=== PATIENT | female | born 1945 | race Caucasian/White ===

== ENCOUNTER → 2018-08-17 | Outpatient (CLI) | payer MEDICARE ==
[2016-06-22 19:02] VITALS: BP 164/82
[~2018-08-17] MED LIST: ALBU2.5V8 INH; ATOR40TA PO; AZIT250T PO; CARV3.1210 PO; CLOP75TA PO; CYCL10TA2 PO; FURO20TA3 PO; IBUP-1060 PO; LISI10TA2 PO; POTA20TA4 PO
--- NOTE | 2018-08-17 15:09 | KCIC ---
Examination: 2 views of the chest HISTORY: History of shortness of breath COMPARISON: 06/22/2016. FINDINGS: Moderate cardiomegaly. Moderate prominent appearing bilateral interstitial lung markings likely moderate congestive changes. There is rounded density projecting in the right midlung zone measuring 5.3 x 3.0 cm along the fissure likely fluid within the fissure. Mild right lung base airspace opacities. Moderate degenerative changes thoracic spine. Calcified granuloma left lung base. IMPRESSION: 1. Moderate congestive changes. 2. Round density measuring 5.3 cm projecting in the right midlung zone along the fissure probably fluid in the fissure. Close interval follow-up examination is recommended. 2. Mild right lung with airspace opacities likely atelectasis or infiltrates. Electronically signed by: Osiel Ridley MD (08/17/2018 3:07 PM) [facility]
== END | disposition home or self-care (01) ==
LOC: KCIC 14:29
PROVIDERS: ATTEND Family Medicine
DX: J84.10 Pulmonary fibrosis, unspecified (principal); I51.7 Cardiomegaly
CPT/HCPCS: 71046

== ENCOUNTER 2019-03-31 16:20 | Inpatient (IN) | payer MEDICARE ==
[~2019-03-31] VITALS: Ht 167.6 cm; Wt 79.9 kg
[~2019-03-31 16:20] MED LIST changes: +ASPI-612 PO; +FURO40TA4 PO; +SACU1TAB PO
--- NOTE | 2019-03-31 17:04 | PHYS DOC ---
Past Medical History Past Medical History: CHF, COPD, High Cholesterol, Hypertension, Renal Failure, Other Additional Past Medical Histor: small aaa approx 2.8 cm, PE Past Surgical History: No Surgical History, Other Additional Past Surgical Histo: CARDIAC CATH with stent Additional Information: pt states "a pack lasts me a week" Alcohol Use: None Drug Use: None Adult General Chief Complaint Chief Complaint: SHORTNESS OF BREATH HPI HPI Patient is a 74 year old female who was brought here by her daughter for evaluation of worsening trouble breathing with exertion, worsening swelling in her lower extremity. Patient live alone BY HERSELF, Patient also appeared that she did not take her medication as directed. Patient also had productive cough, no fever, or chest pain. Patient was admitted here, discharged home about 2 months ago, her daughter stated that her condition never got better. All other ROS is negative unless otherwise noted in HPI Review of Systems Review of Systems See above Current Medications Current Medications Current Medications Medications (Trade) Dose Ordered Sig/[place] Start Time Stop Time Status Last Admin Dose Admin Aspirin (Children'S Aspirin) 324 mg 1X ONCE 03/31/19 18:00 03/31/19 18:01 UNV Furosemide (Lasix) 40 mg 1X ONCE 03/31/19 18:00 03/31/19 18:01 UNV Allergies Allergies Allergies Coded Allergies Type Severity Reaction Last Updated Verified No Known Drug Allergies 04/18/15 No Physical Exam Physical Exam See above Constitutional: Well developed, well nourished, no acute distress, non-toxic appearance. [] HENT: Normocephalic, atraumatic, bilateral external ears normal, oropharynx moist, no oral exudates, nose normal. [] Eyes: PERRLA, EOMI, conjunctiva normal, no discharge. [] Neck: Normal range of motion, no tenderness, supple, no stridor. [] Cardiovascular:Heart rate regular rhythm, no murmur [] Lungs & Thorax: Bilateral breath sound with rales at base. NO respiratory distress. Abdomen: Bowel sounds normal, soft, no tenderness, no masses, no pulsatile masses. ABDOMINAL WALL EDEMA Skin: Warm, dry, no erythema, no rash. [] Back: No tenderness, no CVA tenderness. [] Extremities: bilateral lower extremities edema, pitting 3 plus. Neurologic: Alert and oriented X 3, normal motor function, normal sensory function, no focal deficits noted. [] Psychologic: Affect normal, judgement normal, mood normal. [] Current Patient Data Vital Signs Vital Signs Date Time Temp Pulse Resp B/P (MAP) Pulse Ox O2 Delivery O2 Flow Rate FiO2 03/31/19 16:38 98.3 110 24 166/90 (115) 96 Room Air 98.3 Lab Values Laboratory Tests Test 03/31/19 16:50 White Blood Count 4.3 x10^3/uL (4.0-11.0) Red Blood Count 3.49 x10^6/uL (3.50-5.40) L Hemoglobin 11.4 g/dL (12.0-15.5) L Hematocrit 34.1 % (36.0-47.0) L Mean Corpuscular Volume 98 fL (79-100) Mean Corpuscular Hemoglobin 33 pg (25-35) Mean Corpuscular Hemoglobin Concent 33 g/dL (31-37) Red Cell Distribution Width 15.5 % (11.5-14.5) H Platelet Count 86 x10^3/uL (140-400) L Neutrophils (%) (Auto) 59 % (31-73) Lymphocytes (%) (Auto) 30 % (24-48) Monocytes (%) (Auto) 8 % (0-9) Eosinophils (%) (Auto) 2 % (0-3) Basophils (%) (Auto) 1 % (0-3) Neutrophils # (Auto) 2.6 x10^3/uL (1.8-7.7) Lymphocytes # (Auto) 1.3 x10^3/uL (1.0-4.8) Monocytes # (Auto) 0.3 x10^3/uL (0.0-1.1) Eosinophils # (Auto) 0.1 x10^3/uL (0.0-0.7) Basophils # (Auto) 0.0 x10^3/uL (0.0-0.2) Sodium Level 145 mmol/L (136-145) Potassium Level 3.8 mmol/L (3.5-5.1) Chloride Level 108 mmol/L (98-107) H Carbon Dioxide Level 26 mmol/L (21-32) Anion Gap 11 (6-14) Blood Urea Nitrogen 30 mg/dL (7-20) H Creatinine 1.8 mg/dL (0.6-1.0) H Estimated GFR (Cockcroft-Gault) 27.4 BUN/Creatinine Ratio 17 (6-20) Glucose Level 79 mg/dL (70-99) Calcium Level 8.4 mg/dL (8.5-10.1) L Magnesium Level 2.0 mg/dL (1.8-2.4) Total Bilirubin 2.3 mg/dL (0.2-1.0) H Aspartate Amino Transferase (AST) 32 U/L (15-37) Alanine Aminotransferase (ALT) 13 U/L (14-59) L Alkaline Phosphatase 73 U/L (46-116) Troponin I Quantitative 0.026 ng/mL (0.000-0.055) WR-Kry-R-Type Natriuretic Peptide 93813 pg/mL (0-449) H Total Protein 7.5 g/dL (6.4-8.2) Albumin 3.2 g/dL (3.4-5.0) L Albumin/Globulin Ratio 0.7 (1.0-1.7) L Laboratory Tests 03/31/19 16:50 Laboratory Tests 03/31/19 16:50 EKG EKG EKG done at 1657 show heart rate of 76 6 beats per minute, sinus rhythm , no ST elevation Radiology/Procedures Radiology/Procedures [][facility] [address] [place], [place] [id number] IMAGING REPORT Signed PATIENT: TATA NICOLAS ACCOUNT: [id number] : 1945 LOCATION: ER AGE: 74 SEX: F EXAM STATUS: PRE ER ORD. PHYSICIAN: FELIPE ZURITA DO REASON: Short of breath PROCEDURE: PORTABLE CHEST 1V Examination: PORTABLE CHEST 1V History: Shortness of breath Comparison/Correlation: 11/01/2018 portable chest x-ray exam Findings: Portable upright frontal view of the chest was obtained. Cardiomegaly noted. Right basilar retrocardiac linear atelectasis or scarring is present. Notable improvement in right basilar aeration compared to the prior exam is noted. Left lateral basilar calcified granulomatous present. No pneumothorax. No new infiltrate. Osteopenia noted. Minimal right costophrenic angle blunting is noted. Impression: Retrocardiac right basilar linear atelectasis or scarring. Notable improvement in right basilar pulmonary aeration in the interval. Minimal right pleural effusion or pleural thickening. Electronically signed by: Dalton Singh MD (03/31/2019 5:45 PM) [facility] DICTATED and SIGNED BY: DALTON SINGH MD DATE: 03/31/19 7983 Course & Med Decision Making Course & Med Decision Making Pertinent Labs and Imaging studies reviewed. (See chart for details) [] Dragon Disclaimer Dragon Disclaimer This electronic medical record was generated, in whole or in part, using a voice recognition dictation system. Departure Departure Impression: Primary Impression: CHF exacerbation Additional Impression: Anasarca Disposition: ADMITTED INPATIENT Admitting Physician: STONE () Referrals: KIM EVANS MD (PCP) Problem Qualifiers FELIPE ZURITA DO Mar 31, 2019 17:04
[2019-03-31 17:05] LABS: BASO % 1 % (0-3); EOS # 0.1 x10^3/uL (0.0-0.7); EOS % 2 % (0-3); HEMATOCRIT 34.1 % (36.0-47.0); HEMOGLOBIN 11.4 g/dL (12.0-15.5); LYMPH # 1.3 x10^3/uL (1.0-4.8); LYMPH % 30 % (24-48); MEAN CORPUSCULAR HEMOGLOBIN 33 pg (25-35); MEAN CORPUSCULAR HGB CONC 33 g/dL (31-37); MEAN CORPUSCULAR VOLUME 98 fL (79-100); MONO # 0.3 x10^3/uL (0.0-1.1); MONO % 8 % (0-9); NEUT # 2.6 x10^3/uL (1.8-7.7); NEUT % 59 % (31-73); PLATELET COUNT 86 x10^3/uL (140-400); RED BLOOD COUNT 3.49 x10^6/uL (3.50-5.40); RED CELL DISTRIBUTION WIDTH 15.5 % (11.5-14.5); WHITE BLOOD COUNT 4.3 x10^3/uL (4.0-11.0)
[2019-03-31 17:29] LABS: CALCIUM 8.4 mg/dL (8.5-10.1); CREATININE 1.8 mg/dL (0.6-1.0); GFR 27.4; POTASSIUM 3.8 mmol/L (3.5-5.1)
[2019-03-31 17:35] LABS: ALBUMIN 3.2 g/dL (3.4-5.0); ALBUMIN/GLOBULIN RATIO 0.7 (1.0-1.7); TOTAL BILIRUBIN 2.3 mg/dL (0.2-1.0); TOTAL PROTEIN 7.5 g/dL (6.4-8.2)
--- NOTE | 2019-03-31 17:48 | RAD ---
Examination: PORTABLE CHEST 1V History: Shortness of breath Comparison/Correlation: 11/01/2018 portable chest x-ray exam Findings: Portable upright frontal view of the chest was obtained. Cardiomegaly noted. Right basilar retrocardiac linear atelectasis or scarring is present. Notable improvement in right basilar aeration compared to the prior exam is noted. Left lateral basilar calcified granulomatous present. No pneumothorax. No new infiltrate. Osteopenia noted. Minimal right costophrenic angle blunting is noted. Impression: Retrocardiac right basilar linear atelectasis or scarring. Notable improvement in right basilar pulmonary aeration in the interval. Minimal right pleural effusion or pleural thickening. Electronically signed by: Dalton Ventura MD (03/31/2019 5:45 PM) [facility] [place]
[2019-03-31] MEDS ORDERED: ASPIRIN CHEWABLE 81 MG TABLET. PO ONE (18:00)
[2019-03-31] MEDS ORDERED: FUROSEMIDE 40 MG/4 ML VIAL. IVP ONE (18:00)
[2019-03-31 18:05] LABS: BILIRUBIN,URINE NEGATIVE (NEG); CLARITY,URINE CLEAR; COLOR,URINE YELLOW; NITRITE,URINE NEGATIVE (NEG); PROTEIN,URINE 30 mg/dL (NEG-TRACE)
[2019-03-31] MEDS ORDERED: ONDANSETRON PF 4 MG/2 ML VIAL. IV PRN (18:15)
[2019-03-31 18:18] LABS: HYALINE CASTS, URINE MODERATE /HPF; SQUAMOUS EPITHELIAL CELL,UR MOD /LPF
[2019-03-31 18:19] LABS: BACTERIA,URINE MANY /HPF (0-FEW)
[2019-03-31 19:30] VITALS: BP 159/87
[2019-03-31] MEDS ORDERED: LISI-334 PO (23:50)
[2019-03-31 23:54] VITALS: BP 137/64
[2019-04-01 03:30] VITALS: BP 141/59
[2019-04-01 04:22] LABS: PROTHROMBIN TIME PATIENT 16.1 SEC (11.7-14.0)
--- NOTE | 2019-04-01 04:37 | EKG ---
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
[2019-04-01 05:42] LABS: CREATININE 1.8 mg/dL (0.6-1.0); GFR 27.4; POTASSIUM 3.4 mmol/L (3.5-5.1)
[2019-04-01 07:00] VITALS: BP 179/63
[2019-04-01 11:00] VITALS: BP 140/71
[2019-04-01] MEDS: POTASSIUM CHLORIDE 20 MEQ TABLET.ER. PO SCH ×2 (11:48→17:54)
[2019-04-01] MEDS: FUROSEMIDE 40 MG TABLET. PO SCH (11:48)
[2019-04-01] MEDS: CLOPIDOGREL BISULFATE 75 MG TABLET PO SCH (11:48)
[2019-04-01] MEDS: ASPIRIN ENTERIC COATED 81 MG TABLET.DR. PO SCH (11:48)
[2019-04-01] MEDS: LISINOPRIL 20 MG TABLET PO SCH (11:49)
--- NOTE | 2019-04-01 12:29 | HP ---
ADMIT DATE: 03/31/2019 CHIEF COMPLAINT: Shortness of breath. HISTORY OF PRESENT ILLNESS: The patient is a pleasant 74-year-old female who presented to the ER with shortness of breath. She has been having some lower extremity swelling. She states she lives by herself. Rates her symptoms as a 7/10. She also had a productive cough. States she was discharged here about 2 months ago for similar issues where she was treated for heart failure. I discussed the case with ER physician. Patient appears to be in acute on chronic systolic and diastolic heart failure. We admitted the patient and consult Cardiology and give her IV Lasix. PAST MEDICAL HISTORY: Previous heart failure, COPD, hypertension, renal failure, AAA about 2.8 cm, PE, cardiac catheterization with stents. She smokes less than a pack per week. ALLERGIES: None. FAMILY HISTORY: Diabetes. SOCIAL HISTORY: She smokes less than a pack per week. MEDICATIONS: Reviewed, please refer to the MRAD. REVIEW OF SYSTEMS: REVIEW OF SYSTEMS: GENERAL: No history of weight change, weakness or fevers. SKIN: No bruising, hair changes or rashes. EYES: No blurred, double or loss of vision. NOSE AND THROAT: No history of nosebleeds, hoarseness or sore throat. HEART: No history of palpitations, chest pain or shortness of breath on exertion. LUNGS: She complains of shortness of breath. GASTROINTESTINAL: Denies changes in appetite, nausea, vomiting, diarrhea or constipation. GENITOURINARY: No history of frequency, urgency, hesitancy or nocturia. NEUROLOGIC: Denies history of numbness, tingling, tremor or weakness. PSYCHIATRIC: No history of panic, anxiety or depression. ENDOCRINE: No history of heat or cold intolerance, polyuria or polydipsia. EXTREMITIES: Denies muscle weakness, joint pain, pain on walking or stiffness. PHYSICAL EXAMINATION: VITALS: Within normal limits and are stable. GENERAL: No apparent distress. Alert and oriented. HEENT: Head is normocephalic, atraumatic, pupils were equally round and reactive to light and accommodation. NECK: Supple, no JVD, no thyromegaly was noted. LUNGS: She has some wheezing diffusely. HEART: RRR, S1, S2 present. Peripheral pulses intact, no obvious murmurs were noted. ABDOMEN: Soft, nontender. Positive bowel sounds no organomegaly, normal bowel sounds. EXTREMITIES: Without any cyanosis, clubbing, or edema. Pedal pulses intact, Homans sign is negative. NEUROLOGIC: Normal speech, normal tone. A & O x3, moves all extremities, no obvious focal deficits. PSYCHIATRIC: Normal affect, normal mood. Stable. SKIN: No ulcerations or rashes, good skin turgor, no jaundice. VASCULAR: Good capillary refill, neurovascular bundle appears to be intact. LABORATORY DATA: Hemoglobin is 11.4. Electrolytes: Sodium 146, potassium 3.4, chloride 108, bicarbonate 28, BUN 30, creatinine 1.8, glucose 80. BNP 15,774. Chest x-ray shows vascular congestion. ASSESSMENT: Acute on chronic systolic and diastolic heart. PLAN: The patient is being admitted. We will check serial enzymes, serial EKGs, echocardiogram, cardiac monitoring. Consult Cardiology. IV Lasix, home meds, DVT prophylaxis, full code. DANIEL ARCHIBALD DO DR: ABEL/kurtis JOB#: [id number] / [id number]
[2019-04-01] MEDS: CYCLOBENZAPRINE 10 MG TABLET. PO SCH ×2 (14:00→21:05)
--- NOTE | 2019-04-01 14:07 | PDOC2 ---
CONSULT Date of Consult Date of Consult DATE: 04/01/19 TIME: 14:02 Reason for Consult Reason for Consult: Heart failure Referring Physician Referring Physician: Dr. Romero Identification/Chief Complaint Chief Complaint Shortness of breath Source Source: Chart review, Patient History of Present Illness Reason for Visit: The patient is a 74-year-old female who reports several days of increasing shortness of breath. Patient has a history of mildly decreased ejection fraction at 40-45% with mild to moderate mitral regurgitation and an elevated pulmonary pressure at 49 mmHg. Additionally she has COPD and continues to smoke as well as hypertension and chronic kidney disease. Patient apparently missed some of her medications and initially he has been treated for heart failure. She is feeling better overnight after diuresis. Chest x-ray shows an improved film over the last several months with a minimal right pleural effusion. She denies chest pain. Past Medical History Cardiovascular: CAD, HTN, Hyperlipidemia, Other Pulmonary: COPD, Pneumonia CENTRAL NERVOUS SYSTEM: Other GI: No pertinent hx Heme/Onc: No pertinent hx Hepatobiliary: No pertinent hx Psych: No pertinent hx Musculoskeletal: low back pain, Osteoarthritis Infectious disease: No pertinent hx Renal/: No pertinent hx Endocrine: No pertinent hx Past Surgical History Past Surgical History: Cataract Removal Family History Family History: High Cholestrol, Hypertension Social History <1 pack per day ALCOHOL: none Drugs: None Lives: Alone Current Problem List Problem List Problems Medical Problems: (1) Anasarca Status: Acute (2) CHF exacerbation Status: Acute Current Medications Current Medications Current Medications Aspirin (Children'S Aspirin) 324 mg 1X ONCE PO Last administered on 03/31/19at 18:24; Start 03/31/19 at 18:00; Stop 03/31/19 at 18:01; Status DC Furosemide (Lasix) 40 mg 1X ONCE IVP Last administered on 03/31/19at 18:24; Start 03/31/19 at 18:00; Stop 03/31/19 at 18:01; Status DC Ondansetron HCl (Zofran) 4 mg PRN Q8HRS PRN IV NAUSEA/VOMITING; Start 03/31/19 at 18:15; Stop 04/01/19 at 18:14 Aspirin (Ecotrin) 81 mg DAILYWBKFT PO Last administered on 04/01/19at 11:48; Start 04/01/19 at 11:00 Atorvastatin Calcium (Lipitor) 40 mg QHS PO ; Start 04/01/19 at 21:00 Carvedilol (Coreg) 3.125 mg BIDWMEALS PO ; Start 04/01/19 at 17:00 Clopidogrel Bisulfate (Plavix) 75 mg DAILY PO Last administered on 04/01/19at 11:48; Start 04/01/19 at 11:00 Cyclobenzaprine HCl (Flexeril) 10 mg TID PO ; Start 04/01/19 at 14:00 Furosemide (Lasix) 40 mg DAILY PO Last administered on 04/01/19at 11:48; Start 04/01/19 at 11:00 Lisinopril (Prinivil) 20 mg DAILY PO Last administered on 04/01/19at 11:49; Start 04/01/19 at 11:00 Potassium Chloride (Klor-Con) 20 meq BIDWMEALS PO Last administered on 04/01/19at 11:48; Start 04/01/19 at 11:00 Sacubitril/ Valsartan (Entresto 24 Mg-26 Mg) 1 tab BID PO ; Start 04/01/19 at 21:00; Stop 04/01/19 at 10:51; Status DC Active Scripts Active Furosemide 40 Mg Tablet 40 Mg PO DAILY 30 Days Aspirin Ec (Aspirin) 81 Mg Tablet.dr 81 Mg PO DAILYWBKFT 30 Days Entresto 24 mg-26 mg Tablet (Sacubitril/Valsartan) 1 Each Tablet 1 Tab PO BID 30 Days Cyclobenzaprine Hcl 10 Mg Tablet 10 Mg PO TID Zithromax (Azithromycin) 250 Mg Tablet 1 Pkg PO UD Proair Hfa Inhaler (Albuterol Sulfate) 8.5 Gm Hfa.aer.ad 1 Puff INH PRN Q6HRS PRN Reported Lisinopril 20 Mg Tablet 1 Tab PO DAILY Lipitor (Atorvastatin Calcium) 40 Mg Tablet 1 Tab PO QHS Clopidogrel (Clopidogrel Bisulfate) 75 Mg Tablet 75 Mg PO DAILY Carvedilol (Carvedilol) 3.125 Mg Tablet 3.125 Mg PO BIDWMEALS Klor-Con M20 (Potassium Chloride) 20 Meq Tab.er.prt 20 Meq PO BID Allergies Allergies: Coded Allergies: No Known Drug Allergies (Unverified , 04/18/15) ROS General: YES: Fatigue Respiratory: YES: Shortness of breath, SOB with excertion Physical Exam General: mild distress HEENT: Atraumatic Lungs: Other (decreased breath sounds) Heart: Regular rate Abdomen: Normal bowel sounds Vitals VITALS Vital Signs Date Time Temp Pulse Resp B/P (MAP) Pulse Ox O2 Delivery O2 Flow Rate FiO2 04/01/19 11:49 86 140/71 04/01/19 11:00 98.1 21 97 Room Air 98.1 Labs Labs Laboratory Tests Test 03/31/19 16:50 03/31/19 17:55 04/01/19 04:00 04/01/19 04:30 White Blood Count 4.3 x10^3/uL (4.0-11.0) Red Blood Count 3.49 x10^6/uL (3.50-5.40) Hemoglobin 11.4 g/dL (12.0-15.5) Hematocrit 34.1 % (36.0-47.0) Mean Corpuscular Volume 98 fL (79-100) Mean Corpuscular Hemoglobin 33 pg (25-35) Mean Corpuscular Hemoglobin Concent 33 g/dL (31-37) Red Cell Distribution Width 15.5 % (11.5-14.5) Platelet Count 86 x10^3/uL (140-400) Neutrophils (%) (Auto) 59 % (31-73) Lymphocytes (%) (Auto) 30 % (24-48) Monocytes (%) (Auto) 8 % (0-9) Eosinophils (%) (Auto) 2 % (0-3) Basophils (%) (Auto) 1 % (0-3) Neutrophils # (Auto) 2.6 x10^3/uL (1.8-7.7) Lymphocytes # (Auto) 1.3 x10^3/uL (1.0-4.8) Monocytes # (Auto) 0.3 x10^3/uL (0.0-1.1) Eosinophils # (Auto) 0.1 x10^3/uL (0.0-0.7) Basophils # (Auto) 0.0 x10^3/uL (0.0-0.2) Sodium Level 145 mmol/L (136-145) 146 mmol/L (136-145) Potassium Level 3.8 mmol/L (3.5-5.1) 3.4 mmol/L (3.5-5.1) Chloride Level 108 mmol/L (98-107) 108 mmol/L (98-107) Carbon Dioxide Level 26 mmol/L (21-32) 28 mmol/L (21-32) Anion Gap 11 (6-14) 10 (6-14) Blood Urea Nitrogen 30 mg/dL (7-20) 30 mg/dL (7-20) Creatinine 1.8 mg/dL (0.6-1.0) 1.8 mg/dL (0.6-1.0) Estimated GFR (Cockcroft-Gault) 27.4 27.4 BUN/Creatinine Ratio 17 (6-20) Glucose Level 79 mg/dL (70-99) 80 mg/dL (70-99) Calcium Level 8.4 mg/dL (8.5-10.1) 8.0 mg/dL (8.5-10.1) Magnesium Level 2.0 mg/dL (1.8-2.4) Total Bilirubin 2.3 mg/dL (0.2-1.0) Aspartate Amino Transf (AST/SGOT) 32 U/L (15-37) Alanine Aminotransferase (ALT/SGPT) 13 U/L (14-59) Alkaline Phosphatase 73 U/L (46-116) Troponin I Quantitative 0.026 ng/mL (0.000-0.055) XY-Hzb-L-Type Natriuretic Peptide 51213 pg/mL (0-449) 28882 pg/mL (0-449) Total Protein 7.5 g/dL (6.4-8.2) Albumin 3.2 g/dL (3.4-5.0) Albumin/Globulin Ratio 0.7 (1.0-1.7) Urine Collection Type Unknown Urine Color Yellow Urine Clarity Clear Urine pH 6.0 Urine Specific [place] 1.020 Urine Protein 30 mg/dL (NEG-TRACE) Urine Glucose (UA) Negative mg/dL (NEG) Urine Ketones (Stick) Negative mg/dL (NEG) Urine Blood Negative (NEG) Urine Nitrite Negative (NEG) Urine Bilirubin Negative (NEG) Urine Urobilinogen Dipstick 2.0 mg/dL (0.2 mg/dL) Urine Leukocyte Esterase Negative (NEG) Urine RBC 3-5 /HPF (0-2) Urine WBC 5-10 /HPF (0-4) Urine Squamous Epithelial Cells Mod /LPF Urine Bacteria Many /HPF (0-FEW) Urine Hyaline Casts Moderate /HPF Urine Mucus Slight /LPF Prothrombin Time 16.1 SEC (11.7-14.0) Prothromb Time International Ratio 1.3 (0.8-1.1) Activated Partial Thromboplast Time 40 SEC (24-38) Laboratory Tests Test 03/31/19 16:50 03/31/19 17:55 04/01/19 04:00 04/01/19 04:30 White Blood Count 4.3 x10^3/uL (4.0-11.0) Red Blood Count 3.49 x10^6/uL (3.50-5.40) Hemoglobin 11.4 g/dL (12.0-15.5) Hematocrit 34.1 % (36.0-47.0) Mean Corpuscular Volume 98 fL (79-100) Mean Corpuscular Hemoglobin 33 pg (25-35) Mean Corpuscular Hemoglobin Concent 33 g/dL (31-37) Red Cell Distribution Width 15.5 % (11.5-14.5) Platelet Count 86 x10^3/uL (140-400) Neutrophils (%) (Auto) 59 % (31-73) Lymphocytes (%) (Auto) 30 % (24-48) Monocytes (%) (Auto) 8 % (0-9) Eosinophils (%) (Auto) 2 % (0-3) Basophils (%) (Auto) 1 % (0-3) Neutrophils # (Auto) 2.6 x10^3/uL (1.8-7.7) Lymphocytes # (Auto) 1.3 x10^3/uL (1.0-4.8) Monocytes # (Auto) 0.3 x10^3/uL (0.0-1.1) Eosinophils # (Auto) 0.1 x10^3/uL (0.0-0.7) Basophils # (Auto) 0.0 x10^3/uL (0.0-0.2) Sodium Level 145 mmol/L (136-145) 146 mmol/L (136-145) Potassium Level 3.8 mmol/L (3.5-5.1) 3.4 mmol/L (3.5-5.1) Chloride Level 108 mmol/L (98-107) 108 mmol/L (98-107) Carbon Dioxide Level 26 mmol/L (21-32) 28 mmol/L (21-32) Anion Gap 11 (6-14) 10 (6-14) Blood Urea Nitrogen 30 mg/dL (7-20) 30 mg/dL (7-20) Creatinine 1.8 mg/dL (0.6-1.0) 1.8 mg/dL (0.6-1.0) Estimated GFR (Cockcroft-Gault) 27.4 27.4 BUN/Creatinine Ratio 17 (6-20) Glucose Level 79 mg/dL (70-99) 80 mg/dL (70-99) Calcium Level 8.4 mg/dL (8.5-10.1) 8.0 mg/dL (8.5-10.1) Magnesium Level 2.0 mg/dL (1.8-2.4) Total Bilirubin 2.3 mg/dL (0.2-1.0) Aspartate Amino Transf (AST/SGOT) 32 U/L (15-37) Alanine Aminotransferase (ALT/SGPT) 13 U/L (14-59) Alkaline Phosphatase 73 U/L (46-116) Troponin I Quantitative 0.026 ng/mL (0.000-0.055) RC-Cnv-T-Type Natriuretic Peptide 80014 pg/mL (0-449) 06444 pg/mL (0-449) Total Protein 7.5 g/dL (6.4-8.2) Albumin 3.2 g/dL (3.4-5.0) Albumin/Globulin Ratio 0.7 (1.0-1.7) Urine Collection Type Unknown Urine Color Yellow Urine Clarity Clear Urine pH 6.0 Urine Specific [place] 1.020 Urine Protein 30 mg/dL (NEG-TRACE) Urine Glucose (UA) Negative mg/dL (NEG) Urine Ketones (Stick) Negative mg/dL (NEG) Urine Blood Negative (NEG) Urine Nitrite Negative (NEG) Urine Bilirubin Negative (NEG) Urine Urobilinogen Dipstick 2.0 mg/dL (0.2 mg/dL) Urine Leukocyte Esterase Negative (NEG) Urine RBC 3-5 /HPF (0-2) Urine WBC 5-10 /HPF (0-4) Urine Squamous Epithelial Cells Mod /LPF Urine Bacteria Many /HPF (0-FEW) Urine Hyaline Casts Moderate /HPF Urine Mucus Slight /LPF Prothrombin Time 16.1 SEC (11.7-14.0) Prothromb Time International Ratio 1.3 (0.8-1.1) Activated Partial Thromboplast Time 40 SEC (24-38) Images Images Chest x-ray as above. Echo from 11/02/18 ejection fraction of 40-45%, mild aortic stenosis, mild to moderate mitral regurgitation, mild tricuspid regurgitation with a pulmonary artery pressure 49. Assessment/Plan Assessment/Plan 1. Acute on chronic systolic heart failure. BNP elevated at 15,000 548. Troponin minimally elevated at 0.0-6. No chest pain. We'll continue to diurese the patient. Continue baseline medications. Monitoring lab. 2. History of probable coronary artery disease. No chest pain. No significant elevation in troponin. 3. COPD. Continue pulmonary medications. Patient continues to smoke cigarettes. 4. Hypertension. Blood pressure under reasonable control. Continue medications and monitor. 5. Hyperlipidemia. Continue medication. Check morning lab. 6. Chronic kidney disease. Continue to monitor lab. Thank you for allowing us to participate in the care of your patient. MOODY FOURNIER MD Apr 01, 2019 14:07
[2019-04-01 15:00] VITALS: BP 131/57
[2019-04-01] MEDS: CARVEDILOL 3.125 MG TABLET. PO SCH (17:54)
[2019-04-01 19:00] VITALS: BP 151/73
[2019-04-01] MEDS ORDERED: SACUBITRIL/VALSARTAN 24/26MG TABLET. PO SCH (21:00)
[2019-04-01] MEDS: ATORVASTATIN CALCIUM 40 MG TABLET. PO SCH (21:05)
[2019-04-01 23:10] VITALS: BP 146/68
[2019-04-02 03:15] VITALS: BP 119/54
[2019-04-02 07:00] VITALS: BP 141/70
[2019-04-02 07:30] LABS: BASO % 1 % (0-3); EOS # 0.2 x10^3/uL (0.0-0.7); EOS % 5 % (0-3); HEMATOCRIT 32.7 % (36.0-47.0); HEMOGLOBIN 10.9 g/dL (12.0-15.5); LYMPH # 1.5 x10^3/uL (1.0-4.8); LYMPH % 33 % (24-48); MEAN CORPUSCULAR HEMOGLOBIN 32 pg (25-35); MEAN CORPUSCULAR HGB CONC 33 g/dL (31-37); MEAN CORPUSCULAR VOLUME 97 fL (79-100); MONO # 0.5 x10^3/uL (0.0-1.1); MONO % 12 % (0-9); NEUT # 2.2 x10^3/uL (1.8-7.7); NEUT % 50 % (31-73); PLATELET COUNT 128 x10^3/uL (140-400); RED BLOOD COUNT 3.37 x10^6/uL (3.50-5.40); RED CELL DISTRIBUTION WIDTH 15.9 % (11.5-14.5); WHITE BLOOD COUNT 4.5 x10^3/uL (4.0-11.0)
[2019-04-02 07:32] LABS: CALCIUM 7.7 mg/dL (8.5-10.1); CREATININE 1.9 mg/dL (0.6-1.0); GFR 25.7; MAGNESIUM 1.9 mg/dL (1.8-2.4)
[2019-04-02] MEDS: LISINOPRIL 20 MG TABLET PO SCH (08:57)
[2019-04-02] MEDS: ASPIRIN ENTERIC COATED 81 MG TABLET.DR. PO SCH (08:57)
[2019-04-02] MEDS: POTASSIUM CHLORIDE 20 MEQ TABLET.ER. PO SCH ×2 (08:57→17:31)
[2019-04-02] MEDS: FUROSEMIDE 40 MG TABLET. PO SCH (08:57)
[2019-04-02] MEDS: CARVEDILOL 3.125 MG TABLET. PO SCH ×2 (08:58→17:31)
[2019-04-02] MEDS: CLOPIDOGREL BISULFATE 75 MG TABLET PO SCH (08:58)
[2019-04-02] MEDS: CYCLOBENZAPRINE 10 MG TABLET. PO SCH ×3 (08:58→20:56)
[2019-04-02 10:41] VITALS: BP 131/55
--- NOTE | 2019-04-02 13:32 | PDOC ---
[employer] PROGRESS NOTE Chief Complaint Chief Complaint Acute on chronic systolic heart failure History of probable coronary artery disease COPD Hypertension Hyperlipidemia Chronic kidney disease History of Present Illness History of Present Illness 04/02/2019 Pt was seen and examined. Pt reports no acute distress this morning. Was slightly hostile to interview adamantly stating she is Yolanda Billings. Vitals/I&O Vitals/I&O: Vital Signs Date Time Temp Pulse Resp B/P (MAP) Pulse Ox O2 Delivery O2 Flow Rate FiO2 04/02/19 10:41 98.4 70 16 131/55 (80) 94 Room Air 98.4 I & O 04/01/19 04/01/19 04/02/19 15:00 23:00 07:00 Intake Total 360 ml 480 ml 150 ml Output Total 600 ml 600 ml 700 ml Balance -240 ml -120 ml -550 ml Physical Exam General: Alert, Oriented X3, Cooperative, mild distress Heart: Regular rate Lungs: Crackles Abdomen: Normal bowel sounds Extremities: No clubbing, No cyanosis Skin: No rashes, No breakdown Labs Labs: Laboratory Tests Test 04/02/19 05:25 White Blood Count 4.5 x10^3/uL (4.0-11.0) Red Blood Count 3.37 x10^6/uL (3.50-5.40) Hemoglobin 10.9 g/dL (12.0-15.5) Hematocrit 32.7 % (36.0-47.0) Mean Corpuscular Volume 97 fL (79-100) Mean Corpuscular Hemoglobin 32 pg (25-35) Mean Corpuscular Hemoglobin Concent 33 g/dL (31-37) Red Cell Distribution Width 15.9 % (11.5-14.5) Platelet Count 128 x10^3/uL (140-400) Neutrophils (%) (Auto) 50 % (31-73) Lymphocytes (%) (Auto) 33 % (24-48) Monocytes (%) (Auto) 12 % (0-9) Eosinophils (%) (Auto) 5 % (0-3) Basophils (%) (Auto) 1 % (0-3) Neutrophils # (Auto) 2.2 x10^3/uL (1.8-7.7) Lymphocytes # (Auto) 1.5 x10^3/uL (1.0-4.8) Monocytes # (Auto) 0.5 x10^3/uL (0.0-1.1) Eosinophils # (Auto) 0.2 x10^3/uL (0.0-0.7) Basophils # (Auto) 0.0 x10^3/uL (0.0-0.2) Sodium Level 143 mmol/L (136-145) Potassium Level 4.0 mmol/L (3.5-5.1) Chloride Level 105 mmol/L (98-107) Carbon Dioxide Level 28 mmol/L (21-32) Anion Gap 10 (6-14) Blood Urea Nitrogen 32 mg/dL (7-20) Creatinine 1.9 mg/dL (0.6-1.0) Estimated GFR (Cockcroft-Gault) 25.7 Glucose Level 82 mg/dL (70-99) Calcium Level 7.7 mg/dL (8.5-10.1) Magnesium Level 1.9 mg/dL (1.8-2.4) Review of Systems Review of Systems: Denies CP Denies SOB Denies N/V/D Assessment and Plan Assessmemt and Plan Problems Medical Problems: (1) Anasarca Status: Acute (2) CHF exacerbation Status: Acute Acute on chronic systolic heart failure History of probable coronary artery disease COPD Hypertension Hyperlipidemia Chronic kidney disease Plan: 1) Appreciate cardiology input and recommendations 2) Continue diureses per cardiology 3) Daily labs 4) PT/OT 5) DVT prophylaxis Comment Review of Relevant I have reviewed the following items yuliana (where applicable) has been applied. Medications: Current Medications Medications (Trade) Dose Ordered Sig/[place] Route PRN Reason Start Time Stop Time Status Last Admin Dose Admin Atorvastatin Calcium (Lipitor) 40 mg QHS PO 04/01/19 21:00 04/01/19 21:05 Carvedilol (Coreg) 3.125 mg BIDWMEALS PO 04/01/19 17:00 04/02/19 08:58 Cyclobenzaprine HCl (Flexeril) 10 mg TID PO 04/01/19 14:00 04/01/19 21:05 DANIEL ARCHIBALD III DO Apr 02, 2019 13:32
--- NOTE | 2019-04-02 14:00 | PDOC ---
PROGRESS NOTES Subjective Subjective Patient seen and examined She is feeling better today. Objective Objective Vital Signs Date Time Temp Pulse Resp B/P (MAP) Pulse Ox O2 Delivery O2 Flow Rate FiO2 04/02/19 10:41 98.4 70 16 131/55 (80) 94 Room Air 98.4 Intake and Output 04/02/19 07:00 Intake Total 990 ml Output Total 1900 ml Balance -910 ml Intake Oral 990 ml Output Urine Total 1900 ml Physical Exam Abdomen: Normal bowel sounds Heart: Regular rate General: mild distress Lungs: Other (minimally decreased breath sounds) Assessment Assessment Problems Medical Problems: (1) Anasarca Status: Acute (2) CHF exacerbation Status: Acute Assessment/Plan 1. Acute on chronic systolic heart failure. BNP elevated at 15,548. Troponin minimally elevated at 0.0-6. No chest pain. Reasonable diuresis overnight. Creatinine slightly increased from 1.8-1.9. Continue medications and monitor lab. 2. History of probable coronary artery disease. No chest pain. No significant elevation in troponin. Continue medical treatment. 3. COPD. Continue pulmonary medications. Patient continues to smoke cigarettes. 4. Hypertension. Blood pressure under reasonable control. Continue medications and monitor. 5. Hyperlipidemia. Continue medication. 6. Chronic kidney disease. Continue to monitor lab. Morning creat at 1.9. Comment Review of Relevant I have reviewed the following items yuliana (where applicable) has been applied. Labs Laboratory Tests Test 03/31/19 16:50 03/31/19 17:55 04/01/19 04:00 04/01/19 04:30 White Blood Count 4.3 x10^3/uL (4.0-11.0) Red Blood Count 3.49 x10^6/uL (3.50-5.40) Hemoglobin 11.4 g/dL (12.0-15.5) Hematocrit 34.1 % (36.0-47.0) Mean Corpuscular Volume 98 fL (79-100) Mean Corpuscular Hemoglobin 33 pg (25-35) Mean Corpuscular Hemoglobin Concent 33 g/dL (31-37) Red Cell Distribution Width 15.5 % (11.5-14.5) Platelet Count 86 x10^3/uL (140-400) Neutrophils (%) (Auto) 59 % (31-73) Lymphocytes (%) (Auto) 30 % (24-48) Monocytes (%) (Auto) 8 % (0-9) Eosinophils (%) (Auto) 2 % (0-3) Basophils (%) (Auto) 1 % (0-3) Neutrophils # (Auto) 2.6 x10^3/uL (1.8-7.7) Lymphocytes # (Auto) 1.3 x10^3/uL (1.0-4.8) Monocytes # (Auto) 0.3 x10^3/uL (0.0-1.1) Eosinophils # (Auto) 0.1 x10^3/uL (0.0-0.7) Basophils # (Auto) 0.0 x10^3/uL (0.0-0.2) Sodium Level 145 mmol/L (136-145) 146 mmol/L (136-145) Potassium Level 3.8 mmol/L (3.5-5.1) 3.4 mmol/L (3.5-5.1) Chloride Level 108 mmol/L (98-107) 108 mmol/L (98-107) Carbon Dioxide Level 26 mmol/L (21-32) 28 mmol/L (21-32) Anion Gap 11 (6-14) 10 (6-14) Blood Urea Nitrogen 30 mg/dL (7-20) 30 mg/dL (7-20) Creatinine 1.8 mg/dL (0.6-1.0) 1.8 mg/dL (0.6-1.0) Estimated GFR (Cockcroft-Gault) 27.4 27.4 BUN/Creatinine Ratio 17 (6-20) Glucose Level 79 mg/dL (70-99) 80 mg/dL (70-99) Calcium Level 8.4 mg/dL (8.5-10.1) 8.0 mg/dL (8.5-10.1) Magnesium Level 2.0 mg/dL (1.8-2.4) Total Bilirubin 2.3 mg/dL (0.2-1.0) Aspartate Amino Transf (AST/SGOT) 32 U/L (15-37) Alanine Aminotransferase (ALT/SGPT) 13 U/L (14-59) Alkaline Phosphatase 73 U/L (46-116) Troponin I Quantitative 0.026 ng/mL (0.000-0.055) PT-Niy-B-Type Natriuretic Peptide 70580 pg/mL (0-449) 29561 pg/mL (0-449) Total Protein 7.5 g/dL (6.4-8.2) Albumin 3.2 g/dL (3.4-5.0) Albumin/Globulin Ratio 0.7 (1.0-1.7) Urine Collection Type Unknown Urine Color Yellow Urine Clarity Clear Urine pH 6.0 Urine Specific [place] 1.020 Urine Protein 30 mg/dL (NEG-TRACE) Urine Glucose (UA) Negative mg/dL (NEG) Urine Ketones (Stick) Negative mg/dL (NEG) Urine Blood Negative (NEG) Urine Nitrite Negative (NEG) Urine Bilirubin Negative (NEG) Urine Urobilinogen Dipstick 2.0 mg/dL (0.2 mg/dL) Urine Leukocyte Esterase Negative (NEG) Urine RBC 3-5 /HPF (0-2) Urine WBC 5-10 /HPF (0-4) Urine Squamous Epithelial Cells Mod /LPF Urine Bacteria Many /HPF (0-FEW) Urine Hyaline Casts Moderate /HPF Urine Mucus Slight /LPF Prothrombin Time 16.1 SEC (11.7-14.0) Prothromb Time International Ratio 1.3 (0.8-1.1) Activated Partial Thromboplast Time 40 SEC (24-38) Test 04/02/19 05:25 White Blood Count 4.5 x10^3/uL (4.0-11.0) Red Blood Count 3.37 x10^6/uL (3.50-5.40) Hemoglobin 10.9 g/dL (12.0-15.5) Hematocrit 32.7 % (36.0-47.0) Mean Corpuscular Volume 97 fL (79-100) Mean Corpuscular Hemoglobin 32 pg (25-35) Mean Corpuscular Hemoglobin Concent 33 g/dL (31-37) Red Cell Distribution Width 15.9 % (11.5-14.5) Platelet Count 128 x10^3/uL (140-400) Neutrophils (%) (Auto) 50 % (31-73) Lymphocytes (%) (Auto) 33 % (24-48) Monocytes (%) (Auto) 12 % (0-9) Eosinophils (%) (Auto) 5 % (0-3) Basophils (%) (Auto) 1 % (0-3) Neutrophils # (Auto) 2.2 x10^3/uL (1.8-7.7) Lymphocytes # (Auto) 1.5 x10^3/uL (1.0-4.8) Monocytes # (Auto) 0.5 x10^3/uL (0.0-1.1) Eosinophils # (Auto) 0.2 x10^3/uL (0.0-0.7) Basophils # (Auto) 0.0 x10^3/uL (0.0-0.2) Sodium Level 143 mmol/L (136-145) Potassium Level 4.0 mmol/L (3.5-5.1) Chloride Level 105 mmol/L (98-107) Carbon Dioxide Level 28 mmol/L (21-32) Anion Gap 10 (6-14) Blood Urea Nitrogen 32 mg/dL (7-20) Creatinine 1.9 mg/dL (0.6-1.0) Estimated GFR (Cockcroft-Gault) 25.7 Glucose Level 82 mg/dL (70-99) Calcium Level 7.7 mg/dL (8.5-10.1) Magnesium Level 1.9 mg/dL (1.8-2.4) Laboratory Tests Test 04/02/19 05:25 White Blood Count 4.5 x10^3/uL (4.0-11.0) Red Blood Count 3.37 x10^6/uL (3.50-5.40) Hemoglobin 10.9 g/dL (12.0-15.5) Hematocrit 32.7 % (36.0-47.0) Mean Corpuscular Volume 97 fL (79-100) Mean Corpuscular Hemoglobin 32 pg (25-35) Mean Corpuscular Hemoglobin Concent 33 g/dL (31-37) Red Cell Distribution Width 15.9 % (11.5-14.5) Platelet Count 128 x10^3/uL (140-400) Neutrophils (%) (Auto) 50 % (31-73) Lymphocytes (%) (Auto) 33 % (24-48) Monocytes (%) (Auto) 12 % (0-9) Eosinophils (%) (Auto) 5 % (0-3) Basophils (%) (Auto) 1 % (0-3) Neutrophils # (Auto) 2.2 x10^3/uL (1.8-7.7) Lymphocytes # (Auto) 1.5 x10^3/uL (1.0-4.8) Monocytes # (Auto) 0.5 x10^3/uL (0.0-1.1) Eosinophils # (Auto) 0.2 x10^3/uL (0.0-0.7) Basophils # (Auto) 0.0 x10^3/uL (0.0-0.2) Sodium Level 143 mmol/L (136-145) Potassium Level 4.0 mmol/L (3.5-5.1) Chloride Level 105 mmol/L (98-107) Carbon Dioxide Level 28 mmol/L (21-32) Anion Gap 10 (6-14) Blood Urea Nitrogen 32 mg/dL (7-20) Creatinine 1.9 mg/dL (0.6-1.0) Estimated GFR (Cockcroft-Gault) 25.7 Glucose Level 82 mg/dL (70-99) Calcium Level 7.7 mg/dL (8.5-10.1) Magnesium Level 1.9 mg/dL (1.8-2.4) Medications Current Medications Aspirin (Children'S Aspirin) 324 mg 1X ONCE PO Last administered on 03/31/19 18:24; Start 03/31/19 at 18:00; Stop 03/31/19 at 18:01; Status DC Furosemide (Lasix) 40 mg 1X ONCE IVP Last administered on 03/31/19 18:24; Start 03/31/19 at 18:00; Stop 03/31/19 at 18:01; Status DC Ondansetron HCl (Zofran) 4 mg PRN Q8HRS PRN IV NAUSEA/VOMITING; Start 03/31/19 at 18:15; Stop 04/01/19 at 18:14; Status DC Aspirin (Ecotrin) 81 mg DAILYWBKFT PO Last administered on 04/02/19 08:57; Start 04/01/19 at 11:00 Atorvastatin Calcium (Lipitor) 40 mg QHS PO Last administered on 04/01/19 21:05; Start 04/01/19 at 21:00 Carvedilol (Coreg) 3.125 mg BIDWMEALS PO Last administered on 04/02/19 08:58; Start 04/01/19 at 17:00 Clopidogrel Bisulfate (Plavix) 75 mg DAILY PO Last administered on 04/02/19 08:58; Start 04/01/19 at 11:00 Cyclobenzaprine HCl (Flexeril) 10 mg TID PO Last administered on 04/01/19 21:05; Start 04/01/19 at 14:00 Furosemide (Lasix) 40 mg DAILY PO Last administered on 04/02/19 08:57; Start 04/01/19 at 11:00 Lisinopril (Prinivil) 20 mg DAILY PO Last administered on 04/02/19 08:57; Start 04/01/19 at 11:00 Potassium Chloride (Klor-Con) 20 meq BIDWMEALS PO Last administered on 08:57; Start 04/01/19 at 11:00 Sacubitril/ Valsartan (Entresto 24 Mg-26 Mg) 1 tab BID PO ; Start 04/01/19 at 21:00; Stop 04/01/19 at 10:51; Status DC Active Scripts Active Furosemide 40 Mg Tablet 40 Mg PO DAILY 30 Days Aspirin Ec (Aspirin) 81 Mg Tablet.dr 81 Mg PO DAILYWBKFT 30 Days Entresto 24 mg-26 mg Tablet (Sacubitril/Valsartan) 1 Each Tablet 1 Tab PO BID 30 Days Cyclobenzaprine Hcl 10 Mg Tablet 10 Mg PO TID Zithromax (Azithromycin) 250 Mg Tablet 1 Pkg PO UD Proair Hfa Inhaler (Albuterol Sulfate) 8.5 Gm Hfa.aer.ad 1 Puff INH PRN Q6HRS PRN Reported Lisinopril 20 Mg Tablet 1 Tab PO DAILY Lipitor (Atorvastatin Calcium) 40 Mg Tablet 1 Tab PO QHS Clopidogrel (Clopidogrel Bisulfate) 75 Mg Tablet 75 Mg PO DAILY Carvedilol (Carvedilol) 3.125 Mg Tablet 3.125 Mg PO BIDWMEALS Klor-Con M20 (Potassium Chloride) 20 Meq Tab.er.prt 20 Meq PO BID Vitals/I & O Vital Sign - Last 24 Hours 04/01/19 04/01/19 04/01/19 04/01/19 15:00 17:54 19:00 19:20 Temp 98.1 98.1 Pulse 77 77 100 Resp 21 21 B/P (MAP) 131/57 (81) 131/57 151/73 (99) Pulse Ox 99 98 O2 Delivery Room Air Room Air Room Air 04/01/19 04/02/19 04/02/19 04/02/19 23:10 03:15 07:00 08:00 Temp 98.3 98.5 98.9 98.3 98.5 98.9 Pulse 79 75 77 Resp 16 16 B/P (MAP) 146/68 (94) 119/54 (75) 141/70 (93) Pulse Ox 98 98 98 O2 Delivery Room Air Room Air Room Air Room Air 04/02/19 04/02/19 04/02/19 08:57 08:58 10:41 Temp 98.4 98.4 Pulse 77 77 70 Resp 16 B/P (MAP) 141/70 141/70 131/55 (80) Pulse Ox 94 O2 Delivery Room Air Intake and Output 04/01/19 04/01/19 04/02/19 15:00 23:00 07:00 Intake Total 360 ml 480 ml 150 ml Output Total 600 ml 600 ml 700 ml Balance -240 ml -120 ml -550 ml MOODY FOURNIER MD Apr 02, 2019 14:00
[2019-04-02 15:00] VITALS: BP 125/73
[2019-04-02 19:49] VITALS: BP 132/63
[2019-04-02] MEDS: ATORVASTATIN CALCIUM 40 MG TABLET. PO SCH (20:56)
[2019-04-02 23:25] VITALS: BP 112/58
[2019-04-03 03:22] VITALS: BP 142/68
[2019-04-03 07:00] VITALS: BP 140/65
[2019-04-03 07:50] LABS: BASO % 1 % (0-3); EOS # 0.2 x10^3/uL (0.0-0.7); EOS % 4 % (0-3); HEMATOCRIT 30.7 % (36.0-47.0); HEMOGLOBIN 10.4 g/dL (12.0-15.5); LYMPH # 1.2 x10^3/uL (1.0-4.8); LYMPH % 26 % (24-48); MEAN CORPUSCULAR HEMOGLOBIN 33 pg (25-35); MEAN CORPUSCULAR HGB CONC 34 g/dL (31-37); MEAN CORPUSCULAR VOLUME 97 fL (79-100); MONO # 0.6 x10^3/uL (0.0-1.1); MONO % 12 % (0-9); NEUT # 2.7 x10^3/uL (1.8-7.7); NEUT % 57 % (31-73); PLATELET COUNT 128 x10^3/uL (140-400); RED BLOOD COUNT 3.18 x10^6/uL (3.50-5.40); RED CELL DISTRIBUTION WIDTH 15.4 % (11.5-14.5); WHITE BLOOD COUNT 4.7 x10^3/uL (4.0-11.0)
[2019-04-03 08:07] LABS: ALBUMIN 2.7 g/dL (3.4-5.0); ALBUMIN/GLOBULIN RATIO 0.7 (1.0-1.7); CALCIUM 7.9 mg/dL (8.5-10.1); CREATININE 1.8 mg/dL (0.6-1.0); GFR 27.4; POTASSIUM 4.2 mmol/L (3.5-5.1); TOTAL BILIRUBIN 1.9 mg/dL (0.2-1.0); TOTAL PROTEIN 6.4 g/dL (6.4-8.2)
[2019-04-03] MEDS: CYCLOBENZAPRINE 10 MG TABLET. PO SCH ×3 (08:17→19:58)
[2019-04-03] MEDS: ASPIRIN ENTERIC COATED 81 MG TABLET.DR. PO SCH (08:18)
[2019-04-03] MEDS: CLOPIDOGREL BISULFATE 75 MG TABLET PO SCH (08:18)
[2019-04-03] MEDS: FUROSEMIDE 40 MG TABLET. PO SCH (08:18)
[2019-04-03] MEDS: LISINOPRIL 20 MG TABLET PO SCH (08:18)
[2019-04-03] MEDS: CARVEDILOL 3.125 MG TABLET. PO SCH ×2 (08:19→16:57)
[2019-04-03] MEDS: POTASSIUM CHLORIDE 20 MEQ TABLET.ER. PO SCH ×2 (08:20→16:57)
[2019-04-03 11:00] VITALS: BP 119/44
--- NOTE | 2019-04-03 11:31 | PDOC ---
[employer] PROGRESS NOTE Chief Complaint Chief Complaint Acute on chronic systolic heart failure History of probable coronary artery disease COPD Hypertension Hyperlipidemia Chronic kidney disease History of Present Illness History of Present Illness 04/02/2019 Pt was seen and examined. Pt reports no acute distress this morning. Was slightly hostile to interview adamantly stating she is frandy Billings 04/03 Pt was seen and examined Pt resting comfortably Pt conversational and alert on exam Vitals/I&O Vitals/I&O: Vital Signs Date Time Temp Pulse Resp B/P (MAP) Pulse Ox O2 Delivery O2 Flow Rate FiO2 04/03/19 08:19 74 140/65 04/03/19 08:00 Room Air 04/03/19 07:00 97.9 18 96 97.9 I & O 04/02/19 04/02/19 04/03/19 15:00 23:00 07:00 Intake Total 300 ml 120 ml 0 ml Output Total 600 ml 600 ml Balance -300 ml 120 ml -600 ml Physical Exam General: Alert, Oriented X3, mild distress Heart: Regular rate Lungs: Crackles Abdomen: Normal bowel sounds, No tenderness Extremities: No clubbing, No cyanosis Skin: No rashes, No breakdown Labs Labs: Laboratory Tests Test 04/03/19 05:40 White Blood Count 4.7 x10^3/uL (4.0-11.0) Red Blood Count 3.18 x10^6/uL (3.50-5.40) Hemoglobin 10.4 g/dL (12.0-15.5) Hematocrit 30.7 % (36.0-47.0) Mean Corpuscular Volume 97 fL (79-100) Mean Corpuscular Hemoglobin 33 pg (25-35) Mean Corpuscular Hemoglobin Concent 34 g/dL (31-37) Red Cell Distribution Width 15.4 % (11.5-14.5) Platelet Count 128 x10^3/uL (140-400) Neutrophils (%) (Auto) 57 % (31-73) Lymphocytes (%) (Auto) 26 % (24-48) Monocytes (%) (Auto) 12 % (0-9) Eosinophils (%) (Auto) 4 % (0-3) Basophils (%) (Auto) 1 % (0-3) Neutrophils # (Auto) 2.7 x10^3/uL (1.8-7.7) Lymphocytes # (Auto) 1.2 x10^3/uL (1.0-4.8) Monocytes # (Auto) 0.6 x10^3/uL (0.0-1.1) Eosinophils # (Auto) 0.2 x10^3/uL (0.0-0.7) Basophils # (Auto) 0.0 x10^3/uL (0.0-0.2) Sodium Level 141 mmol/L (136-145) Potassium Level 4.2 mmol/L (3.5-5.1) Chloride Level 104 mmol/L (98-107) Carbon Dioxide Level 27 mmol/L (21-32) Anion Gap 10 (6-14) Blood Urea Nitrogen 29 mg/dL (7-20) Creatinine 1.8 mg/dL (0.6-1.0) Estimated GFR (Cockcroft-Gault) 27.4 BUN/Creatinine Ratio 16 (6-20) Glucose Level 81 mg/dL (70-99) Calcium Level 7.9 mg/dL (8.5-10.1) Total Bilirubin 1.9 mg/dL (0.2-1.0) Aspartate Amino Transf (AST/SGOT) 31 U/L (15-37) Alanine Aminotransferase (ALT/SGPT) 15 U/L (14-59) Alkaline Phosphatase 61 U/L (46-116) Total Protein 6.4 g/dL (6.4-8.2) Albumin 2.7 g/dL (3.4-5.0) Albumin/Globulin Ratio 0.7 (1.0-1.7) Review of Systems Review of Systems: no CP, mild SOB Assessment and Plan Assessmemt and Plan Problems Medical Problems: (1) Anasarca Status: Acute (2) CHF exacerbation Status: Acute Assessment Acute on chronic systolic heart failure History of probable coronary artery disease COPD Hypertension Hyperlipidemia Chronic kidney disease Plan Home meds Cardiac monitoring PO lasix PT/OT Labs DVT prophylaxis Full code Comment Review of Relevant I have reviewed the following items yuliana (where applicable) has been applied. DANIEL ARCHIBALD III DO Apr 03, 2019 11:31
--- NOTE | 2019-04-03 14:57 | NUR ---
SS following for discharge planning. SS reviewed pt chart. Pt is from home and is currently on room air. PT recommended home independent. SS will continue to follow for discharge planning.
[2019-04-03 15:00] VITALS: BP 134/47
--- NOTE | 2019-04-03 16:26 | PDOC ---
PROGRESS NOTES Subjective Subjective Patient seen and examined The patient is feeling better today. Objective Objective Vital Signs Date Time Temp Pulse Resp B/P (MAP) Pulse Ox O2 Delivery O2 Flow Rate FiO2 04/03/19 11:00 97.4 70 18 119/44 (69) 98 Room Air 97.4 Intake and Output 04/03/19 07:00 Intake Total 420 ml Output Total 1200 ml Balance -780 ml Intake Oral 420 ml Tube Feeding 0 ml Output Urine Total 1200 ml # Voids 3 Physical Exam Abdomen: Normal bowel sounds Heart: Regular rate General: No acute distress Lungs: Other (mildly decreased breath sounds) Assessment Assessment Problems Medical Problems: (1) Anasarca Status: Acute (2) CHF exacerbation Status: Acute 1. Acute on chronic systolic heart failure. BNP elevated at 15,548. Troponin minimally elevated at 0.0-6. Continue diuresis. Creatinine slightly improved today at 1.8. 2. History of probable coronary artery disease. No chest pain. No significant elevation in troponin. Continue medical treatment. 3. COPD. Continue pulmonary medications. Patient continues to smoke cigarettes. 4. Hypertension. Blood pressure under reasonable control. Continue medications and monitor. 5. Hyperlipidemia. Continue medication. 6. Chronic kidney disease. Continue to monitor lab. Morning creat at 1.8. Comment Review of Relevant I have reviewed the following items yuliana (where applicable) has been applied. Labs Laboratory Tests Test 04/02/19 05:25 04/03/19 05:40 White Blood Count 4.5 x10^3/uL (4.0-11.0) 4.7 x10^3/uL (4.0-11.0) Red Blood Count 3.37 x10^6/uL (3.50-5.40) 3.18 x10^6/uL (3.50-5.40) Hemoglobin 10.9 g/dL (12.0-15.5) 10.4 g/dL (12.0-15.5) Hematocrit 32.7 % (36.0-47.0) 30.7 % (36.0-47.0) Mean Corpuscular Volume 97 fL (79-100) 97 fL (79-100) Mean Corpuscular Hemoglobin 32 pg (25-35) 33 pg (25-35) Mean Corpuscular Hemoglobin Concent 33 g/dL (31-37) 34 g/dL (31-37) Red Cell Distribution Width 15.9 % (11.5-14.5) 15.4 % (11.5-14.5) Platelet Count 128 x10^3/uL (140-400) 128 x10^3/uL (140-400) Neutrophils (%) (Auto) 50 % (31-73) 57 % (31-73) Lymphocytes (%) (Auto) 33 % (24-48) 26 % (24-48) Monocytes (%) (Auto) 12 % (0-9) 12 % (0-9) Eosinophils (%) (Auto) 5 % (0-3) 4 % (0-3) Basophils (%) (Auto) 1 % (0-3) 1 % (0-3) Neutrophils # (Auto) 2.2 x10^3/uL (1.8-7.7) 2.7 x10^3/uL (1.8-7.7) Lymphocytes # (Auto) 1.5 x10^3/uL (1.0-4.8) 1.2 x10^3/uL (1.0-4.8) Monocytes # (Auto) 0.5 x10^3/uL (0.0-1.1) 0.6 x10^3/uL (0.0-1.1) Eosinophils # (Auto) 0.2 x10^3/uL (0.0-0.7) 0.2 x10^3/uL (0.0-0.7) Basophils # (Auto) 0.0 x10^3/uL (0.0-0.2) 0.0 x10^3/uL (0.0-0.2) Sodium Level 143 mmol/L (136-145) 141 mmol/L (136-145) Potassium Level 4.0 mmol/L (3.5-5.1) 4.2 mmol/L (3.5-5.1) Chloride Level 105 mmol/L (98-107) 104 mmol/L (98-107) Carbon Dioxide Level 28 mmol/L (21-32) 27 mmol/L (21-32) Anion Gap 10 (6-14) 10 (6-14) Blood Urea Nitrogen 32 mg/dL (7-20) 29 mg/dL (7-20) Creatinine 1.9 mg/dL (0.6-1.0) 1.8 mg/dL (0.6-1.0) Estimated GFR (Cockcroft-Gault) 25.7 27.4 Glucose Level 82 mg/dL (70-99) 81 mg/dL (70-99) Calcium Level 7.7 mg/dL (8.5-10.1) 7.9 mg/dL (8.5-10.1) Magnesium Level 1.9 mg/dL (1.8-2.4) BUN/Creatinine Ratio 16 (6-20) Total Bilirubin 1.9 mg/dL (0.2-1.0) Aspartate Amino Transf (AST/SGOT) 31 U/L (15-37) Alanine Aminotransferase (ALT/SGPT) 15 U/L (14-59) Alkaline Phosphatase 61 U/L (46-116) Total Protein 6.4 g/dL (6.4-8.2) Albumin 2.7 g/dL (3.4-5.0) Albumin/Globulin Ratio 0.7 (1.0-1.7) Laboratory Tests Test 04/03/19 05:40 White Blood Count 4.7 x10^3/uL (4.0-11.0) Red Blood Count 3.18 x10^6/uL (3.50-5.40) Hemoglobin 10.4 g/dL (12.0-15.5) Hematocrit 30.7 % (36.0-47.0) Mean Corpuscular Volume 97 fL (79-100) Mean Corpuscular Hemoglobin 33 pg (25-35) Mean Corpuscular Hemoglobin Concent 34 g/dL (31-37) Red Cell Distribution Width 15.4 % (11.5-14.5) Platelet Count 128 x10^3/uL (140-400) Neutrophils (%) (Auto) 57 % (31-73) Lymphocytes (%) (Auto) 26 % (24-48) Monocytes (%) (Auto) 12 % (0-9) Eosinophils (%) (Auto) 4 % (0-3) Basophils (%) (Auto) 1 % (0-3) Neutrophils # (Auto) 2.7 x10^3/uL (1.8-7.7) Lymphocytes # (Auto) 1.2 x10^3/uL (1.0-4.8) Monocytes # (Auto) 0.6 x10^3/uL (0.0-1.1) Eosinophils # (Auto) 0.2 x10^3/uL (0.0-0.7) Basophils # (Auto) 0.0 x10^3/uL (0.0-0.2) Sodium Level 141 mmol/L (136-145) Potassium Level 4.2 mmol/L (3.5-5.1) Chloride Level 104 mmol/L (98-107) Carbon Dioxide Level 27 mmol/L (21-32) Anion Gap 10 (6-14) Blood Urea Nitrogen 29 mg/dL (7-20) Creatinine 1.8 mg/dL (0.6-1.0) Estimated GFR (Cockcroft-Gault) 27.4 BUN/Creatinine Ratio 16 (6-20) Glucose Level 81 mg/dL (70-99) Calcium Level 7.9 mg/dL (8.5-10.1) Total Bilirubin 1.9 mg/dL (0.2-1.0) Aspartate Amino Transf (AST/SGOT) 31 U/L (15-37) Alanine Aminotransferase (ALT/SGPT) 15 U/L (14-59) Alkaline Phosphatase 61 U/L (46-116) Total Protein 6.4 g/dL (6.4-8.2) Albumin 2.7 g/dL (3.4-5.0) Albumin/Globulin Ratio 0.7 (1.0-1.7) Medications Current Medications Aspirin (Children'S Aspirin) 324 mg 1X ONCE PO Last administered on 03/31/19at 18:24; Start 03/31/19 at 18:00; Stop 03/31/19 at 18:01; Status DC Furosemide (Lasix) 40 mg 1X ONCE IVP Last administered on 03/31/19 18:24; Start 03/31/19 at 18:00; Stop 03/31/19 at 18:01; Status DC Ondansetron HCl (Zofran) 4 mg PRN Q8HRS PRN IV NAUSEA/VOMITING; Start 03/31/19 at 18:15; Stop 04/01/19 at 18:14; Status DC Aspirin (Ecotrin) 81 mg DAILYWBKFT PO Last administered on 04/03/19 08:18; Start 04/01/19 at 11:00 Atorvastatin Calcium (Lipitor) 40 mg QHS PO Last administered on 04/02/19at 20:56; Start 04/01/19 at 21:00 Carvedilol (Coreg) 3.125 mg BIDWMEALS PO Last administered on 04/03/19 08:19; Start 04/01/19 at 17:00 Clopidogrel Bisulfate (Plavix) 75 mg DAILY PO Last administered on 04/03/19 08:18; Start 04/01/19 at 11:00 Cyclobenzaprine HCl (Flexeril) 10 mg TID PO Last administered on 04/01/19 21:05; Start 04/01/19 at 14:00 Furosemide (Lasix) 40 mg DAILY PO Last administered on 04/03/19 08:18; Start 04/01/19 at 11:00 Lisinopril (Prinivil) 20 mg DAILY PO Last administered on 04/03/19 08:18; Start 04/01/19 at 11:00 Potassium Chloride (Klor-Con) 20 meq BIDWMEALS PO Last administered on 04/03/19 08:20; Start 04/01/19 at 11:00 Sacubitril/ Valsartan (Entresto 24 Mg-26 Mg) 1 tab BID PO ; Start 04/01/19 at 21:00; Stop 04/01/19 at 10:51; Status DC Active Scripts Active Furosemide 40 Mg Tablet 40 Mg PO DAILY 30 Days Aspirin Ec (Aspirin) 81 Mg Tablet.dr 81 Mg PO DAILYWBKFT 30 Days Entresto 24 mg-26 mg Tablet (Sacubitril/Valsartan) 1 Each Tablet 1 Tab PO BID 30 Days Zithromax (Azithromycin) 250 Mg Tablet 1 Pkg PO UD Proair Hfa Inhaler (Albuterol Sulfate) 8.5 Gm Hfa.aer.ad 1 Puff INH PRN Q6HRS PRN Reported Lisinopril 20 Mg Tablet 1 Tab PO DAILY Lipitor (Atorvastatin Calcium) 40 Mg Tablet 1 Tab PO QHS Clopidogrel (Clopidogrel Bisulfate) 75 Mg Tablet 75 Mg PO DAILY Carvedilol (Carvedilol) 3.125 Mg Tablet 3.125 Mg PO BIDWMEALS Klor-Con M20 (Potassium Chloride) 20 Meq Tab.er.prt 20 Meq PO BID Vitals/I & O Vital Sign - Last 24 Hours 04/02/19 04/02/19 04/02/19 04/02/19 17:31 19:49 20:22 23:25 Temp 98.1 98.2 98.1 98.2 Pulse 74 74 90 Resp 16 18 B/P (MAP) 125/73 132/63 (86) 112/58 (76) Pulse Ox 94 97 O2 Delivery Room Air Room Air Room Air 04/03/19 04/03/19 04/03/19 04/03/19 03:22 07:00 08:00 08:18 Temp 98.3 97.9 98.3 97.9 Pulse 77 72 74 Resp 18 18 B/P (MAP) 142/68 (92) 140/65 (90) 140/65 Pulse Ox 97 96 O2 Delivery Room Air Room Air Room Air 04/03/19 04/03/19 08:19 11:00 Temp 97.4 97.4 Pulse 74 70 Resp 18 B/P (MAP) 140/65 119/44 (69) Pulse Ox 98 O2 Delivery Room Air Intake and Output 04/02/19 04/02/19 04/03/19 15:00 23:00 07:00 Intake Total 300 ml 120 ml 0 ml Output Total 600 ml 600 ml Balance -300 ml 120 ml -600 ml MOODY FOURNIER MD Apr 03, 2019 16:26
[2019-04-03 19:20] VITALS: BP 144/71
[2019-04-03] MEDS: ATORVASTATIN CALCIUM 40 MG TABLET. PO SCH (19:58)
[2019-04-03 23:30] VITALS: BP 144/73
[2019-04-04 03:45] VITALS: BP 140/69
[2019-04-04 05:38] LABS: BASO # 0.1 x10^3/uL (0.0-0.2); BASO % 1 % (0-3); EOS # 0.2 x10^3/uL (0.0-0.7); EOS % 3 % (0-3); HEMATOCRIT 32.7 % (36.0-47.0); HEMOGLOBIN 10.9 g/dL (12.0-15.5); LYMPH # 1.3 x10^3/uL (1.0-4.8); LYMPH % 24 % (24-48); MEAN CORPUSCULAR HEMOGLOBIN 32 pg (25-35); MEAN CORPUSCULAR HGB CONC 33 g/dL (31-37); MEAN CORPUSCULAR VOLUME 97 fL (79-100); MONO # 0.6 x10^3/uL (0.0-1.1); MONO % 11 % (0-9); NEUT # 3.3 x10^3/uL (1.8-7.7); NEUT % 61 % (31-73); PLATELET COUNT 139 x10^3/uL (140-400); RED BLOOD COUNT 3.37 x10^6/uL (3.50-5.40); RED CELL DISTRIBUTION WIDTH 15.5 % (11.5-14.5); WHITE BLOOD COUNT 5.4 x10^3/uL (4.0-11.0)
[2019-04-04 06:11] LABS: ALBUMIN 2.8 g/dL (3.4-5.0); ALBUMIN/GLOBULIN RATIO 0.7 (1.0-1.7); CALCIUM 7.7 mg/dL (8.5-10.1); CREATININE 1.8 mg/dL (0.6-1.0); GFR 27.4; MAGNESIUM 2.1 mg/dL (1.8-2.4); POTASSIUM 4.5 mmol/L (3.5-5.1); TOTAL PROTEIN 6.9 g/dL (6.4-8.2)
[2019-04-04 07:00] VITALS: BP_SYST 14; BP_SYST 140; BP_DIAS 70
[2019-04-04] MEDS: CYCLOBENZAPRINE 10 MG TABLET. PO SCH ×2 (08:19→13:00)
[2019-04-04] MEDS: FUROSEMIDE 40 MG TABLET. PO SCH (08:21)
[2019-04-04] MEDS: ASPIRIN ENTERIC COATED 81 MG TABLET.DR. PO SCH (08:21)
[2019-04-04] MEDS: CARVEDILOL 3.125 MG TABLET. PO SCH (08:21)
[2019-04-04] MEDS: CLOPIDOGREL BISULFATE 75 MG TABLET PO SCH (08:21)
[2019-04-04] MEDS: POTASSIUM CHLORIDE 20 MEQ TABLET.ER. PO SCH (08:22)
[2019-04-04] MEDS: LISINOPRIL 20 MG TABLET PO SCH (08:22)
[2019-04-04 10:55] VITALS: BP 115/46
--- NOTE | 2019-04-04 11:56 | PDOC ---
[facility] PROGRESS NOTE Chief Complaint Chief Complaint Acute on chronic systolic heart failure History of probable coronary artery disease COPD Hypertension Hyperlipidemia Chronic kidney disease History of Present Illness History of Present Illness 04/02/2019 Pt was seen and examined. Pt reports no acute distress this morning. Was slightly hostile to interview adamantly stating she is Staci Billings 04/03 Pt was seen and examined Pt resting comfortably Pt conversational and alert on exam 04/04 Pt was seen and examined Pt resting in bed, complains of pain in her feet that goes up her leg. She frustrated with the pain. When rehab was mentioned she was unsure what this entailed. Vitals/I&O Vitals/I&O: Vital Signs Date Time Temp Pulse Resp B/P (MAP) Pulse Ox O2 Delivery O2 Flow Rate FiO2 04/04/19 10:55 97.8 70 18 115/46 (69) 98 Room Air 97.8 I & O 04/03/19 04/03/19 04/04/19 15:00 23:00 07:00 Intake Total 300 ml 200 ml 420 ml Output Total 800 ml 400 ml Balance -500 ml 200 ml 20 ml Physical Exam General: Alert, mild distress Heart: Regular rate Lungs: Other (No respiratory distress) Extremities: No edema, Other (Right foot tremor) Skin: No breakdown, Other (Thickened and discoloered toenails) Labs Labs: Laboratory Tests Test 04/04/19 05:25 White Blood Count 5.4 x10^3/uL (4.0-11.0) Red Blood Count 3.37 x10^6/uL (3.50-5.40) Hemoglobin 10.9 g/dL (12.0-15.5) Hematocrit 32.7 % (36.0-47.0) Mean Corpuscular Volume 97 fL (79-100) Mean Corpuscular Hemoglobin 32 pg (25-35) Mean Corpuscular Hemoglobin Concent 33 g/dL (31-37) Red Cell Distribution Width 15.5 % (11.5-14.5) Platelet Count 139 x10^3/uL (140-400) Neutrophils (%) (Auto) 61 % (31-73) Lymphocytes (%) (Auto) 24 % (24-48) Monocytes (%) (Auto) 11 % (0-9) Eosinophils (%) (Auto) 3 % (0-3) Basophils (%) (Auto) 1 % (0-3) Neutrophils # (Auto) 3.3 x10^3/uL (1.8-7.7) Lymphocytes # (Auto) 1.3 x10^3/uL (1.0-4.8) Monocytes # (Auto) 0.6 x10^3/uL (0.0-1.1) Eosinophils # (Auto) 0.2 x10^3/uL (0.0-0.7) Basophils # (Auto) 0.1 x10^3/uL (0.0-0.2) Sodium Level 140 mmol/L (136-145) Potassium Level 4.5 mmol/L (3.5-5.1) Chloride Level 103 mmol/L (98-107) Carbon Dioxide Level 30 mmol/L (21-32) Anion Gap 7 (6-14) Blood Urea Nitrogen 32 mg/dL (7-20) Creatinine 1.8 mg/dL (0.6-1.0) Estimated GFR (Cockcroft-Gault) 27.4 BUN/Creatinine Ratio 18 (6-20) Glucose Level 96 mg/dL (70-99) Calcium Level 7.7 mg/dL (8.5-10.1) Magnesium Level 2.1 mg/dL (1.8-2.4) Total Bilirubin 2.0 mg/dL (0.2-1.0) Aspartate Amino Transf (AST/SGOT) 38 U/L (15-37) Alanine Aminotransferase (ALT/SGPT) 17 U/L (14-59) Alkaline Phosphatase 69 U/L (46-116) Total Protein 6.9 g/dL (6.4-8.2) Albumin 2.8 g/dL (3.4-5.0) Albumin/Globulin Ratio 0.7 (1.0-1.7) Review of Systems Review of Systems: Extremities: Foot pain, leg pain Assessment and Plan Assessmemt and Plan Problems Medical Problems: (1) Anasarca Status: Acute (2) CHF exacerbation Status: Acute PLAN 1. Consult Dr. Buzz Clifton, prn physical therapist for tinea unguium 2. Cardiac monitoring 3. IV lasix 4. Probable discharge later today Full code Comment Review of Relevant I have reviewed the following items yuliana (where applicable) has been applied. DANIEL ARCHIBALD III DO Apr 04, 2019 11:56
--- NOTE | 2019-04-04 13:24 | DS ---
DATE OF DISCHARGE: 04/04/2019 ADMISSION DIAGNOSIS: Heart failure. DISCHARGE DIAGNOSIS: Resolving [id number] systolic and diastolic heart failure. HOSPITAL COURSE: The patient is a pleasant 74-year-old female who presented with heart failure. She was admitted. We diuresed her. We checked an echo. We did serial enzymes, serial EKGs. We consulted Cardiology and did cardiac monitoring, physical therapy and occupational therapy. This morning, I saw her and examined her, she was at her baseline, but was complaining of some toenail infection. I agreed to consult Dr. Buzz Clifton. Once he sees her, the plan is to get her home with close outpatient followup. I discussed this with the case coordinator and the nurses. DISPOSITION: Home. ACTIVITY: As tolerated. DIET: Low sodium. MEDICATIONS: Please see the MRAD. TOTAL TIME: 34 minutes. NADERL Ángel ARCHIBALD DO DR: ABEL/kurtis JOB#: [id number] / [id number]
--- NOTE | 2019-04-04 14:16 | CONS ---
DATE OF CONSULTATION: 04/04/2019 PODIATRIC CONSULTATION REASON FOR CONSULTATION: Longstanding painful mycotic nails unable to be treated by the patient, with no history of previous professional care. REVIEW OF RECORD: This 74-year-old female who was admitted to the ER with shortness of breath along with some lower extremity swelling. PAST MEDICAL HISTORY: Heart failure, COPD, hypertension, renal failure, aortic abdominal aneurysm about 2.8 cm, PE, cardiac catheterization with stents, smokes less than a pack per day. ALLERGIES: None. MEDICATIONS: Reviewed. PHYSICAL EXAMINATION: DERMAL: The patient has elongated mycotic nails of all nails, the hallux nails and some of the lesser digits are very profound in presentation. No break in the skin. No signs of cellulitis or open lesions. Decreased turgor, absence of hair growth. VASCULAR: Pedal pulses are absent, diminished posterior tibial and dorsalis pedis bilateral. NEUROLOGIC: The patient appears to have normal sensorium, relates pain sensation to sharp instrumentation. MUSCULOSKELETAL: Noncontributory. No significant bunion or hammertoe deformities that are causing her any problems. ASSESSMENT: 1. Clinical evidence of painful onychomycosis, onychocryptosis, onycholysis of all 10 toenails of chronic severe nature. 2. Diminished vascularity, peripheral vascular disease, non-limb threatening. PLAN: Debridement of all mycotic nails performed. No hemorrhage incurred. Most of the hallux nails are removed with the thick gryphotic nail plate. Again, no hemorrhage incurred. The patient is encouraged to be seen on a 3-month followup for palliative nail care in light of her peripheral vascular disease. Did discuss treatments of maintenance topicals and oral antibiotics or oral antifungals and surgery and only when I would strongly recommend for her at this point would be good maintenance care in light of her diminished vascularity. TRU JACINTO DPM DR: JS/kurtis JOB#: [id number] / [id number]
[2019-04-04 15:00] VITALS: BP 134/61
--- NOTE | 2019-04-04 15:10 | PDOC ---
CARDIO Progress Notes Date and Time Date of Service 04/04/2019 Time of Evaluation 1440 Subjective Subjective: No Chest Pain, No shortness of breath, No Palpitations Vitals Vitals Vital Signs Date Time Temp Pulse Resp B/P (MAP) Pulse Ox O2 Delivery O2 Flow Rate FiO2 04/04/19 10:55 97.8 70 18 115/46 (69) 98 Room Air 97.8 Weight Weight [ ] Input and Output Intake and Output Intake and Output 04/04/19 07:00 Intake Total 920 ml Output Total 1200 ml Balance -280 ml Intake Oral 920 ml Output Urine Total 1200 ml # Voids 1 # Bowel Movements 2 Laboratory Labs Laboratory Tests Test 04/04/19 05:25 White Blood Count 5.4 x10^3/uL (4.0-11.0) Red Blood Count 3.37 x10^6/uL (3.50-5.40) Hemoglobin 10.9 g/dL (12.0-15.5) Hematocrit 32.7 % (36.0-47.0) Mean Corpuscular Volume 97 fL (79-100) Mean Corpuscular Hemoglobin 32 pg (25-35) Mean Corpuscular Hemoglobin Concent 33 g/dL (31-37) Red Cell Distribution Width 15.5 % (11.5-14.5) Platelet Count 139 x10^3/uL (140-400) Neutrophils (%) (Auto) 61 % (31-73) Lymphocytes (%) (Auto) 24 % (24-48) Monocytes (%) (Auto) 11 % (0-9) Eosinophils (%) (Auto) 3 % (0-3) Basophils (%) (Auto) 1 % (0-3) Neutrophils # (Auto) 3.3 x10^3/uL (1.8-7.7) Lymphocytes # (Auto) 1.3 x10^3/uL (1.0-4.8) Monocytes # (Auto) 0.6 x10^3/uL (0.0-1.1) Eosinophils # (Auto) 0.2 x10^3/uL (0.0-0.7) Basophils # (Auto) 0.1 x10^3/uL (0.0-0.2) Sodium Level 140 mmol/L (136-145) Potassium Level 4.5 mmol/L (3.5-5.1) Chloride Level 103 mmol/L (98-107) Carbon Dioxide Level 30 mmol/L (21-32) Anion Gap 7 (6-14) Blood Urea Nitrogen 32 mg/dL (7-20) Creatinine 1.8 mg/dL (0.6-1.0) Estimated GFR (Cockcroft-Gault) 27.4 BUN/Creatinine Ratio 18 (6-20) Glucose Level 96 mg/dL (70-99) Calcium Level 7.7 mg/dL (8.5-10.1) Magnesium Level 2.1 mg/dL (1.8-2.4) Total Bilirubin 2.0 mg/dL (0.2-1.0) Aspartate Amino Transf (AST/SGOT) 38 U/L (15-37) Alanine Aminotransferase (ALT/SGPT) 17 U/L (14-59) Alkaline Phosphatase 69 U/L (46-116) Total Protein 6.9 g/dL (6.4-8.2) Albumin 2.8 g/dL (3.4-5.0) Albumin/Globulin Ratio 0.7 (1.0-1.7) Microbiology Micro Microbiology 03/31/19 Urine Culture - Preliminary, Resulted 03/31/19 Urine Culture Result 1 (RUDY) - Preliminary, Resulted Physical Exam HEENT: Neck Supple W Full Motion Chest: Symmetric LUNGS: Clear to Auscultation Heart: S1S2, RRR (SR) Abdomen: Soft N/T Extremities: No Calf Tenderness, Other (2-3+ bilateral LE pitting edema) Neurology: alert, oriented, follow commands Assessment Assessment 1. Acute on chronic systolic heart failure; compensated 2. History of probable coronary artery disease. Cp free 3. COPD with tobaccoism 4. Hypertension; controlled 5. Hyperlipidemia 6. Cardiomyopathy: EF 40-45% 7. Suspect CKD3 Recommendations 1. Continue statin and ASA/plavix. Lasix therapy 2. Continue with BB and ACEi. 3. Smoking cessation 4. Follow up in office. ISSAC BLISS APRN Apr 04, 2019 15:10
--- NOTE | 2019-04-04 16:30 | NUR ---
Discharge Note: TATA NICOLAS Discharge instructions and discharge home medications reviewed with Patient and Family and a copy given. All questions have been answered and understanding verbalized. The following instructions and handouts were given: SOA, HF, edema Discontinued lines and drains: Peripheral IV intact. Patient discharged to Home or Self Care with Family Member via Wheelchair
== END 2019-04-04 16:30 | disposition home or self-care (01) | DRG 291 ==
LOC: ER 16:20 → 2 NORTH 17:50
PROVIDERS: ADMIT Internal Medicine; ATTEND Internal Medicine
PROC: 0HBRXZZ Excision of Toe Nail, External Approach (ICD-10-PCS; principal; 2019-04-04)
PROC: 0HBRXZZ Excision of Toe Nail, External Approach (ICD-10-PCS; 2019-04-04)
PROC: 0HBRXZZ Excision of Toe Nail, External Approach (ICD-10-PCS; 2019-04-04)
PROC: 0HBRXZZ Excision of Toe Nail, External Approach (ICD-10-PCS; 2019-04-04)
PROC: 0HBRXZZ Excision of Toe Nail, External Approach (ICD-10-PCS; 2019-04-04)
PROC: 0HBRXZZ Excision of Toe Nail, External Approach (ICD-10-PCS; 2019-04-04)
PROC: 0HBRXZZ Excision of Toe Nail, External Approach (ICD-10-PCS; 2019-04-04)
PROC: 0HBRXZZ Excision of Toe Nail, External Approach (ICD-10-PCS; 2019-04-04)
PROC: 0HBRXZZ Excision of Toe Nail, External Approach (ICD-10-PCS; 2019-04-04)
PROC: 0HBRXZZ Excision of Toe Nail, External Approach (ICD-10-PCS; 2019-04-04)
DX: I13.0 Hypertensive heart and chronic kidney disease with heart failure and stage 1 through stage 4 chronic kidney disease, or unspecified chronic kidney disease (principal); R65.11 Systemic inflammatory response syndrome (SIRS) of non-infectious origin with acute organ dysfunction; I50.43 Acute on chronic combined systolic (congestive) and diastolic (congestive) heart failure; B35.1 Tinea unguium; E78.00 Pure hypercholesterolemia, unspecified; E78.5 Hyperlipidemia, unspecified; F17.210 Nicotine dependence, cigarettes, uncomplicated; I25.10 Atherosclerotic heart disease of native coronary artery without angina pectoris; I42.9 Cardiomyopathy, unspecified; J44.9 Chronic obstructive pulmonary disease, unspecified; I73.9 Peripheral vascular disease, unspecified; L60.0 Ingrowing nail; L60.1 Onycholysis; N18.9 Chronic kidney disease, unspecified; Z82.49 Family history of ischemic heart disease and other diseases of the circulatory system; Z83.3 Family history of diabetes mellitus
CPT/HCPCS: 36415; 71045; 80048; 80053; 81001; 83735; 83880; 84484; 85025; 85610; 85730; 87086; 93005; 96374; J1940; 97110; 99285-25; G0378

== ENCOUNTER 2020-05-01 18:50 | Inpatient (IN) | payer MEDICARE ==
[~2020-05-01] VITALS: Ht 162.6 cm; Wt 75.3 kg
[~2020-05-01 18:50] MED LIST changes: -ASPI-612 PO; +ASPI-886 PO; +LISI-334 PO
--- NOTE | 2020-05-01 19:02 | PHYS DOC ---
Past Medical History Past Medical History: CHF, COPD, High Cholesterol, Hypertension, Renal Failure, Other Additional Past Medical Histor: small aaa approx 2.8 cm, PE Past Surgical History: No Surgical History, Other Additional Past Surgical Histo: CARDIAC CATH with stent Smoking Status: Current Every Day Smoker Alcohol Use: None Drug Use: None General Adult EDM: Chief Complaint: ALTERED MENTAL STATUS HPI: HPI: Patient is a 75 year old female who arrives with chief complaint of altered mental status. Patient reportedly was last normal at 1 PM today but is confused to time and cannot give accurate history. Therefore history, physical review of systems are all limited due to altered mental status. Patient does have nausea vomiting per report and has diarrhea on exam. Review of Systems: Review of Systems: Patient is unable to answer questions for an accurate review of systems. Patient does have nausea vomiting and diarrhea and altered mental status Heart Score: Risk Factors: Risk Factors: DM, Current or recent (<one month) smoker, HTN, HLP, family history of CAD, obesity. Risk Scores: Score 0 - 3: 2.5% MACE over next 6 weeks - Discharge Home Score 4 - 6: 20.3% MACE over next 6 weeks - Admit for Clinical Observation Score 7 - 10: 72.7% MACE over next 6 weeks - Early Invasive Strategies Current Medications: Current Medications Sodium Chloride 1,000 ml @ 1,000 mls/hr 1X ONCE IV Last administered on 05/01/20at 19:57; Start 05/01/20 at 19:15; Stop 05/01/20 at 20:14; Status DC Ceftriaxone Sodium (Rocephin) 1 gm 1X ONCE IVP Last administered on 05/01/20at 20:43; Start 05/01/20 at 20:45; Stop 05/01/20 at 20:46 Potassium Chloride (Klor-Con) 40 meq 1X ONCE PO Last administered on 05/01/20at 20:44; Start 05/01/20 at 20:45; Stop 05/01/20 at 20:46 Active Scripts Active Furosemide 40 Mg Tablet 40 Mg PO DAILY 30 Days Aspirin Ec (Aspirin) 81 Mg Tablet.dr 81 Mg PO DAILYWBKFT 30 Days Zithromax (Azithromycin) 250 Mg Tablet 1 Pkg PO UD Proair Hfa Inhaler (Albuterol Sulfate) 8.5 Gm Hfa.aer.ad 1 Puff INH PRN Q6HRS PRN Reported Lisinopril 20 Mg Tablet 1 Tab PO DAILY Lipitor (Atorvastatin Calcium) 40 Mg Tablet 1 Tab PO QHS Clopidogrel (Clopidogrel Bisulfate) 75 Mg Tablet 75 Mg PO DAILY Carvedilol (Carvedilol) 3.125 Mg Tablet 3.125 Mg PO BIDWMEALS Klor-Con M20 (Potassium Chloride) 20 Meq Tab.er.prt 20 Meq PO BID Allergies: Allergies: Allergies Coded Allergies Type Severity Reaction Last Updated Verified No Known Drug Allergies 04/18/15 No Physical Exam: PE: Constitutional: Well developed, mildly disheveled mild respiratory distress, non-toxic appearance. [] HENT: Normocephalic, atraumatic, bilateral external ears normal, no trismus, dry oral mucosa, nose normal. [] Eyes: PERRLA, EOMI, conjunctiva normal, no discharge. [] Neck: Normal range of motion, no tenderness, supple, no stridor. [] Cardiovascular: Tachycardic with a regular rhythm peripheral pulses are intact cap refill brisk Lungs & Thorax: Diminished breath sounds bilaterally Abdomen: soft, no tenderness, no masses, no pulsatile masses. [] Skin: Warm, dry, no erythema, sacral decubitus ulcer present, skin excoriation in region Back: No tenderness, no CVA tenderness. [] Extremities: No tenderness, no cyanosis, no clubbing, ROM intact, no edema. [] Neurologic: Alert but confused to time and place, normal motor function, normal sensory function, no focal deficits noted. [] No lateralizing deficits Psychologic: Affect normal, judgement normal, mood normal. [] Current Patient Data: Labs: Laboratory Tests Test 05/01/20 19:15 05/01/20 19:28 Urine Collection Type U cath Urine Color [place] Urine Clarity Clear Urine pH 6.0 Urine Specific Preemption 1.020 Urine Protein 30 mg/dL Urine Glucose (UA) Negative mg/dL Urine Ketones (Stick) Trace mg/dL Urine Blood Negative Urine Nitrite Positive Urine Bilirubin Moderate Urine Urobilinogen Dipstick 4.0 mg/dL Urine Leukocyte Esterase Small Urine RBC 0 /HPF Urine WBC 5-10 /HPF Urine Squamous Epithelial Cells Many /LPF Urine Bacteria Moderate /HPF Urine Mucus Slight /LPF White Blood Count 7.5 x10^3/uL Red Blood Count 3.55 x10^6/uL Hemoglobin 11.9 g/dL Hematocrit 36.1 % Mean Corpuscular Volume 102 fL Mean Corpuscular Hemoglobin 34 pg Mean Corpuscular Hemoglobin Concent 33 g/dL Red Cell Distribution Width 18.2 % Platelet Count 146 x10^3/uL Neutrophils (%) (Auto) 59 % Lymphocytes (%) (Auto) 24 % Monocytes (%) (Auto) 14 % Eosinophils (%) (Auto) 2 % Basophils (%) (Auto) 2 % Neutrophils # (Auto) 4.4 x10^3/uL Lymphocytes # (Auto) 1.8 x10^3/uL Monocytes # (Auto) 1.0 x10^3/uL Eosinophils # (Auto) 0.2 x10^3/uL Basophils # (Auto) 0.1 x10^3/uL Sodium Level 148 mmol/L Potassium Level 2.6 mmol/L Chloride Level 109 mmol/L Carbon Dioxide Level 30 mmol/L Anion Gap 9 Blood Urea Nitrogen 24 mg/dL Creatinine 1.6 mg/dL Estimated GFR (Cockcroft-Gault) 31.3 BUN/Creatinine Ratio 15 Glucose Level 112 mg/dL Lactic Acid Level 3.2 mmol/L Calcium Level 9.0 mg/dL Magnesium Level 2.4 mg/dL Total Bilirubin 5.7 mg/dL Aspartate Amino Transf (AST/SGOT) 44 U/L Alanine Aminotransferase (ALT/SGPT) 32 U/L Alkaline Phosphatase 107 U/L Creatine Kinase 113 U/L Troponin I Quantitative 0.028 ng/mL Total Protein 7.1 g/dL Albumin 2.7 g/dL Albumin/Globulin Ratio 0.6 Lipase 81 U/L Salicylates Level < 2.8 mg/dL Salicylate Last Dose Date Unknown Salicylate Last Dose Time Unknown Acetaminophen Level < 2 mcg/ml Acetaminophen Last Dose Date Unknown Acetaminophen Last Dose Time Unknown Ethyl Alcohol Level < 10 mg/dL Current Medications Medications (Trade) Dose Ordered Sig/Casper Route PRN Reason Start Time Stop Time Status Last Admin Dose Admin Sodium Chloride 1,000 ml @ 1,000 mls/hr 1X ONCE IV 05/01/20 19:15 05/01/20 20:14 DC 05/01/20 19:57 Ceftriaxone Sodium (Rocephin) 1 gm 1X ONCE IVP 05/01/20 20:45 05/01/20 20:46 05/01/20 20:43 Potassium Chloride (Klor-Con) 40 meq 1X ONCE PO 05/01/20 20:45 05/01/20 20:46 05/01/20 20:44 Vital Signs: Vital Signs Date Time Temp Pulse Resp B/P (MAP) Pulse Ox O2 Delivery O2 Flow Rate FiO2 05/01/20 18:54 97.9 122 22 169/63 (98) 98 Room Air 97.9 EKG: EKG: EKG interpreted by me atrial fibrillation with a rate of 104, left axis deviation, left bundle branch block, prolonged QTC, nonspecific ST changes [] Radiology/Procedures: Radiology/Procedures: [][address] [address] IMAGING REPORT Signed PATIENT: TATA NICOLAS ACCOUNT: [id number] : 1945 LOCATION: ER AGE: 75 SEX: F EXAM STATUS: REG ER ORD. PHYSICIAN: JONATHAN SOLORIO MD REASON: ams PROCEDURE: PORTABLE CHEST 1V Exam: Chest one view INDICATION: Altered mental status TECHNIQUE: Frontal view of the [place] Comparisons: 03/31/2019 FINDINGS: The cardiomediastinal silhouette and pulmonary vessels are within normal limits. Small right pleural effusion. There are strandy opacities at the right lung base. IMPRESSION: Small right pleural effusion with adjacent airspace disease likely atelectasis. Electronically signed by: Camille Johnson MD (05/01/2020 8:07 PM) [facility] DICTATED and SIGNED BY: CAMILLE JOHNSON MD DATE: 05/01/20 [id number] [place] [address] IMAGING REPORT Signed PATIENT: TATA NICOLAS ACCOUNT: [id number] : 1945 LOCATION: ER AGE: 75 SEX: F EXAM STATUS: REG ER ORD. PHYSICIAN: JONATHAN SOLORIO MD REASON: ams, PUI PROCEDURE: CT HEAD WO CONTRAST CT head without contrast: Reason for examination: altered mental status. PUI. Comparison is made to previous study dated 06/22/2016. Axial images were obtained through the brain. No contrast was administered. Reconstruction was performed in coronal plane. Exposure: One or more of the following individualized dose reduction techniques were utilized for this examination: 1. Automated exposure control 2. Adjustment of the mA and/or kV according to patient size 3. Use of iterative reconstruction technique. Ventricular systems are symmetric bilaterally and not abnormally dilated considering mild generalized atrophy. No midline shift is seen. There are patchy deep white matter changes in the frontal and parietal lobes consistent with microvascular ischemic changes. There is also some focal decreased density in the posterior left frontal lobe which probably represents a chronic infarct with some encephalomalacia. No acute infarcts, masses or edema are evident. No abnormalities are seen at the orbits. The paranasal sinuses and mastoid air cells are clear. No acute skull abnormality is seen. IMPRESSION: Cerebral atrophy with microvascular ischemic changes in the frontal and parietal lobes. 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 No acute intracranial abnormality evident. Electronically signed by: Sunny Messer MD (05/01/2020 9:14 PM) [facility] DICTATED and SIGNED BY: SUNNY MESSER MD DATE: 05/01/20 [id number] 0 Course & Med Decision Making: Course & Med Decision Making Pertinent Labs and Imaging studies reviewed. (See chart for details) [] 75-year-old female presents with altered mental status. Patient has a nonfocal neurological exam and last known normal was over 4 and half hours prior to arrival therefore she is not a candidate for TPA. Clinically doubt large vessel occlusion therefore she not candidate for intervention neurology. Patient most likely has a metabolic encephalopathy due to an infectious or metabolic process. Patient has urinary tract infection which we will treat. Patient also has a very excoriated genitourinary exam with the decubitus ulcer. Patient's hypokalemia is been addressed. Patient will get IV fluids for her mild hyponatremia and dehydration. Patient will be admitted to Dr. Ortega. Patient will be also swabbed for COVID-19. Carlos Disclaimer: Carlos Disclaimer: This electronic medical record was generated, in whole or in part, using a voice recognition dictation system. Departure Departure Impression: Primary Impression: Metabolic encephalopathy Additional Impressions: Altered mental status Urinary tract infection Hypokalemia Sacral decubitus ulcer Dehydration Disposition: 09 ADMITTED INPT THIS HOSP Admitting Physician: STONE royal) Condition: STABLE Referrals: NO PCP (PCP) JONATHAN SOLORIO MD May 01, 2020 19:02
[2020-05-01] MEDS ORDERED: IV NORMAL SALINE 1000ML BAG 1,000 ML IV ONE (19:15)
[2020-05-01 19:25] LABS: BILIRUBIN,URINE MODERATE (NEG); CLARITY,URINE CLEAR; COLOR,URINE ORANGE; NITRITE,URINE POSITIVE (NEG); PROTEIN,URINE 30 mg/dL (NEG-TRACE)
[2020-05-01 19:34] LABS: RBC,URINE 0 /HPF (0-2)
[2020-05-01 19:35] LABS: BACTERIA,URINE MODERATE /HPF (0-FEW)
[2020-05-01 19:44] LABS: BASO # 0.1 x10^3/uL (0.0-0.2); BASO % 2 % (0-3); EOS # 0.2 x10^3/uL (0.0-0.7); EOS % 2 % (0-3); HEMATOCRIT 36.1 % (36.0-47.0); HEMOGLOBIN 11.9 g/dL (12.0-15.5); LYMPH # 1.8 x10^3/uL (1.0-4.8); LYMPH % 24 % (24-48); MEAN CORPUSCULAR HEMOGLOBIN 34 pg (25-35); MEAN CORPUSCULAR HGB CONC 33 g/dL (31-37); MEAN CORPUSCULAR VOLUME 102 fL (79-100); MONO % 14 % (0-9); NEUT # 4.4 x10^3/uL (1.8-7.7); NEUT % 59 % (31-73); PLATELET COUNT 146 x10^3/uL (140-400); RED BLOOD COUNT 3.55 x10^6/uL (3.50-5.40); RED CELL DISTRIBUTION WIDTH 18.2 % (11.5-14.5); WHITE BLOOD COUNT 7.5 x10^3/uL (4.0-11.0)
[2020-05-01 20:02] LABS: ACETAMIN < 2 mcg/ml (10-30); SALIC < 2.8 mg/dL (2.8-20.0)
[2020-05-01 20:03] LABS: ETHANOL < 10 mg/dL (0-10)
--- NOTE | 2020-05-01 20:10 | RAD ---
Exam: Chest one view INDICATION: Altered mental status TECHNIQUE: Frontal view of the [place] Comparisons: 03/31/2019 FINDINGS: The cardiomediastinal silhouette and pulmonary vessels are within normal limits. Small right pleural effusion. There are strandy opacities at the right lung base. IMPRESSION: Small right pleural effusion with adjacent airspace disease likely atelectasis. Electronically signed by: Camille Avalos MD (05/01/2020 8:07 PM) [facility]
[2020-05-01 20:12] LABS: ALBUMIN 2.7 g/dL (3.4-5.0); ALBUMIN/GLOBULIN RATIO 0.6 (1.0-1.7); CREATININE 1.6 mg/dL (0.6-1.0); GFR 31.3; MAGNESIUM 2.4 mg/dL (1.8-2.4); TOTAL BILIRUBIN 5.7 mg/dL (0.2-1.0); TOTAL PROTEIN 7.1 g/dL (6.4-8.2)
[2020-05-01 20:14] LABS: POTASSIUM 2.6 mmol/L (3.5-5.1)
[2020-05-01] MEDS ORDERED: cefTRIAXone IV Push 1 GM VIAL. IVP ONE (20:45)
[2020-05-01] MEDS ORDERED: POTASSIUM CHLORIDE 20 MEQ TABLET.ER. PO ONE (20:45)
[2020-05-01] MEDS ORDERED: ONDANSETRON PF 4 MG/2 ML VIAL. IV PRN (21:00)
[2020-05-01] MEDS ORDERED: POTASSIUM CL 20MEQ D5-0.45NACL 1,000 ML IV ONE (21:00)
--- NOTE | 2020-05-01 21:17 | RAD ---
CT head without contrast: Reason for examination: altered mental status. PUI. Comparison is made to previous study dated 06/22/2016. Axial images were obtained through the brain. No contrast was administered. Reconstruction was performed in coronal plane. Exposure: One or more of the following individualized dose reduction techniques were utilized for this examination: 1. Automated exposure control 2. Adjustment of the mA and/or kV according to patient size 3. Use of iterative reconstruction technique. Ventricular systems are symmetric bilaterally and not abnormally dilated considering mild generalized atrophy. No midline shift is seen. There are patchy deep white matter changes in the frontal and parietal lobes consistent with microvascular ischemic changes. There is also some focal decreased density in the posterior left frontal lobe which probably represents a chronic infarct with some encephalomalacia. No acute infarcts, masses or edema are evident. No abnormalities are seen at the orbits. The paranasal sinuses and mastoid air cells are clear. No acute skull abnormality is seen. IMPRESSION: Cerebral atrophy with microvascular ischemic changes in the frontal and parietal lobes. 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 No acute intracranial abnormality evident. Electronically signed by: Marisa Cunningham MD (05/01/2020 9:14 PM) DIANA
[2020-05-01 22:43] LABS: PROTHROMBIN TIME PATIENT 16.7 SEC (11.7-14.0)
[2020-05-01] MEDS ORDERED: LACTULOSE 20 GM/30 ML SOLUTION. PO ONE (23:30)
[2020-05-02 03:00] VITALS: BP 182/82
--- NOTE | 2020-05-02 03:50 | NUR ---
The patient, TATA NICOLAS, 75 y/o, F admitted by ELIZABETH CURRAN MD, was given written information regarding hospital policies, unit procedures and contact persons. patient transferred via ED bed assisted by ED staff. Valuables were checked and noted. patient is currently laying in bed with call light within reach. wound photos were taken at this time. patient denies any needs at this time. This RN will continue to monitor the patient at this time.
[2020-05-02 07:00] VITALS: BP 186/84
[2020-05-02] MEDS ORDERED: MAGNESIUM SULFATE 2GM 50 ML IV ONE (09:30)
[2020-05-02] MEDS ORDERED: POTASSIUM CHLORIDE 20 MEQ TABLET.ER. PO ONE (09:30)
--- NOTE | 2020-05-02 09:33 | PDOC1 ---
History and Physical Date of Admission Date of Admission DATE: 05/02/20 TIME: 09:26 Identification/Chief Complaint Chief Complaint confusion Source Source: Chart review, Patient History of Present Illness History of Present Illness Patient is a 75 year old female who was admitted lasst night with worsening confusion and altered mental status. physical review of systems are all limited due to altered mental status. she had been sitting in her soiled underwear, maybe for days at home, she has a wound on her buttock and is poorly kept, and needing further cleaning. she wanted to talk about President Teo and Kourtney, to "make sure they are even" she had trouble eating her breakfast and required assistance. Past Medical History Past Medical History mult prior admits for CHF, Cardiovascular: CAD, HTN, Hyperlipidemia, Other Pulmonary: COPD, Pneumonia CENTRAL NERVOUS SYSTEM: Other GI: No pertinent hx Heme/Onc: No pertinent hx Hepatobiliary: No pertinent hx Psych: No pertinent hx Musculoskeletal: low back pain, Osteoarthritis Infectious disease: No pertinent hx Renal/: No pertinent hx Endocrine: No pertinent hx Past Surgical History Past Surgical History: Cataract Removal Family History Family History: High Cholestrol, Hypertension Social History Smoke: <1 pack per day ALCOHOL: none Drugs: None Current Problem List Problem List Problems Medical Problems: (1) Altered mental status Status: Acute (2) Dehydration Status: Acute (3) Hypokalemia Status: Acute (4) Metabolic encephalopathy Status: Acute (5) Sacral decubitus ulcer Status: Acute (6) Urinary tract infection Status: Acute Current Medications Current Medications Current Medications Sodium Chloride 1,000 ml @ 1,000 mls/hr 1X ONCE IV Last administered on 05/01/20at 19:57; Start 05/01/20 at 19:15; Stop 05/01/20 at 20:14; Status DC Ceftriaxone Sodium (Rocephin) 1 gm 1X ONCE IVP Last administered on 05/01/20at 20:43; Start 05/01/20 at 20:45; Stop 05/01/20 at 20:46; Status DC Potassium Chloride (Klor-Con) 40 meq 1X ONCE PO Last administered on 05/01/20at 20:44; Start 05/01/20 at 20:45; Stop 05/01/20 at 20:46; Status DC Ondansetron HCl (Zofran) 4 mg PRN Q8HRS PRN IV NAUSEA/VOMITING; Start 05/01/20 at 21:00; Stop 05/02/20 at 20:59 Potassium Chloride/Dextrose/ Sod Cl 1,000 ml @ 100 mls/hr Q10H ONCE IV Last administered on 05/01/20at 21:24; Start 05/01/20 at 21:00; Stop 05/02/20 at 06:59; Status DC Lactulose (Lactulose) 20 gm ONCE ONCE PO Last administered on 05/01/20at 23:40; Start 05/01/20 at 23:30; Stop 05/01/20 at 23:31; Status DC Ceftriaxone Sodium (Rocephin) 1 gm Q24H IVP ; Start 05/02/20 at 21:00 Magnesium Sulfate 50 ml @ 25 mls/hr 1X ONCE IV ; Start 05/02/20 at 09:30; Stop 05/02/20 at 11:29 Potassium Chloride (Klor-Con) 40 meq 1X ONCE PO ; Start 05/02/20 at 09:30; Stop 05/02/20 at 09:31 Aspirin (Ecotrin) 81 mg DAILYWBKFT PO ; Start 05/02/20 at 09:30 Atorvastatin Calcium (Lipitor) 40 mg QHS PO ; Start 05/02/20 at 21:00 Carvedilol (Coreg) 3.125 mg BIDWMEALS PO ; Start 05/02/20 at 09:30 Clopidogrel Bisulfate (Plavix) 75 mg DAILY PO ; Start 05/02/20 at 09:30 Lisinopril (Prinivil) 20 mg DAILY PO ; Start 05/02/20 at 09:30 Potassium Chloride (Klor-Con) 20 meq BID PO ; Start 05/02/20 at 21:00 Active Scripts Active Furosemide 40 Mg Tablet 40 Mg PO DAILY 30 Days Aspirin Ec (Aspirin) 81 Mg Tablet.dr 81 Mg PO DAILYWBKFT 30 Days Zithromax (Azithromycin) 250 Mg Tablet 1 Pkg PO UD Proair Hfa Inhaler (Albuterol Sulfate) 8.5 Gm Hfa.aer.ad 1 Puff INH PRN Q6HRS PRN Reported Lisinopril 20 Mg Tablet 1 Tab PO DAILY Lipitor (Atorvastatin Calcium) 40 Mg Tablet 1 Tab PO QHS Clopidogrel (Clopidogrel Bisulfate) 75 Mg Tablet 75 Mg PO DAILY Carvedilol (Carvedilol) 3.125 Mg Tablet 3.125 Mg PO BIDWMEALS Klor-Con M20 (Potassium Chloride) 20 Meq Tab.er.prt 20 Meq PO BID Allergies Allergies: Coded Allergies: No Known Drug Allergies (Unverified , 04/18/15) ROS Review of System weakness, fatigue, confused, wanted to talk politics when asked General: No: Chills, Night Sweats, Fatigue, Malaise, Appetite, Other PSYCHOLOGICAL ROS: No: Anxiety, Behavioral Disorder, Concentration difficultie, Decreased libido, Depression, Disorientation, Hallucinations, Hostility, Irritablity, Memory difficulties, Mood Swings, Obsessive thoughts, Physical abuse, Sexual abuse, Sleep disturbances, Suicidal ideation, Other HEENT: YES: Heacaches Respiratory: YES: Cough Cardiovascular: No Chest Pain, No Paroxysmal Noc. Dyspnea, No Edema, No Lt Headedness, No Other Gastrointestinal: Yes Nausea Genitourinary: No Dysuria, No Frequency, No Incontinence, No Hematuria, No Retention, No Discharge, No Urgency, No Pain, No Flank Pain, No Other, No , No , No , No , No , No , No Musculoskeletal: No Gait Disturbance, No Joint Pain, No Joint Stiffness, No Joint Swelling, No Muscle Pain, No Muscular Weakness, No Pain In:, No Swelling In:, No Other Neurological: Yes Confusion; No Behavorial Changes, No Bowel/Bladder ControlChng, No Headaches, No Impaired Coord/balance, No Memory Loss, No Numbness/Tingling, No Seizures, No Speech Problems, No Tremors, No Visual Changes, No Weakness, No Other Skin: Yes Dry Skin; No Pruritus, No Rash, No Skin Lesion Changes, No Other, No Acne Physical Exam General: Alert, Cooperative, Other (not oroiented, ) HEENT: PERRLA Lungs: Clear to auscultation Heart: S1S2 Abdomen: Soft Skin: No rashes, Other (wound to buttock, poror nail care, ) Neuro: Normal speech, Cranial nerves 3-12 NL Psych/Mental Status: Mental status NL, Mood NL Vitals Vitals Vital Signs Date Time Temp Pulse Resp B/P (MAP) Pulse Ox O2 Delivery O2 Flow Rate FiO2 05/02/20 04:30 Room Air 05/02/20 03:11 100 18 154/65 (94) 96 05/02/20 03:00 99.0 99.0 Labs Labs Laboratory Tests Test 05/01/20 19:15 05/01/20 19:28 05/01/20 20:05 05/01/20 22:32 Urine Collection Type U cath Urine Color [place] Urine Clarity Clear Urine pH 6.0 (<5.0-8.0) Urine Specific [place] 1.020 (1.000-1.030) Urine Protein 30 mg/dL (NEG-TRACE) Urine Glucose (UA) Negative mg/dL (NEG) Urine Ketones (Stick) Trace mg/dL (NEG) Urine Blood Negative (NEG) Urine Nitrite Positive (NEG) Urine Bilirubin Moderate (NEG) Urine Urobilinogen Dipstick 4.0 mg/dL (0.2 mg/dL) Urine Leukocyte Esterase Small (NEG) Urine RBC 0 /HPF (0-2) Urine WBC 5-10 /HPF (0-4) Urine Squamous Epithelial Cells Many /LPF Urine Bacteria Moderate /HPF (0-FEW) Urine Mucus Slight /LPF White Blood Count 7.5 x10^3/uL (4.0-11.0) Red Blood Count 3.55 x10^6/uL (3.50-5.40) Hemoglobin 11.9 g/dL (12.0-15.5) Hematocrit 36.1 % (36.0-47.0) Mean Corpuscular Volume 102 fL (79-100) Mean Corpuscular Hemoglobin 34 pg (25-35) Mean Corpuscular Hemoglobin Concent 33 g/dL (31-37) Red Cell Distribution Width 18.2 % (11.5-14.5) Platelet Count 146 x10^3/uL (140-400) Neutrophils (%) (Auto) 59 % (31-73) Lymphocytes (%) (Auto) 24 % (24-48) Monocytes (%) (Auto) 14 % (0-9) Eosinophils (%) (Auto) 2 % (0-3) Basophils (%) (Auto) 2 % (0-3) Neutrophils # (Auto) 4.4 x10^3/uL (1.8-7.7) Lymphocytes # (Auto) 1.8 x10^3/uL (1.0-4.8) Monocytes # (Auto) 1.0 x10^3/uL (0.0-1.1) Eosinophils # (Auto) 0.2 x10^3/uL (0.0-0.7) Basophils # (Auto) 0.1 x10^3/uL (0.0-0.2) Sodium Level 148 mmol/L (136-145) Potassium Level 2.6 mmol/L (3.5-5.1) Chloride Level 109 mmol/L (98-107) Carbon Dioxide Level 30 mmol/L (21-32) Anion Gap 9 (6-14) Blood Urea Nitrogen 24 mg/dL (7-20) Creatinine 1.6 mg/dL (0.6-1.0) Estimated GFR (Cockcroft-Gault) 31.3 BUN/Creatinine Ratio 15 (6-20) Glucose Level 112 mg/dL (70-99) Lactic Acid Level 3.2 mmol/L (0.4-2.0) Calcium Level 9.0 mg/dL (8.5-10.1) Magnesium Level 2.4 mg/dL (1.8-2.4) Total Bilirubin 5.7 mg/dL (0.2-1.0) Aspartate Amino Transf (AST/SGOT) 44 U/L (15-37) Alanine Aminotransferase (ALT/SGPT) 32 U/L (14-59) Alkaline Phosphatase 107 U/L (46-116) Creatine Kinase 113 U/L (26-192) Troponin I Quantitative 0.028 ng/mL (0.000-0.055) Total Protein 7.1 g/dL (6.4-8.2) Albumin 2.7 g/dL (3.4-5.0) Albumin/Globulin Ratio 0.6 (1.0-1.7) Lipase 81 U/L (73-393) Salicylates Level < 2.8 mg/dL (2.8-20.0) Salicylate Last Dose Date Unknown Salicylate Last Dose Time Unknown Acetaminophen Level < 2 mcg/ml (10-30) Acetaminophen Last Dose Date Unknown Acetaminophen Last Dose Time Unknown Ethyl Alcohol Level < 10 mg/dL (0-10) Prothrombin Time 16.7 SEC (11.7-14.0) Prothromb Time International Ratio 1.4 (0.8-1.1) Activated Partial Thromboplast Time 34 SEC (24-38) Ammonia 66 mcmol/L (11-34) Test 05/02/20 00:05 Lactic Acid Level 2.3 mmol/L (0.4-2.0) Laboratory Tests Test 05/01/20 19:15 05/01/20 19:28 05/01/20 20:05 05/01/20 22:32 Urine Collection Type U cath Urine Color [place] Urine Clarity Clear Urine pH 6.0 (<5.0-8.0) Urine Specific [place] 1.020 (1.000-1.030) Urine Protein 30 mg/dL (NEG-TRACE) Urine Glucose (UA) Negative mg/dL (NEG) Urine Ketones (Stick) Trace mg/dL (NEG) Urine Blood Negative (NEG) Urine Nitrite Positive (NEG) Urine Bilirubin Moderate (NEG) Urine Urobilinogen Dipstick 4.0 mg/dL (0.2 mg/dL) Urine Leukocyte Esterase Small (NEG) Urine RBC 0 /HPF (0-2) Urine WBC 5-10 /HPF (0-4) Urine Squamous Epithelial Cells Many /LPF Urine Bacteria Moderate /HPF (0-FEW) Urine Mucus Slight /LPF White Blood Count 7.5 x10^3/uL (4.0-11.0) Red Blood Count 3.55 x10^6/uL (3.50-5.40) Hemoglobin 11.9 g/dL (12.0-15.5) Hematocrit 36.1 % (36.0-47.0) Mean Corpuscular Volume 102 fL (79-100) Mean Corpuscular Hemoglobin 34 pg (25-35) Mean Corpuscular Hemoglobin Concent 33 g/dL (31-37) Red Cell Distribution Width 18.2 % (11.5-14.5) Platelet Count 146 x10^3/uL (140-400) Neutrophils (%) (Auto) 59 % (31-73) Lymphocytes (%) (Auto) 24 % (24-48) Monocytes (%) (Auto) 14 % (0-9) Eosinophils (%) (Auto) 2 % (0-3) Basophils (%) (Auto) 2 % (0-3) Neutrophils # (Auto) 4.4 x10^3/uL (1.8-7.7) Lymphocytes # (Auto) 1.8 x10^3/uL (1.0-4.8) Monocytes # (Auto) 1.0 x10^3/uL (0.0-1.1) Eosinophils # (Auto) 0.2 x10^3/uL (0.0-0.7) Basophils # (Auto) 0.1 x10^3/uL (0.0-0.2) Sodium Level 148 mmol/L (136-145) Potassium Level 2.6 mmol/L (3.5-5.1) Chloride Level 109 mmol/L (98-107) Carbon Dioxide Level 30 mmol/L (21-32) Anion Gap 9 (6-14) Blood Urea Nitrogen 24 mg/dL (7-20) Creatinine 1.6 mg/dL (0.6-1.0) Estimated GFR (Cockcroft-Gault) 31.3 BUN/Creatinine Ratio 15 (6-20) Glucose Level 112 mg/dL (70-99) Lactic Acid Level 3.2 mmol/L (0.4-2.0) Calcium Level 9.0 mg/dL (8.5-10.1) Magnesium Level 2.4 mg/dL (1.8-2.4) Total Bilirubin 5.7 mg/dL (0.2-1.0) Aspartate Amino Transf (AST/SGOT) 44 U/L (15-37) Alanine Aminotransferase (ALT/SGPT) 32 U/L (14-59) Alkaline Phosphatase 107 U/L (46-116) Creatine Kinase 113 U/L (26-192) Troponin I Quantitative 0.028 ng/mL (0.000-0.055) Total Protein 7.1 g/dL (6.4-8.2) Albumin 2.7 g/dL (3.4-5.0) Albumin/Globulin Ratio 0.6 (1.0-1.7) Lipase 81 U/L (73-393) Salicylates Level < 2.8 mg/dL (2.8-20.0) Salicylate Last Dose Date Unknown Salicylate Last Dose Time Unknown Acetaminophen Level < 2 mcg/ml (10-30) Acetaminophen Last Dose Date Unknown Acetaminophen Last Dose Time Unknown Ethyl Alcohol Level < 10 mg/dL (0-10) Prothrombin Time 16.7 SEC (11.7-14.0) Prothromb Time International Ratio 1.4 (0.8-1.1) Activated Partial Thromboplast Time 34 SEC (24-38) Ammonia 66 mcmol/L (11-34) Test 05/02/20 00:05 Lactic Acid Level 2.3 mmol/L (0.4-2.0) VTE Prophylaxis Ordered VTE Prophylaxis Devices: Yes VTE Pharmacological Prophylaxi: Yes Assessment/Plan Assessment/Plan acute metabolic encephalopathy, due to UTI and sepsis, confusion, probable baseline of cogitive decline or early dementia UTI sepsis, IV fluid given acute dehydration buttock wound, consulted wound care severe malnutrition weakness and debility covid, 19 - will rule out, is in isolation on admit Justifications for Admission Other Justification DEANNA PRAJAPATI MD May 02, 2020 09:33
[2020-05-02] MEDS: CLOPIDOGREL BISULFATE 75 MG TABLET PO SCH (09:41)
[2020-05-02] MEDS: LISINOPRIL 20 MG TABLET PO SCH (09:41)
[2020-05-02] MEDS: ASPIRIN ENTERIC COATED 81 MG TABLET.DR. PO SCH (09:41)
[2020-05-02] MEDS: CARVEDILOL 3.125 MG TABLET. PO SCH ×2 (09:41→16:30)
[2020-05-02 11:00] VITALS: BP 148/87
[2020-05-02 11:21] LABS: CALCIUM 8.1 mg/dL (8.5-10.1); CREATININE 1.5 mg/dL (0.6-1.0); GFR 33.7; MAGNESIUM 2.3 mg/dL (1.8-2.4); POTASSIUM 3.9 mmol/L (3.5-5.1)
[2020-05-02 15:00] VITALS: BP 147/88
--- NOTE | 2020-05-02 15:02 | NUR ---
Wound Care Wound Type/Assessment: Consult to eval and treat multiple wounds present on admission. Per Angeli LORD, pt admitted overnight from home. She usually lives home alone with family helpers stopping by, but had been refusing help for the last several days. She was eventually found siting in several days worth of stool with wounds and suspected encephalopathy. On assessment, pt incontinent of bowel, unable to relate if she can tell whether she has had a bowel movement or not. Alert to self and place only. Wounds observed to bilateral ischium, L buttock, R groin fold, and midline lower abdomen. All wounds measured, pictures in chart. Skin to buttocks dry and peeling. All wounds 50-75% slough covered with minimal bright red granulation noted. Pt toes are faintly purple, but blanchable. Midline lower abdomen wound slough covered, with small, soft, purple blisters noted adjacent (these were intact, and not included in measurement). No other open areas noted on head to toe assessment. Treatment Recommendations/Plan: Bilateral ischium wounds: Cleanse and pat dry. Apply skin prep to periwound and cover with hydrocolloid(exuderm) cut to fit. Change every 3 days. If dressings will not stay in place due to incontinence, please change treatment to A&D BID and leave DAVEY. L Buttock wound: Cleanse and pat dry. Cut therahoney alginate to fit wound bed and cover with foam dressing. Change every 3 days. R groin wound: Cleanse and pat dry. Apply nystatin powder BID and leave TIPPLE BOSS. Midline lower abdomen; Cleanse and pat dry. Apply skin prep and cover with hydrocolloid (exuderm) cut to fit. Change every 3 days. Education provided: Pt alert to self and place only, unable to receive education. Offloading surface/device: P500 bed. Pt is able to self turn and does so frequently without prompt. Recommended Referrals/Tests: NA Discharge Recommendations for dressings: As described above. Will follow up 05/08/2020
[2020-05-02] MEDS: MULTIVITAMIN with MINERAL TABLET. PO SCH (16:30)
--- NOTE | 2020-05-02 16:40 | NUR ---
SW following for discharge planning. Spoke with RN and reviewed chart. SW consulted for pt being unable to care for herself. Pt COVID pending. SW attempted to call into pt's room, no answer. LLOYD spoke with daughter Lauren ([phone]). Pt lives alone. Pt urinating all over the house and not changing her clothes. Pt hoarding. Pt was found by daughter confused with AMS. PT/OT to evaluate. Pt's daughter would like to look into SNU to LTC for this patient and stated no preference in provider at this time. Patient choice of vendor form completed. Lauren to talk with her siblings further about LTC options for pt. SW requested Med Assist help pt and family with completing a Medicaid application for SNU to LTC Medicaid pending. SW following.
[2020-05-02 19:00] VITALS: BP 147/79
[2020-05-02] MEDS: POTASSIUM CHLORIDE 20 MEQ TABLET.ER. PO SCH (21:33)
[2020-05-02] MEDS: ATORVASTATIN CALCIUM 40 MG TABLET. PO SCH (21:33)
[2020-05-02] MEDS: ASCORBIC ACID 500 MG TABLET PO SCH (21:33)
[2020-05-02] MEDS: cefTRIAXone IV Push 1 GM VIAL. IVP SCH (21:33)
[2020-05-02] MEDS: LACTOBACILLUS RHAMNOSUS GG 1 CAPSULE. PO SCH (21:33)
[2020-05-02 23:00] VITALS: BP 144/61
[2020-05-03 03:00] VITALS: BP 129/60
[2020-05-03 04:35] LABS: BASO % 1 % (0-3); EOS # 0.3 x10^3/uL (0.0-0.7); EOS % 5 % (0-3); HEMATOCRIT 28.8 % (36.0-47.0); HEMOGLOBIN 9.6 g/dL (12.0-15.5); LYMPH # 1.6 x10^3/uL (1.0-4.8); LYMPH % 29 % (24-48); MEAN CORPUSCULAR HEMOGLOBIN 34 pg (25-35); MEAN CORPUSCULAR HGB CONC 33 g/dL (31-37); MEAN CORPUSCULAR VOLUME 101 fL (79-100); MONO # 0.6 x10^3/uL (0.0-1.1); MONO % 12 % (0-9); NEUT % 53 % (31-73); PLATELET COUNT 99 x10^3/uL (140-400); RED BLOOD COUNT 2.86 x10^6/uL (3.50-5.40); RED CELL DISTRIBUTION WIDTH 17.5 % (11.5-14.5); WHITE BLOOD COUNT 5.6 x10^3/uL (4.0-11.0)
[2020-05-03 04:55] LABS: ALBUMIN/GLOBULIN RATIO 0.6 (1.0-1.7); CALCIUM 8.4 mg/dL (8.5-10.1); CREATININE 1.2 mg/dL (0.6-1.0); GFR 43.6; TOTAL BILIRUBIN 3.7 mg/dL (0.2-1.0); TOTAL PROTEIN 5.3 g/dL (6.4-8.2)
[2020-05-03 07:00] VITALS: BP 145/68
[2020-05-03] MEDS: MULTIVITAMIN with MINERAL TABLET. PO SCH (09:25)
[2020-05-03] MEDS: LACTOBACILLUS RHAMNOSUS GG 1 CAPSULE. PO SCH ×2 (09:26→21:40)
[2020-05-03] MEDS: POTASSIUM CHLORIDE 20 MEQ TABLET.ER. PO SCH ×2 (09:26→21:40)
[2020-05-03] MEDS: ASCORBIC ACID 500 MG TABLET PO SCH ×2 (09:26→21:41)
[2020-05-03] MEDS: ASPIRIN ENTERIC COATED 81 MG TABLET.DR. PO SCH (09:26)
[2020-05-03] MEDS: CARVEDILOL 3.125 MG TABLET. PO SCH ×2 (09:26→16:49)
[2020-05-03] MEDS: CLOPIDOGREL BISULFATE 75 MG TABLET PO SCH (09:26)
[2020-05-03] MEDS: LISINOPRIL 20 MG TABLET PO SCH (09:26)
[2020-05-03 11:00] VITALS: BP 161/70
--- NOTE | 2020-05-03 11:45 | PDOC ---
PROGRESS NOTES Date of Service: DATE: 05/03/20 TIME: 11:44 Chief Complaint Chief Complaint acute metabolic encephalopathy, due to UTI and sepsis, confusion, baseline of cognitive decline or early dementia UTI sepsis, IV fluid given acute dehydration buttock wound, consulted wound care severe malnutrition weakness and debility covid, 19 in isolation on admit, PUI History of Present Illness History of Present Illness restart the LASIX for tomorrow cont other, fluid balance looks better, care with fluid, she has prior admi ts for CHF, she feels much better, wants to "walk out of here" has almost no recollection of yesterday, today , she is more oriented, but does not know the date she should be able to DC tomorrow, COVID test still pending, urine cx pending Vitals Vitals Vital Signs Date Time Temp Pulse Resp B/P (MAP) Pulse Ox O2 Delivery O2 Flow Rate FiO2 05/03/20 11:00 97.1 87 18 161/70 (100) 95 Room Air 97.1 Physical Exam General: Alert, Cooperative, Other (not oroiented, ) Lungs: Other Abdomen: Soft Skin: No rashes, Other (wound to buttock, poror nail care, ) Labs LABS Laboratory Tests Test 05/03/20 04:00 White Blood Count 5.6 x10^3/uL (4.0-11.0) Red Blood Count 2.86 x10^6/uL (3.50-5.40) Hemoglobin 9.6 g/dL (12.0-15.5) Hematocrit 28.8 % (36.0-47.0) Mean Corpuscular Volume 101 fL (79-100) Mean Corpuscular Hemoglobin 34 pg (25-35) Mean Corpuscular Hemoglobin Concent 33 g/dL (31-37) Red Cell Distribution Width 17.5 % (11.5-14.5) Platelet Count 99 x10^3/uL (140-400) Neutrophils (%) (Auto) 53 % (31-73) Lymphocytes (%) (Auto) 29 % (24-48) Monocytes (%) (Auto) 12 % (0-9) Eosinophils (%) (Auto) 5 % (0-3) Basophils (%) (Auto) 1 % (0-3) Neutrophils # (Auto) 3.0 x10^3/uL (1.8-7.7) Lymphocytes # (Auto) 1.6 x10^3/uL (1.0-4.8) Monocytes # (Auto) 0.6 x10^3/uL (0.0-1.1) Eosinophils # (Auto) 0.3 x10^3/uL (0.0-0.7) Basophils # (Auto) 0.0 x10^3/uL (0.0-0.2) Sodium Level 146 mmol/L (136-145) Potassium Level 4.0 mmol/L (3.5-5.1) Chloride Level 113 mmol/L (98-107) Carbon Dioxide Level 27 mmol/L (21-32) Anion Gap 6 (6-14) Blood Urea Nitrogen 22 mg/dL (7-20) Creatinine 1.2 mg/dL (0.6-1.0) Estimated GFR (Cockcroft-Gault) 43.6 BUN/Creatinine Ratio 18 (6-20) Glucose Level 84 mg/dL (70-99) Calcium Level 8.4 mg/dL (8.5-10.1) Total Bilirubin 3.7 mg/dL (0.2-1.0) Aspartate Amino Transf (AST/SGOT) 36 U/L (15-37) Alanine Aminotransferase (ALT/SGPT) 22 U/L (14-59) Alkaline Phosphatase 70 U/L (46-116) Total Protein 5.3 g/dL (6.4-8.2) Albumin 2.0 g/dL (3.4-5.0) Albumin/Globulin Ratio 0.6 (1.0-1.7) Assessment and Plan Assessmemt and Plan Problems Medical Problems: (1) Altered mental status Status: Acute (2) Dehydration Status: Acute (3) Hypokalemia Status: Acute (4) Metabolic encephalopathy Status: Acute (5) Sacral decubitus ulcer Status: Acute (6) Urinary tract infection Status: Acute Comment Review of Relevant I have reviewed the following items yuliana (where applicable) has been applied. Labs Laboratory Tests Test 05/01/20 19:15 05/01/20 19:28 05/01/20 20:05 05/01/20 22:32 Urine Collection Type U cath Urine Color [place] Urine Clarity Clear Urine pH 6.0 (<5.0-8.0) Urine Specific [place] 1.020 (1.000-1.030) Urine Protein 30 mg/dL (NEG-TRACE) Urine Glucose (UA) Negative mg/dL (NEG) Urine Ketones (Stick) Trace mg/dL (NEG) Urine Blood Negative (NEG) Urine Nitrite Positive (NEG) Urine Bilirubin Moderate (NEG) Urine Urobilinogen Dipstick 4.0 mg/dL (0.2 mg/dL) Urine Leukocyte Esterase Small (NEG) Urine RBC 0 /HPF (0-2) Urine WBC 5-10 /HPF (0-4) Urine Squamous Epithelial Cells Many /LPF Urine Bacteria Moderate /HPF (0-FEW) Urine Mucus Slight /LPF White Blood Count 7.5 x10^3/uL (4.0-11.0) Red Blood Count 3.55 x10^6/uL (3.50-5.40) Hemoglobin 11.9 g/dL (12.0-15.5) Hematocrit 36.1 % (36.0-47.0) Mean Corpuscular Volume 102 fL (79-100) Mean Corpuscular Hemoglobin 34 pg (25-35) Mean Corpuscular Hemoglobin Concent 33 g/dL (31-37) Red Cell Distribution Width 18.2 % (11.5-14.5) Platelet Count 146 x10^3/uL (140-400) Neutrophils (%) (Auto) 59 % (31-73) Lymphocytes (%) (Auto) 24 % (24-48) Monocytes (%) (Auto) 14 % (0-9) Eosinophils (%) (Auto) 2 % (0-3) Basophils (%) (Auto) 2 % (0-3) Neutrophils # (Auto) 4.4 x10^3/uL (1.8-7.7) Lymphocytes # (Auto) 1.8 x10^3/uL (1.0-4.8) Monocytes # (Auto) 1.0 x10^3/uL (0.0-1.1) Eosinophils # (Auto) 0.2 x10^3/uL (0.0-0.7) Basophils # (Auto) 0.1 x10^3/uL (0.0-0.2) Sodium Level 148 mmol/L (136-145) Potassium Level 2.6 mmol/L (3.5-5.1) Chloride Level 109 mmol/L (98-107) Carbon Dioxide Level 30 mmol/L (21-32) Anion Gap 9 (6-14) Blood Urea Nitrogen 24 mg/dL (7-20) Creatinine 1.6 mg/dL (0.6-1.0) Estimated GFR (Cockcroft-Gault) 31.3 BUN/Creatinine Ratio 15 (6-20) Glucose Level 112 mg/dL (70-99) Lactic Acid Level 3.2 mmol/L (0.4-2.0) Calcium Level 9.0 mg/dL (8.5-10.1) Magnesium Level 2.4 mg/dL (1.8-2.4) Total Bilirubin 5.7 mg/dL (0.2-1.0) Aspartate Amino Transf (AST/SGOT) 44 U/L (15-37) Alanine Aminotransferase (ALT/SGPT) 32 U/L (14-59) Alkaline Phosphatase 107 U/L (46-116) Creatine Kinase 113 U/L (26-192) Troponin I Quantitative 0.028 ng/mL (0.000-0.055) Total Protein 7.1 g/dL (6.4-8.2) Albumin 2.7 g/dL (3.4-5.0) Albumin/Globulin Ratio 0.6 (1.0-1.7) Lipase 81 U/L (73-393) Salicylates Level < 2.8 mg/dL (2.8-20.0) Salicylate Last Dose Date Unknown Salicylate Last Dose Time Unknown Acetaminophen Level < 2 mcg/ml (10-30) Acetaminophen Last Dose Date Unknown Acetaminophen Last Dose Time Unknown Ethyl Alcohol Level < 10 mg/dL (0-10) Prothrombin Time 16.7 SEC (11.7-14.0) Prothromb Time International Ratio 1.4 (0.8-1.1) Activated Partial Thromboplast Time 34 SEC (24-38) Ammonia 66 mcmol/L (11-34) Test 05/02/20 00:05 05/02/20 10:03 05/03/20 04:00 Lactic Acid Level 2.3 mmol/L (0.4-2.0) Sodium Level 147 mmol/L (136-145) 146 mmol/L (136-145) Potassium Level 3.9 mmol/L (3.5-5.1) 4.0 mmol/L (3.5-5.1) Chloride Level 112 mmol/L (98-107) 113 mmol/L (98-107) Carbon Dioxide Level 26 mmol/L (21-32) 27 mmol/L (21-32) Anion Gap 9 (6-14) 6 (6-14) Blood Urea Nitrogen 22 mg/dL (7-20) 22 mg/dL (7-20) Creatinine 1.5 mg/dL (0.6-1.0) 1.2 mg/dL (0.6-1.0) Estimated GFR (Cockcroft-Gault) 33.7 43.6 Glucose Level 133 mg/dL (70-99) 84 mg/dL (70-99) Calcium Level 8.1 mg/dL (8.5-10.1) 8.4 mg/dL (8.5-10.1) Magnesium Level 2.3 mg/dL (1.8-2.4) White Blood Count 5.6 x10^3/uL (4.0-11.0) Red Blood Count 2.86 x10^6/uL (3.50-5.40) Hemoglobin 9.6 g/dL (12.0-15.5) Hematocrit 28.8 % (36.0-47.0) Mean Corpuscular Volume 101 fL (79-100) Mean Corpuscular Hemoglobin 34 pg (25-35) Mean Corpuscular Hemoglobin Concent 33 g/dL (31-37) Red Cell Distribution Width 17.5 % (11.5-14.5) Platelet Count 99 x10^3/uL (140-400) Neutrophils (%) (Auto) 53 % (31-73) Lymphocytes (%) (Auto) 29 % (24-48) Monocytes (%) (Auto) 12 % (0-9) Eosinophils (%) (Auto) 5 % (0-3) Basophils (%) (Auto) 1 % (0-3) Neutrophils # (Auto) 3.0 x10^3/uL (1.8-7.7) Lymphocytes # (Auto) 1.6 x10^3/uL (1.0-4.8) Monocytes # (Auto) 0.6 x10^3/uL (0.0-1.1) Eosinophils # (Auto) 0.3 x10^3/uL (0.0-0.7) Basophils # (Auto) 0.0 x10^3/uL (0.0-0.2) BUN/Creatinine Ratio 18 (6-20) Total Bilirubin 3.7 mg/dL (0.2-1.0) Aspartate Amino Transf (AST/SGOT) 36 U/L (15-37) Alanine Aminotransferase (ALT/SGPT) 22 U/L (14-59) Alkaline Phosphatase 70 U/L (46-116) Total Protein 5.3 g/dL (6.4-8.2) Albumin 2.0 g/dL (3.4-5.0) Albumin/Globulin Ratio 0.6 (1.0-1.7) Laboratory Tests Test 05/03/20 04:00 White Blood Count 5.6 x10^3/uL (4.0-11.0) Red Blood Count 2.86 x10^6/uL (3.50-5.40) Hemoglobin 9.6 g/dL (12.0-15.5) Hematocrit 28.8 % (36.0-47.0) Mean Corpuscular Volume 101 fL (79-100) Mean Corpuscular Hemoglobin 34 pg (25-35) Mean Corpuscular Hemoglobin Concent 33 g/dL (31-37) Red Cell Distribution Width 17.5 % (11.5-14.5) Platelet Count 99 x10^3/uL (140-400) Neutrophils (%) (Auto) 53 % (31-73) Lymphocytes (%) (Auto) 29 % (24-48) Monocytes (%) (Auto) 12 % (0-9) Eosinophils (%) (Auto) 5 % (0-3) Basophils (%) (Auto) 1 % (0-3) Neutrophils # (Auto) 3.0 x10^3/uL (1.8-7.7) Lymphocytes # (Auto) 1.6 x10^3/uL (1.0-4.8) Monocytes # (Auto) 0.6 x10^3/uL (0.0-1.1) Eosinophils # (Auto) 0.3 x10^3/uL (0.0-0.7) Basophils # (Auto) 0.0 x10^3/uL (0.0-0.2) Sodium Level 146 mmol/L (136-145) Potassium Level 4.0 mmol/L (3.5-5.1) Chloride Level 113 mmol/L (98-107) Carbon Dioxide Level 27 mmol/L (21-32) Anion Gap 6 (6-14) Blood Urea Nitrogen 22 mg/dL (7-20) Creatinine 1.2 mg/dL (0.6-1.0) Estimated GFR (Cockcroft-Gault) 43.6 BUN/Creatinine Ratio 18 (6-20) Glucose Level 84 mg/dL (70-99) Calcium Level 8.4 mg/dL (8.5-10.1) Total Bilirubin 3.7 mg/dL (0.2-1.0) Aspartate Amino Transf (AST/SGOT) 36 U/L (15-37) Alanine Aminotransferase (ALT/SGPT) 22 U/L (14-59) Alkaline Phosphatase 70 U/L (46-116) Total Protein 5.3 g/dL (6.4-8.2) Albumin 2.0 g/dL (3.4-5.0) Albumin/Globulin Ratio 0.6 (1.0-1.7) Microbiology 05/01/20 Blood Culture - Preliminary, Resulted NO GROWTH AFTER 1 DAY 05/01/20 Urine Culture - Preliminary, Resulted Medications Current Medications Sodium Chloride 1,000 ml @ 1,000 mls/hr 1X ONCE IV Last administered on 05/01/20at 19:57; Start 05/01/20 at 19:15; Stop 05/01/20 at 20:14; Status DC Ceftriaxone Sodium (Rocephin) 1 gm 1X ONCE IVP Last administered on 05/01/20at 20:43; Start 05/01/20 at 20:45; Stop 05/01/20 at 20:46; Status DC Potassium Chloride (Klor-Con) 40 meq 1X ONCE PO Last administered on 05/01/20at 20:44; Start 05/01/20 at 20:45; Stop 05/01/20 at 20:46; Status DC Ondansetron HCl (Zofran) 4 mg PRN Q8HRS PRN IV NAUSEA/VOMITING; Start 05/01/20 at 21:00; Stop 05/02/20 at 20:59; Status DC Potassium Chloride/Dextrose/ Sod Cl 1,000 ml @ 100 mls/hr Q10H ONCE IV Last administered on 05/01/20at 21:24; Start 05/01/20 at 21:00; Stop 05/02/20 at 06:59; Status DC Lactulose (Lactulose) 20 gm ONCE ONCE PO Last administered on 05/01/20at 23:40; Start 05/01/20 at 23:30; Stop 05/01/20 at 23:31; Status DC Ceftriaxone Sodium (Rocephin) 1 gm Q24H IVP Last administered on 05/02/20at 21:33; Start 05/02/20 at 21:00 Magnesium Sulfate 50 ml @ 25 mls/hr 1X ONCE IV Last administered on 05/02/20at 09:40; Start 05/02/20 at 09:30; Stop 05/02/20 at 11:29; Status DC Potassium Chloride (Klor-Con) 40 meq 1X ONCE PO Last administered on 05/02/20at 09:42; Start 05/02/20 at 09:30; Stop 05/02/20 at 09:31; Status DC Aspirin (Ecotrin) 81 mg DAILYWBKFT PO Last administered on 05/03/20at 09:26; Start 05/02/20 at 09:30 Atorvastatin Calcium (Lipitor) 40 mg QHS PO Last administered on 05/02/20at 21:33; Start 05/02/20 at 21:00 Carvedilol (Coreg) 3.125 mg BIDWMEALS PO Last administered on 05/03/20at 09:26; Start 05/02/20 at 09:30 Clopidogrel Bisulfate (Plavix) 75 mg DAILY PO Last administered on 05/03/20at 09:26; Start 05/02/20 at 09:30 Lisinopril (Prinivil) 20 mg DAILY PO Last administered on 05/03/20 09:26; Start 05/02/20 at 09:30 Potassium Chloride (Klor-Con) 20 meq BID PO Last administered on 05/03/20 09:26; Start 05/02/20 at 21:00 Ascorbic Acid (Vitamin C) 500 mg BID PO Last administered on 05/03/20 09:26; Start 05/02/20 at 21:00 Multivitamins (Thera M Plus) 1 tab DAILY PO Last administered on 05/03/20at 09:25; Start 05/02/20 at 14:30 Lactobacillus Rhamnosus (Culturelle) 1 cap BID PO Last administered on 05/03/20at 09:26; Start 05/02/20 at 21:00 Active Scripts Active Furosemide 40 Mg Tablet 40 Mg PO DAILY 30 Days Aspirin Ec (Aspirin) 81 Mg Tablet.dr 81 Mg PO DAILYWBKFT 30 Days Zithromax (Azithromycin) 250 Mg Tablet 1 Pkg PO UD Proair Hfa Inhaler (Albuterol Sulfate) 8.5 Gm Hfa.aer.ad 1 Puff INH PRN Q6HRS PRN Reported Lisinopril 20 Mg Tablet 1 Tab PO DAILY Lipitor (Atorvastatin Calcium) 40 Mg Tablet 1 Tab PO QHS Clopidogrel (Clopidogrel Bisulfate) 75 Mg Tablet 75 Mg PO DAILY Carvedilol (Carvedilol) 3.125 Mg Tablet 3.125 Mg PO BIDWMEALS Klor-Con M20 (Potassium Chloride) 20 Meq Tab.er.prt 20 Meq PO BID Vitals/I & O Vital Sign - Last 24 Hours 05/02/20 05/02/20 05/02/20 05/02/20 15:00 16:30 19:00 21:30 Temp 96.5 98.0 96.5 98.0 Pulse 93 93 75 Resp 22 18 B/P (MAP) 147/88 (107) 147/88 147/79 (101) Pulse Ox 96 92 O2 Delivery Nasal Cannula Room Air Room Air 05/02/20 05/03/20 05/03/20 05/03/20 23:00 03:00 07:00 09:26 Temp 98.0 98.0 97.7 98.0 98.0 97.7 Pulse 61 70 78 78 Resp 18 18 18 B/P (MAP) 144/61 (88) 129/60 (83) 145/68 (93) 145/68 Pulse Ox 97 96 96 O2 Delivery Room Air Room Air Room Air 05/03/20 05/03/20 09:26 11:00 Temp 97.1 97.1 Pulse 78 87 Resp 18 B/P (MAP) 145/68 161/70 (100) Pulse Ox 95 O2 Delivery Room Air Intake and Output 05/02/20 05/02/20 05/03/20 15:00 23:00 07:00 Intake Total 400 ml 200 ml 0 ml Output Total 0 ml Balance 400 ml 200 ml 0 ml Nutrition Consultation Dietary Evaluation: Recommendations by RD: Dietary education by RD, Increase Calorie Intake, Protein supplementation Comments: ensure tid mvi vit c Expected Outcomes/Goals: to meet >75% est nutr needs improved wound status Malnutrition Findings: Body Fat Depletion (Non Severe: Mild Depletion Weight Status: Underweight Justicifation of Admission Dx: Justifications for Admission: Justification of Admission Dx: Yes (sepsis, encephalopathy) DEANNA PRAJAPATI MD May 03, 2020 11:45
--- NOTE | 2020-05-03 12:56 | NUR ---
LLOYD following for discharge planning. Spoke with RN and reviewed chart. Pt's COVID result remains pending. COVID result will influence placement options for SNU to LTC on this patient. LLOYD went ahead and faxed the referral for SNU to LTC (will be Medicaid pending) to [facility] at [place] as dtr stated no preference in provider. LLOYD called and left another for [facility] to have them contact dtr about completing Medicaid application for placement. Pt won't be able to go to [place] if COVID result is positive. LLOYD following. Addendum: 05/03/20 at 1532 by CHARMAINE DESAI LLOYD contacted by daughter Yazmin ([phone]) who stated she will complete Medicaid application this weekend for patient. LLOYD emailed it to her and requested she provide LLOYD with a copy for placement. Addendum: 05/07/20 at 1039 by CHARMAINE DESAI Pt identified as BPCI, discharge planners following.
[2020-05-03] MEDS ORDERED: THIAMINE INJ 100 MG in IV DEXTROSE 5% 50 ML IV ONE (13:00)
[2020-05-03] MEDS: FUROSEMIDE 40 MG TABLET. PO SCH (13:32)
[2020-05-03] MEDS: VITAMIN B12,B9,B6 COMPLEX 1 TABLET. PO SCH (13:32)
[2020-05-03 15:00] VITALS: BP 163/62
[2020-05-03 19:30] VITALS: BP 131/60
[2020-05-03] MEDS: ATORVASTATIN CALCIUM 40 MG TABLET. PO SCH (21:40)
[2020-05-03] MEDS: cefTRIAXone IV Push 1 GM VIAL. IVP SCH (21:40)
--- NOTE | 2020-05-03 21:55 | NUR ---
Pt transferred to 506 with assist x2. Pt tolerated without complaints. Report given to Nurse previously before tx. No complaints noted at this time.
[2020-05-03 23:00] VITALS: BP 135/46
[2020-05-04 03:00] VITALS: BP 122/46
[2020-05-04 07:00] VITALS: BP 126/46
[2020-05-04] MEDS: THIAMINE 100 MG TABLET. PO SCH (08:56)
[2020-05-04] MEDS: FUROSEMIDE 40 MG TABLET. PO SCH (08:56)
[2020-05-04] MEDS: ASPIRIN ENTERIC COATED 81 MG TABLET.DR. PO SCH (08:56)
[2020-05-04] MEDS: CARVEDILOL 3.125 MG TABLET. PO SCH ×2 (08:56→17:19)
[2020-05-04] MEDS: VITAMIN B12,B9,B6 COMPLEX 1 TABLET. PO SCH (08:57)
[2020-05-04] MEDS: LISINOPRIL 20 MG TABLET PO SCH (08:57)
[2020-05-04] MEDS: ASCORBIC ACID 500 MG TABLET PO SCH ×2 (08:57→20:52)
[2020-05-04] MEDS: POTASSIUM CHLORIDE 20 MEQ TABLET.ER. PO SCH ×2 (08:57→17:20)
[2020-05-04] MEDS: CLOPIDOGREL BISULFATE 75 MG TABLET PO SCH (08:57)
[2020-05-04] MEDS: MULTIVITAMIN with MINERAL TABLET. PO SCH (08:57)
[2020-05-04] MEDS: LACTOBACILLUS RHAMNOSUS GG 1 CAPSULE. PO SCH ×2 (08:59→20:51)
--- NOTE | 2020-05-04 10:32 | PDOC ---
[employer] PROGRESS NOTE Date of Service DOS: DATE: 05/04/20 TIME: 10:32 Chief Complaint Chief Complaint acute metabolic encephalopathy, due to UTI and sepsis, confusion, baseline of cognitive decline or early dementia UTI sepsis, IV fluid given acute dehydration buttock wound, consulted wound care severe malnutrition weakness and debility covid, 19 in isolation on admit, PUI History of Present Illness History of Present Illness Ms Florian is a 75yo F w/ PMHx MCI, dCHF who p/w confusion, sepsis, UTI 05/03: she feels much better, wants to "walk out of here" has almost no recollection of yesterday, today , she is more oriented, but does not know the date Afebrile. Still very confused. Weak. urine culture returned positive for sensitive Klebsiella switch to oral Augmentin. She needs skilled services on discharge awaiting further PT and OT eval. Vitals/I&O Vitals/I&O: Vital Signs Date Time Temp Pulse Resp B/P (MAP) Pulse Ox O2 Delivery O2 Flow Rate FiO2 05/04/20 08:57 84 126/46 05/04/20 07:00 97.8 20 98 Room Air 97.8 I & O 05/03/20 05/03/20 05/04/20 15:00 23:00 07:00 Intake Total 300 ml 300 ml Output Total 0 ml Balance 300 ml 300 ml 0 ml Physical Exam General: Alert, Cooperative, Other (not oroiented, ) Lungs: Other Abdomen: Soft Skin: No rashes, Other (wound to buttock, poror nail care, ) Assessment and Plan Assessmemt and Plan Problems Medical Problems: (1) Altered mental status Status: Acute (2) Dehydration Status: Acute (3) Hypokalemia Status: Acute (4) Metabolic encephalopathy Status: Acute (5) Sacral decubitus ulcer Status: Acute (6) Urinary tract infection Status: Acute Comment Review of Relevant I have reviewed the following items yuliana (where applicable) has been applied. Medications: Current Medications Medications (Trade) Dose Ordered Sig/[place] Route PRN Reason Start Time Stop Time Status Last Admin Dose Admin Thiamine Mononitrate (Vitamin B-1) 100 mg DAILY PO 05/04/20 09:00 05/04/20 08:56 Thiamine HCl 100 mg/Dextrose 51 ml @ 102 mls/hr 1X ONCE IV 05/03/20 13:00 05/03/20 13:29 DC 05/03/20 13:32 Vitamin B Complex (Folbic Tablet) 1 tab DAILY PO 05/03/20 13:00 05/04/20 08:57 Furosemide (Lasix) 40 mg DAILY PO 05/03/20 12:00 05/04/20 08:56 Potassium Chloride (Klor-Con) 20 meq BIDWMEALS PO 05/04/20 08:00 05/04/20 08:57 Justifications for Admission Other Justification MARINAFEELIZABETH Carpio MD May 04, 2020 10:32
[2020-05-04 11:28] VITALS: BP 121/43
[2020-05-04] MEDS: AMOXICILLIN/K CLAV 500/125MG TABLET. PO SCH ×2 (12:23→20:52)
[2020-05-04 15:14] VITALS: BP 131/45
[2020-05-04 19:00] VITALS: BP 119/44
[2020-05-04] MEDS: ATORVASTATIN CALCIUM 40 MG TABLET. PO SCH (20:51)
[2020-05-04 23:00] VITALS: BP 122/38
[2020-05-05 03:14] VITALS: BP 125/47
[2020-05-05 07:59] VITALS: BP 123/48
[2020-05-05] MEDS: LISINOPRIL 20 MG TABLET PO SCH (08:05)
[2020-05-05] MEDS: ASCORBIC ACID 500 MG TABLET PO SCH ×2 (08:05→20:43)
[2020-05-05] MEDS: VITAMIN B12,B9,B6 COMPLEX 1 TABLET. PO SCH (08:05)
[2020-05-05] MEDS: ASPIRIN ENTERIC COATED 81 MG TABLET.DR. PO SCH (08:05)
[2020-05-05] MEDS: CLOPIDOGREL BISULFATE 75 MG TABLET PO SCH (08:05)
[2020-05-05] MEDS: AMOXICILLIN/K CLAV 500/125MG TABLET. PO SCH ×2 (08:06→20:43)
[2020-05-05] MEDS: CARVEDILOL 3.125 MG TABLET. PO SCH ×2 (08:06→17:33)
[2020-05-05] MEDS: MULTIVITAMIN with MINERAL TABLET. PO SCH (08:06)
[2020-05-05] MEDS: THIAMINE 100 MG TABLET. PO SCH (08:06)
[2020-05-05] MEDS: POTASSIUM CHLORIDE 20 MEQ TABLET.ER. PO SCH ×2 (08:06→17:33)
[2020-05-05] MEDS: FUROSEMIDE 40 MG TABLET. PO SCH (08:06)
[2020-05-05] MEDS: LACTOBACILLUS RHAMNOSUS GG 1 CAPSULE. PO SCH ×2 (08:07→20:43)
--- NOTE | 2020-05-05 09:30 | PDOC ---
[employer] PROGRESS NOTE Date of Service DOS: DATE: 05/05/20 TIME: 09:13 Chief Complaint Chief Complaint acute metabolic encephalopathy, due to UTI and sepsis, confusion, baseline of cognitive decline or early dementia UTI sepsis, IV fluid given acute dehydration buttock wound, consulted wound care severe malnutrition weakness and debility covid, 19 in isolation on admit, PUI History of Present Illness History of Present Illness Ms Florian is a 75yo F w/ PMHx MCI, dCHF who p/w confusion, sepsis, UTI 05/03: she feels much better, wants to "walk out of here" has almost no recollection of yesterday, today , she is more oriented, but does not know the date 05/04: Afebrile. Still very confused. Weak. urine culture returned positive for sensitive Klebsiella switch to oral Augmentin. She needs skilled services on discharge awaiting further PT and OT eval. Afebrile. Confused. Family concerned she may have dementia worse than expected. No SOB or CP. Vitals/I&O Vitals/I&O: Vital Signs Date Time Temp Pulse Resp B/P (MAP) Pulse Ox O2 Delivery O2 Flow Rate FiO2 05/05/20 08:06 89 123/48 05/05/20 07:59 97.4 20 97 Room Air 97.4 I & O 05/04/20 05/04/20 05/05/20 15:00 23:00 07:00 Intake Total 240 ml 120 ml Output Total 400 ml Balance 240 ml 120 ml -400 ml Physical Exam General: Alert, Cooperative, Other (not oroiented, ) Lungs: Other Abdomen: Soft Skin: No rashes, Other (wound to buttock, poror nail care, ) Assessment and Plan Assessmemt and Plan Problems Medical Problems: (1) Altered mental status Status: Acute (2) Dehydration Status: Acute (3) Hypokalemia Status: Acute (4) Metabolic encephalopathy Status: Acute (5) Sacral decubitus ulcer Status: Acute (6) Urinary tract infection Status: Acute Comment Review of Relevant I have reviewed the following items yuliana (where applicable) has been applied. Medications: Current Medications Medications (Trade) Dose Ordered Sig/[place] Route PRN Reason Start Time Stop Time Status Last Admin Dose Admin Amoxicillin/ Clavulanate Potassium (Augmentin 500/ 125mg) 1 tab BID PO 05/04/20 10:45 05/05/20 08:06 Justifications for Admission Other Justification ELIZABETH CURRAN MD May 05, 2020 09:29
[2020-05-05 11:59] VITALS: BP 122/42
[2020-05-05 15:59] VITALS: BP 135/49
[2020-05-05 19:00] VITALS: BP 136/49
[2020-05-05] MEDS: ATORVASTATIN CALCIUM 40 MG TABLET. PO SCH (20:43)
[2020-05-05 23:03] VITALS: BP 138/42
[2020-05-06 03:03] VITALS: BP 134/38
[2020-05-06 07:00] VITALS: BP 134/37
[2020-05-06] MEDS: ASPIRIN ENTERIC COATED 81 MG TABLET.DR. PO SCH (08:24)
[2020-05-06] MEDS: THIAMINE 100 MG TABLET. PO SCH (08:24)
[2020-05-06] MEDS: MULTIVITAMIN with MINERAL TABLET. PO SCH (08:25)
[2020-05-06] MEDS: LACTOBACILLUS RHAMNOSUS GG 1 CAPSULE. PO SCH ×2 (08:25→19:53)
[2020-05-06] MEDS: VITAMIN B12,B9,B6 COMPLEX 1 TABLET. PO SCH (08:25)
[2020-05-06] MEDS: FUROSEMIDE 40 MG TABLET. PO SCH (08:25)
[2020-05-06] MEDS: CLOPIDOGREL BISULFATE 75 MG TABLET PO SCH (08:25)
[2020-05-06] MEDS: AMOXICILLIN/K CLAV 500/125MG TABLET. PO SCH ×2 (08:25→19:53)
[2020-05-06] MEDS: ASCORBIC ACID 500 MG TABLET PO SCH ×2 (08:25→19:53)
[2020-05-06] MEDS: POTASSIUM CHLORIDE 20 MEQ TABLET.ER. PO SCH ×2 (08:25→16:57)
[2020-05-06] MEDS: CARVEDILOL 3.125 MG TABLET. PO SCH ×2 (08:26→16:56)
[2020-05-06] MEDS: LISINOPRIL 20 MG TABLET PO SCH (08:26)
[2020-05-06 10:13] LABS: BASO % 1 % (0-3); EOS # 0.3 x10^3/uL (0.0-0.7); EOS % 6 % (0-3); HEMATOCRIT 27.3 % (36.0-47.0); HEMOGLOBIN 9.2 g/dL (12.0-15.5); LYMPH # 1.6 x10^3/uL (1.0-4.8); LYMPH % 34 % (24-48); MEAN CORPUSCULAR HEMOGLOBIN 34 pg (25-35); MEAN CORPUSCULAR HGB CONC 34 g/dL (31-37); MEAN CORPUSCULAR VOLUME 101 fL (79-100); MONO # 0.5 x10^3/uL (0.0-1.1); MONO % 11 % (0-9); NEUT # 2.2 x10^3/uL (1.8-7.7); NEUT % 48 % (31-73); PLATELET COUNT 89 x10^3/uL (140-400); RED BLOOD COUNT 2.72 x10^6/uL (3.50-5.40); RED CELL DISTRIBUTION WIDTH 17.8 % (11.5-14.5); WHITE BLOOD COUNT 4.5 x10^3/uL (4.0-11.0)
--- NOTE | 2020-05-06 10:16 | PDOC ---
PROGRESS NOTES Date of Service: DATE: 05/06/20 TIME: 10:16 Chief Complaint Chief Complaint discharge dx acute metabolic encephalopathy, due to UTI and sepsis, confusion, baseline of cognitive decline or early dementia UTI sepsis, IV fluid given acute dehydration buttock wound, consulted wound care severe malnutrition weakness and debility covid, 19 in isolation on admit, PUI NEG po augmentin on d/c d/c planning 32 min History of Present Illness History of Present Illness Ms Florian is a 75yo F w/ PMHx MCI, dCHF who p/w confusion, sepsis, UTI 05/03: she feels much better, wants to "walk out of here" has almost no recollection of yesterday, today , she is more oriented, but does not know the date 05/04: Afebrile. Still very confused. Weak. urine culture returned positive for sensitive Klebsiella switch to oral Augmentin. She needs skilled services on discharge awaiting further PT and OT eval. Afebrile. Confused. Family concerned she may have dementia worse than expected. No SOB or CP. Vitals Vitals Vital Signs Date Time Temp Pulse Resp B/P (MAP) Pulse Ox O2 Delivery O2 Flow Rate FiO2 05/06/20 08:26 67 134/37 05/06/20 08:00 Room Air 05/06/20 07:00 98.0 18 99 98.0 Physical Exam General: Alert, Cooperative, No acute distress, Other (not oroiented, ) Lungs: Clear, Other Abdomen: Soft Skin: No rashes, Other (wound to buttock, poror nail care, ) Labs LABS URINE CULTURE Final Final GREATER THAN 100,000 CFU/ML GRAM NEGATIVE RODS FINAL ID= [KLEBSIELLA PNEUMONIAE] on 05/03/20 at 0946 Testing Performed by: [address] [id number] For Inquires, the Physician may contact the Microbiology department at [phone] KLEBSIELLA PNEUMONIAE ANTIMICROBIAL SUSCEPTIBILITY Final Comment NEG RUDY 56 KLEBSIELLA PNEUMONIAE ANTIBIOTIC RESULT INTERPRETATION AMPICILLIN/SULBACTAM <=4/2 S AMIKACIN <=16 S AMPICILLIN >16 R AMOXICILLIN/K CLAVULANATE <=8/4 S AZTREONAM <=4 S CEFTRIAXONE <=1 S CEFTAZIDIME <=1 S CEFOTAXIME <=2 S CEFOXITIN <=8 S CIPROFLOXACIN <=0.25 S CEFEPIME <=2 S CEFUROXIME <=4 S CEFTAZIDIME/AVIBACTAM <=4 S ERTAPENEM <=0.5 S NITROFURANTOIN 64 I GENTAMICIN <=2 S LEVOFLOXACIN <=0.5 S MEROPENEM <=1 S PIPERACILLIN/TAZOBACTAM <=8 S TRIMETHOPRIM/SULFAMETHOXAZOLE <=0.5/9.5 S TETRACYCLINE <=4 S TOBRAMYCIN <=2 S Unless otherwise specified, Testing Performed by: DPOA REVIEW 17 MIN to patient portal What Is a Power of Power Machine Operator? A power of assistant attorney general (POA) is a legal document giving one person (the agent or erdiwztg-tq-hxsi) the power to act for another person (the principal). The agent can have broad legal authority or limited authority to make legal decisions about the principal's property, finances or medical care. The power of assistant attorney general is frequently used in the event of a principal's illness or disability, or when the principal can't be present to sign necessary legal documents for financial transactions. A power of assistant attorney general can end for a number of reasons, such as when the principal dies, the principal revokes it, a court invalidates it, the principal divorces their spouse, who happens to be the agent, or the agent can no longer carry out the outlined responsibilities. Conventional POAs lapse when the creator becomes incapacitated, but a durable POA remains in force to enable the agent to manage the creators affairs, and a springing POA comes into effect only if and when the creator of the POA becomes incapacitated. A medical or healthcare POA enables an agent to make medical decisions on behalf of an incapacitated person. [employer] Take[employer] A power of assistant attorney general (POA) is a legal document giving one person, the agent or zpefzqja-es-wcbq the power to act for another person, the principal. The agent can have broad legal authority or limited authority to make decisions about the principal's property, finances or medical care. The power of assistant attorney general is often used when a principal becomes ill or disabled, or when they can't be present to sign necessary legal documents for financial transactions. Understanding Power of Power Machine Operator A power of assistant attorney general should be considered when planning for long-term care. There are different types of POAs that fall under either a general power of assistant attorney general or limited power of assistant attorney general. A general power of assistant attorney general acts on behalf of the principal in any and all matters, as allowed by the state. The agent under a general POA agreement may be authorized to take care of issues such as handling bank accounts, signing checks, selling property and assets like stocks, f A limited power of assistant attorney general gives the agent the power to act on behalf of the principal in specific matters or events. For example, the limited POA may explicitly state that the agent is only allowed to manage the principal's fpc accounts. A limited POA may also be limited to a specific period of time (e.g., if the principal will be out of the country for, say, two years). Most lane of assistant attorney general documents allow an agent to represent the principal in all property and financial matters as long as the principals mental state of mind is good. If a situation occurs where the principal becomes incapable of making decisions for him or herself, the POA agreement would automatically end. However, someone who wants the POA to remain in effect after the persons health deteriorates would need to sign a durable power of assistant attorney general (DPOA). What is an advance directive? An advance directive is a legal document that says how you want to be cared for if you are unable to make decisions. You can include what medical treatments you would want and who you would trust to make decisions for you. An advance directive can also include other legal documents. A living will is a list of treatment preferences. It can be used to indicate whether you would want cardiopulmonary resuscitation (CPR), tube feedings, a breathing machine, or certain medicines, like antibiotics. The durable power of assistant attorney general for health care document identifies the person you would want to make medical decisions for you. This person is also called a proxy. Your proxy should be familiar with your values and wishes. How do I get started? You can get advance directive documents for your state from your doctor's office or from http://www.caringinfo.org. Review the forms, and ask your doctor if you have any questions. Pick a person to be your proxy, and talk it over with that person. CT head without contrast: Reason for examination: altered mental status. PUI. Comparison is made to previous study dated 06/22/2016. Axial images were obtained through the brain. No contrast was administered. Reconstruction was performed in coronal plane. Exposure: One or more of the following individualized dose reduction techniques were utilized for this examination: 1. Automated exposure control 2. Adjustment of the mA and/or kV according to patient size 3. Use of iterative reconstruction technique. Ventricular systems are symmetric bilaterally and not abnormally dilated considering mild generalized atrophy. No midline shift is seen. There are patchy deep white matter changes in the frontal and parietal lobes consistent with microvascular ischemic changes. There is also some focal decreased density in the posterior left frontal lobe which probably represents a chronic infarct with some encephalomalacia. No acute infarcts, masses or edema are evident. No abnormalities are seen at the orbits. The paranasal sinuses and mastoid air cells are clear. No acute skull abnormality is seen. IMPRESSION: Cerebral atrophy with microvascular ischemic changes in the frontal and parietal lobes. 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 No acute intracranial abnormality evident. Electronically signed by: Marisa Messer MD (05/01/2020 9:14 PM) [facility] DICTATED and SIGNED BY: MARISA MESSER MD DATE: 05/01/20 [id number] Laboratory Tests Test 05/05/20 12:20 Vitamin B12 Level 1689 pg/mL ([id number]) Assessment and Plan Assessmemt and Plan Problems Medical Problems: (1) Altered mental status Status: Acute (2) Dehydration Status: Acute (3) Hypokalemia Status: Acute (4) Metabolic encephalopathy Status: Acute (5) Sacral decubitus ulcer Status: Acute (6) Urinary tract infection Status: Acute Comment Review of Relevant I have reviewed the following items yuliana (where applicable) has been applied. Labs Laboratory Tests Test 05/05/20 12:20 Vitamin B12 Level 1689 pg/mL ([id number]) Laboratory Tests Test 05/05/20 12:20 Vitamin B12 Level 1689 pg/mL ([id number]) Microbiology 05/01/20 Blood Culture - Preliminary, Resulted NO GROWTH AFTER 4 DAYS 05/01/20 Urine Culture - Final, Complete 05/01/20 Antimicrobic Susceptibility - Final, Complete Medications Current Medications Sodium Chloride 1,000 ml @ 1,000 mls/hr 1X ONCE IV Last administered on 05/01/20at 19:57; Start 05/01/20 at 19:15; Stop 05/01/20 at 20:14; Status DC Ceftriaxone Sodium (Rocephin) 1 gm 1X ONCE IVP Last administered on 05/01/20at 20:43; Start 05/01/20 at 20:45; Stop 05/01/20 at 20:46; Status DC Potassium Chloride (Klor-Con) 40 meq 1X ONCE PO Last administered on 05/01/20at 20:44; Start 05/01/20 at 20:45; Stop 05/01/20 at 20:46; Status DC Ondansetron HCl (Zofran) 4 mg PRN Q8HRS PRN IV NAUSEA/VOMITING; Start 05/01/20 at 21:00; Stop 05/02/20 at 20:59; Status DC Potassium Chloride/Dextrose/ Sod Cl 1,000 ml @ 100 mls/hr Q10H ONCE IV Last administered on 05/01/20at 21:24; Start 05/01/20 at 21:00; Stop 05/02/20 at 06:59; Status DC Lactulose (Lactulose) 20 gm ONCE ONCE PO Last administered on 05/01/20at 23:40; Start 05/01/20 at 23:30; Stop 05/01/20 at 23:31; Status DC Ceftriaxone Sodium (Rocephin) 1 gm Q24H IVP Last administered on 05/03/20at 21:40; Start 05/02/20 at 21:00; Stop 05/04/20 at 16:46; Status DC Magnesium Sulfate 50 ml @ 25 mls/hr 1X ONCE IV Last administered on 05/02/20at 09:40; Start 05/02/20 at 09:30; Stop 05/02/20 at 11:29; Status DC Potassium Chloride (Klor-Con) 40 meq 1X ONCE PO Last administered on 05/02/20at 09:42; Start 05/02/20 at 09:30; Stop 05/02/20 at 09:31; Status DC Aspirin (Ecotrin) 81 mg DAILYWBKFT PO Last administered on 05/06/20 08:24; Start 05/02/20 at 09:30 Atorvastatin Calcium (Lipitor) 40 mg QHS PO Last administered on 05/05/20 20:43; Start 05/02/20 at 21:00 Carvedilol (Coreg) 3.125 mg BIDWMEALS PO Last administered on 05/06/20 08:26; Start 05/02/20 at 09:30 Clopidogrel Bisulfate (Plavix) 75 mg DAILY PO Last administered on 05/06/20 08:25; Start 05/02/20 at 09:30 Lisinopril (Prinivil) 20 mg DAILY PO Last administered on 05/06/20 08:26; Start 05/02/20 at 09:30 Potassium Chloride (Klor-Con) 20 meq BID PO Last administered on 05/03/20at 21:40; Start 05/02/20 at 21:00; Stop 05/03/20 at 22:01; Status DC Ascorbic Acid (Vitamin C) 500 mg BID PO Last administered on 05/06/20 08:25; Start 05/02/20 at 21:00 Multivitamins (Thera M Plus) 1 tab DAILY PO Last administered on 05/06/20 08:25; Start 05/02/20 at 14:30 Lactobacillus Rhamnosus (Culturelle) 1 cap BID PO Last administered on 05/06/20 08:25; Start 05/02/20 at 21:00 Thiamine Mononitrate (Vitamin B-1) 100 mg DAILY PO Last administered on 05/06/20 08:24; Start 05/04/20 at 09:00 Thiamine HCl 100 mg/Dextrose 51 ml @ 102 mls/hr 1X ONCE IV Last administered on 05/03/20at 13:32; Start 05/03/20 at 13:00; Stop 05/03/20 at 13:29; Status DC Vitamin B Complex (Folbic Tablet) 1 tab DAILY PO Last administered on 05/06/20 08:25; Start 05/03/20 at 13:00 Furosemide (Lasix) 40 mg DAILY PO Last administered on 05/06/20at 08:25; Start 05/03/20 at 12:00 Potassium Chloride (Klor-Con) 20 meq BIDWMEALS PO Last administered on 05/06/20at 08:25; Start 05/04/20 at 08:00 Amoxicillin/ Clavulanate Potassium (Augmentin 500/ 125mg) 1 tab BID PO Last administered on 05/06/20at 08:25; Start 05/04/20 at 10:45 Active Scripts Active Furosemide 40 Mg Tablet 40 Mg PO DAILY 30 Days Aspirin Ec (Aspirin) 81 Mg Tablet.dr 81 Mg PO DAILYWBKFT 30 Days Zithromax (Azithromycin) 250 Mg Tablet 1 Pkg PO UD Proair Hfa Inhaler (Albuterol Sulfate) 8.5 Gm Hfa.aer.ad 1 Puff INH PRN Q6HRS PRN Reported Lisinopril 20 Mg Tablet 1 Tab PO DAILY Lipitor (Atorvastatin Calcium) 40 Mg Tablet 1 Tab PO QHS Clopidogrel (Clopidogrel Bisulfate) 75 Mg Tablet 75 Mg PO DAILY Carvedilol (Carvedilol) 3.125 Mg Tablet 3.125 Mg PO BIDWMEALS Klor-Con M20 (Potassium Chloride) 20 Meq Tab.er.prt 20 Meq PO BID Vitals/I & O Vital Sign - Last 24 Hours 05/05/20 05/05/20 05/05/20 05/05/20 11:59 15:59 17:33 19:00 Temp 97.7 97.4 98.3 97.7 97.4 98.3 Pulse 68 71 71 66 Resp 18 B/P (MAP) 122/42 (68) 135/49 (77) 135/49 136/49 (78) Pulse Ox 95 99 97 O2 Delivery Room Air Room Air Room Air 05/05/20 05/05/20 05/06/20 05/06/20 20:10 23:03 03:03 07:00 Temp 98.0 97.9 98.0 98.0 97.9 98.0 Pulse 66 67 67 Resp 18 B/P (MAP) 138/42 (74) 134/38 (70) 134/37 (69) Pulse Ox 99 96 99 O2 Delivery Room Air Room Air Room Air Room Air 12/14/20 12/14/20 12/14/20 08:00 08:26 08:26 Pulse 67 67 B/P (MAP) 134/37 134/37 O2 Delivery Room Air Intake and Output 05/05/20 05/05/20 05/06/20 15:00 23:00 07:00 Intake Total 240 ml Output Total 325 ml Balance 240 ml -325 ml Nutrition Consultation Dietary Evaluation: Recommendations by RD: Dietary education by RD, Increase Calorie Intake, Protein supplementation Comments: ensure tid mvi vit c Expected Outcomes/Goals: to meet >75% est nutr needs- ongoing improved wound status- ongoing Malnutrition Findings: Body Fat Depletion (Non Severe: Mild Depletion Weight Status: Underweight Justicifation of Admission Dx: Justifications for Admission: Justification of Admission Dx: Yes (sepsis, encephalopathy) SANJANA JAIMES MD May 06, 2020 10:16
[2020-05-06 10:20] LABS: CALCIUM 8.2 mg/dL (8.5-10.1); CREATININE 1.4 mg/dL (0.6-1.0); GFR 36.5; POTASSIUM 4.5 mmol/L (3.5-5.1)
[2020-05-06 11:00] VITALS: BP_SYST 121; BP_SYST 128; BP_DIAS 47
--- NOTE | 2020-05-06 13:02 | NUR ---
LLOYD following. Discussed with RN, per LLOYD Kaur notes [facility]. LLOYD verified with Angie at [facility] - the patient hadn't actually been accepted there and now they are on a COVID hold. LLOYD contacted pt's daughter, Yazmin to advise of current situation. Yazmin would like referral sent to [facility]. [facility] has beds - LLOYD faxed referral. [facility] only have SN[facility] beds currently. LLOYD will continue to follow. Addendum: 05/06/20 at 1546 by YAMILE DESAI LLOYD left [facility]ic[facility] decision.
[2020-05-06 15:00] VITALS: BP 114/29
[2020-05-06] MEDS ORDERED: CYAN1TAB19 PO (16:07)
[2020-05-06] MEDS ORDERED: MULT1TAB90 PO (16:07)
[2020-05-06] MEDS ORDERED: THIA100T22 PO (16:07)
[2020-05-06] MEDS ORDERED: AMOX1TAB10 PO (16:07)
[2020-05-06] MEDS ORDERED: LACT1CAP19 PO (16:07)
[2020-05-06] MEDS ORDERED: ASCO500T4 PO (16:07)
--- NOTE | 2020-05-06 16:08 | SNU/HH DC ---
DISCHARGE WITH HOME HEALTH DISCHARGE INFORMATION: Final Diagnosis: Problems Medical Problems: (1) Altered mental status Status: Acute (2) Dehydration Status: Acute (3) Hypokalemia Status: Acute (4) Metabolic encephalopathy Status: Acute (5) Sacral decubitus ulcer Status: Acute (6) Urinary tract infection Status: Acute Condition on Discharge: Stable CODE STATUS: Code Status: Full HOME HEALTH: Face to Face: I certify this patient is under my care and that I, or a nurse practitioner or physician's acute care nursing assistant working with me, had a face to face encounter that meets the physician face to face encounter requirements with this patient on []. Halfway For: Assess & Educate Safety, Assess/Skilled Observatio, Medication Management RN For Eval/Treatment: Yes Physical Therapy For: Evalulation/Treatment Occupational Therapy For: Evaluation/Treatment Speech Language Pathology For: Evaluation/Treatment Home Health Aide For: Self-care SPEEDBOAT OPERATOR For: Community Resources Pt Meets Homebound Status: Fatigue w/ amb., Limited distance walking POST DISCHARGE ORDERS: Activity Instructions for Disc: Activity as tolerated Weight Bearing Status after Di: As tolerated DIET AFTER DISCHARGE: Cardiac CHECKS AFTER DISCHARGE: Checks after discharge: Check blood press - daily, Check your Temp as needed, Weigh Yourself Daily TREATMENT/EQUIPMENT ORDERS: Adaptive Equipment Issued: None CERTIFICATION STATEMENT: Certification Statement: Certification Statement: Based on the above finding, I certify that this patient is confined to the home and needs intermittent half-way care, physical therapy and/or speech therapy, or continues to need occupational therapy.~ This patient is under my care, and I have initiated the establishment of the plan of care.~ This patient will be followed by myself or a community physician who will periodically review the plan of care. Home Meds Active Scripts Multivits,Ca,Minerals/Iron/Fa (THERA-M TABLET) 1 Each Tablet, 1 TAB PO DAILY for supplement for 30 Days, #30 TAB Prov:SANJANA JAIMES MD 05/06/20 Ascorbic Acid (VITAMIN C) 500 Mg Tablet, 500 MG PO BID for supplement for 30 Days, #60 TAB Prov:SANJANA JAIMES MD 05/06/20 Thiamine Mononitrate (VITAMIN B-1) 100 Mg Tablet, 100 MG PO DAILY for supplement for 30 Days, #30 TAB Prov:SANJANA JAIMES MD 05/06/20 Cyanocobalamin/Fa/Pyridoxine (FOLBIC TABLET) 1 Each Tablet, 1 TAB PO DAILY for supplement for 30 Days, #30 TAB Prov:SANJANA JAIMES MD 05/06/20 Lactobacillus Rhamnosus Gg (CULTURELLE) 1 Each Cap.sprink, 1 CAP PO BID for supplement for 30 Days, #60 CAP Prov:SANJANA JAIMES MD 05/06/20 Amoxicillin/Potassium Clav (AMOX TR-K CLV 500-125 MG TAB) 1 Each Tablet, 1 TAB PO BID for infection for 7 Days, #14 TAB Prov:SANJANA JAIMES MD 05/06/20 Furosemide (FUROSEMIDE) 40 Mg Tablet, 40 MG PO DAILY for heart failure for 30 Days, #30 TAB 2 Refills Prov:KATIE WALKER APRN 11/03/18 Aspirin (ASPIRIN EC) 81 Mg Tablet.dr, 81 MG PO DAILYWBKFT for coronary artery disease for 30 Days, #30 TAB.SR 2 Refills Prov:KATIE WALKER APRN 11/03/18 Albuterol Sulfate (PROAIR HFA INHALER) 8.5 Gm Hfa.aer.ad, 1 PUFF INH PRN Q6HRS PRN for SHORTNESS OF BREATH, #1 INHALER 0 Refills Prov:JONATHAN HOLGUIN DO 06/22/16 Reported Medications Lisinopril (LISINOPRIL) 20 Mg Tablet, 1 TAB PO DAILY for blood pressure, #30 TAB 5 Refills 03/31/19 Atorvastatin Calcium (LIPITOR) 40 Mg Tablet, 1 TAB PO QHS for , #90 TAB 1 Refill 11/01/18 Clopidogrel Bisulfate (CLOPIDOGREL) 75 Mg Tablet, 75 MG PO DAILY for TO PREVENT BLOOD CLOTS, #30 TAB 0 Refills 11/01/18 Carvedilol (CARVEDILOL ) 3.125 Mg Tablet, 3.125 MG PO BIDWMEALS for CARDIAC, TAB 11/01/18 Potassium Chloride (KLOR-CON M20) 20 Meq Tab.er.prt, 20 MEQ PO BID for , TAB.SR 11/01/18 Discontinued Scripts Azithromycin (ZITHROMAX) 250 Mg Tablet, 1 PKG PO UD, #6 TAB Prov:JONATHAN HOLGUIN DO 06/22/16 SANJANA JAIMES MD May 06, 2020 16:08
[2020-05-06 19:00] VITALS: BP 122/59
[2020-05-06] MEDS: ATORVASTATIN CALCIUM 40 MG TABLET. PO SCH (19:53)
[2020-05-06 22:39] VITALS: BP 110/49
[2020-05-07 02:50] VITALS: BP 115/52
[2020-05-07 07:00] VITALS: BP 119/38
[2020-05-07] MEDS: CARVEDILOL 3.125 MG TABLET. PO SCH ×3 (08:00→20:56)
[2020-05-07] MEDS: LISINOPRIL 20 MG TABLET PO SCH (09:00)
[2020-05-07] MEDS: ASCORBIC ACID 500 MG TABLET PO SCH ×2 (09:22→20:54)
[2020-05-07] MEDS: LACTOBACILLUS RHAMNOSUS GG 1 CAPSULE. PO SCH ×2 (09:22→20:54)
[2020-05-07] MEDS: MULTIVITAMIN with MINERAL TABLET. PO SCH (09:22)
[2020-05-07] MEDS: FUROSEMIDE 40 MG TABLET. PO SCH (09:23)
[2020-05-07] MEDS: POTASSIUM CHLORIDE 20 MEQ TABLET.ER. PO SCH ×2 (09:23→17:05)
[2020-05-07] MEDS: AMOXICILLIN/K CLAV 500/125MG TABLET. PO SCH ×2 (09:23→20:54)
[2020-05-07] MEDS: CLOPIDOGREL BISULFATE 75 MG TABLET PO SCH (09:23)
[2020-05-07] MEDS: ASPIRIN ENTERIC COATED 81 MG TABLET.DR. PO SCH (09:23)
[2020-05-07] MEDS: VITAMIN B12,B9,B6 COMPLEX 1 TABLET. PO SCH (09:23)
[2020-05-07] MEDS: THIAMINE 100 MG TABLET. PO SCH (09:23)
--- NOTE | 2020-05-07 10:26 | PDOC ---
PROGRESS NOTES Date of Service: DATE: 05/07/20 TIME: 10:17 Chief Complaint Chief Complaint discharge dx acute metabolic encephalopathy, due to UTI and sepsis, confusion, baseline of cognitive decline or early dementia UTI sepsis, IV fluid given acute dehydration buttock wound, consulted wound care severe malnutrition weakness and debility covid, 19 in isolation on admit, PUI NEG ELECTROLYTE IMBALANCE IMPROVING AWAIT ltc placement D/W RN po augmentin on d/c d/c planning 32 min History of Present Illness History of Present Illness Ms Florian is a 75yo F w/ PMHx MCI, dCHF who p/w confusion, sepsis, UTI 05/03: she feels much better, wants to "walk out of here" has almost no recollection of yesterday, today , she is more oriented, but does not know the date 05/04: Afebrile. Still very confused. Weak. urine culture returned positive for sensitive Klebsiella switch to oral Augmentin. She needs skilled services on discharge awaiting further PT and OT eval. Afebrile. Confused. Family concerned she may have dementia worse than expected. No SOB or CP. Vitals Vitals Vital Signs Date Time Temp Pulse Resp B/P (MAP) Pulse Ox O2 Delivery O2 Flow Rate FiO2 05/07/20 07:00 98.6 65 16 119/38 (65) 97 Room Air 98.6 Physical Exam General: Alert, Cooperative, No acute distress, Other (not oroiented, ) Heart: Regular rate, No murmurs Lungs: Clear, Other Abdomen: Normal bowel sounds, Soft Extremities: No cyanosis Skin: No rashes, Other (wound to buttock, poror nail care, ) Assessment and Plan Assessmemt and Plan Problems Medical Problems: (1) Altered mental status Status: Acute (2) Dehydration Status: Acute (3) Hypokalemia Status: Acute (4) Metabolic encephalopathy Status: Acute (5) Sacral decubitus ulcer Status: Acute (6) Urinary tract infection Status: Acute Comment Review of Relevant I have reviewed the following items yuliana (where applicable) has been applied. Labs Laboratory Tests Test 05/05/20 12:20 05/06/20 09:19 05/06/20 09:32 Vitamin B12 Level 1689 pg/mL (247-911) Sodium Level 139 mmol/L (136-145) Potassium Level 4.5 mmol/L (3.5-5.1) Chloride Level 106 mmol/L (98-107) Carbon Dioxide Level 31 mmol/L (21-32) Anion Gap 2 (6-14) Blood Urea Nitrogen 23 mg/dL (7-20) Creatinine 1.4 mg/dL (0.6-1.0) Estimated GFR (Cockcroft-Gault) 36.5 Glucose Level 125 mg/dL (70-99) Calcium Level 8.2 mg/dL (8.5-10.1) White Blood Count 4.5 x10^3/uL (4.0-11.0) Red Blood Count 2.72 x10^6/uL (3.50-5.40) Hemoglobin 9.2 g/dL (12.0-15.5) Hematocrit 27.3 % (36.0-47.0) Mean Corpuscular Volume 101 fL (79-100) Mean Corpuscular Hemoglobin 34 pg (25-35) Mean Corpuscular Hemoglobin Concent 34 g/dL (31-37) Red Cell Distribution Width 17.8 % (11.5-14.5) Platelet Count 89 x10^3/uL (140-400) Neutrophils (%) (Auto) 48 % (31-73) Lymphocytes (%) (Auto) 34 % (24-48) Monocytes (%) (Auto) 11 % (0-9) Eosinophils (%) (Auto) 6 % (0-3) Basophils (%) (Auto) 1 % (0-3) Neutrophils # (Auto) 2.2 x10^3/uL (1.8-7.7) Lymphocytes # (Auto) 1.6 x10^3/uL (1.0-4.8) Monocytes # (Auto) 0.5 x10^3/uL (0.0-1.1) Eosinophils # (Auto) 0.3 x10^3/uL (0.0-0.7) Basophils # (Auto) 0.0 x10^3/uL (0.0-0.2) Microbiology 05/01/20 Blood Culture - Final, Complete NO GROWTH AFTER 5 DAYS 05/01/20 Urine Culture - Final, Complete 05/01/20 Antimicrobic Susceptibility - Final, Complete Medications Current Medications Sodium Chloride 1,000 ml @ 1,000 mls/hr 1X ONCE IV Last administered on 05/01/20at 19:57; Start 05/01/20 at 19:15; Stop 05/01/20 at 20:14; Status DC Ceftriaxone Sodium (Rocephin) 1 gm 1X ONCE IVP Last administered on 05/01/20at 20:43; Start 05/01/20 at 20:45; Stop 05/01/20 at 20:46; Status DC Potassium Chloride (Klor-Con) 40 meq 1X ONCE PO Last administered on 05/01/20at 20:44; Start 05/01/20 at 20:45; Stop 05/01/20 at 20:46; Status DC Ondansetron HCl (Zofran) 4 mg PRN Q8HRS PRN IV NAUSEA/VOMITING; Start 05/01/20 at 21:00; Stop 05/02/20 at 20:59; Status DC Potassium Chloride/Dextrose/ Sod Cl 1,000 ml @ 100 mls/hr Q10H ONCE IV Last administered on 05/01/20at 21:24; Start 05/01/20 at 21:00; Stop 05/02/20 at 06:59; Status DC Lactulose (Lactulose) 20 gm ONCE ONCE PO Last administered on 05/01/20at 23:40; Start 05/01/20 at 23:30; Stop 05/01/20 at 23:31; Status DC Ceftriaxone Sodium (Rocephin) 1 gm Q24H IVP Last administered on 05/03/20at 21:40; Start 05/02/20 at 21:00; Stop 05/04/20 at 16:46; Status DC Magnesium Sulfate 50 ml @ 25 mls/hr 1X ONCE IV Last administered on 05/02/20at 09:40; Start 05/02/20 at 09:30; Stop 05/02/20 at 11:29; Status DC Potassium Chloride (Klor-Con) 40 meq 1X ONCE PO Last administered on 05/02/20at 09:42; Start 12/10/20 at 09:30; Stop 05/02/20 at 09:31; Status DC Aspirin (Ecotrin) 81 mg DAILYWBKFT PO Last administered on 05/07/20 09:23; Start 05/02/20 at 09:30 Atorvastatin Calcium (Lipitor) 40 mg QHS PO Last administered on 05/06/20 19:53; Start 05/02/20 at 21:00 Carvedilol (Coreg) 3.125 mg BIDWMEALS PO Last administered on 05/06/20 16:56; Start 05/02/20 at 09:30 Clopidogrel Bisulfate (Plavix) 75 mg DAILY PO Last administered on 05/07/20 09:23; Start 05/02/20 at 09:30 Lisinopril (Prinivil) 20 mg DAILY PO Last administered on 05/06/20 08:26; Start 05/02/20 at 09:30 Potassium Chloride (Klor-Con) 20 meq BID PO Last administered on 05/03/20 21:40; Start 05/02/20 at 21:00; Stop 05/03/20 at 22:01; Status DC Ascorbic Acid (Vitamin C) 500 mg BID PO Last administered on 05/07/20 09:22; Start 05/02/20 at 21:00 Multivitamins (Thera M Plus) 1 tab DAILY PO Last administered on 05/07/20 09:22; Start 05/02/20 at 14:30 Lactobacillus Rhamnosus (Culturelle) 1 cap BID PO Last administered on 05/07/20 09:22; Start 05/02/20 at 21:00 Thiamine Mononitrate (Vitamin B-1) 100 mg DAILY PO Last administered on 05/07/20 09:23; Start 05/04/20 at 09:00 Thiamine HCl 100 mg/Dextrose 51 ml @ 102 mls/hr 1X ONCE IV Last administered on 05/03/20 13:32; Start 05/03/20 at 13:00; Stop 05/03/20 at 13:29; Status DC Vitamin B Complex (Folbic Tablet) 1 tab DAILY PO Last administered on 05/07 09:23; Start 05/03/20 at 13:00 Furosemide (Lasix) 40 mg DAILY PO Last administered on 05/07/20 09:23; Start 05/03/20 at 12:00 Potassium Chloride (Klor-Con) 20 meq BIDWMEALS PO Last administered on 05/07/20at 09:23; Start 05/04/20 at 08:00 Amoxicillin/ Clavulanate Potassium (Augmentin 500/ 125mg) 1 tab BID PO Last administered on 05/07/20at 09:23; Start 05/04/20 at 10:45 Active Scripts Active Thera-M Tablet (Multivits,Ca,Minerals/Iron/Fa) 1 Each Tablet 1 Tab PO DAILY 30 Days Vitamin C (Ascorbic Acid) 500 Mg Tablet 500 Mg PO BID 30 Days Vitamin B-1 (Thiamine Mononitrate) 100 Mg Tablet 100 Mg PO DAILY 30 Days Folbic Tablet (Cyanocobalamin/Fa/Pyridoxine) 1 Each Tablet 1 Tab PO DAILY 30 Days Culturelle (Lactobacillus Rhamnosus Gg) 1 Each Cap.sprink 1 Cap PO BID 30 Days Amox Tr-K Clv 500-125 Mg Tab (Amoxicillin/Potassium Clav) 1 Each Tablet 1 Tab PO BID 7 Days Furosemide 40 Mg Tablet 40 Mg PO DAILY 30 Days Aspirin Ec (Aspirin) 81 Mg Tablet.dr 81 Mg PO DAILYWBKFT 30 Days Proair Hfa Inhaler (Albuterol Sulfate) 8.5 Gm Hfa.aer.ad 1 Puff INH PRN Q6HRS PRN Reported Lisinopril 20 Mg Tablet 1 Tab PO DAILY Lipitor (Atorvastatin Calcium) 40 Mg Tablet 1 Tab PO QHS Clopidogrel (Clopidogrel Bisulfate) 75 Mg Tablet 75 Mg PO DAILY Carvedilol (Carvedilol) 3.125 Mg Tablet 3.125 Mg PO BIDWMEALS Klor-Con M20 (Potassium Chloride) 20 Meq Tab.er.prt 20 Meq PO BID Vitals/I & O Vital Sign - Last 24 Hours 05/06/20 05/06/20 05/06/20 05/06/20 11:00 15:00 16:56 19:00 Temp 97.7 98.1 97.8 97.7 98.1 97.8 Pulse 65 70 65 68 Resp 17 17 17 B/P (MAP) 128/47 (74) 114/29 (57) 128/47 122/59 (80) Pulse Ox 94 95 97 O2 Delivery Room Air Room Air Room Air 12/14/20 12/14/20 12/15/20 12/15/20 20:00 22:39 02:50 07:00 Temp 97.7 97.7 98.6 97.7 97.7 98.6 Pulse 70 64 65 Resp 17 17 16 B/P (MAP) 110/49 (69) 115/52 (73) 119/38 (65) Pulse Ox 97 96 97 O2 Delivery Room Air Room Air Room Air Room Air Intake and Output 05/06/20 05/06/20 05/07/20 15:00 23:00 07:00 Intake Total 120 ml Balance 120 ml Nutrition Consultation Dietary Evaluation: Recommendations by RD: Dietary education by RD, Increase Calorie Intake, Protein supplementation Comments: ensure tid mvi vit c Expected Outcomes/Goals: to meet >75% est nutr needs- ongoing improved wound status- ongoing Malnutrition Findings: Body Fat Depletion (Non Severe: Mild Depletion Weight Status: Underweight Justicifation of Admission Dx: Justifications for Admission: Justification of Admission Dx: Yes (sepsis, encephalopathy) SANJANA JAIMES MD May 07, 2020 10:26
[2020-05-07 11:00] VITALS: BP 116/42
[2020-05-07 15:00] VITALS: BP 139/42
--- NOTE | 2020-05-07 16:32 | NUR ---
Wound Care Wound Type/Assessment: Follow up for multiple wounds present on admission. R buttock and R hip wounds healed. L buttock, bilateral ischium are all healing stage III pressure ulcers with minimal slough to the wound beds, well granulated and epithelialized edges. Midline abdominal wound of unknown origin remains slough covered. No new wounds noted on head to toe inspection. Treatment Recommendations/Plan: L buttock; Cleanse and pat dry. Apply medihoney gel to xeroform and cover with a foam dressing. Change every 2-3 days. Bilateral ischium, and lower abdomen: Cleanse and pat dry. cover with hydrocolloid. change every 2-3 days Education provided: Pt alert to self and situation and unable to comprehend education. Offloading surface/device: P500 bed, pillows for repositioning and comfort. Pt is able to self-turn. Recommended Referrals/Tests: NA Discharge Recommendations for dressings: As above. Follow up on 05/15/2020
[2020-05-07 19:00] VITALS: BP 144/44
[2020-05-07] MEDS: ATORVASTATIN CALCIUM 40 MG TABLET. PO SCH (20:54)
[2020-05-07 23:00] VITALS: BP 132/46
[2020-05-08 03:00] VITALS: BP 113/34
[2020-05-08 07:00] VITALS: BP 119/35
[2020-05-08] MEDS: CARVEDILOL 3.125 MG TABLET. PO SCH ×2 (08:00→17:06)
[2020-05-08] MEDS: LISINOPRIL 20 MG TABLET PO SCH (09:00)
[2020-05-08] MEDS: VITAMIN B12,B9,B6 COMPLEX 1 TABLET. PO SCH (09:46)
[2020-05-08] MEDS: AMOXICILLIN/K CLAV 500/125MG TABLET. PO SCH ×2 (09:46→21:35)
[2020-05-08] MEDS: POTASSIUM CHLORIDE 20 MEQ TABLET.ER. PO SCH ×2 (09:47→17:06)
[2020-05-08] MEDS: MULTIVITAMIN with MINERAL TABLET. PO SCH (09:47)
[2020-05-08] MEDS: ASCORBIC ACID 500 MG TABLET PO SCH ×2 (09:47→21:35)
[2020-05-08] MEDS: THIAMINE 100 MG TABLET. PO SCH (09:47)
[2020-05-08] MEDS: ASPIRIN ENTERIC COATED 81 MG TABLET.DR. PO SCH (09:47)
[2020-05-08] MEDS: LACTOBACILLUS RHAMNOSUS GG 1 CAPSULE. PO SCH ×2 (09:47→21:35)
[2020-05-08] MEDS: FUROSEMIDE 40 MG TABLET. PO SCH (09:47)
[2020-05-08] MEDS: CLOPIDOGREL BISULFATE 75 MG TABLET PO SCH (09:48)
[2020-05-08 10:48] VITALS: BP 114/42
--- NOTE | 2020-05-08 12:48 | PDOC ---
PROGRESS NOTES Date of Service: DATE: 05/08/20 TIME: 12:47 Chief Complaint Chief Complaint discharge dx acute metabolic encephalopathy, due to UTI and sepsis, confusion, baseline of cognitive decline or early dementia UTI sepsis, IV fluid given acute dehydration buttock wound, consulted wound care severe malnutrition weakness and debility covid, 19 in isolation on admit, PUI NEG ELECTROLYTE IMBALANCE IMPROVING AWAIT ltc placement D/W RN po augmentin on d/c d/c planning 32 min History of Present Illness History of Present Illness Ms Florian is a 75yo F w/ PMHx MCI, dCHF who p/w confusion, sepsis, UTI 05/03: she feels much better, wants to "walk out of here" has almost no recollection of yesterday, today , she is more oriented, but does not know the date 05/04: Afebrile. Still very confused. Weak. urine culture returned positive for sensitive Klebsiella switch to oral Augmentin. She needs skilled services on discharge awaiting further PT and OT eval. Afebrile. Confused. Family concerned she may have dementia worse than expected. No SOB or CP. Vitals Vitals Vital Signs Date Time Temp Pulse Resp B/P (MAP) Pulse Ox O2 Delivery O2 Flow Rate FiO2 05/08/20 10:48 97.7 72 17 114/42 (66) 92 Room Air 97.7 Physical Exam General: Alert, Cooperative, No acute distress, Other (not oroiented, ) Heart: Regular rate, No murmurs Lungs: Clear, Other Abdomen: Normal bowel sounds, Soft Extremities: No cyanosis Skin: No rashes, Other (wound to buttock, poror nail care, ) Assessment and Plan Assessmemt and Plan Problems Medical Problems: (1) Altered mental status Status: Acute (2) Dehydration Status: Acute (3) Hypokalemia Status: Acute (4) Metabolic encephalopathy Status: Acute (5) Sacral decubitus ulcer Status: Acute (6) Urinary tract infection Status: Acute Comment Review of Relevant I have reviewed the following items yuliana (where applicable) has been applied. Labs Microbiology 05/01/20 Blood Culture - Final, Complete NO GROWTH AFTER 5 DAYS 05/01/20 Urine Culture - Final, Complete 05/01/20 Antimicrobic Susceptibility - Final, Complete Medications Current Medications Sodium Chloride 1,000 ml @ 1,000 mls/hr 1X ONCE IV Last administered on 05/01/20at 19:57; Start 05/01/20 at 19:15; Stop 05/01/20 at 20:14; Status DC Ceftriaxone Sodium (Rocephin) 1 gm 1X ONCE IVP Last administered on 05/01/20at 20:43; Start 05/01/20 at 20:45; Stop 05/01/20 at 20:46; Status DC Potassium Chloride (Klor-Con) 40 meq 1X ONCE PO Last administered on 05/01/20at 20:44; Start 05/01/20 at 20:45; Stop 05/01/20 at 20:46; Status DC Ondansetron HCl (Zofran) 4 mg PRN Q8HRS PRN IV NAUSEA/VOMITING; Start 05/01/20 at 21:00; Stop 05/02/20 at 20:59; Status DC Potassium Chloride/Dextrose/ Sod Cl 1,000 ml @ 100 mls/hr Q10H ONCE IV Last administered on 05/01/20at 21:24; Start 05/01/20 at 21:00; Stop 05/02/20 at 06:59; Status DC Lactulose (Lactulose) 20 gm ONCE ONCE PO Last administered on 05/01/20at 23:40; Start 05/01/20 at 23:30; Stop 05/01/20 at 23:31; Status DC Ceftriaxone Sodium (Rocephin) 1 gm Q24H IVP Last administered on 05/03/20at 21:40; Start 05/02/20 at 21:00; Stop 05/04/20 at 16:46; Status DC Magnesium Sulfate 50 ml @ 25 mls/hr 1X ONCE IV Last administered on 05/02/20at 09:40; Start 05/02/20 at 09:30; Stop 05/02/20 at 11:29; Status DC Potassium Chloride (Klor-Con) 40 meq 1X ONCE PO Last administered on 05/02/20at 09:42; Start 05/02/20 at 09:30; Stop 05/02/20 at 09:31; Status DC Aspirin (Ecotrin) 81 mg DAILYWBKFT PO Last administered on 05/08/20 09:47; Start 05/02/20 at 09:30 Atorvastatin Calcium (Lipitor) 40 mg QHS PO Last administered on 05/07/20 20:54; Start 05/02/20 at 21:00 Carvedilol (Coreg) 3.125 mg BIDWMEALS PO Last administered on 05/06/20 16:56; Start 05/02/20 at 09:30 Clopidogrel Bisulfate (Plavix) 75 mg DAILY PO Last administered on 05/08/20 09:48; Start 05/02/20 at 09:30 Lisinopril (Prinivil) 20 mg DAILY PO Last administered on 05/06/20 08:26; Start 05/02/20 at 09:30 Potassium Chloride (Klor-Con) 20 meq BID PO Last administered on 05/03/20 21:40; Start 05/02/20 at 21:00; Stop 05/03/20 at 22:01; Status DC Ascorbic Acid (Vitamin C) 500 mg BID PO Last administered on 05/08/20 09:47; Start 05/02/20 at 21:00 Multivitamins (Thera M Plus) 1 tab DAILY PO Last administered on 05/08/20 09:47; Start 05/02/20 at 14:30 Lactobacillus Rhamnosus (Culturelle) 1 cap BID PO Last administered on 05/08/20 09:47; Start 05/02/20 at 21:00 Thiamine Mononitrate (Vitamin B-1) 100 mg DAILY PO Last administered on 05/08/20 09:47; Start 05/04/20 at 09:00 Thiamine HCl 100 mg/Dextrose 51 ml @ 102 mls/hr 1X ONCE IV Last administered on 05/03/20 13:32; Start 05/03/20 at 13:00; Stop 05/03/20 at 13:29; Status DC Vitamin B Complex (Folbic Tablet) 1 tab DAILY PO Last administered on 05/08/20 09:46; Start 05/03/20 at 13:00 Furosemide (Lasix) 40 mg DAILY PO Last administered on 05/08/20 09:47; Start 05/03/20 at 12:00 Potassium Chloride (Klor-Con) 20 meq BIDWMEALS PO Last administered on 05/08/20at 09:47; Start 05/04/20 at 08:00 Amoxicillin/ Clavulanate Potassium (Augmentin 500/ 125mg) 1 tab BID PO Last administered on 05/08/20at 09:46; Start 05/04/20 at 10:45 Active Scripts Active Thera-M Tablet (Multivits,Ca,Minerals/Iron/Fa) 1 Each Tablet 1 Tab PO DAILY 30 Days Vitamin C (Ascorbic Acid) 500 Mg Tablet 500 Mg PO BID 30 Days Vitamin B-1 (Thiamine Mononitrate) 100 Mg Tablet 100 Mg PO DAILY 30 Days Folbic Tablet (Cyanocobalamin/Fa/Pyridoxine) 1 Each Tablet 1 Tab PO DAILY 30 Days Culturelle (Lactobacillus Rhamnosus Gg) 1 Each Cap.sprink 1 Cap PO BID 30 Days Amox Tr-K Clv 500-125 Mg Tab (Amoxicillin/Potassium Clav) 1 Each Tablet 1 Tab PO BID 7 Days Furosemide 40 Mg Tablet 40 Mg PO DAILY 30 Days Aspirin Ec (Aspirin) 81 Mg Tablet.dr 81 Mg PO DAILYWBKFT 30 Days Proair Hfa Inhaler (Albuterol Sulfate) 8.5 Gm Hfa.aer.ad 1 Puff INH PRN Q6HRS PRN Reported Lisinopril 20 Mg Tablet 1 Tab PO DAILY Lipitor (Atorvastatin Calcium) 40 Mg Tablet 1 Tab PO QHS Clopidogrel (Clopidogrel Bisulfate) 75 Mg Tablet 75 Mg PO DAILY Carvedilol (Carvedilol) 3.125 Mg Tablet 3.125 Mg PO BIDWMEALS Klor-Con M20 (Potassium Chloride) 20 Meq Tab.er.prt 20 Meq PO BID Vitals/I & O Vital Sign - Last 24 Hours 05/07/20 05/07/20 05/07/20 05/07/20 15:00 16:56 19:00 20:00 Temp 98.4 97.2 98.4 97.2 Pulse 68 68 56 Resp 18 20 B/P (MAP) 139/42 (74) 139/42 144/44 (77) Pulse Ox 98 90 O2 Delivery Room Air Room Air Room Air 05/07/20 05/08/20 05/08/20 05/08/20 23:00 03:00 07:00 08:00 Temp 98.6 96.9 97.7 98.6 96.9 97.7 Pulse 73 71 65 72 Resp 16 18 17 B/P (MAP) 132/46 (74) 113/34 (60) 119/35 (63) 114/42 Pulse Ox 99 94 94 O2 Delivery Room Air Room Air Room Air 05/08/20 05/08/20 05/08/20 08:00 09:00 10:48 Temp 97.7 97.7 Pulse 72 72 Resp 17 B/P (MAP) 114/42 114/42 (66) Pulse Ox 92 O2 Delivery Room Air Room Air Intake and Output 05/07/20 05/07/20 05/08/20 15:00 23:00 07:00 Intake Total 240 ml Balance 240 ml Nutrition Consultation Dietary Evaluation: Recommendations by RD: Dietary education by RD, Increase Calorie Intake, Prote in supplementation Comments: ensure tid mvi vit c Expected Outcomes/Goals: to meet >75% est nutr needs- ongoing improved wound status- ongoing Malnutrition Findings: Body Fat Depletion (Non Severe: Mild Depletion Weight Status: Underweight Justicifation of Admission Dx: Justifications for Admission: Justification of Admission Dx: Yes (sepsis, encephalopathy) SANJANA JAIMES MD May 08, 2020 12:48
--- NOTE | 2020-05-08 13:26 | PDOC3 ---
Discharge Summary Date of Admission: May 02, 2020 Date of Discharge: May 08, 2020 Follow-Up: 1-2 days Admitting Diagnosis comment: discharge dx acute metabolic encephalopathy, due to UTI and sepsis, confusion, baseline of cognitive decline or early dementia UTI sepsis, IV fluid given acute dehydration buttock wound, consulted wound care severe malnutrition weakness and debility covid, 19 in isolation on admit, PUI NEG ELECTROLYTE IMBALANCE IMPROVING AWAIT ltc placement D/W RN po augmentin on d/c d/c planning 32 min TO [facility] BED 05/08 History of Present Illness History of Present Illness Ms Florian is a 75yo F w/ PMHx MCI, dCHF who p/w confusion, sepsis, UTI 05/03: she feels much better, wants to "walk out of here" has almost no recollection of yesterday, today , she is more oriented, but does not know the date 05/04: Afebrile. Still very confused. Weak. urine culture returned positive for sensitive Klebsiella switch to oral Augmentin. She needs skilled services on discharge awaiting further PT and OT eval. Afebrile. Confused. Family concerned she may have dementia worse than expected. No SOB or CP. Vitals Vitals Vital Signs Date Time Temp Pulse Resp B/P (MAP) Pulse Ox O2 Delivery O2 Flow Rate FiO2 05/08/20 10:48 97.7 72 17 114/42 (66) 92 Room Air 97.7 Physical Exam General: Alert, Cooperative, No acute distress, Other (not oroiented, ) Heart: Regular rate, No murmurs Lungs: Clear, Other Abdomen: Normal bowel sounds, Soft Extremities: No cyanosis Skin: No rashes, Other (wound to buttock, poror nail care, ) Assessment and Plan Assessmemt and Plan Problems Medical Problems: (1) Altered mental status Status: Acute (2) Dehydration Status: Acute (3) Hypokalemia Status: Acute (4) Metabolic encephalopathy Status: Acute (5) Sacral decubitus ulcer Status: Acute (6) Urinary tract infection FINAL DIAGNOSIS Problems Medical Problems: (1) Altered mental status Status: Acute (2) Dehydration Status: Acute (3) Hypokalemia Status: Acute (4) Metabolic encephalopathy Status: Acute (5) Sacral decubitus ulcer Status: Acute (6) Urinary tract infection Status: Acute Brief Hospital Course Ms. Florian is a 75 old [sex] who presented with [ ALTERED MENTAL STATUS] CONDITION AT DISCHARGE: Stable, Comment (GUARDED) Discharge Medications Current Medications Sodium Chloride 1,000 ml @ 1,000 mls/hr 1X ONCE IV Last administered on 05/01/20at 19:57; Start 05/01/20 at 19:15; Stop 05/01/20 at 20:14; Status DC Ceftriaxone Sodium (Rocephin) 1 gm 1X ONCE IVP Last administered on 05/01/20at 20:43; Start 05/01/20 at 20:45; Stop 05/01/20 at 20:46; Status DC Potassium Chloride (Klor-Con) 40 meq 1X ONCE PO Last administered on 05/01/20at 20:44; Start 05/01/20 at 20:45; Stop 05/01/20 at 20:46; Status DC Ondansetron HCl (Zofran) 4 mg PRN Q8HRS PRN IV NAUSEA/VOMITING; Start 05/01/20 at 21:00; Stop 05/02/20 at 20:59; Status DC Potassium Chloride/Dextrose/ Sod Cl 1,000 ml @ 100 mls/hr Q10H ONCE IV Last administered on 05/01/20at 21:24; Start 05/01/20 at 21:00; Stop 05/02/20 at 06:59; Status DC Lactulose (Lactulose) 20 gm ONCE ONCE PO Last administered on 05/01/20at 23:40; Start 05/01/20 at 23:30; Stop 05/01/20 at 23:31; Status DC Ceftriaxone Sodium (Rocephin) 1 gm Q24H IVP Last administered on 05/03/20at 21:40; Start 05/02/20 at 21:00; Stop 05/04/20 at 16:46; Status DC Magnesium Sulfate 50 ml @ 25 mls/hr 1X ONCE IV Last administered on 05/02/20at 09:40; Start 05/02/20 at 09:30; Stop 05/02/20 at 11:29; Status DC Potassium Chloride (Klor-Con) 40 meq 1X ONCE PO Last administered on 05/02/20 09:42; Start 05/02/20 at 09:30; Stop 05/02/20 at 09:31; Status DC Aspirin (Ecotrin) 81 mg DAILYWBKFT PO Last administered on 05/08/20at 09:47; Start 05/02/20 at 09:30 Atorvastatin Calcium (Lipitor) 40 mg QHS PO Last administered on 05/07/20at 20:54; Start 05/02/20 at 21:00 Carvedilol (Coreg) 3.125 mg BIDWMEALS PO Last administered on 05/06/20 16:56; Start 05/02/20 at 09:30 Clopidogrel Bisulfate (Plavix) 75 mg DAILY PO Last administered on 05/08/20 09:48; Start 05/02/20 at 09:30 Lisinopril (Prinivil) 20 mg DAILY PO Last administered on 05/06/20at 08:26; Start 05/02/20 at 09:30 Potassium Chloride (Klor-Con) 20 meq BID PO Last administered on 05/03/20at 21:40; Start 05/02/20 at 21:00; Stop 05/03/20 at 22:01; Status DC Ascorbic Acid (Vitamin C) 500 mg BID PO Last administered on 05/08/20 09:47; Start 05/02/20 at 21:00 Multivitamins (Thera M Plus) 1 tab DAILY PO Last administered on 05/08/20at 09:47; Start 05/02/20 at 14:30 Lactobacillus Rhamnosus (Culturelle) 1 cap BID PO Last administered on 05/08/20at 09:47; Start 05/02/20 at 21:00 Thiamine Mononitrate (Vitamin B-1) 100 mg DAILY PO Last administered on 05/08/20 09:47; Start 05/04/20 at 09:00 Thiamine HCl 100 mg/Dextrose 51 ml @ 102 mls/hr 1X ONCE IV Last administered on 05/03/20at 13:32; Start 05/03/20 at 13:00; Stop 05/03/20 at 13:29; Status DC Vitamin B Complex (Folbic Tablet) 1 tab DAILY PO Last administered on 05/08/20 09:46; Start 05/03/20 at 13:00 Furosemide (Lasix) 40 mg DAILY PO Last administered on 05/08/20at 09:47; Start 05/03/20 at 12:00 Potassium Chloride (Klor-Con) 20 meq BIDWMEALS PO Last administered on 05/08/20at 09:47; Start 05/04/20 at 08:00 Amoxicillin/ Clavulanate Potassium (Augmentin 500/ 125mg) 1 tab BID PO Last administered on 05/08/20at 09:46; Start 05/04/20 at 10:45 Active Scripts Active Thera-M Tablet (Multivits,Ca,Minerals/Iron/Fa) 1 Each Tablet 1 Tab PO DAILY 30 Days Vitamin C (Ascorbic Acid) 500 Mg Tablet 500 Mg PO BID 30 Days Vitamin B-1 (Thiamine Mononitrate) 100 Mg Tablet 100 Mg PO DAILY 30 Days Folbic Tablet (Cyanocobalamin/Fa/Pyridoxine) 1 Each Tablet 1 Tab PO DAILY 30 Days Culturelle (Lactobacillus Rhamnosus Gg) 1 Each Cap.sprink 1 Cap PO BID 30 Days Amox Tr-K Clv 500-125 Mg Tab (Amoxicillin/Potassium Clav) 1 Each Tablet 1 Tab PO BID 7 Days Furosemide 40 Mg Tablet 40 Mg PO DAILY 30 Days Aspirin Ec (Aspirin) 81 Mg Tablet.dr 81 Mg PO DAILYWBKFT 30 Days Proair Hfa Inhaler (Albuterol Sulfate) 8.5 Gm Hfa.aer.ad 1 Puff INH PRN Q6HRS PRN Reported Lisinopril 20 Mg Tablet 1 Tab PO DAILY Lipitor (Atorvastatin Calcium) 40 Mg Tablet 1 Tab PO QHS Clopidogrel (Clopidogrel Bisulfate) 75 Mg Tablet 75 Mg PO DAILY Carvedilol (Carvedilol) 3.125 Mg Tablet 3.125 Mg PO BIDWMEALS Klor-Con M20 (Potassium Chloride) 20 Meq Tab.er.prt 20 Meq PO BID Vital Signs Vital Signs Date Time Temp Pulse Resp B/P (MAP) Pulse Ox O2 Delivery O2 Flow Rate FiO2 05/08/20 10:48 97.7 72 17 114/42 (66) 92 Room Air 97.7 Allergies Allergies Coded Allergies Type Severity Reaction Last Updated Verified No Known Drug Allergies 04/18/15 No Disposition/Orders: Other (D/C TO RESIDENTIAL CARE) Justicifation of Admission Dx: Justifications for Admission: Justification of Admission Dx: Yes (sepsis, encephalopathy) SANJANA JAIMES MD May 08, 2020 13:26
--- NOTE | 2020-05-08 13:28 | SNU/HH DC ---
DISCHARGE ORDERS DISCHARGE INFORMATION: DISCHARGE DATE: May 08, 2020 FINAL DIAGNOSIS Problems Medical Problems: (1) Altered mental status Status: Acute (2) Dehydration Status: Acute (3) Hypokalemia Status: Acute (4) Metabolic encephalopathy Status: Acute (5) Sacral decubitus ulcer Status: Acute (6) Urinary tract infection Status: Acute CONDITION ON DISCHARGE: Stable CODE STATUS: Code Status: Full LONG TERM: SNF STAY <30 DAYS: No HOSPICE: HOSPICE: No HOSPICE EVAL & TREAT: No LTAC: ADMIT TO LTAC: No POST DISCHARGE ORDERS: ACTIVITY ORDERS: Activity as tolerated WEIGHT BEARING STATUS: As tolerated DIET AFTER DISCHARGE: Cardiac CHECKS AFTER DISCHARGE: CHECKS AFTER DISCHARGE: Check blood press - daily, Check your Temp as needed, Weigh Yourself Daily FOLLOW-UP: PHYSICIAN FOLLOW-UP: F/U PCP LTC TREATMENT/EQUIPMENT ORDERS: ADAPTIVE EQUIPMENT NEEDED: None Physical Therapy For: Evalulation/Treatment Occupational Therapy For: Evaluation/Treatment Speech Language Pathology For: Evaluation/Treatment DISCHARGE MEDICATIONS: Home Meds Active Scripts Multivits,Ca,Minerals/Iron/Fa (THERA-M TABLET) 1 Each Tablet, 1 TAB PO DAILY for supplement for 30 Days, #30 TAB Prov:SANJANA JAIMES MD 05/06/20 Ascorbic Acid (VITAMIN C) 500 Mg Tablet, 500 MG PO BID for supplement for 30 Days, #60 TAB Prov:SANJANA JAIMES MD 05/06/20 Thiamine Mononitrate (VITAMIN B-1) 100 Mg Tablet, 100 MG PO DAILY for supplement for 30 Days, #30 TAB Prov:SANJANA JAIMES MD 05/06/20 Cyanocobalamin/Fa/Pyridoxine (FOLBIC TABLET) 1 Each Tablet, 1 TAB PO DAILY for supplement for 30 Days, #30 TAB Prov:SANJANA JAIMES MD 05/06/20 Lactobacillus Rhamnosus Gg (CULTURELLE) 1 Each Cap.sprink, 1 CAP PO BID for supplement for 30 Days, #60 CAP Prov:SANJANA JAIMES MD 05/06/20 Amoxicillin/Potassium Clav (AMOX TR-K CLV 500-125 MG TAB) 1 Each Tablet, 1 TAB PO BID for infection for 7 Days, #14 TAB Prov:SANJANA JAIMES MD 05/06/20 Furosemide (FUROSEMIDE) 40 Mg Tablet, 40 MG PO DAILY for heart failure for 30 Days, #30 TAB 2 Refills Prov:KATIE WALKER JACQUARD LACE WEAVER 11/03/18 Aspirin (ASPIRIN EC) 81 Mg Tablet.dr, 81 MG PO DAILYWBKFT for coronary artery disease for 30 Days, #30 TAB.SR 2 Refills Prov:KATIE WALKER JACQUARD LACE WEAVER 11/03/18 Albuterol Sulfate (PROAIR HFA INHALER) 8.5 Gm Hfa.aer.ad, 1 PUFF INH PRN Q6HRS PRN for SHORTNESS OF BREATH, #1 INHALER 0 Refills Prov:JONATHAN HOLGUIN DO 06/22/16 Reported Medications Lisinopril (LISINOPRIL) 20 Mg Tablet, 1 TAB PO DAILY for blood pressure, #30 TAB 5 Refills 03/31/19 Atorvastatin Calcium (LIPITOR) 40 Mg Tablet, 1 TAB PO QHS for , #90 TAB 1 Refill 11/01/18 Clopidogrel Bisulfate (CLOPIDOGREL) 75 Mg Tablet, 75 MG PO DAILY for TO PREVENT BLOOD CLOTS, #30 TAB 0 Refills 11/01/18 Carvedilol (CARVEDILOL ) 3.125 Mg Tablet, 3.125 MG PO BIDWMEALS for CARDIAC, TAB 11/01/18 Potassium Chloride (KLOR-CON M20) 20 Meq Tab.er.prt, 20 MEQ PO BID for , TAB.SR 11/01/18 Discontinued Scripts Azithromycin (ZITHROMAX) 250 Mg Tablet, 1 PKG PO UD, #6 TAB Prov:JONATHAN HOLGUIN DO 06/22/16 SANJANA JAIMES MD May 08, 2020 13:28
[2020-05-08 15:00] VITALS: BP 119/52
[2020-05-08 19:00] VITALS: BP 121/32
[2020-05-08] MEDS: ATORVASTATIN CALCIUM 40 MG TABLET. PO SCH (21:35)
[2020-05-08 23:00] VITALS: BP 158/58
[2020-05-09 03:00] VITALS: BP 140/44
[2020-05-09 07:00] VITALS: BP 127/32
[2020-05-09] MEDS: ASPIRIN ENTERIC COATED 81 MG TABLET.DR. PO SCH (08:17)
[2020-05-09] MEDS: THIAMINE 100 MG TABLET. PO SCH (08:17)
[2020-05-09] MEDS: MULTIVITAMIN with MINERAL TABLET. PO SCH (08:17)
[2020-05-09] MEDS: VITAMIN B12,B9,B6 COMPLEX 1 TABLET. PO SCH (08:17)
[2020-05-09] MEDS: LACTOBACILLUS RHAMNOSUS GG 1 CAPSULE. PO SCH ×2 (08:17→21:42)
[2020-05-09] MEDS: CLOPIDOGREL BISULFATE 75 MG TABLET PO SCH (08:17)
[2020-05-09] MEDS: ASCORBIC ACID 500 MG TABLET PO SCH ×2 (08:17→21:42)
[2020-05-09] MEDS: POTASSIUM CHLORIDE 20 MEQ TABLET.ER. PO SCH ×2 (08:17→16:54)
[2020-05-09] MEDS: AMOXICILLIN/K CLAV 500/125MG TABLET. PO SCH ×2 (08:17→21:42)
[2020-05-09] MEDS: CARVEDILOL 3.125 MG TABLET. PO SCH ×2 (08:18→16:54)
[2020-05-09] MEDS: FUROSEMIDE 40 MG TABLET. PO SCH (08:18)
[2020-05-09] MEDS: LISINOPRIL 20 MG TABLET PO SCH (08:18)
--- NOTE | 2020-05-09 10:06 | PDOC ---
PROGRESS NOTES Date of Service: DATE: 05/09/20 TIME: 10:06 Chief Complaint Chief Complaint discharge dx acute metabolic encephalopathy, due to UTI and sepsis, confusion, baseline of cognitive decline or early dementia UTI sepsis, IV fluid given acute dehydration buttock wound, consulted wound care severe malnutrition weakness and debility covid, 19 in isolation on admit, PUI NEG ELECTROLYTE IMBALANCE IMPROVING AWAIT ltc placement D/W RN po augmentin on d/c d/c planning 32 min History of Present Illness History of Present Illness Ms Florian is a 75yo F w/ PMHx MCI, dCHF who p/w confusion, sepsis, UTI 05/03: she feels much better, wants to "walk out of here" has almost no recollection of yesterday, today , she is more oriented, but does not know the date 05/04: Afebrile. Still very confused. Weak. urine culture returned positive for sensitive Klebsiella switch to oral Augmentin. She needs skilled services on discharge awaiting further PT and OT eval. Afebrile. Confused. Family concerned she may have dementia worse than expected. No SOB or CP. Vitals Vitals Vital Signs Date Time Temp Pulse Resp B/P (MAP) Pulse Ox O2 Delivery O2 Flow Rate FiO2 05/09/20 08:18 65 127/32 05/09/20 07:00 98.3 20 94 Room Air 98.3 Physical Exam General: Alert, Cooperative, No acute distress, Other (not oroiented, ) Heart: Regular rate, No murmurs Lungs: Clear, Other Abdomen: Normal bowel sounds, Soft Extremities: No cyanosis Skin: No rashes, Other (wound to buttock, poror nail care, ) Assessment and Plan Assessmemt and Plan Problems Medical Problems: (1) Altered mental status Status: Acute (2) Dehydration Status: Acute (3) Hypokalemia Status: Acute (4) Metabolic encephalopathy Status: Acute (5) Sacral decubitus ulcer Status: Acute (6) Urinary tract infection Status: Acute Comment Review of Relevant I have reviewed the following items yuliana (where applicable) has been applied. Labs Microbiology 05/01/20 Blood Culture - Final, Complete NO GROWTH AFTER 5 DAYS 05/01/20 Urine Culture - Final, Complete 05/01/20 Antimicrobic Susceptibility - Final, Complete Medications Current Medications Sodium Chloride 1,000 ml @ 1,000 mls/hr 1X ONCE IV Last administered on 05/01/20at 19:57; Start 05/01/20 at 19:15; Stop 05/01/20 at 20:14; Status DC Ceftriaxone Sodium (Rocephin) 1 gm 1X ONCE IVP Last administered on 05/01/20at 20:43; Start 05/01/20 at 20:45; Stop 05/01/20 at 20:46; Status DC Potassium Chloride (Klor-Con) 40 meq 1X ONCE PO Last administered on 05/01/20at 20:44; Start 05/01/20 at 20:45; Stop 05/01/20 at 20:46; Status DC Ondansetron HCl (Zofran) 4 mg PRN Q8HRS PRN IV NAUSEA/VOMITING; Start 05/01/20 at 21:00; Stop 05/02/20 at 20:59; Status DC Potassium Chloride/Dextrose/ Sod Cl 1,000 ml @ 100 mls/hr Q10H ONCE IV Last administered on 05/01/20at 21:24; Start 05/01/20 at 21:00; Stop 05/02/20 at 06:59; Status DC Lactulose (Lactulose) 20 gm ONCE ONCE PO Last administered on 05/01/20at 23:40; Start 05/01/20 at 23:30; Stop 05/01/20 at 23:31; Status DC Ceftriaxone Sodium (Rocephin) 1 gm Q24H IVP Last administered on 05/03/20at 21:40; Start 05/02/20 at 21:00; Stop 05/04/20 at 16:46; Status DC Magnesium Sulfate 50 ml @ 25 mls/hr 1X ONCE IV Last administered on 05/02/20at 09:40; Start 05/02/20 at 09:30; Stop 05/02/20 at 11:29; Status DC Potassium Chloride (Klor-Con) 40 meq 1X ONCE PO Last administered on 05/02/20at 09:42; Start 05/02/20 at 09:30; Stop 05/02/20 at 09:31; Status DC Aspirin (Ecotrin) 81 mg DAILYWBKFT PO Last administered on 05/09/20at 08:17; Start 05/02/20 at 09:30 Atorvastatin Calcium (Lipitor) 40 mg QHS PO Last administered on 05/08/20at 21:35; Start 05/02/20 at 21:00 Carvedilol (Coreg) 3.125 mg BIDWMEALS PO Last administered on 05/09/20at 08:18; Start 05/02/20 at 09:30 Clopidogrel Bisulfate (Plavix) 75 mg DAILY PO Last administered on 05/09/20 08:17; Start 05/02/20 at 09:30 Lisinopril (Prinivil) 20 mg DAILY PO Last administered on 05/09/20at 08:18; Start 05/02/20 at 09:30 Potassium Chloride (Klor-Con) 20 meq BID PO Last administered on 05/03/20at 21:40; Start 05/02/20 at 21:00; Stop 05/03/20 at 22:01; Status DC Ascorbic Acid (Vitamin C) 500 mg BID PO Last administered on 05/09/20 08:17; Start 05/02/20 at 21:00 Multivitamins (Thera M Plus) 1 tab DAILY PO Last administered on 05/09/20at 08:17; Start 05/02/20 at 14:30 Lactobacillus Rhamnosus (Culturelle) 1 cap BID PO Last administered on 05/09/20at 08:17; Start 05/02/20 at 21:00 Thiamine Mononitrate (Vitamin B-1) 100 mg DAILY PO Last administered on 05/09/20at 08:17; Start 05/04/20 at 09:00 Thiamine HCl 100 mg/Dextrose 51 ml @ 102 mls/hr 1X ONCE IV Last administered on 05/03/20at 13:32; Start 05/03/20 at 13:00; Stop 05/03/20 at 13:29; Status DC Vitamin B Complex (Folbic Tablet) 1 tab DAILY PO Last administered on 05/09/20at 08:17; Start 05/03/20 at 13:00 Furosemide (Lasix) 40 mg DAILY PO Last administered on 05/09/20at 08:18; Start 05/03/20 at 12:00 Potassium Chloride (Klor-Con) 20 meq BIDWMEALS PO Last administered on 05/09/20at 08:17; Start 05/04/20 at 08:00 Amoxicillin/ Clavulanate Potassium (Augmentin 500/ 125mg) 1 tab BID PO Last administered on 05/09/20at 08:17; Start 05/04/20 at 10:45 Active Scripts Active Thera-M Tablet (Multivits,Ca,Minerals/Iron/Fa) 1 Each Tablet 1 Tab PO DAILY 30 Days Vitamin C (Ascorbic Acid) 500 Mg Tablet 500 Mg PO BID 30 Days Vitamin B-1 (Thiamine Mononitrate) 100 Mg Tablet 100 Mg PO DAILY 30 Days Folbic Tablet (Cyanocobalamin/Fa/Pyridoxine) 1 Each Tablet 1 Tab PO DAILY 30 Days Culturelle (Lactobacillus Rhamnosus Gg) 1 Each Cap.sprink 1 Cap PO BID 30 Days Amox Tr-K Clv 500-125 Mg Tab (Amoxicillin/Potassium Clav) 1 Each Tablet 1 Tab PO BID 7 Days Furosemide 40 Mg Tablet 40 Mg PO DAILY 30 Days Aspirin Ec (Aspirin) 81 Mg Tablet.dr 81 Mg PO DAILYWBKFT 30 Days Proair Hfa Inhaler (Albuterol Sulfate) 8.5 Gm Hfa.aer.ad 1 Puff INH PRN Q6HRS PRN Reported Lisinopril 20 Mg Tablet 1 Tab PO DAILY Lipitor (Atorvastatin Calcium) 40 Mg Tablet 1 Tab PO QHS Clopidogrel (Clopidogrel Bisulfate) 75 Mg Tablet 75 Mg PO DAILY Carvedilol (Carvedilol) 3.125 Mg Tablet 3.125 Mg PO BIDWMEALS Klor-Con M20 (Potassium Chloride) 20 Meq Tab.er.prt 20 Meq PO BID Vitals/I & O Vital Sign - Last 24 Hours 05/08/20 05/08/20 05/08/20 05/08/20 10:48 15:00 17:06 19:00 Temp 97.7 97.7 98.4 97.7 97.7 98.4 Pulse 72 70 70 63 Resp 17 17 17 B/P (MAP) 114/42 (66) 119/52 (74) 119/52 121/32 (61) Pulse Ox 92 93 94 O2 Delivery Room Air Room Air Room Air 05/08/20 05/08/20 05/09/2017/20 20:00 23:00 03:00 07:00 Temp 97.4 97.9 98.3 97.4 97.9 98.3 Pulse 72 67 65 Resp B/P (MAP) 158/58 (91) 140/44 (76) 127/32 (63) Pulse Ox 90 92 94 O2 Delivery Room Air Room Air Room Air Room Air 05/09/20 05/09/20 08:18 08:18 Pulse 65 65 B/P (MAP) 127/32 127/32 Intake and Output 05/08/20 05/08/20 05/09/20 15:00 23:00 07:00 Intake Total 600 ml 540 ml 50 ml Balance 600 ml 540 ml 50 ml Nutrition Consultation Dietary Evaluation: Recommendations by RD: Dietary education by RD, Increase Calorie Intake, Protein supplementation Comments: ensure tid mvi vit c Expected Outcomes/Goals: to meet >75% est nutr needs- ongoing improved wound status- ongoing Malnutrition Findings: Body Fat Depletion (Non Severe: Mild Depletion Weight Status: Underweight Justicifation of Admission Dx: Justifications for Admission: Justification of Admission Dx: Yes (sepsis, encephalopathy) SANJANA JAIMES MD May 09, 2020 10:06
[2020-05-09 10:56] VITALS: BP 151/49
[2020-05-09 15:24] VITALS: BP 124/31
--- NOTE | 2020-05-09 20:30 | PDOC1 ---
History & Psych Evaluation Date of Service: DOS: DATE: 05/09/20 TIME: 20:18 Source: Source: Caregiver, Chart review, Patient Identification: Identification 75-year-old female admitted with altered mental status Chief Complaint: Chief Complaint Confusion, altered mental status History of Present Illness: HPI: She is a 75-year-old female, admitted with altered mental status and confusion. She is seen for initial psychiatric assessment. Upon interview she appears confused, somewhat disorganized, and irrelevant laughter's with questions. Mood is irritable and dysphoric. States, she is upset with the hospital admission. She was living in her own apartment describing TV was in front of her bed and everything was going fine. She appears paranoid that she was brought into the hospital inappropriately. When asked about psychiatric review of system, she denies depression however reports she is angry due to hospitalization and wanting to go back to her place. She is anxious about being in the hospital, thinks she doesn't need to be admitted. Additionally, she is upset that what is going on with her. Aside from that, she denies auditory or visual hallucinations. She denies history of suicidal or homicidal thoughts. Denies prior psychiatric diagnosis. Denies overt depression or anxiety. When questions asked for mental status examination, she started laughing and got irritable with questioning. Year is 1989 and month is December. She is oriented to place and person. Past Psychiatric History: She denies previous history of psychiatric hospital admissions or previous psychiatric diagnosis. Denies previous suicidal attempt or history of suicidality. Past Medical History: Please see medical chart for details. Family History: Family history is not known to the patient. Social History: Social History: She lives by herself in an apartment. She denies history of substance use. Denies legal issues. States, she has children but they are working Current Medications: Current Medications Current Medications Medications (Trade) Dose Ordered Sig/[place] Start Time Stop Time Status Last Admin Dose Admin Amoxicillin/ Clavulanate Potassium (Augmentin 500/ 125mg) 1 tab BID 05/04/20 10:45 05/09/20 08:17 1 TAB Ascorbic Acid (Vitamin C) 500 mg BID 05/02/20 21:00 05/09/20 08:17 500 MG Aspirin (Ecotrin) 81 mg DAILYWBKFT 05/02/20 09:30 05/09/20 08:17 81 MG Atorvastatin Calcium (Lipitor) 40 mg QHS 05/02/20 21:00 05/08/20 21:35 40 MG Carvedilol (Coreg) 3.125 mg BIDWMEALS 05/02/20 09:30 05/09/20 16:54 3.125 MG Ceftriaxone Sodium (Rocephin) 1 gm Q24H 05/02/20 21:00 05/04/20 16:46 DC 05/03/20 21:40 1 GM Clopidogrel Bisulfate (Plavix) 75 mg DAILY 05/02/20 09:30 05/09/20 08:17 75 MG Furosemide (Lasix) 40 mg DAILY 05/03/20 12:00 05/09/20 08:18 40 MG Lactobacillus Rhamnosus (Culturelle) 1 cap BID 05/02/20 21:00 05/09/20 08:17 1 CAP Lactulose (Lactulose) 20 gm ONCE ONCE 05/01/20 23:30 05/01/20 23:31 DC 05/01/20 23:40 20 GM Lisinopril (Prinivil) 20 mg DAILY 05/02/20 09:30 05/09/20 08:18 20 MG Magnesium Sulfate 50 ml @ 25 mls/hr 1X ONCE 05/02/20 09:30 05/02/20 11:29 DC 05/02/20 09:40 25 MLS/HR Multivitamins (Thera M Plus) 1 tab DAILY 05/02/20 14:30 05/09/20 08:17 1 TAB Ondansetron HCl (Zofran) 4 mg PRN Q8HRS PRN 05/01/20 21:00 05/02/20 20:59 DC Potassium Chloride/Dextrose/ Sod Cl 1,000 ml @ 100 mls/hr Q10H ONCE 05/01/20 21:00 05/02/20 06:59 DC 05/01/20 21:24 100 MLS/HR Potassium Chloride (Klor-Con) 20 meq BIDWMEALS 05/04/20 08:00 05/09/20 16:54 20 MEQ Sodium Chloride 1,000 ml @ 1,000 mls/hr 1X ONCE 05/01/20 19:15 05/01/20 20:14 DC 05/01/20 19:57 1,000 MLS/HR Thiamine Mononitrate (Vitamin B-1) 100 mg DAILY 05/04/20 09:00 05/09/20 08:17 100 MG Thiamine HCl 100 mg/Dextrose 51 ml @ 102 mls/hr 1X ONCE 05/03/20 13:00 05/03/20 13:29 DC 05/03/20 13:32 102 MLS/HR Vitamin B Complex (Folbic Tablet) 1 tab DAILY 05/03/20 13:00 05/09/20 08:17 1 TAB Allergies: Allergies: Coded Allergies: No Known Drug Allergies (Unverified , 04/18/15) Mental Status Examination: Mental Status Examination female appears her stated age Not very cooperative somewhat irritable Disoriented Thought processes disorganized Denies suicidal or homicidal thoughts Denies auditory or visual hallucinations Appears paranoid Mood is dysphoric Affect is dysthymic Insight is limited Impulse control is fair Judgment is poor Attention span and concentration impaired Recent and remote memory impaired ROS: 14 point review of system is otherwise negative except for stated in H&P Physical Exam: Refer to Physician's note. OPTOMECHANICAL ENGINEER: No focal deficit MSK: No EPS, TDK, or abnormal involuntary movements Vitals: Vitals Vital Signs Date Time Temp Pulse Resp B/P (MAP) Pulse Ox O2 Delivery O2 Flow Rate FiO2 05/09/20 19:00 98.3 63 22 97 Room Air 98.3 Diagnosis: Diagnosis: Acute delirium, likely hyperactive/hypoactive, multifactorial including infectious etiology Unspecified neurocognitive disorder, rule out major neurocognitive disorder likely of vascular etiology as CT is consistent Unspecified anxiety disorder, rule out generalized anxiety disorder Assessment: 75-year-old female admitted with altered mental status. History and presentation is consistent with acute delirium likely multifactorial including infectious etiology. Additionally, CT scan is consistent with microvascular ischemic changes signifying neurodegenerative process likely of vascular etiology which predisposes her for delirium. Recommending to add low-dose Zyprexa 2.5 mg which would help with anxiety, sleep, and resolution of delirium. Plan: Start Zyprexa 2.5 mg at bedtime for resolution of delirium, anxiety, and insomnia. Psychoeducation provided. Supportive psychotherapy provided. Risks, benefits, alternatives of the treatment are discussed. She is in agreement with plan and voiced understanding Adverse drug reaction of the medications including black box warning are discussed. Monitor for safety and agitation. TYE BULL MD May 09, 2020 20:30
[2020-05-09] MEDS: OLANZapine 5 MG TABLET PO SCH (21:42)
[2020-05-09] MEDS: ATORVASTATIN CALCIUM 40 MG TABLET. PO SCH (21:42)
[2020-05-09 22:57] VITALS: BP 127/36
[2020-05-10 03:00] VITALS: BP 113/32
[2020-05-10 07:00] VITALS: BP 134/38
[2020-05-10] MEDS: MULTIVITAMIN with MINERAL TABLET. PO SCH (08:56)
[2020-05-10] MEDS: VITAMIN B12,B9,B6 COMPLEX 1 TABLET. PO SCH (08:56)
[2020-05-10] MEDS: CLOPIDOGREL BISULFATE 75 MG TABLET PO SCH (08:56)
[2020-05-10] MEDS: POTASSIUM CHLORIDE 20 MEQ TABLET.ER. PO SCH ×2 (08:56→16:46)
[2020-05-10] MEDS: CARVEDILOL 3.125 MG TABLET. PO SCH ×2 (08:57→16:46)
[2020-05-10] MEDS: LISINOPRIL 20 MG TABLET PO SCH (08:57)
[2020-05-10] MEDS: ASCORBIC ACID 500 MG TABLET PO SCH ×2 (08:57→20:44)
[2020-05-10] MEDS: AMOXICILLIN/K CLAV 500/125MG TABLET. PO SCH ×2 (08:57→20:43)
[2020-05-10] MEDS: FUROSEMIDE 40 MG TABLET. PO SCH (08:57)
[2020-05-10] MEDS: LACTOBACILLUS RHAMNOSUS GG 1 CAPSULE. PO SCH ×2 (08:57→20:43)
[2020-05-10] MEDS: ASPIRIN ENTERIC COATED 81 MG TABLET.DR. PO SCH (08:57)
[2020-05-10] MEDS: THIAMINE 100 MG TABLET. PO SCH (08:57)
[2020-05-10 11:00] VITALS: BP 136/51
--- NOTE | 2020-05-10 11:16 | PDOC ---
PROGRESS NOTES Date of Service: DATE: 05/10/20 TIME: 11:16 Chief Complaint Chief Complaint discharge dx acute metabolic encephalopathy, due to UTI and sepsis, confusion, baseline of cognitive decline or early dementia UTI sepsis, IV fluid given acute dehydration buttock wound, consulted wound care severe malnutrition weakness and debility covid, 19 in isolation on admit, PUI NEG ELECTROLYTE IMBALANCE IMPROVING AWAIT ltc placement D/W RN po augmentin on d/c d/c planning 32 min History of Present Illness History of Present Illness Ms Florian is a 75yo F w/ PMHx MCI, dCHF who p/w confusion, sepsis, UTI 05/03: she feels much better, wants to "walk out of here" has almost no recollection of yesterday, today , she is more oriented, but does not know the date 05/04: Afebrile. Still very confused. Weak. urine culture returned positive for sensitive Klebsiella switch to oral Augmentin. She needs skilled services on discharge awaiting further PT and OT eval. Afebrile. Confused. Family concerned she may have dementia worse than expected. No SOB or CP. Vitals Vitals Vital Signs Date Time Temp Pulse Resp B/P (MAP) Pulse Ox O2 Delivery O2 Flow Rate FiO2 05/10/20 08:57 70 134/38 05/10/20 08:00 Room Air 05/10/20 07:00 99.0 16 94 99.0 Physical Exam General: Alert, Cooperative, No acute distress, Other (not oroiented, ) Heart: Regular rate, No murmurs Lungs: Clear, Other Abdomen: Normal bowel sounds, Soft Extremities: No cyanosis Skin: No rashes, Other (wound to buttock, poror nail care, ) Assessment and Plan Assessmemt and Plan Problems Medical Problems: (1) Altered mental status Status: Acute (2) Dehydration Status: Acute (3) Hypokalemia Status: Acute (4) Metabolic encephalopathy Status: Acute (5) Sacral decubitus ulcer Status: Acute (6) Urinary tract infection Status: Acute Comment Review of Relevant I have reviewed the following items yuliana (where applicable) has been applied. Labs Microbiology 05/01/20 Blood Culture - Final, Complete NO GROWTH AFTER 5 DAYS 05/01/20 Urine Culture - Final, Complete 05/01/20 Antimicrobic Susceptibility - Final, Complete Medications Current Medications Sodium Chloride 1,000 ml @ 1,000 mls/hr 1X ONCE IV Last administered on 05/01/20at 19:57; Start 05/01/20 at 19:15; Stop 05/01/20 at 20:14; Status DC Ceftriaxone Sodium (Rocephin) 1 gm 1X ONCE IVP Last administered on 05/01/20at 20:43; Start 05/01/20 at 20:45; Stop 05/01/20 at 20:46; Status DC Potassium Chloride (Klor-Con) 40 meq 1X ONCE PO Last administered on 05/01/20at 20:44; Start 05/01/20 at 20:45; Stop 05/01/20 at 20:46; Status DC Ondansetron HCl (Zofran) 4 mg PRN Q8HRS PRN IV NAUSEA/VOMITING; Start 05/01/20 at 21:00; Stop 05/02/20 at 20:59; Status DC Potassium Chloride/Dextrose/ Sod Cl 1,000 ml @ 100 mls/hr Q10H ONCE IV Last administered on 05/01/20at 21:24; Start 05/01/20 at 21:00; Stop 05/02/20 at 06:59; Status DC Lactulose (Lactulose) 20 gm ONCE ONCE PO Last administered on 05/01/20at 23:40; Start 05/01/20 at 23:30; Stop 05/01/20 at 23:31; Status DC Ceftriaxone Sodium (Rocephin) 1 gm Q24H IVP Last administered on 05/03/20at 21:40; Start 05/02/20 at 21:00; Stop 05/04/20 at 16:46; Status DC Magnesium Sulfate 50 ml @ 25 mls/hr 1X ONCE IV Last administered on 05/02/20at 09:40; Start 05/02/20 at 09:30; Stop 05/02/20 at 11:29; Status DC Potassium Chloride (Klor-Con) 40 meq 1X ONCE PO Last administered on 05/02/20at 09:42; Start 05/02/20 at 09:30; Stop 05/02/20 at 09:31; Status DC Aspirin (Ecotrin) 81 mg DAILYWBKFT PO Last administered on 05/10/20 08:57; Start 05/02/20 at 09:30 Atorvastatin Calcium (Lipitor) 40 mg QHS PO Last administered on 05/09/20 21:42; Start 05/02/20 at 21:00 Carvedilol (Coreg) 3.125 mg BIDWMEALS PO Last administered on 05/10/20 08:57; Start 05/02/20 at 09:30 Clopidogrel Bisulfate (Plavix) 75 mg DAILY PO Last administered on 05/10/20 08:56; Start 05/02/20 at 09:30 Lisinopril (Prinivil) 20 mg DAILY PO Last administered on 05/10/20 08:57; Start 05/02/20 at 09:30 Potassium Chloride (Klor-Con) 20 meq BID PO Last administered on 05/03/20at 21:40; Start 05/02/20 at 21:00; Stop 05/03/20 at 22:01; Status DC Ascorbic Acid (Vitamin C) 500 mg BID PO Last administered on 05/10/20 08:57; Start 05/02/20 at 21:00 Multivitamins (Thera M Plus) 1 tab DAILY PO Last administered on 05/10/20 08:56; Start 05/02/20 at 14:30 Lactobacillus Rhamnosus (Culturelle) 1 cap BID PO Last administered on 05/10/20 08:57; Start 05/02/20 at 21:00 Thiamine Mononitrate (Vitamin B-1) 100 mg DAILY PO Last administered on 05/10/20 08:57; Start 05/04/20 at 09:00 Thiamine HCl 100 mg/Dextrose 51 ml @ 102 mls/hr 1X ONCE IV Last administered on 05/03/20 13:32; Start 05/03/20 at 13:00; Stop 05/03/20 at 13:29; Status DC Vitamin B Complex (Folbic Tablet) 1 tab DAILY PO Last administered on 05/10/20 08:56; Start 05/03/20 at 13:00 Furosemide (Lasix) 40 mg DAILY PO Last administered on 12/18/20at 08:57; Start 05/03/20 at 12:00 Potassium Chloride (Klor-Con) 20 meq BIDWMEALS PO Last administered on 05/10/20at 08:56; Start 05/04/20 at 08:00 Amoxicillin/ Clavulanate Potassium (Augmentin 500/ 125mg) 1 tab BID PO Last administered on 05/10/20at 08:57; Start 05/04/20 at 10:45 Olanzapine (ZyPREXA) 5 mg HS PO Last administered on 05/09/20at 21:42; Start 05/09/20 at 21:00 Active Scripts Active Thera-M Tablet (Multivits,Ca,Minerals/Iron/Fa) 1 Each Tablet 1 Tab PO DAILY 30 Days Vitamin C (Ascorbic Acid) 500 Mg Tablet 500 Mg PO BID 30 Days Vitamin B-1 (Thiamine Mononitrate) 100 Mg Tablet 100 Mg PO DAILY 30 Days Folbic Tablet (Cyanocobalamin/Fa/Pyridoxine) 1 Each Tablet 1 Tab PO DAILY 30 Days Culturelle (Lactobacillus Rhamnosus Gg) 1 Each Cap.sprink 1 Cap PO BID 30 Days Amox Tr-K Clv 500-125 Mg Tab (Amoxicillin/Potassium Clav) 1 Each Tablet 1 Tab PO BID 7 Days Furosemide 40 Mg Tablet 40 Mg PO DAILY 30 Days Aspirin Ec (Aspirin) 81 Mg Tablet.dr 81 Mg PO DAILYWBKFT 30 Days Proair Hfa Inhaler (Albuterol Sulfate) 8.5 Gm Hfa.aer.ad 1 Puff INH PRN Q6HRS PRN Reported Lisinopril 20 Mg Tablet 1 Tab PO DAILY Lipitor (Atorvastatin Calcium) 40 Mg Tablet 1 Tab PO QHS Clopidogrel (Clopidogrel Bisulfate) 75 Mg Tablet 75 Mg PO DAILY Carvedilol (Carvedilol) 3.125 Mg Tablet 3.125 Mg PO BIDWMEALS Klor-Con M20 (Potassium Chloride) 20 Meq Tab.er.prt 20 Meq PO BID Vitals/I & O Vital Sign - Last 24 Hours 05/09/20 05/09/20 05/09/20 05/09/20 15:24 16:54 19:00 20:00 Temp 98.5 98.3 98.5 98.3 Pulse 68 68 63 Resp 18 22 B/P (MAP) 124/31 (62) 124/31 Pulse Ox 98 97 O2 Delivery Room Air Room Air Room Air 05/09/20 05/10/20 05/10/20 05/10/20 22:57 03:00 07:00 08:00 Temp 97.7 97.7 99.0 97.7 97.7 99.0 Pulse 66 85 70 Resp 18 18 16 B/P (MAP) 127/36 (66) 113/32 (59) 134/38 (70) Pulse Ox 97 94 94 O2 Delivery Room Air Room Air Room Air Room Air 05/10/20 05/10/20 08:57 08:57 Pulse 70 70 B/P (MAP) 134/38 134/38 Intake and Output 05/09/20 05/09/20 05/10/20 15:00 23:00 07:00 Intake Total 300 ml 120 ml Output Total 0 ml Balance 300 ml 0 ml 120 ml Nutrition Consultation Dietary Evaluation: Recommendations by RD: Dietary education by RD, Increase Calorie Intake, Protein supplementation Comments: Cardiac diet mvi vit c Expected Outcomes/Goals: to meet >75% est nutr needs- ongoing improved wound status- ongoing Malnutrition Findings: Body Fat Depletion (Non Severe: Mild Depletion Weight Status: Underweight Justicifation of Admission Dx: Justifications for Admission: Justification of Admission Dx: Yes (sepsis, encephalopathy) SANJANA JAIMES MD May 10, 2020 11:16
[2020-05-10 15:00] VITALS: BP 112/32
--- NOTE | 2020-05-10 18:53 | PDOC ---
F/U PHYSCH PROG NOTE Subjective: 75-year-old female seen for follow-up. Progress is reviewed with nursing staff. Reportedly, having insomnia and irritability hindering her transfer to rehab. Patient appears somewhat irritable and angry with questions. Continues to be delirious, confused, and not able to confirm year month. Oriented to place and person. Denies suicidal or homicidal thoughts. Denies auditory or visual hallucinations. Appears less restless today. Objective: 14 point review of system is otherwise negative except for stated above. Vital Signs: Vital Signs Date Time Temp Pulse Resp B/P (MAP) Pulse Ox O2 Delivery O2 Flow Rate FiO2 05/10/20 16:46 67 112/32 05/10/20 15:00 98.6 18 96 Room Air 98.6 Medications: Current Medications Medications (Trade) Dose Ordered Sig/[place] Start Time Stop Time Status Last Admin Dose Admin Amoxicillin/ Clavulanate Potassium (Augmentin 500/ 125mg) 1 tab BID 05/04/20 10:45 05/10/20 08:57 1 TAB Ascorbic Acid (Vitamin C) 500 mg BID 05/02/20 21:00 05/10/20 08:57 500 MG Aspirin (Ecotrin) 81 mg DAILYWBKFT 05/02/20 09:30 05/10/20 08:57 81 MG Atorvastatin Calcium (Lipitor) 40 mg QHS 05/02/20 21:00 05/09/20 21:42 40 MG Carvedilol (Coreg) 3.125 mg BIDWMEALS 05/02/20 09:30 05/10/20 16:46 3.125 MG Ceftriaxone Sodium (Rocephin) 1 gm Q24H 05/02/20 21:00 05/04/20 16:46 DC 05/03/20 21:40 1 GM Clopidogrel Bisulfate (Plavix) 75 mg DAILY 05/02/20 09:30 05/10/20 08:56 75 MG Furosemide (Lasix) 40 mg DAILY 05/03/20 12:00 05/10/20 08:57 40 MG Lactobacillus Rhamnosus (Culturelle) 1 cap BID 05/02/20 21:00 05/10/20 08:57 1 CAP Lactulose (Lactulose) 20 gm ONCE ONCE 05/01/20 23:30 05/01/20 23:31 DC 05/01/20 23:40 20 GM Lisinopril (Prinivil) 20 mg DAILY 05/02/20 09:30 05/10/20 08:57 20 MG Magnesium Sulfate 50 ml @ 25 mls/hr 1X ONCE 05/02/20 09:30 05/02/20 11:29 DC 05/02/20 09:40 25 MLS/HR Multivitamins (Thera M Plus) 1 tab DAILY 05/02/20 14:30 05/10/20 08:56 1 TAB Olanzapine (ZyPREXA) 5 mg HS 05/09/20 21:00 05/09/20 21:42 5 MG Ondansetron HCl (Zofran) 4 mg PRN Q8HRS PRN 05/01/20 21:00 05/02/20 20:59 DC Potassium Chloride/Dextrose/ Sod Cl 1,000 ml @ 100 mls/hr Q10H ONCE 05/01/20 21:00 05/02/20 06:59 DC 05/01/20 21:24 100 MLS/HR Potassium Chloride (Klor-Con) 20 meq BIDWMEALS 05/04/20 08:00 05/10/20 16:46 20 MEQ Sodium Chloride 1,000 ml @ 1,000 mls/hr 1X ONCE 05/01/20 19:15 05/01/20 20:14 DC 05/01/20 19:57 1,000 MLS/HR Thiamine Mononitrate (Vitamin B-1) 100 mg DAILY 05/04/20 09:00 05/10/20 08:57 100 MG Thiamine HCl 100 mg/Dextrose 51 ml @ 102 mls/hr 1X ONCE 05/03/20 13:00 05/03/20 13:29 DC 05/03/20 13:32 102 MLS/HR Vitamin B Complex (Folbic Tablet) 1 tab DAILY 05/03/20 13:00 05/10/20 08:56 1 TAB Physical Exam: Mental Status Exam: female appears her stated age Relatively alert Disoriented Thought processes disorganized Denies suicidal or homicidal thoughts Denies auditory or visual hallucinations Appears paranoid Mood is dysphoric Affect is dysthymic Insight is limited Impulse control is fair Judgment is poor Attention span and concentration impaired Recent and remote memory impaired Physical Exam: Refer to Physician's note. RE[employer]ISHER: No focal deficit MSK: No EPS, TDK, or abnormal involuntary movements Diagnosis: Acute delirium, likely hyperactive/hypoactive, multifactorial including infectious etiology Unspecified neurocognitive disorder, rule out major neurocognitive disorder l ikely of vascular etiology as CT is consistent Unspecified anxiety disorder, rule out generalized anxiety disorder Assessment: 75-year-old female admitted with altered mental status. History and presentation is consistent with acute delirium likely multifactorial including infectious etiology. Additionally, CT scan is consistent with microvascular ischemic changes signifying neurodegenerative process likely of vascular etiology which predisposes her for delirium. Recommending to add low-dose Zyprexa 2.5 mg which would help with anxiety, sleep, and resolution of delirium. Plan: Increase Zyprexa to 5 mg at bedtime for resolution of delirium, anxiety, and insomnia. Psychoeducation provided. Supportive psychotherapy provided. Risks, benefits, alternatives of the treatment are discussed. She is in agreement with plan and voiced understanding Adverse drug reaction of the medications including black box warning are discussed. Monitor for safety and agitation. TYE BULL MD May 10, 2020 18:52
[2020-05-10 19:00] VITALS: BP 120/75
[2020-05-10] MEDS: ATORVASTATIN CALCIUM 40 MG TABLET. PO SCH (20:43)
[2020-05-10] MEDS: OLANZapine 5 MG TABLET PO SCH (20:44)
[2020-05-10 23:00] VITALS: BP 117/36
[2020-05-11 03:00] VITALS: BP 136/39
[2020-05-11 07:00] VITALS: BP 125/36
[2020-05-11] MEDS: CARVEDILOL 3.125 MG TABLET. PO SCH ×2 (08:00→17:00)
[2020-05-11] MEDS: AMOXICILLIN/K CLAV 500/125MG TABLET. PO SCH ×2 (08:44→20:21)
[2020-05-11] MEDS: FUROSEMIDE 40 MG TABLET. PO SCH (08:44)
[2020-05-11] MEDS: THIAMINE 100 MG TABLET. PO SCH (08:44)
[2020-05-11] MEDS: ASPIRIN ENTERIC COATED 81 MG TABLET.DR. PO SCH (08:44)
[2020-05-11] MEDS: VITAMIN B12,B9,B6 COMPLEX 1 TABLET. PO SCH (08:45)
[2020-05-11] MEDS: MULTIVITAMIN with MINERAL TABLET. PO SCH (08:46)
[2020-05-11] MEDS: ASCORBIC ACID 500 MG TABLET PO SCH ×2 (08:46→20:21)
[2020-05-11] MEDS: CLOPIDOGREL BISULFATE 75 MG TABLET PO SCH (08:46)
[2020-05-11] MEDS: LACTOBACILLUS RHAMNOSUS GG 1 CAPSULE. PO SCH ×2 (08:46→20:21)
[2020-05-11] MEDS: POTASSIUM CHLORIDE 20 MEQ TABLET.ER. PO SCH ×2 (08:46→17:45)
[2020-05-11] MEDS: LISINOPRIL 20 MG TABLET PO SCH (09:00)
--- NOTE | 2020-05-11 10:58 | PDOC ---
PROGRESS NOTES Date of Service: DATE: 05/11/20 TIME: 10:57 Chief Complaint Chief Complaint discharge dx acute metabolic encephalopathy, due to UTI and sepsis, confusion, baseline of cognitive decline or early dementia UTI sepsis, IV fluid given acute dehydration buttock wound, consulted wound care severe malnutrition weakness and debility covid, 19 in isolation on admit, PUI NEG ELECTROLYTE IMBALANCE IMPROVING acute delirium likely multifactorial including infectious etiology AWAIT ltc placement D/W RN po augmentin on d/c d/c planning 32 min History of Present Illness History of Present Illness Ms Florian is a 75yo F w/ PMHx MCI, dCHF who p/w confusion, sepsis, UTI 05/03: she feels much better, wants to "walk out of here" has almost no recollection of yesterday, today , she is more oriented, but does not know the date 05/04: Afebrile. Still very confused. Weak. urine culture returned positive for sensitive Klebsiella switch to oral Augmentin. She needs skilled services on discharge awaiting further PT and OT eval. Afebrile. Confused. Family concerned she may have dementia worse than expected. No SOB or CP. Vitals Vitals Vital Signs Date Time Temp Pulse Resp B/P (MAP) Pulse Ox O2 Delivery O2 Flow Rate FiO2 05/11/20 08:00 Room Air 05/11/20 07:00 98.0 68 16 125/36 (65) 96 98.0 Physical Exam General: Alert, Cooperative, No acute distress, Other (not oroiented, ) Heart: Regular rate, Normal S1, No murmurs Lungs: Clear, Other Abdomen: Normal bowel sounds, Soft Extremities: No cyanosis Skin: No rashes, Other (wound to buttock, poror nail care, ) Assessment and Plan Assessmemt and Plan Problems Medical Problems: (1) Altered mental status Status: Acute (2) Dehydration Status: Acute (3) Hypokalemia Status: Acute (4) Metabolic encephalopathy Status: Acute (5) Sacral decubitus ulcer Status: Acute (6) Urinary tract infection Status: Acute Comment Review of Relevant I have reviewed the following items yuliana (where applicable) has been applied. Labs Microbiology 05/01/20 Blood Culture - Final, Complete NO GROWTH AFTER 5 DAYS 05/01/20 Urine Culture - Final, Complete 05/01/20 Antimicrobic Susceptibility - Final, Complete Medications Current Medications Sodium Chloride 1,000 ml @ 1,000 mls/hr 1X ONCE IV Last administered on 05/01/20at 19:57; Start 05/01/20 at 19:15; Stop 05/01/20 at 20:14; Status DC Ceftriaxone Sodium (Rocephin) 1 gm 1X ONCE IVP Last administered on 05/01/20at 20:43; Start 05/01/20 at 20:45; Stop 05/01/20 at 20:46; Status DC Potassium Chloride (Klor-Con) 40 meq 1X ONCE PO Last administered on 05/01/20at 20:44; Start 05/01/20 at 20:45; Stop 05/01/20 at 20:46; Status DC Ondansetron HCl (Zofran) 4 mg PRN Q8HRS PRN IV NAUSEA/VOMITING; Start 05/01/20 at 21:00; Stop 05/02/20 at 20:59; Status DC Potassium Chloride/Dextrose/ Sod Cl 1,000 ml @ 100 mls/hr Q10H ONCE IV Last ad ministered on 05/01/20at 21:24; Start 05/01/20 at 21:00; Stop 05/02/20 at 06:59; Status DC Lactulose (Lactulose) 20 gm ONCE ONCE PO Last administered on 05/01/20at 23:40; Start 05/01/20 at 23:30; Stop 05/01/20 at 23:31; Status DC Ceftriaxone Sodium (Rocephin) 1 gm Q24H IVP Last administered on 05/03/20at 21:40; Start 05/02/20 at 21:00; Stop 05/04/20 at 16:46; Status DC Magnesium Sulfate 50 ml @ 25 mls/hr 1X ONCE IV Last administered on 05/02/20at 09:40; Start 05/02/20 at 09:30; Stop 05/02/20 at 11:29; Status DC Potassium Chloride (Klor-Con) 40 meq 1X ONCE PO Last administered on 05/02/20 09:42; Start 05/02/20 at 09:30; Stop 05/02/20 at 09:31; Status DC Aspirin (Ecotrin) 81 mg DAILYWBKFT PO Last administered on 05/11/20 08:44; Start 05/02/20 at 09:30 Atorvastatin Calcium (Lipitor) 40 mg QHS PO Last administered on 05/10/20 20:43; Start 05/02/20 at 21:00 Carvedilol (Coreg) 3.125 mg BIDWMEALS PO Last administered on 05/10/20 16:46; Start 05/02/20 at 09:30 Clopidogrel Bisulfate (Plavix) 75 mg DAILY PO Last administered on 05/11/20 08:46; Start 05/02/20 at 09:30 Lisinopril (Prinivil) 20 mg DAILY PO Last administered on 05/10/20 08:57; Start 05/02/20 at 09:30 Potassium Chloride (Klor-Con) 20 meq BID PO Last administered on 05/03/20at 21:40; Start 05/02/20 at 21:00; Stop 05/03/20 at 22:01; Status DC Ascorbic Acid (Vitamin C) 500 mg BID PO Last administered on 05/11/20 08:46; Start 05/02/20 at 21:00 Multivitamins (Thera M Plus) 1 tab DAILY PO Last administered on 05/11/20 08:46; Start 05/02/20 at 14:30 Lactobacillus Rhamnosus (Culturelle) 1 cap BID PO Last administered on 05/11/20at 08:46; Start 05/02/20 at 21:00 Thiamine Mononitrate (Vitamin B-1) 100 mg DAILY PO Last administered on 05/11/20 08:44; Start 05/04/20 at 09:00 Thiamine HCl 100 mg/Dextrose 51 ml @ 102 mls/hr 1X ONCE IV Last administered on 05/03/20at 13:32; Start 05/03/20 at 13:00; Stop 05/03/20 at 13:29; Status DC Vitamin B Complex (Folbic Tablet) 1 tab DAILY PO Last administered on 05/11/20at 08:45; Start 05/03/20 at 13:00 Furosemide (Lasix) 40 mg DAILY PO Last administered on 05/11/20at 08:44; Start 05/03/20 at 12:00 Potassium Chloride (Klor-Con) 20 meq BIDWMEALS PO Last administered on 05/11/20at 08:46; Start 05/04/20 at 08:00 Amoxicillin/ Clavulanate Potassium (Augmentin 500/ 125mg) 1 tab BID PO Last administered on 05/11/20at 08:44; Start 05/04/20 at 10:45 Olanzapine (ZyPREXA) 5 mg HS PO Last administered on 05/10/20at 20:44; Start 05/09/20 at 21:00 Active Scripts Active Thera-M Tablet (Multivits,Ca,Minerals/Iron/Fa) 1 Each Tablet 1 Tab PO DAILY 30 Days Vitamin C (Ascorbic Acid) 500 Mg Tablet 500 Mg PO BID 30 Days Vitamin B-1 (Thiamine Mononitrate) 100 Mg Tablet 100 Mg PO DAILY 30 Days Folbic Tablet (Cyanocobalamin/Fa/Pyridoxine) 1 Each Tablet 1 Tab PO DAILY 30 Days Culturelle (Lactobacillus Rhamnosus Gg) 1 Each Cap.sprink 1 Cap PO BID 30 Days Amox Tr-K Clv 500-125 Mg Tab (Amoxicillin/Potassium Clav) 1 Each Tablet 1 Tab PO BID 7 Days Furosemide 40 Mg Tablet 40 Mg PO DAILY 30 Days Aspirin Ec (Aspirin) 81 Mg Tablet.dr 81 Mg PO DAILYWBKFT 30 Days Proair Hfa Inhaler (Albuterol Sulfate) 8.5 Gm Hfa.aer.ad 1 Puff INH PRN Q6HRS PRN Reported Lisinopril 20 Mg Tablet 1 Tab PO DAILY Lipitor (Atorvastatin Calcium) 40 Mg Tablet 1 Tab PO QHS Clopidogrel (Clopidogrel Bisulfate) 75 Mg Tablet 75 Mg PO DAILY Carvedilol (Carvedilol) 3.125 Mg Tablet 3.125 Mg PO BIDWMEALS Klor-Con M20 (Potassium Chloride) 20 Meq Tab.er.prt 20 Meq PO BID Vitals/I & O Vital Sign - Last 24 Hours 05/10/20 05/10/20 05/10/20 05/10/20 11:00 15:00 16:46 19:00 Temp 99.0 98.6 99.0 99.0 98.6 99.0 Pulse 84 67 67 66 Resp 18 18 18 B/P (MAP) 136/51 (79) 112/32 (58) 112/32 120/75 (90) Pulse Ox 96 96 99 O2 Delivery Room Air Room Air Room Air 05/10/20 05/10/20 05/11/20 05/11/20 20:00 23:00 03:00 07:00 Temp 98.6 98.7 98.0 98.6 98.7 98.0 Pulse 78 65 68 Resp 18 16 B/P (MAP) 117/36 (63) 136/39 (71) 125/36 (65) Pulse Ox 96 95 96 O2 Delivery Room Air Room Air Room Air Room Air 05/11/20 08:00 O2 Delivery Room Air Intake and Output 05/10/20 05/10/20 05/11/20 15:00 23:00 07:00 Intake Total 260 ml 460 ml 400 ml Balance 260 ml 460 ml 400 ml Nutrition Consultation Dietary Evaluation: Recommendations by RD: Dietary education by RD, Increase Calorie Intake, Protein supplementation Comments: Cardiac diet mvi vit c Expected Outcomes/Goals: to meet >75% est nutr needs- ongoing improved wound status- ongoing Malnutrition Findings: Body Fat Depletion (Non Severe: Mild Depletion Weight Status: Underweight Justicifation of Admission Dx: Justifications for Admission: Justification of Admission Dx: Yes (sepsis, encephalopathy) SANJANA JAIMES MD May 11, 2020 10:58
[2020-05-11 11:00] VITALS: BP 127/38
--- NOTE | 2020-05-11 13:12 | NUR ---
PATIENT SLEEPING BUT EASILY AROUSED, PATIENTS' B/P THIS AM 125/36, AM DOSE OF LISINOPRIL AND COREG HELD THIS AM PER THIS LABORER/KEY MAN, WILL CONCUR WITH MD TO IF HE STILL WANTS THE PATIENT TO TAKE THE MEDICATIONS.
[2020-05-11 15:00] VITALS: BP 134/35
[2020-05-11 15:18] LABS: BASO # 0.1 x10^3/uL (0.0-0.2); BASO % 1 % (0-3); EOS # 0.4 x10^3/uL (0.0-0.7); EOS % 7 % (0-3); HEMATOCRIT 28.7 % (36.0-47.0); HEMOGLOBIN 9.7 g/dL (12.0-15.5); LYMPH # 1.5 x10^3/uL (1.0-4.8); LYMPH % 27 % (24-48); MEAN CORPUSCULAR HEMOGLOBIN 34 pg (25-35); MEAN CORPUSCULAR HGB CONC 34 g/dL (31-37); MEAN CORPUSCULAR VOLUME 101 fL (79-100); MONO # 0.8 x10^3/uL (0.0-1.1); MONO % 15 % (0-9); NEUT # 2.8 x10^3/uL (1.8-7.7); NEUT % 50 % (31-73); PLATELET COUNT 87 x10^3/uL (140-400); RED BLOOD COUNT 2.85 x10^6/uL (3.50-5.40); RED CELL DISTRIBUTION WIDTH 17.9 % (11.5-14.5); WHITE BLOOD COUNT 5.6 x10^3/uL (4.0-11.0)
[2020-05-11 15:38] LABS: ALBUMIN 1.8 g/dL (3.4-5.0); ALBUMIN/GLOBULIN RATIO 0.5 (1.0-1.7); CALCIUM 8.1 mg/dL (8.5-10.1); CREATININE 1.6 mg/dL (0.6-1.0); GFR 31.3; POTASSIUM 4.7 mmol/L (3.5-5.1); TOTAL BILIRUBIN 2.2 mg/dL (0.2-1.0); TOTAL PROTEIN 5.2 g/dL (6.4-8.2)
[2020-05-11] MEDS: HYDROcodone/APAP 5/325MG 1 TAB TABLET PO PRN (15:55)
[2020-05-11 19:20] VITALS: BP 125/74
[2020-05-11] MEDS: ATORVASTATIN CALCIUM 40 MG TABLET. PO SCH (20:21)
[2020-05-11] MEDS: OLANZapine 5 MG TABLET PO SCH (20:21)
[2020-05-11 23:34] VITALS: BP 131/40
[2020-05-12 02:58] VITALS: BP 134/54
[2020-05-12 07:00] VITALS: BP 129/33
[2020-05-12] MEDS: CARVEDILOL 3.125 MG TABLET. PO SCH ×2 (08:00→17:42)
[2020-05-12] MEDS: POTASSIUM CHLORIDE 20 MEQ TABLET.ER. PO SCH ×2 (08:00→17:43)
[2020-05-12] MEDS: CLOPIDOGREL BISULFATE 75 MG TABLET PO SCH (09:00)
[2020-05-12] MEDS: LISINOPRIL 20 MG TABLET PO SCH (09:00)
[2020-05-12] MEDS: MULTIVITAMIN with MINERAL TABLET. PO SCH (09:41)
[2020-05-12] MEDS: ASPIRIN ENTERIC COATED 81 MG TABLET.DR. PO SCH (09:41)
[2020-05-12] MEDS: LACTOBACILLUS RHAMNOSUS GG 1 CAPSULE. PO SCH ×2 (09:41→21:58)
[2020-05-12] MEDS: THIAMINE 100 MG TABLET. PO SCH (09:41)
[2020-05-12] MEDS: VITAMIN B12,B9,B6 COMPLEX 1 TABLET. PO SCH (09:41)
[2020-05-12] MEDS: AMOXICILLIN/K CLAV 500/125MG TABLET. PO SCH ×2 (09:42→21:58)
[2020-05-12] MEDS: ASCORBIC ACID 500 MG TABLET PO SCH ×2 (09:43→21:58)
[2020-05-12] MEDS: FUROSEMIDE 40 MG TABLET. PO SCH (09:43)
--- NOTE | 2020-05-12 10:02 | PDOC ---
PROGRESS NOTES Date of Service: DATE: 05/12/20 TIME: 10:02 Chief Complaint Chief Complaint discharge dx acute metabolic encephalopathy, due to UTI and sepsis, confusion, baseline of cognitive decline or early dementia UTI sepsis, IV fluid given acute dehydration buttock wound, consulted wound care severe malnutrition weakness and debility covid, 19 in isolation on admit, PUI NEG ELECTROLYTE IMBALANCE IMPROVING acute delirium likely multifactorial including infectious etiology AWAIT ltc placement D/W RN po augmentin on d/c d/c planning 32 min History of Present Illness History of Present Illness Ms Florian is a 75yo F w/ PMHx MCI, dCHF who p/w confusion, sepsis, UTI 05/03: she feels much better, wants to "walk out of here" has almost no recollection of yesterday, today , she is more oriented, but does not know the date 05/04: Afebrile. Still very confused. Weak. urine culture returned positive for sensitive Klebsiella switch to oral Augmentin. She needs skilled services on discharge awaiting further PT and OT eval. Afebrile. Confused. Family concerned she may have dementia worse than expected. No SOB or CP. Vitals Vitals Vital Signs Date Time Temp Pulse Resp B/P (MAP) Pulse Ox O2 Delivery O2 Flow Rate FiO2 05/12/20 07:00 98.2 69 16 129/33 (65) 96 Room Air 98.2 Physical Exam General: Alert, Cooperative, No acute distress, Other (not oroiented, ) Heart: Regular rate, Normal S1, No murmurs Lungs: Clear, Other Abdomen: Normal bowel sounds, Soft Extremities: No cyanosis Skin: No rashes, Other (wound to buttock, poror nail care, ) Labs LABS Laboratory Tests Test 05/11/20 15:05 White Blood Count 5.6 x10^3/uL (4.0-11.0) Red Blood Count 2.85 x10^6/uL (3.50-5.40) Hemoglobin 9.7 g/dL (12.0-15.5) Hematocrit 28.7 % (36.0-47.0) Mean Corpuscular Volume 101 fL (79-100) Mean Corpuscular Hemoglobin 34 pg (25-35) Mean Corpuscular Hemoglobin Concent 34 g/dL (31-37) Red Cell Distribution Width 17.9 % (11.5-14.5) Platelet Count 87 x10^3/uL (140-400) Neutrophils (%) (Auto) 50 % (31-73) Lymphocytes (%) (Auto) 27 % (24-48) Monocytes (%) (Auto) 15 % (0-9) Eosinophils (%) (Auto) 7 % (0-3) Basophils (%) (Auto) 1 % (0-3) Neutrophils # (Auto) 2.8 x10^3/uL (1.8-7.7) Lymphocytes # (Auto) 1.5 x10^3/uL (1.0-4.8) Monocytes # (Auto) 0.8 x10^3/uL (0.0-1.1) Eosinophils # (Auto) 0.4 x10^3/uL (0.0-0.7) Basophils # (Auto) 0.1 x10^3/uL (0.0-0.2) Sodium Level 139 mmol/L (136-145) Potassium Level 4.7 mmol/L (3.5-5.1) Chloride Level 104 mmol/L (98-107) Carbon Dioxide Level 31 mmol/L (21-32) Anion Gap 4 (6-14) Blood Urea Nitrogen 32 mg/dL (7-20) Creatinine 1.6 mg/dL (0.6-1.0) Estimated GFR (Cockcroft-Gault) 31.3 BUN/Creatinine Ratio 20 (6-20) Glucose Level 160 mg/dL (70-99) Calcium Level 8.1 mg/dL (8.5-10.1) Total Bilirubin 2.2 mg/dL (0.2-1.0) Aspartate Amino Transf (AST/SGOT) 47 U/L (15-37) Alanine Aminotransferase (ALT/SGPT) 29 U/L (14-59) Alkaline Phosphatase 83 U/L (46-116) Total Protein 5.2 g/dL (6.4-8.2) Albumin 1.8 g/dL (3.4-5.0) Albumin/Globulin Ratio 0.5 (1.0-1.7) Assessment and Plan Assessmemt and Plan Problems Medical Problems: (1) Altered mental status Status: Acute (2) Dehydration Status: Acute (3) Hypokalemia Status: Acute (4) Metabolic encephalopathy Status: Acute (5) Sacral decubitus ulcer Status: Acute (6) Urinary tract infection Status: Acute Comment Review of Relevant I have reviewed the following items yuliana (where applicable) has been applied. Labs Laboratory Tests Test 05/11/20 15:05 White Blood Count 5.6 x10^3/uL (4.0-11.0) Red Blood Count 2.85 x10^6/uL (3.50-5.40) Hemoglobin 9.7 g/dL (12.0-15.5) Hematocrit 28.7 % (36.0-47.0) Mean Corpuscular Volume 101 fL (79-100) Mean Corpuscular Hemoglobin 34 pg (25-35) Mean Corpuscular Hemoglobin Concent 34 g/dL (31-37) Red Cell Distribution Width 17.9 % (11.5-14.5) Platelet Count 87 x10^3/uL (140-400) Neutrophils (%) (Auto) 50 % (31-73) Lymphocytes (%) (Auto) 27 % (24-48) Monocytes (%) (Auto) 15 % (0-9) Eosinophils (%) (Auto) 7 % (0-3) Basophils (%) (Auto) 1 % (0-3) Neutrophils # (Auto) 2.8 x10^3/uL (1.8-7.7) Lymphocytes # (Auto) 1.5 x10^3/uL (1.0-4.8) Monocytes # (Auto) 0.8 x10^3/uL (0.0-1.1) Eosinophils # (Auto) 0.4 x10^3/uL (0.0-0.7) Basophils # (Auto) 0.1 x10^3/uL (0.0-0.2) Sodium Level 139 mmol/L (136-145) Potassium Level 4.7 mmol/L (3.5-5.1) Chloride Level 104 mmol/L (98-107) Carbon Dioxide Level 31 mmol/L (21-32) Anion Gap 4 (6-14) Blood Urea Nitrogen 32 mg/dL (7-20) Creatinine 1.6 mg/dL (0.6-1.0) Estimated GFR (Cockcroft-Gault) 31.3 BUN/Creatinine Ratio 20 (6-20) Glucose Level 160 mg/dL (70-99) Calcium Level 8.1 mg/dL (8.5-10.1) Total Bilirubin 2.2 mg/dL (0.2-1.0) Aspartate Amino Transf (AST/SGOT) 47 U/L (15-37) Alanine Aminotransferase (ALT/SGPT) 29 U/L (14-59) Alkaline Phosphatase 83 U/L (46-116) Total Protein 5.2 g/dL (6.4-8.2) Albumin 1.8 g/dL (3.4-5.0) Albumin/Globulin Ratio 0.5 (1.0-1.7) Laboratory Tests Test 05/11/20 15:05 White Blood Count 5.6 x10^3/uL (4.0-11.0) Red Blood Count 2.85 x10^6/uL (3.50-5.40) Hemoglobin 9.7 g/dL (12.0-15.5) Hematocrit 28.7 % (36.0-47.0) Mean Corpuscular Volume 101 fL (79-100) Mean Corpuscular Hemoglobin 34 pg (25-35) Mean Corpuscular Hemoglobin Concent 34 g/dL (31-37) Red Cell Distribution Width 17.9 % (11.5-14.5) Platelet Count 87 x10^3/uL (140-400) Neutrophils (%) (Auto) 50 % (31-73) Lymphocytes (%) (Auto) 27 % (24-48) Monocytes (%) (Auto) 15 % (0-9) Eosinophils (%) (Auto) 7 % (0-3) Basophils (%) (Auto) 1 % (0-3) Neutrophils # (Auto) 2.8 x10^3/uL (1.8-7.7) Lymphocytes # (Auto) 1.5 x10^3/uL (1.0-4.8) Monocytes # (Auto) 0.8 x10^3/uL (0.0-1.1) Eosinophils # (Auto) 0.4 x10^3/uL (0.0-0.7) Basophils # (Auto) 0.1 x10^3/uL (0.0-0.2) Sodium Level 139 mmol/L (136-145) Potassium Level 4.7 mmol/L (3.5-5.1) Chloride Level 104 mmol/L (98-107) Carbon Dioxide Level 31 mmol/L (21-32) Anion Gap 4 (6-14) Blood Urea Nitrogen 32 mg/dL (7-20) Creatinine 1.6 mg/dL (0.6-1.0) Estimated GFR (Cockcroft-Gault) 31.3 BUN/Creatinine Ratio 20 (6-20) Glucose Level 160 mg/dL (70-99) Calcium Level 8.1 mg/dL (8.5-10.1) Total Bilirubin 2.2 mg/dL (0.2-1.0) Aspartate Amino Transf (AST/SGOT) 47 U/L (15-37) Alanine Aminotransferase (ALT/SGPT) 29 U/L (14-59) Alkaline Phosphatase 83 U/L (46-116) Total Protein 5.2 g/dL (6.4-8.2) Albumin 1.8 g/dL (3.4-5.0) Albumin/Globulin Ratio 0.5 (1.0-1.7) Microbiology 05/01/20 Blood Culture - Final, Complete NO GROWTH AFTER 5 DAYS 05/01/20 Urine Culture - Final, Complete 05/01/20 Antimicrobic Susceptibility - Final, Complete Medications Current Medications Sodium Chloride 1,000 ml @ 1,000 mls/hr 1X ONCE IV Last administered on 05/01/20at 19:57; Start 05/01/20 at 19:15; Stop 05/01/20 at 20:14; Status DC Ceftriaxone Sodium (Rocephin) 1 gm 1X ONCE IVP Last administered on 05/01/20at 20:43; Start 05/01/20 at 20:45; Stop 05/01/20 at 20:46; Status DC Potassium Chloride (Klor-Con) 40 meq 1X ONCE PO Last administered on 05/01/20at 20:44; Start 05/01/20 at 20:45; Stop 05/01/20 at 20:46; Status DC Ondansetron HCl (Zofran) 4 mg PRN Q8HRS PRN IV NAUSEA/VOMITING; Start 05/01/20 at 21:00; Stop 05/02/20 at 20:59; Status DC Potassium Chloride/Dextrose/ Sod Cl 1,000 ml @ 100 mls/hr Q10H ONCE IV Last administered on 05/01/20at 21:24; Start 05/01/20 at 21:00; Stop 05/02/20 at 06:59; Status DC Lactulose (Lactulose) 20 gm ONCE ONCE PO Last administered on 05/01/20at 23:40; Start 05/01/20 at 23:30; Stop 05/01/20 at 23:31; Status DC Ceftriaxone Sodium (Rocephin) 1 gm Q24H IVP Last administered on 05/03/20at 21:40; Start 05/02/20 at 21:00; Stop 05/04/20 at 16:46; Status DC Magnesium Sulfate 50 ml @ 25 mls/hr 1X ONCE IV Last administered on 05/02/20at 09:40; Start 05/02/20 at 09:30; Stop 05/02/20 at 11:29; Status DC Potassium Chloride (Klor-Con) 40 meq 1X ONCE PO Last administered on 05/02/20at 09:42; Start 05/02/20 at 09:30; Stop 05/02/20 at 09:31; Status DC Aspirin (Ecotrin) 81 mg DAILYWBKFT PO Last administered on 05/12/20at 09:41; Start 05/02/20 at 09:30 Atorvastatin Calcium (Lipitor) 40 mg QHS PO Last administered on 05/11/20at 20:21; Start 05/02/20 at 21:00 Carvedilol (Coreg) 3.125 mg BIDWMEALS PO Last administered on 05/10/20at 16:46; Start 05/02/20 at 09:30 Clopidogrel Bisulfate (Plavix) 75 mg DAILY PO Last administered on 05/11/20at 08:46; Start 05/02/20 at 09:30 Lisinopril (Prinivil) 20 mg DAILY PO Last administered on 05/10/20at 08:57; Start 05/02/20 at 09:30 Potassium Chloride (Klor-Con) 20 meq BID PO Last administered on 05/03/20 21:40; Start 05/02/20 at 21:00; Stop 05/03/20 at 22:01; Status DC Ascorbic Acid (Vitamin C) 500 mg BID PO Last administered on 05/12/20 09:43; Start 05/02/20 at 21:00 Multivitamins (Thera M Plus) 1 tab DAILY PO Last administered on 05/12/20 09:41; Start 05/02/20 at 14:30 Lactobacillus Rhamnosus (Culturelle) 1 cap BID PO Last administered on 05/12/20 09:41; Start 05/02/20 at 21:00 Thiamine Mononitrate (Vitamin B-1) 100 mg DAILY PO Last administered on 05/12 09:41; Start 05/04/20 at 09:00 Thiamine HCl 100 mg/Dextrose 51 ml @ 102 mls/hr 1X ONCE IV Last administered on 05/03/20 13:32; Start 05/03/20 at 13:00; Stop 05/03/20 at 13:29; Status DC Vitamin B Complex (Folbic Tablet) 1 tab DAILY PO Last administered on 05/12/20 09:41; Start 05/03/20 at 13:00 Furosemide (Lasix) 40 mg DAILY PO Last administered on 05/12/20 09:43; Start 05/03/20 at 12:00 Potassium Chloride (Klor-Con) 20 meq BIDWMEALS PO Last administered on 05/11/20at 17:45; Start 05/04/20 at 08:00 Amoxicillin/ Clavulanate Potassium (Augmentin 500/ 125mg) 1 tab BID PO Last administered on 05/12/20 09:42; Start 05/04/20 at 10:45 Olanzapine (ZyPREXA) 5 mg HS PO Last administered on 05/11/20 20:21; Start 05/09/20 at 21:00 Acetaminophen/ Hydrocodone Bitart (Lortab 5/325) 1 tab PRN Q4HRS PRN PO PAIN Last administered on 05/11/20at 15:55; Start 05/11/20 at 15:45 Active Scripts Active Thera-M Tablet (Multivits,Ca,Minerals/Iron/Fa) 1 Each Tablet 1 Tab PO DAILY 30 Days Vitamin C (Ascorbic Acid) 500 Mg Tablet 500 Mg PO BID 30 Days Vitamin B-1 (Thiamine Mononitrate) 100 Mg Tablet 100 Mg PO DAILY 30 Days Folbic Tablet (Cyanocobalamin/Fa/Pyridoxine) 1 Each Tablet 1 Tab PO DAILY 30 Days Culturelle (Lactobacillus Rhamnosus Gg) 1 Each Cap.sprink 1 Cap PO BID 30 Days Amox Tr-K Clv 500-125 Mg Tab (Amoxicillin/Potassium Clav) 1 Each Tablet 1 Tab PO BID 7 Days Furosemide 40 Mg Tablet 40 Mg PO DAILY 30 Days Aspirin Ec (Aspirin) 81 Mg Tablet.dr 81 Mg PO DAILYWBKFT 30 Days Proair Hfa Inhaler (Albuterol Sulfate) 8.5 Gm Hfa.aer.ad 1 Puff INH PRN Q6HRS PRN Reported Lisinopril 20 Mg Tablet 1 Tab PO DAILY Lipitor (Atorvastatin Calcium) 40 Mg Tablet 1 Tab PO QHS Clopidogrel (Clopidogrel Bisulfate) 75 Mg Tablet 75 Mg PO DAILY Carvedilol (Carvedilol) 3.125 Mg Tablet 3.125 Mg PO BIDWMEALS Klor-Con M20 (Potassium Chloride) 20 Meq Tab.er.prt 20 Meq PO BID Vitals/I & O Vital Sign - Last 24 Hours 05/11/20 05/11/20 05/11/20 05/11/20 11:00 15:00 15:55 17:00 Temp 97.8 98.2 97.8 98.2 Pulse 56 65 65 Resp 20 B/P (MAP) 127/38 (67) 134/35 (68) 134/35 Pulse Ox 98 95 94 O2 Delivery Room Air Room Air Room Air 05/11/20 05/11/20 05/11/20 05/11/20 17:00 19:20 20:00 23:34 Temp 97.9 98.3 97.9 98.3 Pulse 65 72 Resp 19 17 18 B/P (MAP) 125/74 (91) 131/40 (70) Pulse Ox 93 96 95 O2 Delivery Room Air Room Air Room Air Room Air 05/12/20 05/12/20 02:58 07:00 Temp 99.1 98.2 99.1 98.2 Pulse 67 69 Resp 18 16 B/P (MAP) 134/54 (80) 129/33 (65) Pulse Ox 94 96 O2 Delivery Room Air Room Air Intake and Output 05/11/20 05/11/20 05/12/20 15:00 23:00 07:00 Intake Total 360 ml 340 ml Balance 360 ml 340 ml Nutrition Consultation Dietary Evaluation: Recommendations by RD: Dietary education by RD, Increase Calorie Intake, Protein supplementation Comments: Cardiac diet mvi vit c Expected Outcomes/Goals: to meet >75% est nutr needs- ongoing improved wound status- ongoing Malnutrition Findings: Body Fat Depletion (Non Severe: Mild Depletion Weight Status: Underweight Justicifation of Admission Dx: Justifications for Admission: Justification of Admission Dx: Yes (sepsis, encephalopathy) SANJANA JAIMES MD May 12, 2020 10:02
[2020-05-12 11:00] VITALS: BP_SYST 119; BP_SYST 157; BP_DIAS 38; BP_DIAS 79
[2020-05-12 15:00] VITALS: BP 134/42
[2020-05-12 19:00] VITALS: BP 103/44
[2020-05-12] MEDS: HYDROcodone/APAP 5/325MG 1 TAB TABLET PO PRN (21:58)
[2020-05-12] MEDS: OLANZapine 5 MG TABLET PO SCH (21:58)
[2020-05-12] MEDS: ATORVASTATIN CALCIUM 40 MG TABLET. PO SCH (21:58)
[2020-05-12 23:00] VITALS: BP 107/36
[2020-05-13 02:51] VITALS: BP 126/40
[2020-05-13 07:00] VITALS: BP 122/50
[2020-05-13] MEDS: LACTOBACILLUS RHAMNOSUS GG 1 CAPSULE. PO SCH (08:26)
[2020-05-13] MEDS: CLOPIDOGREL BISULFATE 75 MG TABLET PO SCH (08:26)
[2020-05-13] MEDS: ASCORBIC ACID 500 MG TABLET PO SCH (08:26)
[2020-05-13] MEDS: LISINOPRIL 20 MG TABLET PO SCH (08:27)
[2020-05-13] MEDS: CARVEDILOL 3.125 MG TABLET. PO SCH (08:27)
[2020-05-13] MEDS: FUROSEMIDE 40 MG TABLET. PO SCH (08:27)
[2020-05-13] MEDS: POTASSIUM CHLORIDE 20 MEQ TABLET.ER. PO SCH (08:27)
[2020-05-13] MEDS: AMOXICILLIN/K CLAV 500/125MG TABLET. PO SCH (08:27)
[2020-05-13] MEDS: MULTIVITAMIN with MINERAL TABLET. PO SCH (08:27)
[2020-05-13] MEDS: ASPIRIN ENTERIC COATED 81 MG TABLET.DR. PO SCH (08:27)
[2020-05-13] MEDS: VITAMIN B12,B9,B6 COMPLEX 1 TABLET. PO SCH (08:28)
[2020-05-13] MEDS: THIAMINE 100 MG TABLET. PO SCH (08:28)
[2020-05-13 11:00] VITALS: BP 143/35
--- NOTE | 2020-05-13 12:27 | SNU/HH DC ---
DISCHARGE ORDERS DISCHARGE INFORMATION: DISCHARGE DATE: May 13, 2020 FINAL DIAGNOSIS \ acute metabolic encephalopathy, due to UTI and sepsis, confusion, baseline of cognitive decline or early dementia UTI sepsis, IV fluid given acute dehydration buttock wound, consulted wound care severe malnutrition weakness and debility covid, 19 in isolation on admit, PUI NEG ELECTROLYTE IMBALANCE IMPROVING acute delirium likely multifactorial including infectious etiology Problems Medical Problems: (1) Altered mental status Status: Acute (2) Dehydration Status: Acute (3) Hypokalemia Status: Acute (4) Metabolic encephalopathy Status: Acute (5) Sacral decubitus ulcer Status: Acute (6) Urinary tract infection Status: Acute CONDITION ON DISCHARGE: Stable CODE STATUS: Code Status: Full USP: SNF STAY <30 DAYS: Yes POST DISCHARGE ORDERS: ACTIVITY ORDERS: Activity as tolerated WEIGHT BEARING STATUS: As tolerated DIET AFTER DISCHARGE: Cardiac CHECKS AFTER DISCHARGE: CHECKS AFTER DISCHARGE: Check blood press - daily, Check your Temp as needed, Weigh Yourself Daily FOLLOW-UP: PHYSICIAN FOLLOW-UP: F/U PCP LTC TREATMENT/EQUIPMENT ORDERS: ADAPTIVE EQUIPMENT NEEDED: None Physical Therapy For: Evalulation/Treatment Occupational Therapy For: Evaluation/Treatment Speech Language Pathology For: Evaluation/Treatment DISCHARGE MEDICATIONS: Home Meds Active Scripts Multivits,Ca,Minerals/Iron/Fa (THERA-M TABLET) 1 Each Tablet, 1 TAB PO DAILY for supplement for 30 Days, #30 TAB Prov:SANJANA JAIMES MD 05/06/20 Ascorbic Acid (VITAMIN C) 500 Mg Tablet, 500 MG PO BID for supplement for 30 Days, #60 TAB Prov:SANJANA JAIMES MD 05/06/20 Thiamine Mononitrate (VITAMIN B-1) 100 Mg Tablet, 100 MG PO DAILY for supplement for 30 Days, #30 TAB Prov:SANJANA JAIMES MD 05/06/20 Cyanocobalamin/Fa/Pyridoxine (FOLBIC TABLET) 1 Each Tablet, 1 TAB PO DAILY for supplement for 30 Days, #30 TAB Prov:SANJANA JAIMES MD 05/06/20 Lactobacillus Rhamnosus Gg (CULTURELLE) 1 Each Cap.sprink, 1 CAP PO BID for supplement for 30 Days, #60 CAP Prov:SANJANA JAIMES MD 05/06/20 Amoxicillin/Potassium Clav (AMOX TR-K CLV 500-125 MG TAB) 1 Each Tablet, 1 TAB PO BID for infection for 7 Days, #14 TAB Prov:SANJANA JAIMES MD 05/06/20 Furosemide (FUROSEMIDE) 40 Mg Tablet, 40 MG PO DAILY for heart failure for 30 Days, #30 TAB 2 Refills Prov:KATIE WALKER VI 11/03/18 Aspirin (ASPIRIN EC) 81 Mg Tablet.dr, 81 MG PO DAILYWBKFT for coronary artery disease for 30 Days, #30 TAB.SR 2 Refills Prov:KATIE WALKER VI 11/03/18 Albuterol Sulfate (PROAIR HFA INHALER) 8.5 Gm Hfa.aer.ad, 1 PUFF INH PRN Q6HRS PRN for SHORTNESS OF BREATH, #1 INHALER 0 Refills Prov:JONATHAN HOLGUIN DO 06/22/16 Reported Medications Lisinopril (LISINOPRIL) 20 Mg Tablet, 1 TAB PO DAILY for blood pressure, #30 TAB 5 Refills 03/31/19 Atorvastatin Calcium (LIPITOR) 40 Mg Tablet, 1 TAB PO QHS for , #90 TAB 1 Refill 11/01/18 Clopidogrel Bisulfate (CLOPIDOGREL) 75 Mg Tablet, 75 MG PO DAILY for TO PREVENT BLOOD CLOTS, #30 TAB 0 Refills 11/01/18 Carvedilol (CARVEDILOL ) 3.125 Mg Tablet, 3.125 MG PO BIDWMEALS for CARDIAC, TAB 11/01/18 Potassium Chloride (KLOR-CON M20) 20 Meq Tab.er.prt, 20 MEQ PO BID for , TAB.SR 11/01/18 Discontinued Scripts Azithromycin (ZITHROMAX) 250 Mg Tablet, 1 PKG PO UD, #6 TAB Prov:JONATHAN HOLGUIN DO 06/22/16 DEANNA PRAJAPATI MD May 13, 2020 12:27
--- NOTE | 2020-05-13 12:30 | PDOC3 ---
Discharge Summary Visit Information Date of Admission: May 02, 2020 Date of Discharge: May 13, 2020 Final Diagnosis acute metabolic encephalopathy, due to UTI and sepsis, confusion, baseline of cognitive decline or early dementia UTI sepsis, IV fluid given acute dehydration buttock wound, consulted wound care severe malnutrition weakness and debility covid, 19 in isolation on admit, PUI NEG ELECTROLYTE IMBALANCE Problems Medical Problems: (1) Altered mental status Status: Acute (2) Dehydration Status: Acute (3) Hypokalemia Status: Acute (4) Metabolic encephalopathy Status: Acute (5) Sacral decubitus ulcer Status: Acute (6) Urinary tract infection Status: Acute Brief Hospital Course Allergies Allergies Coded Allergies Type Severity Reaction Last Updated Verified No Known Drug Allergies 04/18/15 No Vital Signs Vital Signs Date Time Temp Pulse Resp B/P (MAP) Pulse Ox O2 Delivery O2 Flow Rate FiO2 05/13/20 08:27 98 122/50 05/13/20 07:38 Room Air 05/13/20 07:00 98.5 18 91 98.5 Lab Results Laboratory Tests Test 05/11/20 15:05 White Blood Count 5.6 x10^3/uL (4.0-11.0) Red Blood Count 2.85 x10^6/uL (3.50-5.40) Hemoglobin 9.7 g/dL (12.0-15.5) Hematocrit 28.7 % (36.0-47.0) Mean Corpuscular Volume 101 fL (79-100) Mean Corpuscular Hemoglobin 34 pg (25-35) Mean Corpuscular Hemoglobin Concent 34 g/dL (31-37) Red Cell Distribution Width 17.9 % (11.5-14.5) Platelet Count 87 x10^3/uL (140-400) Neutrophils (%) (Auto) 50 % (31-73) Lymphocytes (%) (Auto) 27 % (24-48) Monocytes (%) (Auto) 15 % (0-9) Eosinophils (%) (Auto) 7 % (0-3) Basophils (%) (Auto) 1 % (0-3) Neutrophils # (Auto) 2.8 x10^3/uL (1.8-7.7) Lymphocytes # (Auto) 1.5 x10^3/uL (1.0-4.8) Monocytes # (Auto) 0.8 x10^3/uL (0.0-1.1) Eosinophils # (Auto) 0.4 x10^3/uL (0.0-0.7) Basophils # (Auto) 0.1 x10^3/uL (0.0-0.2) Sodium Level 139 mmol/L (136-145) Potassium Level 4.7 mmol/L (3.5-5.1) Chloride Level 104 mmol/L (98-107) Carbon Dioxide Level 31 mmol/L (21-32) Anion Gap 4 (6-14) Blood Urea Nitrogen 32 mg/dL (7-20) Creatinine 1.6 mg/dL (0.6-1.0) Estimated GFR (Cockcroft-Gault) 31.3 BUN/Creatinine Ratio 20 (6-20) Glucose Level 160 mg/dL (70-99) Calcium Level 8.1 mg/dL (8.5-10.1) Total Bilirubin 2.2 mg/dL (0.2-1.0) Aspartate Amino Transf (AST/SGOT) 47 U/L (15-37) Alanine Aminotransferase (ALT/SGPT) 29 U/L (14-59) Alkaline Phosphatase 83 U/L (46-116) Total Protein 5.2 g/dL (6.4-8.2) Albumin 1.8 g/dL (3.4-5.0) Albumin/Globulin Ratio 0.5 (1.0-1.7) Brief Hospital Course Ms. Florian is a 75 old female, with dementia, admit with marked worse confusion, UTI MCI, dCHF who p/w confusion, sepsis, UTI urine culture returned positive for sensitive Klebsiella switch to oral Augmentin. She needs skilled services on discharge awaiting further PT and OT eval. Discharge Information Condition at Discharge: Improved Follow Up: Weeks Disposition/Orders: D/C to Another Facility Scheduled Amoxicillin/Potassium Clav (Amox Tr-K Clv 500-125 Mg Tab) 1 Each Tablet, 1 TAB PO BID for infection for 7 Days, #14 Prescribed by: SANJANA JAIMES MD on 05/06/20 1607 Ascorbic Acid (Vitamin C) 500 Mg Tablet, 500 MG PO BID for supplement for 30 Days, #60 Prescribed by: SANJANA JAIMES MD on 05/06/20 1607 Aspirin (Aspirin Ec) 81 Mg Tablet.dr, 81 MG PO DAILYWBKFT for coronary artery disease for 30 Days, #30 Ref 2 Prescribed by: KATIE WALKER APRN on 11/03/18 1508 Last Action: Continued on 05/02/20840 by DEANNA PRAJAPATI Atorvastatin Calcium (Lipitor) 40 Mg Tablet, 1 TAB PO QHS for , #90 Ref 1 (Reported) Entered as Reported by: NATALEE HOLT RN on 11/01/181320 Last Action: Continued on 05/02/20840 by DEANNA PRAJAPATI Carvedilol (Carvedilol ) 3.125 Mg Tablet, 3.125 MG PO BIDWMEALS for CARDIAC, (Reported) Entered as Reported by: NATALEE HOLT RN on 11/01/181320 Last Action: Continued on 05/02/20840 by DEANNA PRAJAPATI Clopidogrel Bisulfate (Clopidogrel) 75 Mg Tablet, 75 MG PO DAILY for TO PREVENT BLOOD CLOTS, #30 Ref 0 (Reported) Entered as Reported by: NATALEE HOLT RN on 11/01/181320 Last Action: Continued on 05/02/20840 by DEANNA PRAJAPATI Cyanocobalamin/Fa/Pyridoxine (Folbic Tablet) 1 Each Tablet, 1 TAB PO DAILY for supplement for 30 Days, #30 Prescribed by: SANJANA JAIMES MD on 05/06/20 1607 Furosemide (Furosemide) 40 Mg Tablet, 40 MG PO DAILY for heart failure for 30 Days, #30 Ref 2 Prescribed by: KATIE WALKER APRN on 11/03/18 150 Last Action: Continued on 05/03/20 1152 by DEANNA PRAJAPATI Lactobacillus Rhamnosus Gg (Culturelle) 1 Each Cap.sprink, 1 CAP PO BID for supplement for 30 Days, #60 Prescribed by: SANJANA JAIMES MD on 05/06/20 1607 Lisinopril (Lisinopril) 20 Mg Tablet, 1 TAB PO DAILY for blood pressure, #30 Ref 5 (Reported) Entered as Reported by: Deejay Schwarz on 03/31/19 6262 Last Action: Continued on 05/02/20840 by DEANNA PRAJAPATI Multivits,Ca,Minerals/Iron/Fa (Thera-M Tablet) 1 Each Tablet, 1 TAB PO DAILY for supplement for 30 Days, #30 Prescribed by: SANJANA JAIMES MD on 05/06/20 1607 Potassium Chloride (Klor-Con M20) 20 Meq Tab.er.prt, 20 MEQ PO BID for , (Reported) Entered as Reported by: NATALEE HOLT, RN on 11/01/18 1321 Last Action: Continued on 05/02/20840 by DEANNA PRAJAPATI Thiamine Mononitrate (Vitamin B-1) 100 Mg Tablet, 100 MG PO DAILY for supplement for 30 Days, #30 Prescribed by: SANJANA JAIMES MD on 05/06/20 1607 Scheduled PRN Albuterol Sulfate (Proair Hfa Inhaler) 8.5 Gm Hfa.aer.ad, 1 PUFF INH PRN Q6HRS PRN for SHORTNESS OF BREATH, #1 Ref 0 Prescribed by: JONATHAN HOLGUIN D.O. on 06/22/161753 Discontinued Medications Azithromycin (Zithromax) 250 Mg Tablet, 1 PKG PO UD, #6 Prescribed by: JONATHAN HOLGUIN D.O. on 06/22/161753 Last Action: HELD on 05/02/20840 by DEANNA PRAJAPATI Patient Instructions Patient Instructions face to face on DC Justicifation of Admission Dx: Justifications for Admission: Justification of Admission Dx: Yes (sepsis, encephalopathy) DEANNA PRAJAPATI MD May 13, 2020 12:30
--- NOTE | 2020-05-13 14:49 | NUR ---
Report called to [facility] RN took report on patient. Will continue to monitor until transport arrives to transport [facility].
--- NOTE | 2020-05-13 15:09 | NUR ---
Discharge Note: TATA NICOLAS Discharge instructions and discharge home medications reviewed with Other facility and a copy given. All questions have been answered and understanding verbalized. The following instructions and handouts were given: discharge instructions, copy of chart. Discontinued lines and drains: Peripheral IV discontinued intact. Patient discharged to Rehab Facility with Transport Personnel via Wheelchair
== END 2020-05-13 15:09 | DRG 871 ==
LOC: ER 18:50 → ED HOLD 21:45 → 6 SOUTH 05-02 03:15 → 5 NORTH 05-03 21:59
PROVIDERS: ADMIT Internal Medicine; ATTEND Internal Medicine
DX: A41.9 Sepsis, unspecified organism (principal); E43 Unspecified severe protein-calorie malnutrition; G93.41 Metabolic encephalopathy; F05 Delirium due to known physiological condition; J98.11 Atelectasis; N39.0 Urinary tract infection, site not specified; E78.00 Pure hypercholesterolemia, unspecified; E78.5 Hyperlipidemia, unspecified; E86.0 Dehydration; E87.6 Hypokalemia; F03.90 Unspecified dementia, unspecified severity, without behavioral disturbance, psychotic disturbance, mood disturbance, and anxiety; F17.210 Nicotine dependence, cigarettes, uncomplicated; G47.00 Insomnia, unspecified; G93.89 Other specified disorders of brain; I11.0 Hypertensive heart disease with heart failure; I25.10 Atherosclerotic heart disease of native coronary artery without angina pectoris; I50.9 Heart failure, unspecified; J44.9 Chronic obstructive pulmonary disease, unspecified; L89.159 Pressure ulcer of sacral region, unspecified stage; Z82.49 Family history of ischemic heart disease and other diseases of the circulatory system; Z20.828 Contact with and (suspected) exposure to other viral communicable diseases; Z79.899 Other long term (current) drug therapy; Z68.28 Body mass index [BMI] 28.0-28.9, adult; B96.1 Klebsiella pneumoniae [K. pneumoniae] as the cause of diseases classified elsewhere
CPT/HCPCS: 36415; 70450; 71045; 80048; 80053; 80329; 81001; 82140; 82550; 82607; 83605; 83690; 83735; 84484; 85025; 85610; 85730; 87040; 87077; 87086; 87186; 93005; 96361; 96365; 96366; 96375; G0480; J0696; J3411; J3475; J3480; J7030; J7060; U0003; 97110-GO; 97110-GP; 97116-GP; 97530-GO; 97530-GP; 97535-GO; 99285-25; G0378

== ENCOUNTER 2020-06-02 11:46 | Inpatient (IN) | payer MEDICARE ==
[~2020-06-02] VITALS: Ht 162.6 cm; Wt 65.5 kg
[~2020-06-02 11:46] MED LIST changes: +AMOX1TAB10 PO; +ASCO500T4 PO; +CYAN1TAB19 PO; +LACT1CAP19 PO; -LISI-334 PO; +LISI10TA16 PO; -LISI10TA2 PO; +LISI20TA18 PO; +MULT1TAB92 PO; +THIA100T22 PO
[2020-06-02] MEDS ORDERED: IV NORMAL SALINE 1000ML BAG 1,000 ML IV ONE (12:00)
[2020-06-02 12:12] LABS: BASO # 0.1 x10^3/uL (0.0-0.2); BASO % 1 % (0-3); EOS # 0.7 x10^3/uL (0.0-0.7); EOS % 11 % (0-3); HEMATOCRIT 33.4 % (36.0-47.0); HEMOGLOBIN 11.1 g/dL (12.0-15.5); LYMPH # 1.8 x10^3/uL (1.0-4.8); LYMPH % 27 % (24-48); MEAN CORPUSCULAR HEMOGLOBIN 34 pg (25-35); MEAN CORPUSCULAR HGB CONC 33 g/dL (31-37); MEAN CORPUSCULAR VOLUME 101 fL (79-100); MONO # 0.6 x10^3/uL (0.0-1.1); MONO % 10 % (0-9); NEUT # 3.4 x10^3/uL (1.8-7.7); NEUT % 51 % (31-73); PLATELET COUNT 145 x10^3/uL (140-400); RED BLOOD COUNT 3.29 x10^6/uL (3.50-5.40); RED CELL DISTRIBUTION WIDTH 17.4 % (11.5-14.5); WHITE BLOOD COUNT 6.6 x10^3/uL (4.0-11.0)
--- NOTE | 2020-06-02 12:22 | RAD ---
AP chest. HISTORY: Weakness, hypotension AP view was taken of the chest. Heart is normal in size. There are no acute infiltrates. There is no pleural effusion. There has been an improvement compared to the prior study from May 01. IMPRESSION: 1. No acute chest disease. Electronically signed by: Ketan Marin MD (06/02/2020 12:19 PM) [facility]
--- NOTE | 2020-06-02 12:22 | EKG ---
[facility] [address] [place] [address] Test Date: 2020-06-02 Test Time: 11:51:26 Pat Name: TATA NICOLAS Department: Room: Gender: F Oral And Maxillofacial Surgery: : 1945 Requested By: TANO VANEGAS Order Number: [id number] Reading MD: Measurements Intervals [place] Rate: 65 P: 90 MT: 154 QRS: -12 QRSD: 120 T: -179 QT: 478 QTc: 498 Interpretive Statements SINUS RHYTHM LEFTWARD AXIS LVH WITH REPOLARIZATION ABNORMALITY ABNORMAL ECG RI6.01 No previous ECG available for comparison
[2020-06-02 12:23] LABS: CALCIUM 9.3 mg/dL (8.5-10.1); CREATININE 2.3 mg/dL (0.6-1.0); GFR 20.6; POTASSIUM 5.1 mmol/L (3.5-5.1)
[2020-06-02 12:27] LABS: PROTHROMBIN TIME PATIENT 15.1 SEC (11.7-14.0)
[2020-06-02 12:29] LABS: ALBUMIN 2.3 g/dL (3.4-5.0); ALBUMIN/GLOBULIN RATIO 0.5 (1.0-1.7); MAGNESIUM 2.5 mg/dL (1.8-2.4); TOTAL BILIRUBIN 2.3 mg/dL (0.2-1.0); TOTAL PROTEIN 6.6 g/dL (6.4-8.2)
[2020-06-02 12:44] LABS: BILIRUBIN,URINE NEGATIVE (NEG); CLARITY,URINE CLOUDY; COLOR,URINE YELLOW; NITRITE,URINE POSITIVE (NEG); PH,URINE 6.5 (<5.0-8.0); PROTEIN,URINE 30 mg/dL (NEG-TRACE)
--- NOTE | 2020-06-02 12:52 | PHYS DOC ---
Past Medical History Past Medical History: CHF, COPD, High Cholesterol, Hypertension, Renal Failure, Other Additional Past Medical Histor: small aaa approx 2.8 cm, PE (SHAYAN LEE APRN) Past Surgical History: No Surgical History, Other Additional Past Surgical Histo: CARDIAC CATH with stent (SHAYAN LEE APRN) Smoking Status: Current Every Day Smoker Alcohol Use: None Drug Use: None (SHAYAN LEE APRN) General Adult EDM: Chief Complaint: HYPOTENSION HPI: HPI: Patient is a 75 year old female with a history of hypertension, high cholesterol, CHF, COPD, who presents to the ED today to be evaluated for hypotension and lethargy. History is obtained from the nurses who obtained it from the intermediate. Patient herself is alert oriented x3 refusing can stating she wants to go back to to the intermediate. She is refusing to give us much information. She is questioning why they brought her to the ED (SHAYAN LEE APRN) Review of Systems: Review of Systems: Constitutional: Reports lethargy. Denies fever or chills. [] Eyes: Denies change in visual acuity. [] HENT: Denies nasal congestion or sore throat. [] Respiratory: Denies cough or shortness of breath. [] Cardiovascular: Reports hypotension. Denies chest pain or edema. [] GI: Denies abdominal pain, nausea, vomiting, bloody stools or diarrhea. [] : Denies dysuria. [] Musculoskeletal: Denies back pain or joint pain. [] Integument: Denies rash. [] Neurologic: Denies headache, focal weakness or sensory changes. [] Psychiatric: Denies depression or anxiety. [] (SHAYAN LEE APRN) Heart Score: Risk Factors: Risk Factors: DM, Current or recent (<one month) smoker, HTN, HLP, family history of CAD, obesity. Risk Scores: Score 0 - 3: 2.5% MACE over next 6 weeks - Discharge Home Score 4 - 6: 20.3% MACE over next 6 weeks - Admit for Clinical Observation Score 7 - 10: 72.7% MACE over next 6 weeks - Early Invasive Strategies (SHAYAN LEE APRN) Current Medications: Current Medications Medications (Trade) Dose Ordered Sig/[place] Start Time Stop Time Status Last Admin Dose Admin Sodium Chloride 1,000 ml @ 1,000 mls/hr 1X ONCE 06/02/20 12:00 06/02/20 12:59 06/02/20 12:19 1,000 MLS/HR (SHAYAN LEE APRN) Allergies: Allergies: Allergies Coded Allergies Type Severity Reaction Last Updated Verified No Known Drug Allergies 04/18/15 No (SHAYAN LEE APRN) Physical Exam: PE: Constitutional: Well developed, well nourished, no acute distress, non-toxic appearance. [] HENT: Normocephalic, atraumatic, bilateral external ears normal, oropharynx moist, no oral exudates, nose normal. [] Eyes: PERRLA, EOMI, conjunctiva normal, no discharge. [] Neck: Normal range of motion, no tenderness, supple, no stridor. [] Cardiovascular:Heart rate regular rhythm, no murmur [] Lungs & Thorax: Bilateral breath sounds clear to auscultation [] Abdomen: Bowel sounds normal, soft, no tenderness, no masses, no pulsatile masses. [] Skin: Warm, dry, no erythema, no rash. [] Back: No tenderness, no CVA tenderness. [] Extremities: No tenderness, no cyanosis, no clubbing, ROM intact, no edema. [] Neurologic: Alert and oriented X 2-3 though she keeps talking about things that are not part part of the conversation and do not make sense. Normal motor function, normal sensory function, no focal deficits noted. [] Psychologic: Affect normal, judgement normal, mood normal. [] (SHAYAN LEE APRN) Current Patient Data: Labs: Laboratory Tests Test 06/02/20 11:57 White Blood Count 6.6 x10^3/uL (4.0-11.0) Red Blood Count 3.29 x10^6/uL (3.50-5.40) L Hemoglobin 11.1 g/dL (12.0-15.5) L Hematocrit 33.4 % (36.0-47.0) L Mean Corpuscular Volume 101 fL (79-100) H Mean Corpuscular Hemoglobin 34 pg (25-35) Mean Corpuscular Hemoglobin Concent 33 g/dL (31-37) Red Cell Distribution Width 17.4 % (11.5-14.5) H Platelet Count 145 x10^3/uL (140-400) Neutrophils (%) (Auto) 51 % (31-73) Lymphocytes (%) (Auto) 27 % (24-48) Monocytes (%) (Auto) 10 % (0-9) H Eosinophils (%) (Auto) 11 % (0-3) H Basophils (%) (Auto) 1 % (0-3) Neutrophils # (Auto) 3.4 x10^3/uL (1.8-7.7) Lymphocytes # (Auto) 1.8 x10^3/uL (1.0-4.8) Monocytes # (Auto) 0.6 x10^3/uL (0.0-1.1) Eosinophils # (Auto) 0.7 x10^3/uL (0.0-0.7) Basophils # (Auto) 0.1 x10^3/uL (0.0-0.2) Prothrombin Time 15.1 SEC (11.7-14.0) H Prothrombin Time INR 1.2 (0.8-1.1) H Activated Partial Thromboplast Time 40 SEC (24-38) H Sodium Level 144 mmol/L (136-145) Potassium Level 5.1 mmol/L (3.5-5.1) Chloride Level 110 mmol/L (98-107) H Carbon Dioxide Level 26 mmol/L (21-32) Anion Gap 8 (6-14) Blood Urea Nitrogen 82 mg/dL (7-20) H Creatinine 2.3 mg/dL (0.6-1.0) H Estimated GFR (Cockcroft-Gault) 20.6 BUN/Creatinine Ratio 36 (6-20) H Glucose Level 115 mg/dL (70-99) H Lactic Acid Level 1.7 mmol/L (0.4-2.0) Calcium Level 9.3 mg/dL (8.5-10.1) Magnesium Level 2.5 mg/dL (1.8-2.4) H Total Bilirubin 2.3 mg/dL (0.2-1.0) H Aspartate Amino Transferase (AST) 85 U/L (15-37) H Alanine Aminotransferase (ALT) 53 U/L (14-59) Alkaline Phosphatase 83 U/L (46-116) Creatine Kinase 325 U/L (26-192) H Creatine Kinase MB (Mass) 5.8 ng/mL (0.0-3.6) H Creatine Kinase MB Relative Index 1.8 % (0-4) Troponin I Quantitative 0.163 ng/mL (0.000-0.055) Total Protein 6.6 g/dL (6.4-8.2) Albumin 2.3 g/dL (3.4-5.0) L Albumin/Globulin Ratio 0.5 (1.0-1.7) L Laboratory Tests 06/02/20 11:57 Laboratory Tests 06/02/20 11:57 Vital Signs: Vital Signs Date Time Temp Pulse Resp B/P (MAP) Pulse Ox O2 Delivery O2 Flow Rate FiO2 06/02/20 11:47 97.5 67 15 93/51 (65) 98 Room Air 97.5 (SHAYAN LEE APRN) EKG: EK interpreted by Dr. Vanegas sinus rhythm, heart rate 65 no STEMI [] (SHAYAN LEE APRN) Radiology/Procedures: Radiology/Procedures: []PROCEDURE: PORTABLE CHEST 1V AP chest. HISTORY: Weakness, hypotension AP view was taken of the chest. Heart is normal in size. There are no acute infiltrates. There is no pleural effusion. There has been an improvement compared to the prior study from May 01. IMPRESSION: 1. No acute chest disease. Electronically signed by: Ketan Marin MD (06/02/2020 12:19 PM) [facility] DICTATED and SIGNED BY: KETAN MARIN MD DATE: 06/02/20 [id number] (SHAYAN LEE APRN) Course & Med Decision Making: Course & Med Decision Making Pertinent Labs and Imaging studies reviewed. (See chart for details) This is a 75-year-old female patient presenting to the ED today from a intermediate to be evaluated for hypotension and lethargy. Patient is awake alert oriented x 2-3 questioning why she is in the ED and refusing care, at some point she becomes confused and starts talking about nonexistent information, some point she was stating we can remove her kidneys her heart and anything we want, she was talking about a train passing. Daughter states she has been like this for a month. She states at some point she had a UTI and was treated but that did not improve her mentation. Blood pressures in the 90s over 50s with heart rates in the 60s on arrival. It is unknown if patient took her blood pressure medicine this morning. CBC with a normal WBC, hemoglobin 11.1 with a hematocrit of 33.4, CMP with creatinine of 2.3, BUN of 22. Troponin 0 0.163. Patient has no chest pain, this appears to be from chronic kidney disease. She has had a couple elevated troponins before. EKG is negative. Urine noted for UTI. Patient was started on Rocephin. Blood pressures of inched up. 180s over 80s. Spoke with Dr. Cyr who accepted patient for admission. (SHAYAN LEE APRN) Dragon Disclaimer: Dragon Disclaimer: This electronic medical record was generated, in whole or in part, using a voice recognition dictation system. (SHAYAN LEE APRN) Departure Departure Impression: Primary Impression: Hypotension Qualified Codes: I95.9 - Hypotension, unspecified Additional Impressions: Urinary tract infection Qualified Codes: N39.0 - Urinary tract infection, site not specified Confused Acute on chronic kidney failure Qualified Codes: N17.9 - Acute kidney failure, unspecified; N18.9 - Chronic kidney disease, unspecified Elevated troponin Disposition: ADMITTED INPT THIS HOSP Condition: STABLE Referrals: MESFIN LOPEZ MD (PCP) Attending Signature Attending Signature I have reviewed the PA/E BUSINESS PROJECT MANAGER's note and plan of care. I was available for consultation as needed during the patient's visit in the emergency department. I agree with the clinical impression, plan, and disposition. (TANO VANEGAS DO) SHAYAN LEE APRN Jun 02, 2020 12:52 TANO VANEGAS DO Jun 02, 2020 14:16
[2020-06-02 12:58] LABS: BACTERIA,URINE MANY /HPF (0-FEW); HYALINE CASTS, URINE OCCASIONAL /HPF
[2020-06-02 13:00] LABS: WBC,URINE >40 /HPF (0-4)
[2020-06-02] MEDS ORDERED: cefTRIAXone IV Push 1 GM VIAL. IVP ONE (13:45)
[2020-06-02] MEDS ORDERED: NICOTINE 21MG PATCH. TD PRN (14:00)
[2020-06-02] MEDS ORDERED: CALCIUM CARBONATE 500 MG TAB.CHEW PO PRN (14:00)
[2020-06-02] MEDS ORDERED: ACETAMINOPHEN 325 MG TABLET. PO PRN (14:00)
[2020-06-02] MEDS ORDERED: NICOTINE 14MG PATCH. TD PRN (14:00)
[2020-06-02] MEDS ORDERED: ZOLPIDEM 5 MG TABLET. PO PRN (14:00)
[2020-06-02] MEDS ORDERED: MAG HYDROX/ALUMINUM HYD/SIMETH 30 ML ORAL.SUSP PO PRN (14:00)
[2020-06-02] MEDS ORDERED: BISACODYL 10 MG SUPP.RECT. PR PRN (14:00)
[2020-06-02] MEDS ORDERED: MAGNESIUM HYDROXIDE 2,400 MG/30 ML ORAL.SUSP. PO PRN (14:00)
[2020-06-02] MEDS ORDERED: ONDANSETRON PF 4 MG/2 ML VIAL. IVP PRN (14:00)
--- NOTE | 2020-06-02 14:00 | PDOC1 ---
History and Physical Date of Admission Date of Admission DATE: 06/02/20 TIME: 13:49 Identification/Chief Complaint Chief Complaint Hypotension, lethargy Source Source: Chart review, Patient History of Present Illness History of Present Illness Patient 75-year-old female past medical history of CHF, CAD, [facility] for evaluation of hypotension and lethargy that started today. Patient was recently admitted to our service on 05/02/20 for acute metabolic encephalopathy. Creatinine at the time was 1.2. Today creatinine 2.3. She currently has no complaints. Troponin was elevated at 0.163, but she denies chest pain, nausea, or shortness of breath. I discussion with both patient's daughters her joint DPOA. They note progressively worsening dementia over the past months. They also note worsening yellowing of her skin over the past weeks. State that they would like patient's CODE STATUS changed to DNR. We will get patient for further medical management. Past Medical History Cardiovascular: CAD, HTN, Hyperlipidemia, Other Pulmonary: COPD, Pneumonia CENTRAL NERVOUS SYSTEM: Other GI: No pertinent hx Heme/Onc: No pertinent hx Hepatobiliary: No pertinent hx Psych: No pertinent hx Musculoskeletal: low back pain, Osteoarthritis Infectious disease: No pertinent hx Renal/: No pertinent hx Endocrine: No pertinent hx Past Surgical History Past Surgical History: Cataract Removal Family History Family History: High Cholestrol, Hypertension Social History ALCOHOL: none Drugs: None Current Problem List Problem List Problems Medical Problems: (1) Hypotension Status: Acute Current Medications Current Medications Current Medications Sodium Chloride 1,000 ml @ 1,000 mls/hr 1X ONCE IV Last administered on 06/02/20at 12:19; Start 06/02/20 at 12:00; Stop 06/02/20 at 12:59; Status DC Ceftriaxone Sodium (Rocephin) 1 gm 1X ONCE IVP ; Start 06/02/20 at 13:45; Stop 06/02/20 at 13:46; Status DC Active Scripts Active Thera-M Tablet (Multivits,Ca,Minerals/Iron/Fa) 1 Each Tablet 1 Tab PO DAILY 30 Days Vitamin C (Ascorbic Acid) 500 Mg Tablet 500 Mg PO BID 30 Days Vitamin B-1 (Thiamine Mononitrate) 100 Mg Tablet 100 Mg PO DAILY 30 Days Folbic Tablet (Cyanocobalamin/Fa/Pyridoxine) 1 Each Tablet 1 Tab PO DAILY 30 Days Culturelle (Lactobacillus Rhamnosus Gg) 1 Each Cap.sprink 1 Cap PO BID 30 Days Amox Tr-K Clv 500-125 Mg Tab (Amoxicillin/Potassium Clav) 1 Each Tablet 1 Tab PO BID 7 Days Furosemide 40 Mg Tablet 40 Mg PO DAILY 30 Days Aspirin Ec (Aspirin) 81 Mg Tablet.dr 81 Mg PO DAILYWBKFT 30 Days Proair Hfa Inhaler (Albuterol Sulfate) 8.5 Gm Hfa.aer.ad 1 Puff INH PRN Q6HRS PRN Reported Lisinopril 20 Mg Tablet 1 Tab PO DAILY Lipitor (Atorvastatin Calcium) 40 Mg Tablet 1 Tab PO QHS Clopidogrel (Clopidogrel Bisulfate) 75 Mg Tablet 75 Mg PO DAILY Carvedilol (Carvedilol) 3.125 Mg Tablet 3.125 Mg PO BIDWMEALS Klor-Con M20 (Potassium Chloride) 20 Meq Tab.er.prt 20 Meq PO BID Allergies Allergies: Coded Allergies: No Known Drug Allergies (Unverified , 04/18/15) ROS Review of System GENERAL: No history of weight change, weakness or fevers. SKIN: No bruising, hair changes or rashes. EYES: No blurred, double or loss of vision. NOSE AND THROAT: No history of nosebleeds, hoarseness or sore throat. HEART: Denies chest pain, denies palpitations. LUNGS: Denies cough, hemoptysis, wheezing or shortness of breath. GASTROINTESTINAL: Denies nausea, vomiting, abdominal pain. GENITOURINARY: Denies dysuria, frequency, urgency, hematuria. NEUROLOGIC: Denies history of numbness, tingling, tremor or weakness. PSYCHIATRIC: Denies anxiety, denies depression. ENDOCRINE: No history of heat or cold intolerance, polyuria or polydipsia. EXTREMITIES: Denies muscle weakness, joint pain, pain on walking or stiffness. Physical Exam Physical Exam General: Alert, oriented x2 (person and president), uncooperative, mild distress HEENT: PERRLA, EOMI Lungs: Clear to auscultation, Normal air movement Heart: RRR, no murmurs Cardiovascular: S1, S2 Abdomen: Normal bowel sounds, Soft, No tenderness Extremities: No clubbing, No cyanosis Skin: Skin appears yellow. Sacral bandage clean, dry, and intact Neuro: Normal speech, Normal tone, Sensation intact Psych/Mental Status: Confused, agitated Vitals Vitals Vital Signs Date Time Temp Pulse Resp B/P (MAP) Pulse Ox O2 Delivery O2 Flow Rate FiO2 06/02/20 11:47 97.5 67 15 93/51 (65) 98 Room Air 97.5 Labs Labs Laboratory Tests Test 06/02/20 11:57 06/02/20 12:30 White Blood Count 6.6 x10^3/uL (4.0-11.0) Red Blood Count 3.29 x10^6/uL (3.50-5.40) Hemoglobin 11.1 g/dL (12.0-15.5) Hematocrit 33.4 % (36.0-47.0) Mean Corpuscular Volume 101 fL (79-100) Mean Corpuscular Hemoglobin 34 pg (25-35) Mean Corpuscular Hemoglobin Concent 33 g/dL (31-37) Red Cell Distribution Width 17.4 % (11.5-14.5) Platelet Count 145 x10^3/uL (140-400) Neutrophils (%) (Auto) 51 % (31-73) Lymphocytes (%) (Auto) 27 % (24-48) Monocytes (%) (Auto) 10 % (0-9) Eosinophils (%) (Auto) 11 % (0-3) Basophils (%) (Auto) 1 % (0-3) Neutrophils # (Auto) 3.4 x10^3/uL (1.8-7.7) Lymphocytes # (Auto) 1.8 x10^3/uL (1.0-4.8) Monocytes # (Auto) 0.6 x10^3/uL (0.0-1.1) Eosinophils # (Auto) 0.7 x10^3/uL (0.0-0.7) Basophils # (Auto) 0.1 x10^3/uL (0.0-0.2) Prothrombin Time 15.1 SEC (11.7-14.0) Prothromb Time International Ratio 1.2 (0.8-1.1) Activated Partial Thromboplast Time 40 SEC (24-38) Sodium Level 144 mmol/L (136-145) Potassium Level 5.1 mmol/L (3.5-5.1) Chloride Level 110 mmol/L (98-107) Carbon Dioxide Level 26 mmol/L (21-32) Anion Gap 8 (6-14) Blood Urea Nitrogen 82 mg/dL (7-20) Creatinine 2.3 mg/dL (0.6-1.0) Estimated GFR (Cockcroft-Gault) 20.6 BUN/Creatinine Ratio 36 (6-20) Glucose Level 115 mg/dL (70-99) Lactic Acid Level 1.7 mmol/L (0.4-2.0) Calcium Level 9.3 mg/dL (8.5-10.1) Magnesium Level 2.5 mg/dL (1.8-2.4) Total Bilirubin 2.3 mg/dL (0.2-1.0) Aspartate Amino Transf (AST/SGOT) 85 U/L (15-37) Alanine Aminotransferase (ALT/SGPT) 53 U/L (14-59) Alkaline Phosphatase 83 U/L (46-116) Creatine Kinase 325 U/L (26-192) Creatine Kinase MB (Mass) 5.8 ng/mL (0.0-3.6) Creatine Kinase MB Relative Index 1.8 % (0-4) Troponin I Quantitative 0.163 ng/mL (0.000-0.055) Total Protein 6.6 g/dL (6.4-8.2) Albumin 2.3 g/dL (3.4-5.0) Albumin/Globulin Ratio 0.5 (1.0-1.7) Urine Collection Type U cath Urine Color Yellow Urine Clarity Cloudy Urine pH 6.5 (<5.0-8.0) Urine Specific [place] 1.015 (1.000-1.030) Urine Protein 30 mg/dL (NEG-TRACE) Urine Glucose (UA) Negative mg/dL (NEG) Urine Ketones (Stick) Negative mg/dL (NEG) Urine Blood Negative (NEG) Urine Nitrite Positive (NEG) Urine Bilirubin Negative (NEG) Urine Urobilinogen Dipstick 1.0 mg/dL (0.2 mg/dL) Urine Leukocyte Esterase Large (NEG) Urine RBC 3-5 /HPF (0-2) Urine WBC >40 /HPF (0-4) Urine Squamous Epithelial Cells Mod /LPF Urine Renal Epithelial Cells Occ /LPF Urine Bacteria Many /HPF (0-FEW) Urine Hyaline Casts Occasional /HPF Laboratory Tests Test 06/02/20 11:57 06/02/20 12:30 White Blood Count 6.6 x10^3/uL (4.0-11.0) Red Blood Count 3.29 x10^6/uL (3.50-5.40) Hemoglobin 11.1 g/dL (12.0-15.5) Hematocrit 33.4 % (36.0-47.0) Mean Corpuscular Volume 101 fL (79-100) Mean Corpuscular Hemoglobin 34 pg (25-35) Mean Corpuscular Hemoglobin Concent 33 g/dL (31-37) Red Cell Distribution Width 17.4 % (11.5-14.5) Platelet Count 145 x10^3/uL (140-400) Neutrophils (%) (Auto) 51 % (31-73) Lymphocytes (%) (Auto) 27 % (24-48) Monocytes (%) (Auto) 10 % (0-9) Eosinophils (%) (Auto) 11 % (0-3) Basophils (%) (Auto) 1 % (0-3) Neutrophils # (Auto) 3.4 x10^3/uL (1.8-7.7) Lymphocytes # (Auto) 1.8 x10^3/uL (1.0-4.8) Monocytes # (Auto) 0.6 x10^3/uL (0.0-1.1) Eosinophils # (Auto) 0.7 x10^3/uL (0.0-0.7) Basophils # (Auto) 0.1 x10^3/uL (0.0-0.2) Prothrombin Time 15.1 SEC (11.7-14.0) Prothromb Time International Ratio 1.2 (0.8-1.1) Activated Partial Thromboplast Time 40 SEC (24-38) Sodium Level 144 mmol/L (136-145) Potassium Level 5.1 mmol/L (3.5-5.1) Chloride Level 110 mmol/L (98-107) Carbon Dioxide Level 26 mmol/L (21-32) Anion Gap 8 (6-14) Blood Urea Nitrogen 82 mg/dL (7-20) Creatinine 2.3 mg/dL (0.6-1.0) Estimated GFR (Cockcroft-Gault) 20.6 BUN/Creatinine Ratio 36 (6-20) Glucose Level 115 mg/dL (70-99) Lactic Acid Level 1.7 mmol/L (0.4-2.0) Calcium Level 9.3 mg/dL (8.5-10.1) Magnesium Level 2.5 mg/dL (1.8-2.4) Total Bilirubin 2.3 mg/dL (0.2-1.0) Aspartate Amino Transf (AST/SGOT) 85 U/L (15-37) Alanine Aminotransferase (ALT/SGPT) 53 U/L (14-59) Alkaline Phosphatase 83 U/L (46-116) Creatine Kinase 325 U/L (26-192) Creatine Kinase MB (Mass) 5.8 ng/mL (0.0-3.6) Creatine Kinase MB Relative Index 1.8 % (0-4) Troponin I Quantitative 0.163 ng/mL (0.000-0.055) Total Protein 6.6 g/dL (6.4-8.2) Albumin 2.3 g/dL (3.4-5.0) Albumin/Globulin Ratio 0.5 (1.0-1.7) Urine Collection Type U cath Urine Color Yellow Urine Clarity Cloudy Urine pH 6.5 (<5.0-8.0) Urine Specific [place] 1.015 (1.000-1.030) Urine Protein 30 mg/dL (NEG-TRACE) Urine Glucose (UA) Negative mg/dL (NEG) Urine Ketones (Stick) Negative mg/dL (NEG) Urine Blood Negative (NEG) Urine Nitrite Positive (NEG) Urine Bilirubin Negative (NEG) Urine Urobilinogen Dipstick 1.0 mg/dL (0.2 mg/dL) Urine Leukocyte Esterase Large (NEG) Urine RBC 3-5 /HPF (0-2) Urine WBC >40 /HPF (0-4) Urine Squamous Epithelial Cells Mod /LPF Urine Renal Epithelial Cells Occ /LPF Urine Bacteria Many /HPF (0-FEW) Urine Hyaline Casts Occasional /HPF Images Images PORTABLE CHEST 1V AP chest. HISTORY: Weakness, hypotension AP view was taken of the chest. Heart is normal in size. There are no acute infiltrates. There is no pleural effusion. There has been an improvement compared to the prior study from May 01. IMPRESSION: 1. No acute chest disease. VTE Prophylaxis Ordered VTE Prophylaxis Devices: No VTE Pharmacological Prophylaxi: Yes Assessment/Plan Assessment/Plan Hypotension Metabolic encephalopathy Dehydration ACE Vasomotor nephropathy UTI Jaundice Elevated bilirubin Chronic sacral ulcer Severe malnutrition Plan: Will admit patient and and provide IV fluids. Rocephin 1 g daily x3 for UTI Continue to trend troponins, likely elevated in setting of CKD. If troponins to not remain stable, will consult cardiology for further work-up Patient would not process vitamin exam but will order wound care to continue treatment of sacral ulcer Resume home medications Will consult GI for recommendations on evaluation of jaundice and elevated bilirubin Will obtain right upper quadrant ultrasound Patient's current mental status could be due secondary to progressive dementia; had discussion with patient's daughters that there is a chance this may not improve with medical treatment, and they conveyed understanding. FEN - Cardiac diet PPX - Heparin DNR Dispo - inpatient for above Justifications for Admission Other Justification ABHIJEET TEJADA MD Jun 02, 2020 14:00
[2020-06-02] MEDS ORDERED: ONDANSETRON PF 4 MG/2 ML VIAL. IV PRN (14:30)
[2020-06-02] MEDS: POTASSIUM CHLORIDE 20 MEQ TABLET.ER. PO SCH (17:00)
[2020-06-02] MEDS: CARVEDILOL 3.125 MG TABLET. PO SCH (17:00)
[2020-06-02 17:30] VITALS: BP 148/58
[2020-06-02 19:00] VITALS: BP 140/44
--- NOTE | 2020-06-02 20:10 | RAD ---
Examination: Ultrasound abdomen limited HISTORY: History of transaminitis COMPARISON: None available FINDINGS: Mild increased echogenicity identified in the liver likely hepatic steatosis. The right lobe of the l iver measures 13.9 cm. The common bile duct measures 6 mm in transverse dimension. The gallbladder is not visualized. The right kidney measures 8.7 x 4.2 x 3.5 cm. The pancreas is not well-visualized du e to bowel gas. Examination limited as patient was confused and moving around IMPRESSION: 1. The gallbladder is not identified. The common bile duct measures 6 mm in transverse dimension. 2. Mild hepatic steatosis. Very limited examination due to bowel gas. Electronically signed by: Osiel Ridley MD (06/02/2020 7:59 PM) [id number]
[2020-06-02] MEDS: ASCORBIC ACID 500 MG TABLET PO SCH (21:52)
[2020-06-02] MEDS: LACTOBACILLUS RHAMNOSUS GG 1 CAPSULE. PO SCH (21:53)
[2020-06-02] MEDS: ATORVASTATIN CALCIUM 40 MG TABLET. PO SCH (21:53)
[2020-06-02] MEDS: HEPARIN for SUB-Q USE 5,000 UNIT/ML VIAL. SQ SCH (22:02)
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
[2020-06-02 23:00] VITALS: BP 134/57
[2020-06-03 03:00] VITALS: BP 140/59
[2020-06-03 07:00] VITALS: BP 133/57
[2020-06-03] MEDS: POTASSIUM CHLORIDE 20 MEQ TABLET.ER. PO SCH ×2 (08:00→16:48)
--- NOTE | 2020-06-03 08:19 | PDOC ---
PROGRESS NOTES Date of Service: DATE: 06/03/20 TIME: 08:19 Chief Complaint Chief Complaint VTE Prophylaxis Ordered VTE Prophylaxis Devices: No VTE Pharmacological Prophylaxi: Yes Assessment/Plan Assessment/Plan Hypotension Metabolic encephalopathy Dehydration ACE Vasomotor nephropathy UTI Jaundice Elevated bilirubin Chronic sacral ulcer Severe malnutrition Plan: Will admit patient and and provide IV fluids. Rocephin 1 g daily x3 for UTI Continue to trend troponins, likely elevated in setting of CKD. If troponins to not remain stable, will consult cardiology for further work-up Patient would not process //order wound care to continue treatment of sacral ulcer Resume home medications consult GI for recommendations on evaluation of jaundice and elevated bilirubin Will obtain right upper quadrant ultrasound Patient's current mental status could be due secondary to progressive dementia; had discussion with patient's daughters that there is a chance this may not improve with medical treatment, and they conveyed understanding. FEN - Cardiac diet PPX - Heparin DNR Dispo - inpatient for above nephrology consult 38 min pt exam, chart review, > 50% of time spent with exam, chart review, pt care coordination Justifications for Admission Justifications for Admission Other Justification History of Present Illness History of Present Illness Identification/Chief Complaint Chief Complaint Hypotension, lethargy Source Source: Chart review, Patient History of Present Illness History of Present Illness Patient 75-year-old female past medical history of CHF, CAD, presents from [facility] for evaluation of hypotension and lethargy that started today. Patient was recently admitted to our service on 05/02/20 for acute metabolic encephalopathy. Creatinine at the time was 1.2. Today creatinine 2.3. She currently has no complaints. Troponin was elevated at 0.163, but she denies chest pain, nausea, or shortness of breath. I discussion with both patient's daughters her joint DPOA. They note progressively worsening dementia over the past months. They also note worsening yellowing of her skin over the past weeks. State that they would like patient's CODE STATUS changed to DNR. We will get patient for further medical management. Past Medical History Cardiovascular: CAD, HTN, Hyperlipidemia, Other Pulmonary: COPD, Pneumonia CENTRAL NERVOUS SYSTEM: Other GI: No pertinent hx Heme/Onc: No pertinent hx Hepatobiliary: No pertinent hx Psych: No pertinent hx Musculoskeletal: low back pain, Osteoarthritis Infectious disease: No pertinent hx Renal/: No pertinent hx Endocrine: No pertinent hx Past Surgical History Past Surgical History: Cataract Removal Family History Family History: High Cholestrol, Hypertension Social History ALCOHOL: none Drugs: None Current Problem List Problem List Problems Medical Problems: (1) Hypotension Status: Acute Vitals Vitals Vital Signs Date Time Temp Pulse Resp B/P (MAP) Pulse Ox O2 Delivery O2 Flow Rate FiO2 06/03/20 07:00 97.3 101 18 133/57 (82) 96 Room Air 97.3 Physical Exam Physical Exam General: Alert, oriented x2 (person and president), uncooperative, mild distress HEENT: PERRLA, EOMI Lungs: Clear to auscultation, Normal air movement Heart: RRR, no murmurs Cardiovascular: S1, S2 Abdomen: Normal bowel sounds, Soft, No tenderness Extremities: No clubbing, No cyanosis Skin: Skin appears yellow. Sacral bandage clean, dry, and intact Neuro: Normal speech, Normal tone, Sensation intact Psych/Mental Status: Confused, agitated Lungs: Clear, Other Labs LABS Examination: Ultrasound abdomen limited HISTORY: History of transaminitis COMPARISON: None available FINDINGS: Mild increased echogenicity identified in the liver likely hepatic steatosis. The right lobe of the liver measures 13.9 cm. The common bile duct measures 6 mm in transverse dimension. The gallbladder is not visualized. The right kidney measures 8.7 x 4.2 x 3.5 cm. The pancreas is not well-visualized due to bowel gas. Examination limited as patient was confused and moving around IMPRESSION: 1. The gallbladder is not identified. The common bile duct measures 6 mm in transverse dimension. 2. Mild hepatic steatosis. Very limited examination due to bowel gas. Electronically signed by: Osiel Ridley MD (06/02/2020 7:59 PM) [id number] DPOA REVIEW 18 MIN to patient portal What Is a Power of Experimental Flight Test Mechanic? A power of corporate associate attorney (POA) is a legal document giving one person (the agent or [id number]) the power to act for another person (the principal). The agent can have broad legal authority or limited authority to make legal decisions about the principal's property, finances or medical care. The power of corporate associate attorney is frequently used in the event of a principal's illness or disability, or when the principal can't be present to sign necessary legal documents for financial transactions. A power of corporate associate attorney can end for a number of reasons, such as when the principal dies, the principal revokes it, a court invalidates it, the principal divorces their spouse, who happens to be the agent, or the agent can no longer carry out the outlined responsibilities. Conventional POAs lapse when the creator becomes incapacitated, but a durable POA remains in force to enable the agent to manage the creators affairs, and a springing POA comes into effect only if and when the creator of the POA becomes incapacitated. A medical or healthcare POA enables an agent to make medical decisions on behalf of an incapacitated person. [employer] A power of corporate associate attorney (POA) is a legal document giving one person, the agent or [id number] the power to act for another person, the principal. The agent can have broad legal authority or limited authority to make decisions about the principal's property, finances or medical care. The power of corporate associate attorney is often used when a principal becomes ill or disabled, or when they can't be present to sign necessary legal documents for financial transactions. Understanding Power of Experimental Flight Test Mechanic A power of corporate associate attorney should be considered when planning for long-term care. There are different types of POAs that fall under either a general power of corporate associate attorney or limited power of corporate associate attorney. A general power of corporate associate attorney acts on behalf of the principal in any and all matters, as allowed by the state. The agent under a general POA agreement may be authorized to take care of issues such as handling bank accounts, signing checks, selling property and assets like stocks, f A limited power of corporate associate attorney gives the agent the power to act on behalf of the principal in specific matters or events. For example, the limited POA may explicitly state that the agent is only allowed to manage the principal's care home accounts. A limited POA may also be limited to a specific period of time (e.g., if the principal will be out of the country for, say, two years). Most lane of corporate associate attorney documents allow an agent to represent the principal in all property and financial matters as long as the principals mental state of mind is good. If a situation occurs where the principal becomes incapable of making decisions for him or herself, the POA agreement would automatically end. However, someone who wants the POA to remain in effect after the persons health deteriorates would need to sign a durable power of corporate associate attorney (DPOA). What is an advance directive? An advance directive is a legal document that says how you want to be cared for if you are unable to make decisions. You can include what medical treatments you would want and who you would trust to make decisions for you. An advance directive can also include other legal documents. A living will is a list of treatment preferences. It can be used to indicate whether you would want cardiopulmonary resuscitation (CPR), tube feedings, a breathing machine, or certain medicines, like antibiotics. The durable power of corporate associate attorney for health care document identifies the person you would want to make medical decisions for you. This person is also called a proxy. Your proxy should be familiar with your values and wishes. How do I get started? You can get advance directive documents for your state from your doctor's office or from [email or web address]. Review the forms, and ask your doctor if you have any questions. Pick a person to be your proxy, and talk it over with that person. Laboratory Tests Test 06/02/20 11:57 06/02/20 12:30 White Blood Count 6.6 x10^3/uL (4.0-11.0) Red Blood Count 3.29 x10^6/uL (3.50-5.40) Hemoglobin 11.1 g/dL (12.0-15.5) Hematocrit 33.4 % (36.0-47.0) Mean Corpuscular Volume 101 fL (79-100) Mean Corpuscular Hemoglobin 34 pg (25-35) Mean Corpuscular Hemoglobin Concent 33 g/dL (31-37) Red Cell Distribution Width 17.4 % (11.5-14.5) Platelet Count 145 x10^3/uL (140-400) Neutrophils (%) (Auto) 51 % (31-73) Lymphocytes (%) (Auto) 27 % (24-48) Monocytes (%) (Auto) 10 % (0-9) Eosinophils (%) (Auto) 11 % (0-3) Basophils (%) (Auto) 1 % (0-3) Neutrophils # (Auto) 3.4 x10^3/uL (1.8-7.7) Lymphocytes # (Auto) 1.8 x10^3/uL (1.0-4.8) Monocytes # (Auto) 0.6 x10^3/uL (0.0-1.1) Eosinophils # (Auto) 0.7 x10^3/uL (0.0-0.7) Basophils # (Auto) 0.1 x10^3/uL (0.0-0.2) Prothrombin Time 15.1 SEC (11.7-14.0) Prothromb Time International Ratio 1.2 (0.8-1.1) Activated Partial Thromboplast Time 40 SEC (24-38) Sodium Level 144 mmol/L (136-145) Potassium Level 5.1 mmol/L (3.5-5.1) Chloride Level 110 mmol/L (98-107) Carbon Dioxide Level 26 mmol/L (21-32) Anion Gap 8 (6-14) Blood Urea Nitrogen 82 mg/dL (7-20) Creatinine 2.3 mg/dL (0.6-1.0) Estimated GFR (Cockcroft-Gault) 20.6 BUN/Creatinine Ratio 36 (6-20) Glucose Level 115 mg/dL (70-99) Lactic Acid Level 1.7 mmol/L (0.4-2.0) Calcium Level 9.3 mg/dL (8.5-10.1) Magnesium Level 2.5 mg/dL (1.8-2.4) Total Bilirubin 2.3 mg/dL (0.2-1.0) Aspartate Amino Transf (AST/SGOT) 85 U/L (15-37) Alanine Aminotransferase (ALT/SGPT) 53 U/L (14-59) Alkaline Phosphatase 83 U/L (46-116) Creatine Kinase 325 U/L (26-192) Creatine Kinase MB (Mass) 5.8 ng/mL (0.0-3.6) Creatine Kinase MB Relative Index 1.8 % (0-4) Troponin I Quantitative 0.163 ng/mL (0.000-0.055) Total Protein 6.6 g/dL (6.4-8.2) Albumin 2.3 g/dL (3.4-5.0) Albumin/Globulin Ratio 0.5 (1.0-1.7) Urine Collection Type U cath Urine Color Yellow Urine Clarity Cloudy Urine pH 6.5 (<5.0-8.0) Urine Specific [place] 1.015 (1.000-1.030) Urine Protein 30 mg/dL (NEG-TRACE) Urine Glucose (UA) Negative mg/dL (NEG) Urine Ketones (Stick) Negative mg/dL (NEG) Urine Blood Negative (NEG) Urine Nitrite Positive (NEG) Urine Bilirubin Negative (NEG) Urine Urobilinogen Dipstick 1.0 mg/dL (0.2 mg/dL) Urine Leukocyte Esterase Large (NEG) Urine RBC 3-5 /HPF (0-2) Urine WBC >40 /HPF (0-4) Urine Squamous Epithelial Cells Mod /LPF Urine Renal Epithelial Cells Occ /LPF Urine Bacteria Many /HPF (0-FEW) Urine Hyaline Casts Occasional /HPF Assessment and Plan Assessmemt and Plan Problems Medical Problems: (1) Acute on chronic kidney failure Status: Acute (2) Confused Status: Acute (3) Elevated troponin Status: Acute (4) Hypotension Status: Acute (5) Urinary tract infection Status: Acute Comment Review of Relevant I have reviewed the following items yuliana (where applicable) has been applied. Labs Laboratory Tests Test 06/02/20 11:57 06/02/20 12:30 White Blood Count 6.6 x10^3/uL (4.0-11.0) Red Blood Count 3.29 x10^6/uL (3.50-5.40) Hemoglobin 11.1 g/dL (12.0-15.5) Hematocrit 33.4 % (36.0-47.0) Mean Corpuscular Volume 101 fL (79-100) Mean Corpuscular Hemoglobin 34 pg (25-35) Mean Corpuscular Hemoglobin Concent 33 g/dL (31-37) Red Cell Distribution Width 17.4 % (11.5-14.5) Platelet Count 145 x10^3/uL (140-400) Neutrophils (%) (Auto) 51 % (31-73) Lymphocytes (%) (Auto) 27 % (24-48) Monocytes (%) (Auto) 10 % (0-9) Eosinophils (%) (Auto) 11 % (0-3) Basophils (%) (Auto) 1 % (0-3) Neutrophils # (Auto) 3.4 x10^3/uL (1.8-7.7) Lymphocytes # (Auto) 1.8 x10^3/uL (1.0-4.8) Monocytes # (Auto) 0.6 x10^3/uL (0.0-1.1) Eosinophils # (Auto) 0.7 x10^3/uL (0.0-0.7) Basophils # (Auto) 0.1 x10^3/uL (0.0-0.2) Prothrombin Time 15.1 SEC (11.7-14.0) Prothromb Time International Ratio 1.2 (0.8-1.1) Activated Partial Thromboplast Time 40 SEC (24-38) Sodium Level 144 mmol/L (136-145) Potassium Level 5.1 mmol/L (3.5-5.1) Chloride Level 110 mmol/L (98-107) Carbon Dioxide Level 26 mmol/L (21-32) Anion Gap 8 (6-14) Blood Urea Nitrogen 82 mg/dL (7-20) Creatinine 2.3 mg/dL (0.6-1.0) Estimated GFR (Cockcroft-Gault) 20.6 BUN/Creatinine Ratio 36 (6-20) Glucose Level 115 mg/dL (70-99) Lactic Acid Level 1.7 mmol/L (0.4-2.0) Calcium Level 9.3 mg/dL (8.5-10.1) Magnesium Level 2.5 mg/dL (1.8-2.4) Total Bilirubin 2.3 mg/dL (0.2-1.0) Aspartate Amino Transf (AST/SGOT) 85 U/L (15-37) Alanine Aminotransferase (ALT/SGPT) 53 U/L (14-59) Alkaline Phosphatase 83 U/L (46-116) Creatine Kinase 325 U/L (26-192) Creatine Kinase MB (Mass) 5.8 ng/mL (0.0-3.6) Creatine Kinase MB Relative Index 1.8 % (0-4) Troponin I Quantitative 0.163 ng/mL (0.000-0.055) Total Protein 6.6 g/dL (6.4-8.2) Albumin 2.3 g/dL (3.4-5.0) Albumin/Globulin Ratio 0.5 (1.0-1.7) Urine Collection Type U cath Urine Color Yellow Urine Clarity Cloudy Urine pH 6.5 (<5.0-8.0) Urine Specific [place] 1.015 (1.000-1.030) Urine Protein 30 mg/dL (NEG-TRACE) Urine Glucose (UA) Negative mg/dL (NEG) Urine Ketones (Stick) Negative mg/dL (NEG) Urine Blood Negative (NEG) Urine Nitrite Positive (NEG) Urine Bilirubin Negative (NEG) Urine Urobilinogen Dipstick 1.0 mg/dL (0.2 mg/dL) Urine Leukocyte Esterase Large (NEG) Urine RBC 3-5 /HPF (0-2) Urine WBC >40 /HPF (0-4) Urine Squamous Epithelial Cells Mod /LPF Urine Renal Epithelial Cells Occ /LPF Urine Bacteria Many /HPF (0-FEW) Urine Hyaline Casts Occasional /HPF Laboratory Tests Test 06/02/20 11:57 06/02/20 12:30 White Blood Count 6.6 x10^3/uL (4.0-11.0) Red Blood Count 3.29 x10^6/uL (3.50-5.40) Hemoglobin 11.1 g/dL (12.0-15.5) Hematocrit 33.4 % (36.0-47.0) Mean Corpuscular Volume 101 fL (79-100) Mean Corpuscular Hemoglobin 34 pg (25-35) Mean Corpuscular Hemoglobin Concent 33 g/dL (31-37) Red Cell Distribution Width 17.4 % (11.5-14.5) Platelet Count 145 x10^3/uL (140-400) Neutrophils (%) (Auto) 51 % (31-73) Lymphocytes (%) (Auto) 27 % (24-48) Monocytes (%) (Auto) 10 % (0-9) Eosinophils (%) (Auto) 11 % (0-3) Basophils (%) (Auto) 1 % (0-3) Neutrophils # (Auto) 3.4 x10^3/uL (1.8-7.7) Lymphocytes # (Auto) 1.8 x10^3/uL (1.0-4.8) Monocytes # (Auto) 0.6 x10^3/uL (0.0-1.1) Eosinophils # (Auto) 0.7 x10^3/uL (0.0-0.7) Basophils # (Auto) 0.1 x10^3/uL (0.0-0.2) Prothrombin Time 15.1 SEC (11.7-14.0) Prothromb Time International Ratio 1.2 (0.8-1.1) Activated Partial Thromboplast Time 40 SEC (24-38) Sodium Level 144 mmol/L (136-145) Potassium Level 5.1 mmol/L (3.5-5.1) Chloride Level 110 mmol/L (98-107) Carbon Dioxide Level 26 mmol/L (21-32) Anion Gap 8 (6-14) Blood Urea Nitrogen 82 mg/dL (7-20) Creatinine 2.3 mg/dL (0.6-1.0) Estimated GFR (Cockcroft-Gault) 20.6 BUN/Creatinine Ratio 36 (6-20) Glucose Level 115 mg/dL (70-99) Lactic Acid Level 1.7 mmol/L (0.4-2.0) Calcium Level 9.3 mg/dL (8.5-10.1) Magnesium Level 2.5 mg/dL (1.8-2.4) Total Bilirubin 2.3 mg/dL (0.2-1.0) Aspartate Amino Transf (AST/SGOT) 85 U/L (15-37) Alanine Aminotransferase (ALT/SGPT) 53 U/L (14-59) Alkaline Phosphatase 83 U/L (46-116) Creatine Kinase 325 U/L (26-192) Creatine Kinase MB (Mass) 5.8 ng/mL (0.0-3.6) Creatine Kinase MB Relative Index 1.8 % (0-4) Troponin I Quantitative 0.163 ng/mL (0.000-0.055) Total Protein 6.6 g/dL (6.4-8.2) Albumin 2.3 g/dL (3.4-5.0) Albumin/Globulin Ratio 0.5 (1.0-1.7) Urine Collection Type U cath Urine Color Yellow Urine Clarity Cloudy Urine pH 6.5 (<5.0-8.0) Urine Specific [place] 1.015 (1.000-1.030) Urine Protein 30 mg/dL (NEG-TRACE) Urine Glucose (UA) Negative mg/dL (NEG) Urine Ketones (Stick) Negative mg/dL (NEG) Urine Blood Negative (NEG) Urine Nitrite Positive (NEG) Urine Bilirubin Negative (NEG) Urine Urobilinogen Dipstick 1.0 mg/dL (0.2 mg/dL) Urine Leukocyte Esterase Large (NEG) Urine RBC 3-5 /HPF (0-2) Urine WBC >40 /HPF (0-4) Urine Squamous Epithelial Cells Mod /LPF Urine Renal Epithelial Cells Occ /LPF Urine Bacteria Many /HPF (0-FEW) Urine Hyaline Casts Occasional /HPF Medications Current Medications Sodium Chloride 1,000 ml @ 1,000 mls/hr 1X ONCE IV Last administered on 06/02/20at 12:19; Start 06/02/20 at 12:00; Stop 06/02/20 at 12:59; Status DC Ceftriaxone Sodium (Rocephin) 1 gm 1X ONCE IVP Last administered on 06/02/20at 13:57; Start 06/02/20 at 13:45; Stop 06/02/20 at 13:46; Status DC Ondansetron HCl (Zofran) 4 mg PRN Q6HRS PRN IVP NAUSEA/VOMITING; Start 06/02/20 at 14:00 Al Hydroxide/Mg Hydroxide (Mylanta Plus Xs) 30 ml PRN Q3HRS PRN PO HEARTBURN / GAS; Start 06/02/20 at 14:00 Calcium Carbonate/ Glycine (Tums) 500 mg PRN Q3HRS PRN PO UPSET STOMACH; Start 06/02/20 at 14:00 Zolpidem Tartrate (Ambien) 5 mg PRN QHS PRN PO INSOMNIA, MAY REPEAT IN 1HR; Start 06/02/20 at 14:00 Acetaminophen (Tylenol) 650 mg PRN Q6HRS PRN PO Headaches, Temp > 101.5F; Start 06/02/20 at 14:00 Magnesium Hydroxide (Milk Of Magnesia) 2,400 mg PRN Q12HR PRN PO CONSTIPATION; Start 06/02/20 at 14:00 Bisacodyl (Dulcolax Supp) 10 mg PRN DAILY PRN MT CONSTIPATION; Start 06/02/20 at 14:00 Heparin Sodium (Porcine) (Heparin Sodium) 5,000 unit Q12HR SQ Last administered on 06/02/20at 22:02; Start 06/02/20 at 21:00 Ceftriaxone Sodium (Rocephin) 1 gm Q24H IVP ; Start 06/03/20 at 14:00; Stop 06/05/20 at 14:01 Nicotine (Nicoderm Cq 21mg) 1 patch PRN DAILY PRN TD SMOKING CESSATION; Start 06/02/20 at 14:00 Nicotine (Nicoderm Cq 14mg) 1 patch PRN DAILY PRN TD SMOKING CESSATION; Start 06/02/20 at 14:00 Ondansetron HCl (Zofran) 4 mg PRN Q8HRS PRN IV NAUSEA/VOMITING; Start 06/02/20 at 14:30; Stop 06/03/20 at 14:29 Ascorbic Acid (Vitamin C) 500 mg BID PO Last administered on 06/02/20at 21:52; Start 06/02/20 at 21:00 Aspirin (Ecotrin) 81 mg DAILYWBKFT PO ; Start 06/03/20 at 08:00 Atorvastatin Calcium (Lipitor) 40 mg QHS PO Last administered on 06/02/20at 21:53; Start 06/02/20 at 21:00 Carvedilol (Coreg) 3.125 mg BIDWMEALS PO ; Start 06/02/20 at 17:00 Clopidogrel Bisulfate (Plavix) 75 mg DAILY07 PO ; Start 06/03/20 at 07:00 Furosemide (Lasix) 40 mg DAILY PO ; Start 06/03/20 at 09:00 Lactobacillus Rhamnosus (Culturelle) 1 cap BID PO Last administered on 06/02/20at 21:53; Start 06/02/20 at 21:00 Lisinopril (Prinivil) 20 mg DAILY PO ; Start 06/03/20 at 09:00 Multivitamins (Thera M Plus) 1 tab DAILY PO ; Start 06/03/20 at 09:00 Potassium Chloride (Klor-Con) 20 meq BIDWMEALS PO ; Start 06/02/20 at 17:00 Thiamine Mononitrate (Vitamin B-1) 100 mg DAILY PO ; Start 06/03/20 at 09:00 Active Scripts Active Thera-M Tablet (Multivits,Ca,Minerals/Iron/Fa) 1 Each Tablet 1 Tab PO DAILY 30 Days Vitamin C (Ascorbic Acid) 500 Mg Tablet 500 Mg PO BID 30 Days Vitamin B-1 (Thiamine Mononitrate) 100 Mg Tablet 100 Mg PO DAILY 30 Days Folbic Tablet (Cyanocobalamin/Fa/Pyridoxine) 1 Each Tablet 1 Tab PO DAILY 30 Days Culturelle (Lactobacillus Rhamnosus Gg) 1 Each Cap.sprink 1 Cap PO BID 30 Days Amox Tr-K Clv 500-125 Mg Tab (Amoxicillin/Potassium Clav) 1 Each Tablet 1 Tab PO BID 7 Days Furosemide 40 Mg Tablet 40 Mg PO DAILY 30 Days Aspirin Ec (Aspirin) 81 Mg Tablet.dr 81 Mg PO DAILYWBKFT 30 Days Proair Hfa Inhaler (Albuterol Sulfate) 8.5 Gm Hfa.aer.ad 1 Puff INH PRN Q6HRS PRN Reported Lisinopril 20 Mg Tablet 1 Tab PO DAILY Lipitor (Atorvastatin Calcium) 40 Mg Tablet 1 Tab PO QHS Clopidogrel (Clopidogrel Bisulfate) 75 Mg Tablet 75 Mg PO DAILY Carvedilol (Carvedilol) 3.125 Mg Tablet 3.125 Mg PO BIDWMEALS Klor-Con M20 (Potassium Chloride) 20 Meq Tab.er.prt 20 Meq PO BID Vitals/I & O Vital Sign - Last 24 Hours 06/02/20 06/02/20 06/02/20 06/02/20 11:47 11:57 12:27 12:57 Temp 97.5 97.5 Pulse 67 66 66 65 Resp 18 B/P (MAP) 93/51 (65) 100/58 (72) 115/50 (71) 155/68 (97) Pulse Ox 98 96 92 O2 Delivery Room Air Room Air Room Air Room Air 06/02/20 06/02/20 06/02/20 06/02/20 13:27 13:57 14:27 14:57 Pulse 69 69 72 77 Resp 17 19 19 B/P (MAP) 184/80 (114) 142/64 (90) 132/60 (84) 125/58 (80) Pulse Ox 95 100 O2 Delivery Room Air Room Air Room Air Room Air 06/02/20 06/02/20 06/02/20 06/02/20 15:57 16:27 16:57 17:30 Temp 97.8 97.8 Pulse 76 69 70 52 Resp 26 20 B/P (MAP) 104/56 (72) 145/62 (89) 128/60 (82) 148/58 (88) Pulse Ox 98 99 92 O2 Delivery Room Air Room Air Room Air Room Air 06/02/20 06/02/20 06/02/20 06/02/20 18:01 19:00 20:30 23:00 Temp 97.0 97.3 97.0 97.3 Pulse 71 72 Resp 18 18 B/P (MAP) 140/44 (76) 134/57 (82) Pulse Ox 100 93 O2 Delivery Room Air Room Air Room Air Room Air 06/03/20 06/03/20 03:00 07:00 Temp 96.5 97.3 96.5 97.3 Pulse 75 101 Resp 18 18 B/P (MAP) 140/59 (86) 133/57 (82) Pulse Ox 100 96 O2 Delivery Room Air Room Air Intake and Output 06/02/20 06/02/20 06/03/20 15:00 23:00 07:00 Intake Total 360 ml Balance 360 ml Justicifation of Admission Dx: Justifications for Admission: Justification of Admission Dx: Yes SANJANA JAIMES MD Jun 03, 2020 08:19
[2020-06-03] MEDS: THIAMINE 100 MG TABLET. PO SCH (08:36)
[2020-06-03] MEDS: ASPIRIN ENTERIC COATED 81 MG TABLET.DR. PO SCH (08:36)
[2020-06-03] MEDS: MULTIVITAMIN with MINERAL TABLET. PO SCH (08:37)
[2020-06-03] MEDS: CARVEDILOL 3.125 MG TABLET. PO SCH ×2 (08:37→16:47)
[2020-06-03] MEDS: ASCORBIC ACID 500 MG TABLET PO SCH ×2 (08:37→20:16)
[2020-06-03] MEDS: CLOPIDOGREL BISULFATE 75 MG TABLET PO SCH (08:37)
[2020-06-03] MEDS: LACTOBACILLUS RHAMNOSUS GG 1 CAPSULE. PO SCH ×2 (08:37→20:16)
[2020-06-03] MEDS: HEPARIN for SUB-Q USE 5,000 UNIT/ML VIAL. SQ SCH ×2 (08:38→20:19)
[2020-06-03] MEDS ORDERED: FUROSEMIDE 40 MG TABLET. PO SCH (09:00)
[2020-06-03] MEDS ORDERED: LISINOPRIL 20 MG TABLET PO SCH (09:00)
--- NOTE | 2020-06-03 09:47 | PDOC2 ---
GI CONSULT Date of Service: DATE: 06/03/20 TIME: 09:47 Reason For Consult: jaundice, elevated total bili HPI: HPI: 75 y/o female to ER from living facility for hypotension and lethargy. She says she doesn't really know why she's here and all she knows is that she feels tired. Says maybe the shericean visited her overnight. Reviewed other notes - family concerned that her skin looked yellow. Recently admitted w/ UTI/sepsis, encephalopathy. Bili 2.3, AST 85, normal ALT and Alk Phos. No GB visualized on US, CBD 6mm, and hepatic steatosis noted. (CT in 2015 noted cholelithiasis.) Denies reflux/heartburn, dysphagia, n/v, abd pain, diarrhea, constipation, hematochezia, melena, and weight loss. Doesn't remember if ever had 'scopes. Denies liver history. Doesn't recall gallbladder surgery. Summary list shows Plavix and ASA. PMH: PMH: per chart: CHF, CAD, cardiomyopathy, HTN, HLD, COPD, pneumonia, OA, dementia, anxiety cataract removal, cholecystectomy FH: Family History: No pertinent hx Social History: Smoke: Quit ROS: Difficult to obtain - fatigue - per HPI. Vitals: Vitals: Vital Signs Date Time Temp Pulse Resp B/P (MAP) Pulse Ox O2 Delivery O2 Flow Rate FiO2 06/03/20 08:37 101 133/57 06/03/20 08:00 Room Air 06/03/20 07:00 97.3 18 96 97.3 Labs: Labs: Laboratory Tests Test 06/02/20 11:57 06/02/20 12:30 White Blood Count 6.6 x10^3/uL (4.0-11.0) Red Blood Count 3.29 x10^6/uL (3.50-5.40) Hemoglobin 11.1 g/dL (12.0-15.5) Hematocrit 33.4 % (36.0-47.0) Mean Corpuscular Volume 101 fL (79-100) Mean Corpuscular Hemoglobin 34 pg (25-35) Mean Corpuscular Hemoglobin Concent 33 g/dL (31-37) Red Cell Distribution Width 17.4 % (11.5-14.5) Platelet Count 145 x10^3/uL (140-400) Neutrophils (%) (Auto) 51 % (31-73) Lymphocytes (%) (Auto) 27 % (24-48) Monocytes (%) (Auto) 10 % (0-9) Eosinophils (%) (Auto) 11 % (0-3) Basophils (%) (Auto) 1 % (0-3) Neutrophils # (Auto) 3.4 x10^3/uL (1.8-7.7) Lymphocytes # (Auto) 1.8 x10^3/uL (1.0-4.8) Monocytes # (Auto) 0.6 x10^3/uL (0.0-1.1) Eosinophils # (Auto) 0.7 x10^3/uL (0.0-0.7) Basophils # (Auto) 0.1 x10^3/uL (0.0-0.2) Prothrombin Time 15.1 SEC (11.7-14.0) Prothromb Time International Ratio 1.2 (0.8-1.1) Activated Partial Thromboplast Time 40 SEC (24-38) Sodium Level 144 mmol/L (136-145) Potassium Level 5.1 mmol/L (3.5-5.1) Chloride Level 110 mmol/L (98-107) Carbon Dioxide Level 26 mmol/L (21-32) Anion Gap 8 (6-14) Blood Urea Nitrogen 82 mg/dL (7-20) Creatinine 2.3 mg/dL (0.6-1.0) Estimated GFR (Cockcroft-Gault) 20.6 BUN/Creatinine Ratio 36 (6-20) Glucose Level 115 mg/dL (70-99) Lactic Acid Level 1.7 mmol/L (0.4-2.0) Calcium Level 9.3 mg/dL (8.5-10.1) Magnesium Level 2.5 mg/dL (1.8-2.4) Total Bilirubin 2.3 mg/dL (0.2-1.0) Aspartate Amino Transf (AST/SGOT) 85 U/L (15-37) Alanine Aminotransferase (ALT/SGPT) 53 U/L (14-59) Alkaline Phosphatase 83 U/L (46-116) Creatine Kinase 325 U/L (26-192) Creatine Kinase MB (Mass) 5.8 ng/mL (0.0-3.6) Creatine Kinase MB Relative Index 1.8 % (0-4) Troponin I Quantitative 0.163 ng/mL (0.000-0.055) Total Protein 6.6 g/dL (6.4-8.2) Albumin 2.3 g/dL (3.4-5.0) Albumin/Globulin Ratio 0.5 (1.0-1.7) Urine Collection Type U cath Urine Color Yellow Urine Clarity Cloudy Urine pH 6.5 (<5.0-8.0) Urine Specific [place] 1.015 (1.000-1.030) Urine Protein 30 mg/dL (NEG-TRACE) Urine Glucose (UA) Negative mg/dL (NEG) Urine Ketones (Stick) Negative mg/dL (NEG) Urine Blood Negative (NEG) Urine Nitrite Positive (NEG) Urine Bilirubin Negative (NEG) Urine Urobilinogen Dipstick 1.0 mg/dL (0.2 mg/dL) Urine Leukocyte Esterase Large (NEG) Urine RBC 3-5 /HPF (0-2) Urine WBC >40 /HPF (0-4) Urine Squamous Epithelial Cells Mod /LPF Urine Renal Epithelial Cells Occ /LPF Urine Bacteria Many /HPF (0-FEW) Urine Hyaline Casts Occasional /HPF Allergies: Coded Allergies: No Known Drug Allergies (Unverified , 04/18/15) Medications: Current Medications Medications (Trade) Dose Ordered Sig/[place] Route PRN Reason Start Time Stop Time Status Last Admin Dose Admin Sodium Chloride 1,000 ml @ 1,000 mls/hr 1X ONCE IV 06/02/20 12:00 06/02/20 12:59 DC 06/02/20 12:19 Ceftriaxone Sodium (Rocephin) 1 gm 1X ONCE IVP 06/02/20 13:45 06/02/20 13:46 DC 06/02/20 13:57 Heparin Sodium (Porcine) (Heparin Sodium) 5,000 unit Q12HR SQ 06/02/20 21:00 06/03/20 08:38 Ascorbic Acid (Vitamin C) 500 mg BID PO 06/02/20 21:00 06/03/20 08:37 Aspirin (Ecotrin) 81 mg DAILYWBKFT PO 06/03/20 08:00 06/03/20 08:36 Atorvastatin Calcium (Lipitor) 40 mg QHS PO 06/02/20 21:00 06/02/20 21:53 Carvedilol (Coreg) 3.125 mg BIDWMEALS PO 06/02/20 17:00 06/03/20 08:37 Clopidogrel Bisulfate (Plavix) 75 mg DAILY07 PO 06/03/20 07:00 06/03/20 08:37 Furosemide (Lasix) 40 mg DAILY PO 06/03/20 09:00 06/03/20 08:37 Lactobacillus Rhamnosus (Culturelle) 1 cap BID PO 06/02/20 21:00 06/03/20 08:37 Lisinopril (Prinivil) 20 mg DAILY PO 06/03/20 09:00 06/03/20 08:37 Multivitamins (Thera M Plus) 1 tab DAILY PO 06/03/20 09:00 06/03/20 08:37 Thiamine Mononitrate (Vitamin B-1) 100 mg DAILY PO 06/03/20 09:00 06/03/20 08:36 Imaging: Imaging: CXR 06/02 IMPRESSION: 1. No acute chest disease. RUQ US 06/02 IMPRESSION: 1. The gallbladder is not identified. The common bile duct measures 6 mm in transverse dimension. 2. Mild hepatic steatosis. Very limited examination due to bowel gas. PE: GEN: NAD - having blood drawn HEENT: Atraumatic, PERRL LUNGS: CTAB HEART: RRR ABD: NABS, S/ND/NT EXTREMITY: No edema SKIN: No rash NEURO/PSYCH: confused A/P: A/P: Hypotension, lethargy, dementia Macrocytic anemia (B12 normal 04/2020), ACE/CKD, UTI, elevated bili and AST, mildly elevated CK and troponin CRC screen - unclear Hepatic steatosis, s/p cholecystectomy (no GB visualized on US) CAD on Plavix and ASA -- Elevated bili and AST noted in the past - never Alk Phos. Monitor. Had mildly elevated ammonia (66) last month - will check. Okay for PO per GI. HUNTER WEBER Jun 03, 2020 09:47
[2020-06-03 11:00] VITALS: BP 81/35
--- NOTE | 2020-06-03 12:05 | PDOC2 ---
CONSULT Date of Consult Date of Consult DATE: 06/03/20 TIME: 11:58 Reason for Consult Reason for Consult: ACE Referring Physician Referring Physician: MALLORY Identification/Chief Complaint Chief Complaint CONFUSION Source Source: Caregiver, Chart review History of Present Illness Reason for Visit: THIS IS A 75 YR ADMITTED WITH CONFUSION AND WEAKNESS. ADMITTED WITH HYPOTENSION. HAS UNDERLYING DEMENTIA. CR OF 2.3 ON ADMIT. HAS CKD BASED ON LABS FROM ADMIT HERE IN THE PAST. BASELINE CR OF ABOUT 1.5 C/W STAGE 3B. DAUGHTERS ARE DPOA AND PT IS A DNR. NO NEPHROTOXINS NOTED. PER DAUGHTER PT HAS NOT BEEN EATING WELL. ALSO NOTED TO HAVE AN UTI. NO OTHER KNOWN HX REPORTED Past Medical History Cardiovascular: CAD, HTN, Hyperlipidemia, Other Pulmonary: COPD, Pneumonia CENTRAL NERVOUS SYSTEM: Dementia, Other GI: No pertinent hx Heme/Onc: No pertinent hx Hepatobiliary: No pertinent hx Psych: No pertinent hx Musculoskeletal: low back pain, Osteoarthritis Infectious disease: No pertinent hx Renal/: Chronic renal insuff Endocrine: No pertinent hx Past Surgical History Past Surgical History: Cataract Removal Family History Family History: High Cholestrol, Hypertension Social History Quit ALCOHOL: none Drugs: None Lives: [facility] Current Problem List Problem List Problems Medical Problems: (1) Acute on chronic kidney failure Status: Acute (2) Confused Status: Acute (3) Elevated troponin Status: Acute (4) Hypotension Status: Acute (5) Urinary tract infection Status: Acute Current Medications Current Medications Current Medications Sodium Chloride 1,000 ml @ 1,000 mls/hr 1X ONCE IV Last administered on 06/02/20at 12:19; Start 06/02/20 at 12:00; Stop 06/02/20 at 12:59; Status DC Ceftriaxone Sodium (Rocephin) 1 gm 1X ONCE IVP Last administered on 06/02/20at 13:57; Start 06/02/20 at 13:45; Stop 06/02/20 at 13:46; Status DC Ondansetron HCl (Zofran) 4 mg PRN Q6HRS PRN IVP NAUSEA/VOMITING; Start 06/02/20 at 14:00 Al Hydroxide/Mg Hydroxide (Mylanta Plus Xs) 30 ml PRN Q3HRS PRN PO HEARTBURN / GAS; Start 06/02/20 at 14:00 Calcium Carbonate/ Glycine (Tums) 500 mg PRN Q3HRS PRN PO UPSET STOMACH; Start 06/02/20 at 14:00 Zolpidem Tartrate (Ambien) 5 mg PRN QHS PRN PO INSOMNIA, MAY REPEAT IN 1HR; Start 06/02/20 at 14:00 Acetaminophen (Tylenol) 650 mg PRN Q6HRS PRN PO Headaches, Temp > 101.5F; Start 06/02/20 at 14:00 Magnesium Hydroxide (Milk Of Magnesia) 2,400 mg PRN Q12HR PRN PO CONSTIPATION; Start 06/02/20 at 14:00 Bisacodyl (Dulcolax Supp) 10 mg PRN DAILY PRN [place] CONSTIPATION; Start 06/02/20 at 14:00 Heparin Sodium (Porcine) (Heparin Sodium) 5,000 unit Q12HR SQ Last administered on 06/03/20at 08:38; Start 06/02/20 at 21:00 Ceftriaxone Sodium (Rocephin) 1 gm Q24H IVP ; Start 06/03/20 at 14:00; Stop 06/05/20 at 14:01 Nicotine (Nicoderm Cq 21mg) 1 patch PRN DAILY PRN TD SMOKING CESSATION; Start 06/02/20 at 14:00 Nicotine (Nicoderm Cq 14mg) 1 patch PRN DAILY PRN TD SMOKING CESSATION; Start 06/02/20 at 14:00; Stop 06/03/20 at 11:25; Status DC Ondansetron HCl (Zofran) 4 mg PRN Q8HRS PRN IV NAUSEA/VOMITING; Start 06/02/20 at 14:30; Stop 06/03/20 at 11:26; Status DC Ascorbic Acid (Vitamin C) 500 mg BID PO Last administered on 06/03/20at 08:37; Start 06/02/20 at 21:00 Aspirin (Ecotrin) 81 mg DAILYWBKFT PO Last administered on 06/03/20at 08:36; Start 06/03/20 at 08:00 Atorvastatin Calcium (Lipitor) 40 mg QHS PO Last administered on 06/02/20at 21 :53; Start 06/02/20 at 21:00 Carvedilol (Coreg) 3.125 mg BIDWMEALS PO Last administered on 06/03/20at 08:37; Start 06/02/20 at 17:00 Clopidogrel Bisulfate (Plavix) 75 mg DAILY07 PO Last administered on 06/03/20at 08:37; Start 06/03/20 at 07:00 Furosemide (Lasix) 40 mg DAILY PO Last administered on 06/03/20at 08:37; Start 06/03/20 at 09:00 Lactobacillus Rhamnosus (Culturelle) 1 cap BID PO Last administered on 06/03/20at 08:37; Start 06/02/20 at 21:00 Lisinopril (Prinivil) 20 mg DAILY PO Last administered on 06/03/20at 08:37; Start 06/03/20 at 09:00 Multivitamins (Thera M Plus) 1 tab DAILY PO Last administered on 06/03/20at 08:37; Start 06/03/20 at 09:00 Potassium Chloride (Klor-Con) 20 meq BIDWMEALS PO ; Start 06/02/20 at 17:00 Thiamine Mononitrate (Vitamin B-1) 100 mg DAILY PO Last administered on 06/03/20at 08:36; Start 06/03/20 at 09:00 Active Scripts Active Thera-M Tablet (Multivits,Ca,Minerals/Iron/Fa) 1 Each Tablet 1 Tab PO DAILY 30 Days Vitamin C (Ascorbic Acid) 500 Mg Tablet 500 Mg PO BID 30 Days Vitamin B-1 (Thiamine Mononitrate) 100 Mg Tablet 100 Mg PO DAILY 30 Days Folbic Tablet (Cyanocobalamin/Fa/Pyridoxine) 1 Each Tablet 1 Tab PO DAILY 30 Days Culturelle (Lactobacillus Rhamnosus Gg) 1 Each Cap.sprink 1 Cap PO BID 30 Days Amox Tr-K Clv 500-125 Mg Tab (Amoxicillin/Potassium Clav) 1 Each Tablet 1 Tab PO BID 7 Days Furosemide 40 Mg Tablet 40 Mg PO DAILY 30 Days Aspirin Ec (Aspirin) 81 Mg Tablet.dr 81 Mg PO DAILYWBKFT 30 Days Proair Hfa Inhaler (Albuterol Sulfate) 8.5 Gm Hfa.aer.ad 1 Puff INH PRN Q6HRS PRN Reported Lisinopril 20 Mg Tablet 1 Tab PO DAILY Lipitor (Atorvastatin Calcium) 40 Mg Tablet 1 Tab PO QHS Clopidogrel (Clopidogrel Bisulfate) 75 Mg Tablet 75 Mg PO DAILY Carvedilol (Carvedilol) 3.125 Mg Tablet 3.125 Mg PO BIDWMEALS Klor-Con M20 (Potassium Chloride) 20 Meq Tab.er.prt 20 Meq PO BID Allergies Allergies: Coded Allergies: No Known Drug Allergies (Unverified , 04/18/15) ROS Review of System UNRELIABLE. PT IS CONFUSED Physical Exam General: Alert, No acute distress, Other (NOT VERY COOPERATIVE) HEENT: Atraumatic Lungs: Clear to auscultation Heart: Regular rate Abdomen: Normal bowel sounds, Soft Extremities: No cyanosis Neuro: Normal speech, Other (CONFUSED) Psych/Mental Status: Other (CONFUSED) MUSCULOSKELETAL: No joint tenderness, No deformity, No swelling Vitals VITALS Vital Signs Date Time Temp Pulse Resp B/P (MAP) Pulse Ox O2 Delivery O2 Flow Rate FiO2 06/03/20 11:00 97.4 71 18 81/35 (50) 93 Room Air 97.4 Labs Labs Laboratory Tests Test 06/02/20 11:57 06/02/20 12:30 06/03/20 08:56 White Blood Count 6.6 x10^3/uL (4.0-11.0) Red Blood Count 3.29 x10^6/uL (3.50-5.40) Hemoglobin 11.1 g/dL (12.0-15.5) Hematocrit 33.4 % (36.0-47.0) Mean Corpuscular Volume 101 fL (79-100) Mean Corpuscular Hemoglobin 34 pg (25-35) Mean Corpuscular Hemoglobin Concent 33 g/dL (31-37) Red Cell Distribution Width 17.4 % (11.5-14.5) Platelet Count 145 x10^3/uL (140-400) Neutrophils (%) (Auto) 51 % (31-73) Lymphocytes (%) (Auto) 27 % (24-48) Monocytes (%) (Auto) 10 % (0-9) Eosinophils (%) (Auto) 11 % (0-3) Basophils (%) (Auto) 1 % (0-3) Neutrophils # (Auto) 3.4 x10^3/uL (1.8-7.7) Lymphocytes # (Auto) 1.8 x10^3/uL (1.0-4.8) Monocytes # (Auto) 0.6 x10^3/uL (0.0-1.1) Eosinophils # (Auto) 0.7 x10^3/uL (0.0-0.7) Basophils # (Auto) 0.1 x10^3/uL (0.0-0.2) Prothrombin Time 15.1 SEC (11.7-14.0) Prothromb Time International Ratio 1.2 (0.8-1.1) Activated Partial Thromboplast Time 40 SEC (24-38) Sodium Level 144 mmol/L (136-145) Potassium Level 5.1 mmol/L (3.5-5.1) Chloride Level 110 mmol/L (98-107) Carbon Dioxide Level 26 mmol/L (21-32) Anion Gap 8 (6-14) Blood Urea Nitrogen 82 mg/dL (7-20) Creatinine 2.3 mg/dL (0.6-1.0) Estimated GFR (Cockcroft-Gault) 20.6 BUN/Creatinine Ratio 36 (6-20) Glucose Level 115 mg/dL (70-99) Lactic Acid Level 1.7 mmol/L (0.4-2.0) Calcium Level 9.3 mg/dL (8.5-10.1) Magnesium Level 2.5 mg/dL (1.8-2.4) Total Bilirubin 2.3 mg/dL (0.2-1.0) Aspartate Amino Transf (AST/SGOT) 85 U/L (15-37) Alanine Aminotransferase (ALT/SGPT) 53 U/L (14-59) Alkaline Phosphatase 83 U/L (46-116) Creatine Kinase 325 U/L (26-192) Creatine Kinase MB (Mass) 5.8 ng/mL (0.0-3.6) Creatine Kinase MB Relative Index 1.8 % (0-4) Troponin I Quantitative 0.163 ng/mL (0.000-0.055) 0.199 ng/mL (0.000-0.055) Total Protein 6.6 g/dL (6.4-8.2) Albumin 2.3 g/dL (3.4-5.0) Albumin/Globulin Ratio 0.5 (1.0-1.7) Urine Collection Type U cath Urine Color Yellow Urine Clarity Cloudy Urine pH 6.5 (<5.0-8.0) Urine Specific [place] 1.015 (1.000-1.030) Urine Protein 30 mg/dL (NEG-TRACE) Urine Glucose (UA) Negative mg/dL (NEG) Urine Ketones (Stick) Negative mg/dL (NEG) Urine Blood Negative (NEG) Urine Nitrite Positive (NEG) Urine Bilirubin Negative (NEG) Urine Urobilinogen Dipstick 1.0 mg/dL (0.2 mg/dL) Urine Leukocyte Esterase Large (NEG) Urine RBC 3-5 /HPF (0-2) Urine WBC >40 /HPF (0-4) Urine Squamous Epithelial Cells Mod /LPF Urine Renal Epithelial Cells Occ /LPF Urine Bacteria Many /HPF (0-FEW) Urine Hyaline Casts Occasional /HPF Laboratory Tests Test 06/02/20 12:30 06/03/20 08:56 Urine Collection Type U cath Urine Color Yellow Urine Clarity Cloudy Urine pH 6.5 (<5.0-8.0) Urine Specific [place] 1.015 (1.000-1.030) Urine Protein 30 mg/dL (NEG-TRACE) Urine Glucose (UA) Negative mg/dL (NEG) Urine Ketones (Stick) Negative mg/dL (NEG) Urine Blood Negative (NEG) Urine Nitrite Positive (NEG) Urine Bilirubin Negative (NEG) Urine Urobilinogen Dipstick 1.0 mg/dL (0.2 mg/dL) Urine Leukocyte Esterase Large (NEG) Urine RBC 3-5 /HPF (0-2) Urine WBC >40 /HPF (0-4) Urine Squamous Epithelial Cells Mod /LPF Urine Renal Epithelial Cells Occ /LPF Urine Bacteria Many /HPF (0-FEW) Urine Hyaline Casts Occasional /HPF Troponin I Quantitative 0.199 ng/mL (0.000-0.055) Assessment/Plan Assessment/Plan IMP ACE-CR OF 2.3 CKD STAGE 3 WITH CR OF 1.5 DEHYDRATION HYPOTENSION MET ENCEPHALOPATHY JAUNDICE AND INCREASED LFT'S MALNUTRITION URINARY TRACT INFECTION PLAN ANTIBIOTICS HYDRATION STOP LISINOPRIL GI EVALUATION UPDATED DAUGHTER WILL FOLLOW JN PINK MD Jun 03, 2020 12:05
--- NOTE | 2020-06-03 12:35 | PDOC2 ---
KATIE WALKER VI 06/03/20 1234: CARDIAC CONSULT DATE OF CONSULT Date of Consult DATE: 06/03/20 TIME: 12:22 REASON FOR CONSULT Reason for Consult: Elevated troponin REFERRING PHYSICIAN Referring Physician: Charity Gaytan APRN SOURCE Source: Caregiver, Chart review HISTORY OF PRESENT ILLNESS HISTORY OF PRESENT ILLNESS This is a 75 yo female who presented from nursing facility secondary to hypotension and lethargy. Trop noted to be mildly elevated, which prompted this consult. No reports of chest pain. HPI obtained from chart review, family as presently is confused and unable to provide any meaningful history. Family at bedside. No reported complaints of chest pain. PAST MEDICAL HISTORY Past Medical History Cardiovascular: CAD, HTN, Hyperlipidemia, Other (AAA) Pulmonary: COPD, Pneumonia CENTRAL NERVOUS SYSTEM: Other (No pertinent history) GI: No pertinent hx Heme/Onc: No pertinent hx Hepatobiliary: No pertinent hx Psych: No pertinent hx Musculoskeletal: low back pain, Osteoarthritis Infectious disease: No pertinent hx ENT: No pertinent hx Renal/: No pertinent hx Endocrine: No pertinent hx Dermatology: No pertinent hx Cardiovascular: Other PAST SURGICAL HISTORY Past Surgical History: Cataract Removal FAMILY HISTORY Family History: Other (noncontributory to CV) SOCIAL HISTORY Social History Smoke: quit ALCOHOL: none Drugs: None Lives: retirement CURRENT MEDICATIONS CURRENT MEDICATIONS Current Medications Medications (Trade) Dose Ordered Sig/[place] Route PRN Reason Start Time Stop Time Status Last Admin Dose Admin Ceftriaxone Sodium (Rocephin) 1 gm 1X ONCE IVP 06/02/20 13:45 06/02/20 13:46 DC 06/02/20 13:57 Heparin Sodium (Porcine) (Heparin Sodium) 5,000 unit Q12HR SQ 06/02/20 21:00 06/03/20 08:38 Ascorbic Acid (Vitamin C) 500 mg BID PO 06/02/20 21:00 06/03/20 08:37 Aspirin (Ecotrin) 81 mg DAILYWBKFT PO 06/03/20 08:00 06/03/20 08:36 Atorvastatin Calcium (Lipitor) 40 mg QHS PO 06/02/20 21:00 06/02/20 21:53 Carvedilol (Coreg) 3.125 mg BIDWMEALS PO 06/02/20 17:00 06/03/20 08:37 Clopidogrel Bisulfate (Plavix) 75 mg DAILY07 PO 06/03/20 07:00 06/03/20 08:37 Furosemide (Lasix) 40 mg DAILY PO 06/03/20 09:00 06/03/20 08:37 Lactobacillus Rhamnosus (Culturelle) 1 cap BID PO 06/02/20 21:00 06/03/20 08:37 Lisinopril (Prinivil) 20 mg DAILY PO 06/03/20 09:00 06/03/20 12:06 DC 06/03/20 08:37 Multivitamins (Thera M Plus) 1 tab DAILY PO 06/03/20 09:00 06/03/20 08:37 Thiamine Mononitrate (Vitamin B-1) 100 mg DAILY PO 06/03/20 09:00 06/03/20 08:36 ALLERGIES ALLERGIES: Coded Allergies: No Known Drug Allergies (Unverified , 04/18/15) ROS Review of System 14 point ROS conducted with pertinent positives noted above in HPi PHYSICAL EXAM PHYSICAL EXAM General: Alert, Cooperative, NAD HEENT: Atraumatic, Mucous membr. moist/pink Lungs: CTA, diminished bases Heart: Regular rate (SR with LBBB) Abdomen: Soft, No tenderness Extremities: No cyanosis, Other (trace bilateral LE edema) Skin: No breakdown, No significant lesion Neuro: Normal speech, Sensation intact Psych/Mental Status: confused MUSCULOSKELETAL: Osteoarthritic changes both hands VITALS/I&O VITALS/I&O: Vital Signs Date Time Temp Pulse Resp B/P (MAP) Pulse Ox O2 Delivery O2 Flow Rate FiO2 06/03/20 11:00 97.4 71 18 81/35 (50) 93 Room Air 97.4 I & O 06/02/20 06/02/20 06/03/20 15:00 23:00 07:00 Intake Total 360 ml Balance 360 ml LABS Lab: Laboratory Tests Test 06/02/20 12:30 06/03/20 08:56 Urine Collection Type U cath Urine Color Yellow Urine Clarity Cloudy Urine pH 6.5 (<5.0-8.0) Urine Specific [place] 1.015 (1.000-1.030) Urine Protein 30 mg/dL (NEG-TRACE) Urine Glucose (UA) Negative mg/dL (NEG) Urine Ketones (Stick) Negative mg/dL (NEG) Urine Blood Negative (NEG) Urine Nitrite Positive (NEG) Urine Bilirubin Negative (NEG) Urine Urobilinogen Dipstick 1.0 mg/dL (0.2 mg/dL) Urine Leukocyte Esterase Large (NEG) Urine RBC 3-5 /HPF (0-2) Urine WBC >40 /HPF (0-4) Urine Squamous Epithelial Cells Mod /LPF Urine Renal Epithelial Cells Occ /LPF Urine Bacteria Many /HPF (0-FEW) Urine Hyaline Casts Occasional /HPF Troponin I Quantitative 0.199 ng/mL (0.000-0.055) ECHOCARDIOGRAM ECHOCARDIOGRAM <Conclusion> Left ventricle systolic function is mildly decreased. EF 40-45% Septal motion consistent with conduction abnormality. Calculated aortic valve area is 1.7 cm2 with maximum pressure gradient of 20 mmHg and mean pressure gradient of 11 mmHg. Doppler and color-flow analysis revealed mild aortic stenosis. Doppler and Color-flow revealed mild to moderate mitral regurgitation. Doppler and Color Flow revealed mild tricuspid regurgitation. There is moderate pulmonary hypertension. The PA pressure was estimated at 49 mmHg. DATE: 11/02/18 1109 ASSESSMENT/PLAN ASSESSMENT/PLAN 1. Metabolic encephalopathy 2. UTI 3. ACE on CKD 4. Mild troponin elevation; highest 0.19. Most probably type II, demand ischemia in setting of above. No reports of CP 5. Mixed ischemic, non-ischemic CMP; Echo 11/09 with LVEF 40-45% 6. CAD; s/p PCI/LAUREN to LCx . 7. Hypertension with present hypotension 8. Hyperlipidemia; statin Recommendations Hold Lasix, lisinopril with ACE, hypotension May additionally hold Coreg as warranted for hypotension Secondary prevention measures including DAPT with ASA/Plavix, statin therapy Echo to assess LV systolic function Ongoing treatment of UTI as per IM Supportive care MARJORIE PETERSON MD 06/03/20 1721: CARDIAC CONSULT ASSESSMENT/PLAN ASSESSMENT/PLAN Patient seen and examined. Agree with APPLICATIONS DEVELOPMENT CONSULTANT's assessment and plan. Slight troponin elevation probably demand ischemia. Chronic systolic heart failure clinically well compensated. CAD status stable. Agree with holding Lasix for acute renal insufficiency. Check 2D echo to assess LV systolic function. Continue management of metabolic encephalopathy and UTI per primary team. Thank you for your consultation KATIE WALKER APRN Jun 03, 2020 12:34 MARJORIE PETERSON MD Jun 03, 2020 17:21
[2020-06-03] MEDS: IV NORMAL SALINE 1000ML BAG 1,000 ML IV SCH (13:23)
[2020-06-03] MEDS: cefTRIAXone IV Push 1 GM VIAL. IVP SCH (13:23)
[2020-06-03 15:00] VITALS: BP 92/34
--- NOTE | 2020-06-03 17:18 | RAD ---
CT HEAD INDICATION: Reason: acute metabolic encephalopathy / Spl. Instructions: / History: COMPARISON: 04/01/2020. Exposure: One or more of the following individualized dose reduction techniques were utilized for thi s examination: 1. Automated exposure control 2. Adjustment of the mA and/or kV according to patient size 3. Use of iterative reconstruction technique TECHNIQUE: 5 mm contiguous axial images were obtained from the skull base to the vertex in both bone and soft tissue algorithm. FINDINGS: Mild bilateral periventricular white matter hypodensities likely chronic small vessel ischemic diseas e. No evidence of acute intracranial hemorrhage. No extra-axial fluid collections. No mass effect or midline shift. Ventricular size is appropriate. Basal cisterns are patent. No fractures identified.Lala-white differentiation is preserved.Globes and orbits are within normal l imits. Paranasal sinuses and mastoid air cells are clear. IMPRESSION: No acute intracranial findings. Electronically signed by: Osiel Ridley MD (06/03/2020 5:15 PM) [id number]
[2020-06-03 19:00] VITALS: BP 100/39
[2020-06-03] MEDS: ATORVASTATIN CALCIUM 40 MG TABLET. PO SCH (20:16)
[2020-06-03 23:01] VITALS: BP 129/41
[2020-06-04] MEDS: IV NORMAL SALINE 1000ML BAG 1,000 ML IV SCH ×2 (03:17→14:49)
[2020-06-04 03:30] VITALS: BP 133/55
[2020-06-04] MEDS: CLOPIDOGREL BISULFATE 75 MG TABLET PO SCH (05:40)
[2020-06-04 07:00] VITALS: BP 129/43
[2020-06-04] MEDS: CARVEDILOL 3.125 MG TABLET. PO SCH ×2 (08:00→16:39)
[2020-06-04] MEDS: POTASSIUM CHLORIDE 20 MEQ TABLET.ER. PO SCH ×2 (08:00→16:39)
[2020-06-04] MEDS: ASPIRIN ENTERIC COATED 81 MG TABLET.DR. PO SCH (08:20)
[2020-06-04] MEDS: THIAMINE 100 MG TABLET. PO SCH (08:20)
[2020-06-04] MEDS: LACTOBACILLUS RHAMNOSUS GG 1 CAPSULE. PO SCH ×2 (08:21→19:59)
[2020-06-04] MEDS: MULTIVITAMIN with MINERAL TABLET. PO SCH (08:21)
[2020-06-04] MEDS: ASCORBIC ACID 500 MG TABLET PO SCH ×2 (08:21→19:59)
[2020-06-04] MEDS: HEPARIN for SUB-Q USE 5,000 UNIT/ML VIAL. SQ SCH ×2 (08:22→20:05)
--- NOTE | 2020-06-04 10:19 | PDOC ---
Date of Service: DATE: 06/04/20 TIME: 10:12 Subjective: Subjective: Still sleeping - doesn't offer much - says she will eat breakfast. Objective: Objective: Nurse says pt can be grumpy if someone wakes her up. Nurse asks about discharge and what our plans are - again asks about re-imaging. No c/o pain. Vital Signs: Vital Signs Date Time Temp Pulse Resp B/P (MAP) Pulse Ox O2 Delivery O2 Flow Rate FiO2 06/04/20 07:00 97.7 77 18 129/43 (71) 96 Room Air 97.7 Labs: Laboratory Tests Test 06/03/20 12:38 Ammonia 15 mcmol/L BLOOD CULTURE Preliminary NO GROWTH AFTER 1 DAY Imaging: Head CT 06/03 IMPRESSION: No acute intracranial findings. PE: GEN: NAD - sleeping LUNGS: clear anteriorly HEART: RR ABD: soft, non-tender NEURO/PSYCH: awakens during exam - drowsy, doesn't say much A/P: UTI, encephalopathy, h/o dementia Macrocytic anemia (normal B12), ACE/CKD, elevated bili and AST Hepatic steatosis, no GB visualized on US - family says no h/o cholecystectomy CAD, cardiomyopathy, r/o COVID -- Labs pending today - await these. Justicifation of Admission Dx: Justifications for Admission: Justification of Admission Dx: Yes HUNTER WEBER Jun 04, 2020 10:19
[2020-06-04 10:30] LABS: BASO % 1 % (0-3); EOS # 1.1 x10^3/uL (0.0-0.7); EOS % 19 % (0-3); HEMATOCRIT 29.2 % (36.0-47.0); HEMOGLOBIN 9.8 g/dL (12.0-15.5); LYMPH # 1.9 x10^3/uL (1.0-4.8); LYMPH % 33 % (24-48); MEAN CORPUSCULAR HEMOGLOBIN 34 pg (25-35); MEAN CORPUSCULAR HGB CONC 34 g/dL (31-37); MEAN CORPUSCULAR VOLUME 101 fL (79-100); MONO # 0.7 x10^3/uL (0.0-1.1); MONO % 12 % (0-9); NEUT # 2.1 x10^3/uL (1.8-7.7); NEUT % 36 % (31-73); PLATELET COUNT 103 x10^3/uL (140-400); RED BLOOD COUNT 2.89 x10^6/uL (3.50-5.40); RED CELL DISTRIBUTION WIDTH 16.7 % (11.5-14.5); WHITE BLOOD COUNT 5.9 x10^3/uL (4.0-11.0)
[2020-06-04 10:45] LABS: ALBUMIN 1.9 g/dL (3.4-5.0); ALBUMIN/GLOBULIN RATIO 0.5 (1.0-1.7); CALCIUM 7.7 mg/dL (8.5-10.1); CREATININE 1.9 mg/dL (0.6-1.0); DIRECT BILIRUBIN 0.8 mg/dL (0.0-0.2); GFR 25.6; POTASSIUM 4.5 mmol/L (3.5-5.1); TOTAL BILIRUBIN 1.5 mg/dL (0.2-1.0); TOTAL PROTEIN 5.6 g/dL (6.4-8.2)
[2020-06-04 11:00] VITALS: BP 123/47
--- NOTE | 2020-06-04 11:09 | PDOC ---
PROGRESS NOTES Date of Service: DATE: 06/04/20 TIME: 11:09 Chief Complaint Chief Complaint VTE Prophylaxis Ordered VTE Prophylaxis Devices: No VTE Pharmacological Prophylaxi: Yes Assessment/Plan Assessment/Plan Hypotension Metabolic encephalopathy Dehydration ACE Vasomotor nephropathy UTI Jaundice Elevated bilirubin Chronic sacral ulcer Severe malnutrition Plan: D/C LISINOPRIL Will admit patient and and provide IV fluids. Rocephin 1 g daily x3 for UTI Continue to trend troponins, likely elevated in setting of CKD. If troponins to not remain stable, will consult cardiology for further work-up Patient would not process //order wound care to continue treatment of sacral ulcer Resume home medications consult GI for recommendations on evaluation of jaundice and elevated bilirubin Will obtain right upper quadrant ultrasound Patient's current mental status could be due secondary to progressive dementia; had discussion with patient's daughters that there is a chance this may not impr ove with medical treatment, and they conveyed understanding. FEN - Cardiac diet PPX - Heparin DNR Dispo - inpatient for above nephrology consult Macrocytic anemia (normal B12), ACE/CKD, elevated bili and AST Hepatic steatosis, no GB visualized on US - family says no h/o cholecystectomy CAD, cardiomyopathy, 38 min pt exam, chart review, > 50% of time spent with exam, chart review, pt care coordination Justifications for Admission Justifications for Admission Other Justification History of Present Illness History of Present Illness Identification/Chief Complaint Chief Complaint Hypotension, lethargy Source Source: Chart review, Patient History of Present Illness History of Present Illness Patient 75-year-old female past medical history of CHF, CAD, presents from detention for evaluation of hypotension and lethargy that started ON DAY OF ADMIT Patient was recently admitted to our service on 05/02/20 for acute metabolic encephalopathy. Creatinine at the time was 1.2. Today creatinine 2.3. She currently has no complaints. Troponin was elevated at 0.163, but she denies chest pain, nausea, or shortness of breath. I discussion with both patient's daughters her joint DPOA. They note progressively worsening dementia over the past months. They also note worsening yellowing of her skin over the past weeks. State that they would like patient's CODE STATUS changed to DNR. We will get patient for further medical management. Past Medical History Cardiovascular: CAD, HTN, Hyperlipidemia, Other Pulmonary: COPD, Pneumonia CENTRAL NERVOUS SYSTEM: Other GI: No pertinent hx Heme/Onc: No pertinent hx Hepatobiliary: No pertinent hx Psych: No pertinent hx Musculoskeletal: low back pain, Osteoarthritis Infectious disease: No pertinent hx Renal/: No pertinent hx Endocrine: No pertinent hx Past Surgical History Past Surgical History: Cataract Removal Family History Family History: High Cholestrol, Hypertension Social History ALCOHOL: none Drugs: None Current Problem List Problem List Problems Medical Problems: (1) Hypotension Status: Acute Vitals Vitals Vital Signs Date Time Temp Pulse Resp B/P (MAP) Pulse Ox O2 Delivery O2 Flow Rate FiO2 06/04/20 08:00 Room Air 06/04/20 07:00 97.7 77 18 129/43 (71) 96 97.7 Physical Exam Physical Exam General: Alert, oriented x2 (person and president), uncooperative, mild distress HEENT: PERRLA, EOMI Lungs: Clear to auscultation, Normal air movement Heart: RRR, no murmurs Cardiovascular: S1, S2 Abdomen: Normal bowel sounds, Soft, No tenderness Extremities: No clubbing, No cyanosis Skin: Skin appears yellow. Sacral bandage clean, dry, and intact Neuro: Normal speech, Normal tone, Sensation intact Psych/Mental Status: Confused, agitated General: Alert, No acute distress, Other (NOT VERY COOPERATIVE) Heart: Regular rate Lungs: Clear, Other Abdomen: Normal bowel sounds, Soft Extremities: No cyanosis Labs LABS CT HEAD INDICATION: Reason: acute metabolic encephalopathy / Spl. Instructions: / History: COMPARISON: 04/01/2020. Exposure: One or more of the following individualized dose reduction techniques were utilized for this examination: 1. Automated exposure control 2. Adjustment of the mA and/or kV according to patient size 3. Use of iterative reconstruction technique TECHNIQUE: 5 mm contiguous axial images were obtained from the skull base to the vertex in both bone and soft tissue algorithm. FINDINGS: Mild bilateral periventricular white matter hypodensities likely chronic small vessel ischemic disease. No evidence of acute intracranial hemorrhage. No extra-axial fluid collections. No mass effect or midline shift. Ventricular size is appropriate. Basal cisterns are patent. No fractures identified.Lala-white differentiation is preserved.Globes and orbits are within normal limits. Paranasal sinuses and mastoid air cells are clear. IMPRESSION: No acute intracranial findings. Electronically signed by: Osiel Ridley MD (06/03/2020 5:15 PM) [email or web address] DICTATED and SIGNED BY: OSIEL RIDLEY MD DATE: 06/03/20 [id number] Examination: Ultrasound abdomen limited HISTORY: History of transaminitis COMPARISON: None available FINDINGS: Mild increased echogenicity identified in the liver likely hepatic steatosis. The right lobe of the liver measures 13.9 cm. The common bile duct measures 6 mm in transverse dimension. The gallbladder is not visualized. The right kidney measures 8.7 x 4.2 x 3.5 cm. The pancreas is not well-visualized due to bowel gas. Examination limited as patient was confused and moving around IMPRESSION: 1. The gallbladder is not identified. The common bile duct measures 6 mm in transverse dimension. 2. Mild hepatic steatosis. Very limited examination due to bowel gas. Electronically signed by: Osiel Ridley MD (06/02/2020 7:59 PM) [id number] DICTATED and SIGNED BY: OSIEL RIDLEY MD DATE: 06/02/[id number] 0 PATIENT: TATA NICOLAS ACCOUNT: [id number] : 1945 LOCATION: [address] [place] [address] AGE: 75 SEX: F EXAM STATUS: ADM IN ORD. PHYSICIAN: SANJANA JAIMES MD REASON: acute metabolic encephalopathy PROCEDURE: CT HEAD WO CONTRAST CT HEAD INDICATION: Reason: acute metabolic encephalopathy / Spl. Instructions: / History: COMPARISON: 04/01/2020. Exposure: One or more of the following individualized dose reduction techniques were utilized for this examination: 1. Automated exposure control 2. Adjustment of the mA and/or kV according to patient size 3. Use of iterative reconstruction technique TECHNIQUE: 5 mm contiguous axial images were obtained from the skull base to the vertex in both bone and soft tissue algorithm. FINDINGS: Mild bilateral periventricular white matter hypodensities likely chronic small vessel ischemic disease. No evidence of acute intracranial hemorrhage. No extra-axial fluid collections. No mass effect or midline shift. Ventricular size is appropriate. Basal cisterns are patent. No fractures identified.Lala-white differentiation is preserved.Globes and orbits are within normal limits. Paranasal sinuses and mastoid air cells are clear. IMPRESSION: No acute intracranial findings. Electronically signed by: Osiel Ridley MD (06/03/2020 5:15 PM) [id number] DICTATED and SIGNED BY: OSIEL RIDLEY MD DATE: 06/03/20 [id number] Laboratory Tests Test 06/03/20 12:38 06/04/20 10:20 Ammonia 15 mcmol/L (11-34) White Blood Count 5.9 x10^3/uL (4.0-11.0) Red Blood Count 2.89 x10^6/uL (3.50-5.40) Hemoglobin 9.8 g/dL (12.0-15.5) Hematocrit 29.2 % (36.0-47.0) Mean Corpuscular Volume 101 fL (79-100) Mean Corpuscular Hemoglobin 34 pg (25-35) Mean Corpuscular Hemoglobin Concent 34 g/dL (31-37) Red Cell Distribution Width 16.7 % (11.5-14.5) Platelet Count 103 x10^3/uL (140-400) Neutrophils (%) (Auto) 36 % (31-73) Lymphocytes (%) (Auto) 33 % (24-48) Monocytes (%) (Auto) 12 % (0-9) Eosinophils (%) (Auto) 19 % (0-3) Basophils (%) (Auto) 1 % (0-3) Neutrophils # (Auto) 2.1 x10^3/uL (1.8-7.7) Lymphocytes # (Auto) 1.9 x10^3/uL (1.0-4.8) Monocytes # (Auto) 0.7 x10^3/uL (0.0-1.1) Eosinophils # (Auto) 1.1 x10^3/uL (0.0-0.7) Basophils # (Auto) 0.0 x10^3/uL (0.0-0.2) Sodium Level 145 mmol/L (136-145) Potassium Level 4.5 mmol/L (3.5-5.1) Chloride Level 112 mmol/L (98-107) Carbon Dioxide Level 25 mmol/L (21-32) Anion Gap 8 (6-14) Blood Urea Nitrogen 56 mg/dL (7-20) Creatinine 1.9 mg/dL (0.6-1.0) Estimated GFR (Cockcroft-Gault) 25.6 BUN/Creatinine Ratio 29 (6-20) Glucose Level 87 mg/dL (70-99) Calcium Level 7.7 mg/dL (8.5-10.1) Total Bilirubin 1.5 mg/dL (0.2-1.0) Direct Bilirubin 0.8 mg/dL (0.0-0.2) Aspartate Amino Transf (AST/SGOT) 83 U/L (15-37) Alanine Aminotransferase (ALT/SGPT) 48 U/L (14-59) Alkaline Phosphatase 68 U/L (46-116) Total Protein 5.6 g/dL (6.4-8.2) Albumin 1.9 g/dL (3.4-5.0) Albumin/Globulin Ratio 0.5 (1.0-1.7) Assessment and Plan Assessmemt and Plan Problems Medical Problems: (1) Acute on chronic kidney failure Status: Acute (2) Confused Status: Acute (3) Elevated troponin Status: Acute (4) Hypotension Status: Acute (5) Urinary tract infection Status: Acute Comment Review of Relevant I have reviewed the following items yuliana (where applicable) has been applied. Labs Laboratory Tests Test 06/02/20 11:57 06/02/20 12:30 06/03/20 08:56 06/03/20 12:38 White Blood Count 6.6 x10^3/uL (4.0-11.0) Red Blood Count 3.29 x10^6/uL (3.50-5.40) Hemoglobin 11.1 g/dL (12.0-15.5) Hematocrit 33.4 % (36.0-47.0) Mean Corpuscular Volume 101 fL (79-100) Mean Corpuscular Hemoglobin 34 pg (25-35) Mean Corpuscular Hemoglobin Concent 33 g/dL (31-37) Red Cell Distribution Width 17.4 % (11.5-14.5) Platelet Count 145 x10^3/uL (140-400) Neutrophils (%) (Auto) 51 % (31-73) Lymphocytes (%) (Auto) 27 % (24-48) Monocytes (%) (Auto) 10 % (0-9) Eosinophils (%) (Auto) 11 % (0-3) Basophils (%) (Auto) 1 % (0-3) Neutrophils # (Auto) 3.4 x10^3/uL (1.8-7.7) Lymphocytes # (Auto) 1.8 x10^3/uL (1.0-4.8) Monocytes # (Auto) 0.6 x10^3/uL (0.0-1.1) Eosinophils # (Auto) 0.7 x10^3/uL (0.0-0.7) Basophils # (Auto) 0.1 x10^3/uL (0.0-0.2) Prothrombin Time 15.1 SEC (11.7-14.0) Prothromb Time International Ratio 1.2 (0.8-1.1) Activated Partial Thromboplast Time 40 SEC (24-38) Sodium Level 144 mmol/L (136-145) Potassium Level 5.1 mmol/L (3.5-5.1) Chloride Level 110 mmol/L (98-107) Carbon Dioxide Level 26 mmol/L (21-32) Anion Gap 8 (6-14) Blood Urea Nitrogen 82 mg/dL (7-20) Creatinine 2.3 mg/dL (0.6-1.0) Estimated GFR (Cockcroft-Gault) 20.6 BUN/Creatinine Ratio 36 (6-20) Glucose Level 115 mg/dL (70-99) Lactic Acid Level 1.7 mmol/L (0.4-2.0) Calcium Level 9.3 mg/dL (8.5-10.1) Magnesium Level 2.5 mg/dL (1.8-2.4) Total Bilirubin 2.3 mg/dL (0.2-1.0) Aspartate Amino Transf (AST/SGOT) 85 U/L (15-37) Alanine Aminotransferase (ALT/SGPT) 53 U/L (14-59) Alkaline Phosphatase 83 U/L (46-116) Creatine Kinase 325 U/L (26-192) Creatine Kinase MB (Mass) 5.8 ng/mL (0.0-3.6) Creatine Kinase MB Relative Index 1.8 % (0-4) Troponin I Quantitative 0.163 ng/mL (0.000-0.055) 0.199 ng/mL (0.000-0.055) Total Protein 6.6 g/dL (6.4-8.2) Albumin 2.3 g/dL (3.4-5.0) Albumin/Globulin Ratio 0.5 (1.0-1.7) Urine Collection Type U cath Urine Color Yellow Urine Clarity Cloudy Urine pH 6.5 (<5.0-8.0) Urine Specific Badin 1.015 (1.000-1.030) Urine Protein 30 mg/dL (NEG-TRACE) Urine Glucose (UA) Negative mg/dL (NEG) Urine Ketones (Stick) Negative mg/dL (NEG) Urine Blood Negative (NEG) Urine Nitrite Positive (NEG) Urine Bilirubin Negative (NEG) Urine Urobilinogen Dipstick 1.0 mg/dL (0.2 mg/dL) Urine Leukocyte Esterase Large (NEG) Urine RBC 3-5 /HPF (0-2) Urine WBC >40 /HPF (0-4) Urine Squamous Epithelial Cells Mod /LPF Urine Renal Epithelial Cells Occ /LPF Urine Bacteria Many /HPF (0-FEW) Urine Hyaline Casts Occasional /HPF Ammonia 15 mcmol/L (11-34) Test 06/04/20 10:20 White Blood Count 5.9 x10^3/uL (4.0-11.0) Red Blood Count 2.89 x10^6/uL (3.50-5.40) Hemoglobin 9.8 g/dL (12.0-15.5) Hematocrit 29.2 % (36.0-47.0) Mean Corpuscular Volume 101 fL (79-100) Mean Corpuscular Hemoglobin 34 pg (25-35) Mean Corpuscular Hemoglobin Concent 34 g/dL (31-37) Red Cell Distribution Width 16.7 % (11.5-14.5) Platelet Count 103 x10^3/uL (140-400) Neutrophils (%) (Auto) 36 % (31-73) Lymphocytes (%) (Auto) 33 % (24-48) Monocytes (%) (Auto) 12 % (0-9) Eosinophils (%) (Auto) 19 % (0-3) Basophils (%) (Auto) 1 % (0-3) Neutrophils # (Auto) 2.1 x10^3/uL (1.8-7.7) Lymphocytes # (Auto) 1.9 x10^3/uL (1.0-4.8) Monocytes # (Auto) 0.7 x10^3/uL (0.0-1.1) Eosinophils # (Auto) 1.1 x10^3/uL (0.0-0.7) Basophils # (Auto) 0.0 x10^3/uL (0.0-0.2) Sodium Level 145 mmol/L (136-145) Potassium Level 4.5 mmol/L (3.5-5.1) Chloride Level 112 mmol/L (98-107) Carbon Dioxide Level 25 mmol/L (21-32) Anion Gap 8 (6-14) Blood Urea Nitrogen 56 mg/dL (7-20) Creatinine 1.9 mg/dL (0.6-1.0) Estimated GFR (Cockcroft-Gault) 25.6 BUN/Creatinine Ratio 29 (6-20) Glucose Level 87 mg/dL (70-99) Calcium Level 7.7 mg/dL (8.5-10.1) Total Bilirubin 1.5 mg/dL (0.2-1.0) Direct Bilirubin 0.8 mg/dL (0.0-0.2) Aspartate Amino Transf (AST/SGOT) 83 U/L (15-37) Alanine Aminotransferase (ALT/SGPT) 48 U/L (14-59) Alkaline Phosphatase 68 U/L (46-116) Total Protein 5.6 g/dL (6.4-8.2) Albumin 1.9 g/dL (3.4-5.0) Albumin/Globulin Ratio 0.5 (1.0-1.7) Laboratory Tests Test 06/03/20 12:38 06/04/20 10:20 Ammonia 15 mcmol/L (11-34) White Blood Count 5.9 x10^3/uL (4.0-11.0) Red Blood Count 2.89 x10^6/uL (3.50-5.40) Hemoglobin 9.8 g/dL (12.0-15.5) Hematocrit 29.2 % (36.0-47.0) Mean Corpuscular Volume 101 fL (79-100) Mean Corpuscular Hemoglobin 34 pg (25-35) Mean Corpuscular Hemoglobin Concent 34 g/dL (31-37) Red Cell Distribution Width 16.7 % (11.5-14.5) Platelet Count 103 x10^3/uL (140-400) Neutrophils (%) (Auto) 36 % (31-73) Lymphocytes (%) (Auto) 33 % (24-48) Monocytes (%) (Auto) 12 % (0-9) Eosinophils (%) (Auto) 19 % (0-3) Basophils (%) (Auto) 1 % (0-3) Neutrophils # (Auto) 2.1 x10^3/uL (1.8-7.7) Lymphocytes # (Auto) 1.9 x10^3/uL (1.0-4.8) Monocytes # (Auto) 0.7 x10^3/uL (0.0-1.1) Eosinophils # (Auto) 1.1 x10^3/uL (0.0-0.7) Basophils # (Auto) 0.0 x10^3/uL (0.0-0.2) Sodium Level 145 mmol/L (136-145) Potassium Level 4.5 mmol/L (3.5-5.1) Chloride Level 112 mmol/L (98-107) Carbon Dioxide Level 25 mmol/L (21-32) Anion Gap 8 (6-14) Blood Urea Nitrogen 56 mg/dL (7-20) Creatinine 1.9 mg/dL (0.6-1.0) Estimated GFR (Cockcroft-Gault) 25.6 BUN/Creatinine Ratio 29 (6-20) Glucose Level 87 mg/dL (70-99) Calcium Level 7.7 mg/dL (8.5-10.1) Total Bilirubin 1.5 mg/dL (0.2-1.0) Direct Bilirubin 0.8 mg/dL (0.0-0.2) Aspartate Amino Transf (AST/SGOT) 83 U/L (15-37) Alanine Aminotransferase (ALT/SGPT) 48 U/L (14-59) Alkaline Phosphatase 68 U/L (46-116) Total Protein 5.6 g/dL (6.4-8.2) Albumin 1.9 g/dL (3.4-5.0) Albumin/Globulin Ratio 0.5 (1.0-1.7) Microbiology 06/02/20 Urine Culture - Preliminary, Resulted 06/02/20 Blood Culture - Preliminary, Resulted NO GROWTH AFTER 1 DAY Medications Current Medications Sodium Chloride 1,000 ml @ 1,000 mls/hr 1X ONCE IV Last administered on 06/02/20at 12:19; Start 06/02/20 at 12:00; Stop 06/02/20 at 12:59; Status DC Ceftriaxone Sodium (Rocephin) 1 gm 1X ONCE IVP Last administered on 06/02/20at 13:57; Start 06/02/20 at 13:45; Stop 06/02/20 at 13:46; Status DC Ondansetron HCl (Zofran) 4 mg PRN Q6HRS PRN IVP NAUSEA/VOMITING; Start 06/02/20 at 14:00 Al Hydroxide/Mg Hydroxide (Mylanta Plus Xs) 30 ml PRN Q3HRS PRN PO HEARTBURN / GAS; Start 06/02/20 at 14:00 Calcium Carbonate/ Glycine (Tums) 500 mg PRN Q3HRS PRN PO UPSET STOMACH; Start 06/02/20 at 14:00 Zolpidem Tartrate (Ambien) 5 mg PRN QHS PRN PO INSOMNIA, MAY REPEAT IN 1HR Last administered on 06/03/20at 20:16; Start 06/02/20 at 14:00 Acetaminophen (Tylenol) 650 mg PRN Q6HRS PRN PO Headaches, Temp > 101.5F; Start 06/02/20 at 14:00 Magnesium Hydroxide (Milk Of Magnesia) 2,400 mg PRN Q12HR PRN PO CONSTIPATION; Start 06/02/20 at 14:00 Bisacodyl (Dulcolax Supp) 10 mg PRN DAILY PRN ME CONSTIPATION; Start 06/02/20 at 14:00 Heparin Sodium (Porcine) (Heparin Sodium) 5,000 unit Q12HR SQ Last administered on 06/04/20at 08:22; Start 06/02/20 at 21:00 Ceftriaxone Sodium (Rocephin) 1 gm Q24H IVP Last administered on 06/03/20at 13:23; Start 06/03/20 at 14:00; Stop 06/05/20 at 14:01 Nicotine (Nicoderm Cq 21mg) 1 patch PRN DAILY PRN TD SMOKING CESSATION; Start 06/02/20 at 14:00 Nicotine (Nicoderm Cq 14mg) 1 patch PRN DAILY PRN TD SMOKING CESSATION; Start 06/02/20 at 14:00; Stop 06/03/20 at 11:25; Status DC Ondansetron HCl (Zofran) 4 mg PRN Q8HRS PRN IV NAUSEA/VOMITING; Start 06/02/20 at 14:30; Stop 06/03/20 at 11:26; Status DC Ascorbic Acid (Vitamin C) 500 mg BID PO Last administered on 06/04/20at 08:21; Start 06/02/20 at 21:00 Aspirin (Ecotrin) 81 mg DAILYWBKFT PO Last administered on 06/04/20at 08:20; Start 06/03/20 at 08:00 Atorvastatin Calcium (Lipitor) 40 mg QHS PO Last administered on 06/03/20at 20:16; Start 06/02/20 at 21:00 Carvedilol (Coreg) 3.125 mg BIDWMEALS PO Last administered on 06/03/20at 08:37; Start 06/02/20 at 17:00 Clopidogrel Bisulfate (Plavix) 75 mg DAILY07 PO Last administered on 06/04/20at 05:40; Start 06/03/20 at 07:00 Furosemide (Lasix) 40 mg DAILY PO Last administered on 06/03/20at 08:37; Start 06/03/20 at 09:00; Stop 06/03/20 at 12:34; Status DC Lactobacillus Rhamnosus (Culturelle) 1 cap BID PO Last administered on 06/04/20at 08:21; Start 06/02/20 at 21:00 Lisinopril (Prinivil) 20 mg DAILY PO Last administered on 06/03/20at 08:37; Start 06/03/20 at 09:00; Stop 06/03/20 at 12:06; Status DC Multivitamins (Thera M Plus) 1 tab DAILY PO Last administered on 06/04/20at 08:21; Start 06/03/20 at 09:00 Potassium Chloride (Klor-Con) 20 meq BIDWMEALS PO ; Start 06/02/20 at 17:00 Thiamine Mononitrate (Vitamin B-1) 100 mg DAILY PO Last administered on 06/04/20at 08:20; Start 06/03/20 at 09:00 Sodium Chloride 1,000 ml @ 75 mls/hr [id number] IV Last administered on 06/04/20at 03:17; Start 06/03/20 at 12:15 Lorazepam (Ativan Inj) 0.5 mg PRN Q8HRS PRN IVP ANXIETY / AGITATION Last administered on 06/03/20at 22:28; Start 06/03/20 at 13:15 Active Scripts Active Thera-M Tablet (Multivits,Ca,Minerals/Iron/Fa) 1 Each Tablet 1 Tab PO DAILY 30 Days Vitamin C (Ascorbic Acid) 500 Mg Tablet 500 Mg PO BID 30 Days Vitamin B-1 (Thiamine Mononitrate) 100 Mg Tablet 100 Mg PO DAILY 30 Days Folbic Tablet (Cyanocobalamin/Fa/Pyridoxine) 1 Each Tablet 1 Tab PO DAILY 30 Days Culturelle (Lactobacillus Rhamnosus Gg) 1 Each Cap.sprink 1 Cap PO BID 30 Days Amox Tr-K Clv 500-125 Mg Tab (Amoxicillin/Potassium Clav) 1 Each Tablet 1 Tab PO BID 7 Days Furosemide 40 Mg Tablet 40 Mg PO DAILY 30 Days Aspirin Ec (Aspirin) 81 Mg Tablet.dr 81 Mg PO DAILYWBKFT 30 Days Proair Hfa Inhaler (Albuterol Sulfate) 8.5 Gm Hfa.aer.ad 1 Puff INH PRN Q6HRS PRN Reported Lisinopril 20 Mg Tablet 1 Tab PO DAILY Lipitor (Atorvastatin Calcium) 40 Mg Tablet 1 Tab PO QHS Clopidogrel (Clopidogrel Bisulfate) 75 Mg Tablet 75 Mg PO DAILY Carvedilol (Carvedilol) 3.125 Mg Tablet 3.125 Mg PO BIDWMEALS Klor-Con M20 (Potassium Chloride) 20 Meq Tab.er.prt 20 Meq PO BID Vitals/I & O Vital Sign - Last 24 Hours 06/03/20 06/03/20 06/03/20 06/03/20 15:00 19:00 20:00 23:01 Temp 97.6 97.9 97.1 97.6 97.9 97.1 Pulse 65 69 73 Resp 18 18 18 B/P (MAP) 92/34 (53) 100/39 (59) 129/41 (70) Pulse Ox 95 95 94 O2 Delivery Room Air Room Air Room Air Room Air 06/04/20 06/04/20 06/04/20 03:30 07:00 08:00 Temp 97.7 97.7 97.7 97.7 Pulse 70 77 Resp 18 18 B/P (MAP) 133/55 (81) 129/43 (71) Pulse Ox 96 96 O2 Delivery Room Air Room Air Room Air Intake and Output 06/03/20 06/03/20 06/04/20 15:00 23:00 07:00 Intake Total 200 ml 560 ml 360 ml Balance 200 ml 560 ml 360 ml Nutrition Consultation Dietary Evaluation: Recommendations by RD: Dietary education by RD, Increase Calorie Intake, Protein supplementation Comments: REC continue Cardiac diet will send ensure pudding and enlive with lunch and dinners mvi and vit c are in place per wound protocal Expected Outcomes/Goals: to meet >75% est nutr needs Interpretation of weight loss: >5% in 1 month Malnutrition Findings: Food and Nutrition Intake (Sev: <50% est energy req 5days Body Fat Depletion (Non Severe: Mild Depletion Justicifation of Admission Dx: Justifications for Admission: Justification of Admission Dx: Yes SANJANA JAIMES MD Jun 04, 2020 11:09
[2020-06-04 11:22] LABS: % EOS 17 % (0-5); % LYMPHS 35 % (24-48); % MONOS 9 % (0-10); % SEGS 39 % (35-66)
[2020-06-04 11:23] LABS: PLT ESTIMATE DECREASED (ADEQUATE)
[2020-06-04 11:24] LABS: OVALOCYTES OCC
[2020-06-04 11:25] LABS: ANISOCYTOSIS SLIGHT
--- NOTE | 2020-06-04 12:23 | PDOC ---
Renal-Progress Notes Subjective Notes Notes NO COMPLAINTS VOICED. ARGUMENTATIVE. History of Present Illness Hx of present illness NO ACUTE CHANGES Vitals Vitals Vital Signs Date Time Temp Pulse Resp B/P (MAP) Pulse Ox O2 Delivery O2 Flow Rate FiO2 06/04/20 11:00 98.3 70 18 123/47 (72) 94 Room Air 98.3 Weight Weight [ ] I.O. Intake and Output Intake and Output 06/04/20 07:00 Intake Total 1120 ml Balance 1120 ml Intake Oral 1120 ml # Voids 2 Labs Labs Laboratory Tests Test 06/03/20 12:38 06/04/20 10:20 Ammonia 15 mcmol/L (11-34) White Blood Count 5.9 x10^3/uL (4.0-11.0) Red Blood Count 2.89 x10^6/uL (3.50-5.40) Hemoglobin 9.8 g/dL (12.0-15.5) Hematocrit 29.2 % (36.0-47.0) Mean Corpuscular Volume 101 fL (79-100) Mean Corpuscular Hemoglobin 34 pg (25-35) Mean Corpuscular Hemoglobin Concent 34 g/dL (31-37) Red Cell Distribution Width 16.7 % (11.5-14.5) Platelet Count 103 x10^3/uL (140-400) Neutrophils (%) (Auto) 36 % (31-73) Lymphocytes (%) (Auto) 33 % (24-48) Monocytes (%) (Auto) 12 % (0-9) Eosinophils (%) (Auto) 19 % (0-3) Basophils (%) (Auto) 1 % (0-3) Neutrophils # (Auto) 2.1 x10^3/uL (1.8-7.7) Lymphocytes # (Auto) 1.9 x10^3/uL (1.0-4.8) Monocytes # (Auto) 0.7 x10^3/uL (0.0-1.1) Eosinophils # (Auto) 1.1 x10^3/uL (0.0-0.7) Basophils # (Auto) 0.0 x10^3/uL (0.0-0.2) Segmented Neutrophils % 39 % (35-66) Lymphocytes % 35 % (24-48) Monocytes % 9 % (0-10) Eosinophils % 17 % (0-5) Platelet Estimate Decreased (ADEQUATE) Anisocytosis Slight Ovalocytes Occ Sodium Level 145 mmol/L (136-145) Potassium Level 4.5 mmol/L (3.5-5.1) Chloride Level 112 mmol/L (98-107) Carbon Dioxide Level 25 mmol/L (21-32) Anion Gap 8 (6-14) Blood Urea Nitrogen 56 mg/dL (7-20) Creatinine 1.9 mg/dL (0.6-1.0) Estimated GFR (Cockcroft-Gault) 25.6 BUN/Creatinine Ratio 29 (6-20) Glucose Level 87 mg/dL (70-99) Calcium Level 7.7 mg/dL (8.5-10.1) Total Bilirubin 1.5 mg/dL (0.2-1.0) Direct Bilirubin 0.8 mg/dL (0.0-0.2) Aspartate Amino Transf (AST/SGOT) 83 U/L (15-37) Alanine Aminotransferase (ALT/SGPT) 48 U/L (14-59) Alkaline Phosphatase 68 U/L (46-116) Total Protein 5.6 g/dL (6.4-8.2) Albumin 1.9 g/dL (3.4-5.0) Albumin/Globulin Ratio 0.5 (1.0-1.7) Micro Micro Microbiology 06/02/20 Urine Culture - Preliminary, Resulted 06/02/20 Blood Culture - Preliminary, Resulted NO GROWTH AFTER 1 DAY Review of Systems Constitutional: yes: weakness, alert Ears/Nose/Throat: Yes: no symptom reported Eyes: Yes: no symptom reported Pulmonary: Yes no symptom reported Cardiovascular: Yes no symptom reported Gastrointestional: Yes: no symptom reported Genitourinary: Yes: no symptom reported Musculoskeletal: Yes: no symptom reported Skin: Yes no symptom reported Psychiatric/Neurological: Yes: no symptom reported Endocrine: Yes: no symptom reported Physical Exam General Appearance: no apparent distress Skin: warm Respiratory: decreased breath sounds Heart: S1S2 Abdomen: soft, bowel sounds present Genitourinary: bladder flat Extremities: pulses present Neurology: confused Assessment Assessment IMP ACE-CR OF 2.3 ON ADMIT - NOW 1.9 CKD STAGE 3 WITH CR OF 1.5 DEHYDRATION HYPOTENSION-RESOLVED MET ENCEPHALOPATHY JAUNDICE AND INCREASED LFT'S MALNUTRITION URINARY TRACT INFECTION PLAN ANTIBIOTICS HYDRATION STOPPED LISINOPRIL GI EVALUATION WILL FOLLOW JN PINK MD Jun 04, 2020 12:23
[2020-06-04] MEDS: cefTRIAXone IV Push 1 GM VIAL. IVP SCH (14:49)
[2020-06-04 15:20] VITALS: BP 110/50
--- NOTE | 2020-06-04 15:39 | PDOC ---
CARDIO Progress Notes Date and Time Date of Service 06/04/20 Time of Evaluation 1210 Subjective Subjective: No Chest Pain, No shortness of breath, No Palpitations Vitals Vitals Vital Signs Date Time Temp Pulse Resp B/P (MAP) Pulse Ox O2 Delivery O2 Flow Rate FiO2 06/04/20 15:20 97.7 73 16 110/50 (70) 93 Room Air 97.7 Weight Weight [ ] Input and Output Intake and Output Intake and Output 06/04/20 07:00 Intake Total 1120 ml Balance 1120 ml Intake Oral 1120 ml # Voids 2 Laboratory Labs Laboratory Tests Test 06/04/20 10:20 White Blood Count 5.9 x10^3/uL (4.0-11.0) Red Blood Count 2.89 x10^6/uL (3.50-5.40) Hemoglobin 9.8 g/dL (12.0-15.5) Hematocrit 29.2 % (36.0-47.0) Mean Corpuscular Volume 101 fL (79-100) Mean Corpuscular Hemoglobin 34 pg (25-35) Mean Corpuscular Hemoglobin Concent 34 g/dL (31-37) Red Cell Distribution Width 16.7 % (11.5-14.5) Platelet Count 103 x10^3/uL (140-400) Neutrophils (%) (Auto) 36 % (31-73) Lymphocytes (%) (Auto) 33 % (24-48) Monocytes (%) (Auto) 12 % (0-9) Eosinophils (%) (Auto) 19 % (0-3) Basophils (%) (Auto) 1 % (0-3) Neutrophils # (Auto) 2.1 x10^3/uL (1.8-7.7) Lymphocytes # (Auto) 1.9 x10^3/uL (1.0-4.8) Monocytes # (Auto) 0.7 x10^3/uL (0.0-1.1) Eosinophils # (Auto) 1.1 x10^3/uL (0.0-0.7) Basophils # (Auto) 0.0 x10^3/uL (0.0-0.2) Segmented Neutrophils % 39 % (35-66) Lymphocytes % 35 % (24-48) Monocytes % 9 % (0-10) Eosinophils % 17 % (0-5) Platelet Estimate Decreased (ADEQUATE) Anisocytosis Slight Ovalocytes Occ Sodium Level 145 mmol/L (136-145) Potassium Level 4.5 mmol/L (3.5-5.1) Chloride Level 112 mmol/L (98-107) Carbon Dioxide Level 25 mmol/L (21-32) Anion Gap 8 (6-14) Blood Urea Nitrogen 56 mg/dL (7-20) Creatinine 1.9 mg/dL (0.6-1.0) Estimated GFR (Cockcroft-Gault) 25.6 BUN/Creatinine Ratio 29 (6-20) Glucose Level 87 mg/dL (70-99) Calcium Level 7.7 mg/dL (8.5-10.1) Total Bilirubin 1.5 mg/dL (0.2-1.0) Direct Bilirubin 0.8 mg/dL (0.0-0.2) Aspartate Amino Transf (AST/SGOT) 83 U/L (15-37) Alanine Aminotransferase (ALT/SGPT) 48 U/L (14-59) Alkaline Phosphatase 68 U/L (46-116) Total Protein 5.6 g/dL (6.4-8.2) Albumin 1.9 g/dL (3.4-5.0) Albumin/Globulin Ratio 0.5 (1.0-1.7) Microbiology Micro Microbiology 06/02/20 Urine Culture - Preliminary, Resulted 06/02/20 Blood Culture - Preliminary, Resulted NO GROWTH AFTER 2 DAYS Review of Systems Constitutional: yes: weakness, alert Ears/Nose/Throat: Yes: no symptom reported Eyes: Yes: no symptom reported Pulmonary: Yes no symptom reported Cardiovascular: Yes no symptom reported Gastrointestional: Yes: no symptom reported Genitourinary: Yes: no symptom reported Musculoskeletal: Yes: no symptom reported Skin: Yes no symptom reported Psychiatric/Neurological: Yes: no symptom reported Endocrine: Yes: no symptom reported Physical Exam HEENT: Neck Supple W Full Motion Chest: Symmetric LUNGS: Other (diminished ) Heart: RRR Abdomen: Soft N/T Extremities: No Edema Neurology: alert, oriented, follow commands, confused Assessment Assessment 1. Metabolic encephalopathy 2. UTI 3. ACE on CKD 4. Mild troponin elevation; highest 0.19. Most probably type II, demand ischemia in setting of above. No reports of CP 5. Mixed ischemic, non-ischemic CMP; Echo 11/09 with LVEF 40-45% 6. CAD; s/p PCI/LAUREN to LCx . 7. Hypertension with present hypotension 8. Hyperlipidemia; statin Recommendations Hold Lasix, lisinopril with ACE, hypotension Hold Coreg as warranted for hypotension Secondary prevention measures including DAPT with ASA/Plavix, statin therapy Echo to assess LV systolic function Ongoing treatment of UTI as per IM Supportive care Justicifation of Admission Dx: Justifications for Admission: Justification of Admission Dx: Yes KATIE WALKER APRN Jun 04, 2020 15:39
[2020-06-04 19:00] VITALS: BP 128/43
[2020-06-04] MEDS: ATORVASTATIN CALCIUM 40 MG TABLET. PO SCH (19:59)
[2020-06-04 23:00] VITALS: BP 111/43
[2020-06-05 03:00] VITALS: BP 157/54
[2020-06-05 07:00] VITALS: BP 149/51
[2020-06-05] MEDS: POTASSIUM CHLORIDE 20 MEQ TABLET.ER. PO SCH ×2 (08:34→15:00)
[2020-06-05] MEDS: ASPIRIN ENTERIC COATED 81 MG TABLET.DR. PO SCH (08:34)
[2020-06-05] MEDS: LACTOBACILLUS RHAMNOSUS GG 1 CAPSULE. PO SCH ×2 (08:34→21:09)
[2020-06-05] MEDS: THIAMINE 100 MG TABLET. PO SCH (08:34)
[2020-06-05] MEDS: MULTIVITAMIN with MINERAL TABLET. PO SCH (08:34)
[2020-06-05] MEDS: CARVEDILOL 3.125 MG TABLET. PO SCH ×2 (08:35→15:00)
[2020-06-05] MEDS: ASCORBIC ACID 500 MG TABLET PO SCH ×2 (08:35→21:09)
[2020-06-05] MEDS: CLOPIDOGREL BISULFATE 75 MG TABLET PO SCH (08:35)
[2020-06-05] MEDS: IV NORMAL SALINE 1000ML BAG 1,000 ML IV SCH ×2 (08:36→16:38)
[2020-06-05] MEDS: HEPARIN for SUB-Q USE 5,000 UNIT/ML VIAL. SQ SCH ×2 (08:53→21:27)
--- NOTE | 2020-06-05 09:24 | PDOC ---
Date of Service: DATE: 06/05/20 TIME: : Subjective: Subjective: Seems grumpy today - tells me "I got all this crap to do!" and point to her breakfast tray and pills. "I don't do apples!" - points to applesauce. Objective: Objective: No GI complaints per nurse. Vital Signs: Vital Signs Date Time Temp Pulse Resp B/P (MAP) Pulse Ox O2 Delivery O2 Flow Rate FiO2 06/05/20 08:35 88 149/51 06/05/20 08:00 Room Air 06/05/20 07:00 98.8 16 98 98.8 Labs: Laboratory Tests Test 06/04/20 10:20 White Blood Count 5.9 x10^3/uL Red Blood Count 2.89 x10^6/uL Hemoglobin 9.8 g/dL Hematocrit 29.2 % Mean Corpuscular Volume 101 fL Mean Corpuscular Hemoglobin 34 pg Mean Corpuscular Hemoglobin Concent 34 g/dL Red Cell Distribution Width 16.7 % Platelet Count 103 x10^3/uL Neutrophils (%) (Auto) 36 % Lymphocytes (%) (Auto) 33 % Monocytes (%) (Auto) 12 % Eosinophils (%) (Auto) 19 % Basophils (%) (Auto) 1 % Neutrophils # (Auto) 2.1 x10^3/uL Lymphocytes # (Auto) 1.9 x10^3/uL Monocytes # (Auto) 0.7 x10^3/uL Eosinophils # (Auto) 1.1 x10^3/uL Basophils # (Auto) 0.0 x10^3/uL Segmented Neutrophils % 39 % Lymphocytes % 35 % Monocytes % 9 % Eosinophils % 17 % Platelet Estimate Decreased Anisocytosis Slight Ovalocytes Occ Sodium Level 145 mmol/L Potassium Level 4.5 mmol/L Chloride Level 112 mmol/L Carbon Dioxide Level 25 mmol/L Anion Gap 8 Blood Urea Nitrogen 56 mg/dL Creatinine 1.9 mg/dL Estimated GFR (Cockcroft-Gault) 25.6 BUN/Creatinine Ratio 29 Glucose Level 87 mg/dL Calcium Level 7.7 mg/dL Total Bilirubin 1.5 mg/dL Direct Bilirubin 0.8 mg/dL Aspartate Amino Transf (AST/SGOT) 83 U/L Alanine Aminotransferase (ALT/SGPT) 48 U/L Alkaline Phosphatase 68 U/L Total Protein 5.6 g/dL Albumin 1.9 g/dL Albumin/Globulin Ratio 0.5 URINE CULTURE Final Final GREATER THAN 100,000 CFU/ML [ESCHERICHIA COLI] on 06/04/20 at 1028 60,000 CFU/ML [PROTEUS VULGARIS GROUP] on 06/04/20 at 1411 PE: GEN: NAD LUNGS: CTAB HEART: RRR ABD: non-distended, soft NEURO/PSYCH: grumpy, probably a little confused A/P: UTI, dementia/encephalopathy Macrocytic anemia (some drift in Hgb w/o bleeding - normal B12), ACE/CKD, elevated bili and AST (improved - checked 06/04) Hepatic steatosis, no GB visualized on US - family says no h/o cholecystectomy CAD, cardiomyopathy R/o COVID -- Continue support per GI, monitor labs. Justicifation of Admission Dx: Justifications for Admission: Justification of Admission Dx: Yes HUNTER WEBER Jun 05, 2020 09:24
[2020-06-05 09:25] LABS: CALCIUM 7.7 mg/dL (8.5-10.1); CREATININE 1.7 mg/dL (0.6-1.0); GFR 29.1; POTASSIUM 4.4 mmol/L (3.5-5.1)
[2020-06-05 10:37] LABS: HEMATOCRIT 29.7 % (36.0-47.0); HEMOGLOBIN 9.9 g/dL (12.0-15.5); RED BLOOD COUNT 2.94 x10^6/uL (3.50-5.40); RED CELL DISTRIBUTION WIDTH 16.6 % (11.5-14.5); WHITE BLOOD COUNT 6.8 x10^3/uL (4.0-11.0)
[2020-06-05 10:50] LABS: DIRECT BILIRUBIN 0.8 mg/dL (0.0-0.2); TOTAL BILIRUBIN 1.6 mg/dL (0.2-1.0); TOTAL PROTEIN 5.7 g/dL (6.4-8.2)
[2020-06-05 11:00] VITALS: BP 124/50
--- NOTE | 2020-06-05 11:26 | PDOC ---
KATIE WALKER SENIOR ENGINEER 06/05/20 1126: CARDIO Progress Notes Date and Time Date of Service 06/05/20 Time of Evaluation 1120 Subjective Subjective: No Chest Pain, No shortness of breath, No Palpitations Vitals Vitals Vital Signs Date Time Temp Pulse Resp B/P (MAP) Pulse Ox O2 Delivery O2 Flow Rate FiO2 06/05/20 08:35 88 149/51 06/05/20 08:00 Room Air 06/05/20 07:00 98.8 16 98 98.8 Weight Weight [ ] Input and Output Intake and Output Intake and Output 06/05/20 07:00 Intake Total 560 ml Balance 560 ml Intake Oral 560 ml # Voids 6 Laboratory Labs Laboratory Tests Test 06/05/20 08:30 White Blood Count 6.8 x10^3/uL (4.0-11.0) Red Blood Count 2.94 x10^6/uL (3.50-5.40) Hemoglobin 9.9 g/dL (12.0-15.5) Hematocrit 29.7 % (36.0-47.0) Mean Corpuscular Volume 101 fL (79-100) Mean Corpuscular Hemoglobin 34 pg (25-35) Mean Corpuscular Hemoglobin Concent 34 g/dL (31-37) Red Cell Distribution Width 16.6 % (11.5-14.5) Platelet Count 109 x10^3/uL (140-400) Sodium Level 146 mmol/L (136-145) Potassium Level 4.4 mmol/L (3.5-5.1) Chloride Level 113 mmol/L (98-107) Carbon Dioxide Level 23 mmol/L (21-32) Anion Gap 10 (6-14) Blood Urea Nitrogen 47 mg/dL (7-20) Creatinine 1.7 mg/dL (0.6-1.0) Estimated GFR (Cockcroft-Gault) 29.1 Glucose Level 119 mg/dL (70-99) Calcium Level 7.7 mg/dL (8.5-10.1) Total Bilirubin 1.6 mg/dL (0.2-1.0) Direct Bilirubin 0.8 mg/dL (0.0-0.2) Aspartate Amino Transf (AST/SGOT) 107 U/L (15-37) Alanine Aminotransferase (ALT/SGPT) 58 U/L (14-59) Alkaline Phosphatase 72 U/L (46-116) Total Protein 5.7 g/dL (6.4-8.2) Albumin 2.0 g/dL (3.4-5.0) Microbiology Micro Microbiology 06/02/20 Urine Culture - Final, Complete 06/02/20 Antimicrobic Susceptibility - Final, Complete 06/02/20 Blood Culture - Preliminary, Resulted NO GROWTH AFTER 2 DAYS Review of Systems Constitutional: yes: weakness, alert Ears/Nose/Throat: Yes: no symptom reported Eyes: Yes: no symptom reported Pulmonary: Yes no symptom reported Cardiovascular: Yes no symptom reported Gastrointestional: Yes: no symptom reported Genitourinary: Yes: no symptom reported Musculoskeletal: Yes: no symptom reported Skin: Yes no symptom reported Psychiatric/Neurological: Yes: no symptom reported Endocrine: Yes: no symptom reported Physical Exam HEENT: Neck Supple W Full Motion Chest: Symmetric LUNGS: Other (diminished ) Heart: RRR Abdomen: Soft N/T Extremities: No Edema Neurology: alert, oriented, follow commands, confused Assessment Assessment 1. Metabolic encephalopathy 2. UTI 3. ACE on CKD 4. Mild troponin elevation; highest 0.19. Most probably type II, demand ischemia in setting of above. No reports of CP 5. Mixed ischemic, non-ischemic CMP; Echo 11/09 with LVEF 40-45% 6. CAD; s/p PCI/LAUREN to LCx . 7. Hypertension with present hypotension 8. Hyperlipidemia; statin Recommendations Secondary prevention measures including DAPT with ASA/Plavix, statin therapy Continue BB Resume ACEi upon discharge Echo to assess LV systolic function Ongoing treatment of UTI as per IM Consider outpatient ischemic evaluation Supportive care Justicifation of Admission Dx: Justifications for Admission: Justification of Admission Dx: Yes MARJORIE PETERSON MD 06/06/20 0557: CARDIO Progress Notes Assessment Assessment Patient seen and examined 06/05/20. Agree with [facility]'s assessment and plan. Slight troponin elevation probably demand ischemia. Chronic systolic heart failure clinically well compensated. CAD status clinically stable. Plan outpatient ischemic evaluation. Continue management of metabolic encephalopathy and UTI per primary team KATIE WALKER APRN Jun 05, 2020 11:26 MARJORIE PETERSON MD Jun 06, 2020 05:57
--- NOTE | 2020-06-05 12:24 | PDOC ---
PROGRESS NOTES Date of Service: DATE: 06/05/20 TIME: 12:24 Chief Complaint Chief Complaint VTE Prophylaxis Ordered VTE Prophylaxis Devices: No VTE Pharmacological Prophylaxi: Yes Assessment/Plan Assessment/Plan Hypotension Metabolic encephalopathy Dehydration ACE Vasomotor nephropathy UTI, PROTEUS Jaundice Elevated bilirubin Chronic sacral ulcer Severe malnutrition Plan: D/C LISINOPRIL Will admit patient and and provide IV fluids. Rocephin 1 g daily x3 for UTI THEN PO AUGMENTIN Continue to trend troponins, likely elevated in setting of CKD. If troponins to not remain stable, will consult cardiology for further work-up Patient would not process //order wound care to continue treatment of sacral ulcer Resume home medications consult GI for recommendations on evaluation of jaundice and elevated bilirubin Will obtain right upper quadrant ultrasound Patient's current mental status could be due secondary to progressive dementia; had discussion with patient's daughters that there is a chance this may not improve with medical treatment, and they conveyed understanding. FEN - Cardiac diet PPX - Heparin DNR Dispo - inpatient for above nephrology consult Macrocytic anemia (normal B12), ACE/CKD, elevated bili and AST Hepatic steatosis, no GB visualized on US - family says no h/o cholecystectomy CAD, cardiomyopathy, ECHO 06/05 28 min pt exam, chart review, > 50% of time spent with exam, chart review, pt care coordination Justifications for Admission Justifications for Admission Other Justification History of Present Illness History of Present Illness Identification/Chief Complaint Chief Complaint Hypotension, lethargy Source Source: Chart review, Patient History of Present Illness History of Present Illness Patient 75-year-old female past medical history of CHF, CAD, presents from assisted for evaluation of hypotension and lethargy that started ON DAY OF ADMIT Patient was recently admitted to our service on 05/02/20 for acute metabolic encephalopathy. Creatinine at the time was 1.2. Today creatinine 2.3. She currently has no complaints. Troponin was elevated at 0.163, but she denies chest pain, nausea, or shortness of breath. I discussion with both patient's daughters her joint DPOA. They note progressively worsening dementia over the past months. They also note worsening yellowing of her skin over the past weeks. State that they would like patient's CODE STATUS changed to DNR. We will get patient for further medical management. Past Medical History Cardiovascular: CAD, HTN, Hyperlipidemia, Other Pulmonary: COPD, Pneumonia CENTRAL NERVOUS SYSTEM: Other GI: No pertinent hx Heme/Onc: No pertinent hx Hepatobiliary: No pertinent hx Psych: No pertinent hx Musculoskeletal: low back pain, Osteoarthritis Infectious disease: No pertinent hx Renal/: No pertinent hx Endocrine: No pertinent hx Past Surgical History Past Surgical History: Cataract Removal Family History Family History: High Cholestrol, Hypertension Social History ALCOHOL: none Drugs: None Current Problem List Problem List Problems Medical Problems: (1) Hypotension Status: Acute Vitals Vitals Vital Signs Date Time Temp Pulse Resp B/P (MAP) Pulse Ox O2 Delivery O2 Flow Rate FiO2 06/05/20 11:00 98.5 73 16 124/50 (74) 95 Room Air 98.5 Physical Exam Physical Exam General: Alert, oriented x2 (person and president), uncooperative, mild distress HEENT: PERRLA EOMI Lungs: Clear to auscultation, Normal air movement Heart: RRR, no murmurs Cardiovascular: S1, S2 Abdomen: Normal bowel sounds, Soft, No tenderness Extremities: No clubbing, No cyanosis Skin: Skin appears yellow. Sacral bandage clean, dry, and intact Neuro: Normal speech, Normal tone, Sensation intact Psych/Mental Status: Confused, agitated General: Alert, Cooperative, No acute distress, Other (NOT VERY COOPERATIVE) Heart: Regular rate, Normal S1 Lungs: Clear, Other Abdomen: Normal bowel sounds, Soft Extremities: No cyanosis Labs LABS Procedure Result URINE CULTURE Final Final GREATER THAN 100,000 CFU/ML [ESCHERICHIA COLI] on 06/04/20 at 1028 60,000 CFU/ML [PROTEUS VULGARIS GROUP] on 06/04/20 at 1411 Testing Performed by: [facility] [address] [place] [address] For Inquires, the Physician may contact the Microbiology department at [phone] ESCHERICHIA COLI PROTEUS VULGARIS GROUP ANTIMICROBIAL SUSCEPTIBILITY Final Comment Comment NEG RUDY 56 ESCHERICHIA COLI ANTIBIOTIC RESULT INTERPRETATION AMPICILLIN/SULBACTAM <=4/2 S AMIKACIN <=16 S AMPICILLIN <=8 S AMOXICILLIN/K CLAVULANATE <=8/4 S AZTREONAM 16 I CEFTRIAXONE <=1 S CEFTAZIDIME <=1 S CEFOTAXIME <=2 S CEFOXITIN <=8 S CIPROFLOXACIN <=0.25 S CEFEPIME <=2 S CEFUROXIME <=4 S CEFTAZIDIME/AVIBACTAM <=4 S ERTAPENEM <=0.5 S NITROFURANTOIN <=32 S GENTAMICIN <=2 S LEVOFLOXACIN <=0.5 S MEROPENEM <=1 S PIPERACILLIN/TAZOBACTAM <=8 S TRIMETHOPRIM/SULFAMETHOXAZOLE <=0.5/9.5 S Laboratory Tests Test 06/05/20 08:30 White Blood Count 6.8 x10^3/uL (4.0-11.0) Red Blood Count 2.94 x10^6/uL (3.50-5.40) Hemoglobin 9.9 g/dL (12.0-15.5) Hematocrit 29.7 % (36.0-47.0) Mean Corpuscular Volume 101 fL (79-100) Mean Corpuscular Hemoglobin 34 pg (25-35) Mean Corpuscular Hemoglobin Concent 34 g/dL (31-37) Red Cell Distribution Width 16.6 % (11.5-14.5) Platelet Count 109 x10^3/uL (140-400) Sodium Level 146 mmol/L (136-145) Potassium Level 4.4 mmol/L (3.5-5.1) Chloride Level 113 mmol/L (98-107) Carbon Dioxide Level 23 mmol/L (21-32) Anion Gap 10 (6-14) Blood Urea Nitrogen 47 mg/dL (7-20) Creatinine 1.7 mg/dL (0.6-1.0) Estimated GFR (Cockcroft-Gault) 29.1 Glucose Level 119 mg/dL (70-99) Calcium Level 7.7 mg/dL (8.5-10.1) Total Bilirubin 1.6 mg/dL (0.2-1.0) Direct Bilirubin 0.8 mg/dL (0.0-0.2) Aspartate Amino Transf (AST/SGOT) 107 U/L (15-37) Alanine Aminotransferase (ALT/SGPT) 58 U/L (14-59) Alkaline Phosphatase 72 U/L (46-116) Total Protein 5.7 g/dL (6.4-8.2) Albumin 2.0 g/dL (3.4-5.0) Assessment and Plan Assessmemt and Plan Problems Medical Problems: (1) Acute on chronic kidney failure Status: Acute (2) Confused Status: Acute (3) Elevated troponin Status: Acute (4) Hypotension Status: Acute (5) Urinary tract infection Status: Acute Comment Review of Relevant I have reviewed the following items yuliana (where applicable) has been applied. Labs Laboratory Tests Test 06/03/20 12:38 06/03/20 23:11 06/04/20 10:20 06/05/20 08:30 Ammonia 15 mcmol/L (11-34) Coronavirus (PCR) Not detected (Not Detected) White Blood Count 5.9 x10^3/uL (4.0-11.0) 6.8 x10^3/uL (4.0-11.0) Red Blood Count 2.89 x10^6/uL (3.50-5.40) 2.94 x10^6/uL (3.50-5.40) Hemoglobin 9.8 g/dL (12.0-15.5) 9.9 g/dL (12.0-15.5) Hematocrit 29.2 % (36.0-47.0) 29.7 % (36.0-47.0) Mean Corpuscular Volume 101 fL (79-100) 101 fL (79-100) Mean Corpuscular Hemoglobin 34 pg (25-35) 34 pg (25-35) Mean Corpuscular Hemoglobin Concent 34 g/dL (31-37) 34 g/dL (31-37) Red Cell Distribution Width 16.7 % (11.5-14.5) 16.6 % (11.5-14.5) Platelet Count 103 x10^3/uL (140-400) 109 x10^3/uL (140-400) Neutrophils (%) (Auto) 36 % (31-73) Lymphocytes (%) (Auto) 33 % (24-48) Monocytes (%) (Auto) 12 % (0-9) Eosinophils (%) (Auto) 19 % (0-3) Basophils (%) (Auto) 1 % (0-3) Neutrophils # (Auto) 2.1 x10^3/uL (1.8-7.7) Lymphocytes # (Auto) 1.9 x10^3/uL (1.0-4.8) Monocytes # (Auto) 0.7 x10^3/uL (0.0-1.1) Eosinophils # (Auto) 1.1 x10^3/uL (0.0-0.7) Basophils # (Auto) 0.0 x10^3/uL (0.0-0.2) Segmented Neutrophils % 39 % (35-66) Lymphocytes % 35 % (24-48) Monocytes % 9 % (0-10) Eosinophils % 17 % (0-5) Platelet Estimate Decreased (ADEQUATE) Anisocytosis Slight Ovalocytes Occ Sodium Level 145 mmol/L (136-145) 146 mmol/L (136-145) Potassium Level 4.5 mmol/L (3.5-5.1) 4.4 mmol/L (3.5-5.1) Chloride Level 112 mmol/L (98-107) 113 mmol/L (98-107) Carbon Dioxide Level 25 mmol/L (21-32) 23 mmol/L (21-32) Anion Gap 8 (6-14) 10 (6-14) Blood Urea Nitrogen 56 mg/dL (7-20) 47 mg/dL (7-20) Creatinine 1.9 mg/dL (0.6-1.0) 1.7 mg/dL (0.6-1.0) Estimated GFR (Cockcroft-Gault) 25.6 29.1 BUN/Creatinine Ratio 29 (6-20) Glucose Level 87 mg/dL (70-99) 119 mg/dL (70-99) Calcium Level 7.7 mg/dL (8.5-10.1) 7.7 mg/dL (8.5-10.1) Total Bilirubin 1.5 mg/dL (0.2-1.0) 1.6 mg/dL (0.2-1.0) Direct Bilirubin 0.8 mg/dL (0.0-0.2) 0.8 mg/dL (0.0-0.2) Aspartate Amino Transf (AST/SGOT) 83 U/L (15-37) 107 U/L (15-37) Alanine Aminotransferase (ALT/SGPT) 48 U/L (14-59) 58 U/L (14-59) Alkaline Phosphatase 68 U/L (46-116) 72 U/L (46-116) Total Protein 5.6 g/dL (6.4-8.2) 5.7 g/dL (6.4-8.2) Albumin 1.9 g/dL (3.4-5.0) 2.0 g/dL (3.4-5.0) Albumin/Globulin Ratio 0.5 (1.0-1.7) Laboratory Tests Test 06/05/20 08:30 White Blood Count 6.8 x10^3/uL (4.0-11.0) Red Blood Count 2.94 x10^6/uL (3.50-5.40) Hemoglobin 9.9 g/dL (12.0-15.5) Hematocrit 29.7 % (36.0-47.0) Mean Corpuscular Volume 101 fL (79-100) Mean Corpuscular Hemoglobin 34 pg (25-35) Mean Corpuscular Hemoglobin Concent 34 g/dL (31-37) Red Cell Distribution Width 16.6 % (11.5-14.5) Platelet Count 109 x10^3/uL (140-400) Sodium Level 146 mmol/L (136-145) Potassium Level 4.4 mmol/L (3.5-5.1) Chloride Level 113 mmol/L (98-107) Carbon Dioxide Level 23 mmol/L (21-32) Anion Gap 10 (6-14) Blood Urea Nitrogen 47 mg/dL (7-20) Creatinine 1.7 mg/dL (0.6-1.0) Estimated GFR (Cockcroft-Gault) 29.1 Glucose Level 119 mg/dL (70-99) Calcium Level 7.7 mg/dL (8.5-10.1) Total Bilirubin 1.6 mg/dL (0.2-1.0) Direct Bilirubin 0.8 mg/dL (0.0-0.2) Aspartate Amino Transf (AST/SGOT) 107 U/L (15-37) Alanine Aminotransferase (ALT/SGPT) 58 U/L (14-59) Alkaline Phosphatase 72 U/L (46-116) Total Protein 5.7 g/dL (6.4-8.2) Albumin 2.0 g/dL (3.4-5.0) Microbiology 06/02/20 Urine Culture - Final, Complete 06/02/20 Antimicrobic Susceptibility - Final, Complete 06/02/20 Blood Culture - Preliminary, Resulted NO GROWTH AFTER 2 DAYS Medications Current Medications Sodium Chloride 1,000 ml @ 1,000 mls/hr 1X ONCE IV Last administered on 06/02/20at 12:19; Start 06/02/20 at 12:00; Stop 06/02/20 at 12:59; Status DC Ceftriaxone Sodium (Rocephin) 1 gm 1X ONCE IVP Last administered on 06/02/20at 13:57; Start 06/02/20 at 13:45; Stop 06/02/20 at 13:46; Status DC Ondansetron HCl (Zofran) 4 mg PRN Q6HRS PRN IVP NAUSEA/VOMITING; Start 06/02/20 at 14:00 Al Hydroxide/Mg Hydroxide (Mylanta Plus Xs) 30 ml PRN Q3HRS PRN PO HEARTBURN / GAS; Start 06/02/20 at 14:00 Calcium Carbonate/ Glycine (Tums) 500 mg PRN Q3HRS PRN PO UPSET STOMACH; Start 06/02/20 at 14:00 Zolpidem Tartrate (Ambien) 5 mg PRN QHS PRN PO INSOMNIA, MAY REPEAT IN 1HR Last administered on 06/03/20at 20:16; Start 06/02/20 at 14:00 Acetaminophen (Tylenol) 650 mg PRN Q6HRS PRN PO Headaches, Temp > 101.5F; Start 06/02/20 at 14:00 Magnesium Hydroxide (Milk Of Magnesia) 2,400 mg PRN Q12HR PRN PO CONSTIPATION; Start 06/02/20 at 14:00 Bisacodyl (Dulcolax Supp) 10 mg PRN DAILY PRN AR CONSTIPATION; Start 06/02/20 at 14:00 Heparin Sodium (Porcine) (Heparin Sodium) 5,000 unit Q12HR SQ Last administered on 06/05/20at 08:53; Start 06/02/20 at 21:00 Ceftriaxone Sodium (Rocephin) 1 gm Q24H IVP Last administered on 06/04/20at 14:49; Start 06/03/20 at 14:00; Stop 06/05/20 at 14:01 Nicotine (Nicoderm Cq 21mg) 1 patch PRN DAILY PRN TD SMOKING CESSATION; Start 06/02/20 at 14:00 Nicotine (Nicoderm Cq 14mg) 1 patch PRN DAILY PRN TD SMOKING CESSATION; Start 06/02/20 at 14:00; Stop 06/03/20 at 11:25; Status DC Ondansetron HCl (Zofran) 4 mg PRN Q8HRS PRN IV NAUSEA/VOMITING; Start 06/02/20 at 14:30; Stop 06/03/20 at 11:26; Status DC Ascorbic Acid (Vitamin C) 500 mg BID PO Last administered on 06/05/20at 08:35; Start 06/02/20 at 21:00 Aspirin (Ecotrin) 81 mg DAILYWBKFT PO Last administered on 06/05/20at 08:34; Start 06/03/20 at 08:00 Atorvastatin Calcium (Lipitor) 40 mg QHS PO Last administered on 06/04/20at 19:59; Start 06/02/20 at 21:00 Carvedilol (Coreg) 3.125 mg BIDWMEALS PO Last administered on 06/05/20at 08:35; Start 06/02/20 at 17:00 Clopidogrel Bisulfate (Plavix) 75 mg DAILY07 PO Last administered on 06/05/20at 08:35; Start 06/03/20 at 07:00 Furosemide (Lasix) 40 mg DAILY PO Last administered on 06/03/20at 08:37; Start 06/03/20 at 09:00; Stop 06/03/20 at 12:34; Status DC Lactobacillus Rhamnosus (Culturelle) 1 cap BID PO Last administered on 06/05/20at 08:34; Start 06/02/20 at 21:00 Lisinopril (Prinivil) 20 mg DAILY PO Last administered on 06/03/20at 08:37; Start 06/03/20 at 09:00; Stop 06/03/20 at 12:06; Status DC Multivitamins (Thera M Plus) 1 tab DAILY PO Last administered on 06/05/20at 08:34; Start 06/03/20 at 09:00 Potassium Chloride (Klor-Con) 20 meq BIDWMEALS PO Last administered on 06/05/20at 08:34; Start 06/02/20 at 17:00 Thiamine Mononitrate (Vitamin B-1) 100 mg DAILY PO Last administered on 06/05/20at 08:34; Start 06/03/20 at 09:00 Sodium Chloride 1,000 ml @ 75 mls/hr [id number] IV Last administered on 06/05/20at 08:36; Start 06/03/20 at 12:15 Lorazepam (Ativan Inj) 0.5 mg PRN Q8HRS PRN IVP ANXIETY / AGITATION Last administered on 06/03/20at 22:28; Start 06/03/20 at 13:15 Active Scripts Active Thera-M Tablet (Multivits,Ca,Minerals/Iron/Fa) 1 Each Tablet 1 Tab PO DAILY 30 Days Vitamin C (Ascorbic Acid) 500 Mg Tablet 500 Mg PO BID 30 Days Vitamin B-1 (Thiamine Mononitrate) 100 Mg Tablet 100 Mg PO DAILY 30 Days Folbic Tablet (Cyanocobalamin/Fa/Pyridoxine) 1 Each Tablet 1 Tab PO DAILY 30 Days Culturelle (Lactobacillus Rhamnosus Gg) 1 Each Cap.sprink 1 Cap PO BID 30 Days Amox Tr-K Clv 500-125 Mg Tab (Amoxicillin/Potassium Clav) 1 Each Tablet 1 Tab PO BID 7 Days Furosemide 40 Mg Tablet 40 Mg PO DAILY 30 Days Aspirin Ec (Aspirin) 81 Mg Tablet.dr 81 Mg PO DAILYWBKFT 30 Days Proair Hfa Inhaler (Albuterol Sulfate) 8.5 Gm Hfa.aer.ad 1 Puff INH PRN Q6HRS PRN Reported Lisinopril 20 Mg Tablet 1 Tab PO DAILY Lipitor (Atorvastatin Calcium) 40 Mg Tablet 1 Tab PO QHS Clopidogrel (Clopidogrel Bisulfate) 75 Mg Tablet 75 Mg PO DAILY Carvedilol (Carvedilol) 3.125 Mg Tablet 3.125 Mg PO BIDWMEALS Klor-Con M20 (Potassium Chloride) 20 Meq Tab.er.prt 20 Meq PO BID Vitals/I & O Vital Sign - Last 24 Hours 06/04/20 06/04/20 06/04/20 06/04/20 15:20 19:00 19:30 23:00 Temp 97.7 97.4 99.9 97.7 97.4 99.9 Pulse 73 74 81 Resp 16 16 16 B/P (MAP) 110/50 (70) 128/43 (71) 111/43 (65) Pulse Ox 93 94 95 O2 Delivery Room Air Room Air 06/05/20 06/05/20 06/05/20 06/05/20 03:00 07:00 08:00 08:35 Temp 98.5 98.8 98.5 98.8 Pulse 85 88 88 Resp 18 16 B/P (MAP) 157/54 (88) 149/51 (83) 149/51 Pulse Ox 100 98 O2 Delivery Room Air Room Air 06/05/20 11:00 Temp 98.5 98.5 Pulse 73 Resp 16 B/P (MAP) 124/50 (74) Pulse Ox 95 O2 Delivery Room Air Intake and Output 06/04/20 06/04/20 06/05/20 15:00 23:00 07:00 Intake Total 200 ml 360 ml Balance 200 ml 360 ml Nutrition Consultation Dietary Evaluation: Recommendations by RD: Dietary education by RD, Increase Calorie Intake, Protein supplementation Comments: REC continue Cardiac diet will send ensure pudding and enlive with lunch and dinners mvi and vit c are in place per wound protocal Expected Outcomes/Goals: to meet >75% est nutr needs Interpretation of weight loss: >5% in 1 month Malnutrition Findings: Food and Nutrition Intake (Sev: <50% est energy req 5days Body Fat Depletion (Non Severe: Mild Depletion Justicifation of Admission Dx: Justifications for Admission: Justification of Admission Dx: Yes ASNJANA JAIMES MD Jun 05, 2020 12:24
[2020-06-05] MEDS: cefTRIAXone IV Push 1 GM VIAL. IVP SCH (13:16)
[2020-06-05] MEDS: AMOXICILLIN/K CLAV 500/125MG TABLET. PO SCH ×2 (14:59→21:09)
[2020-06-05 15:00] VITALS: BP 122/55
--- NOTE | 2020-06-05 17:58 | PDOC ---
Renal-Progress Notes Subjective Notes Notes CONFUSED History of Present Illness Hx of present illness NO ACUTE CHANGES Vitals Vitals Vital Signs Date Time Temp Pulse Resp B/P (MAP) Pulse Ox O2 Delivery O2 Flow Rate FiO2 06/05/20 11:00 98.5 73 16 124/50 (74) 95 Room Air 98.5 Weight Weight [ ] I.O. Intake and Output Intake and Output 06/05/20 07:00 Intake Total 560 ml Balance 560 ml Intake Oral 560 ml # Voids 6 Labs Labs Laboratory Tests Test 06/05/20 08:30 White Blood Count 6.8 x10^3/uL (4.0-11.0) Red Blood Count 2.94 x10^6/uL (3.50-5.40) Hemoglobin 9.9 g/dL (12.0-15.5) Hematocrit 29.7 % (36.0-47.0) Mean Corpuscular Volume 101 fL (79-100) Mean Corpuscular Hemoglobin 34 pg (25-35) Mean Corpuscular Hemoglobin Concent 34 g/dL (31-37) Red Cell Distribution Width 16.6 % (11.5-14.5) Platelet Count 109 x10^3/uL (140-400) Sodium Level 146 mmol/L (136-145) Potassium Level 4.4 mmol/L (3.5-5.1) Chloride Level 113 mmol/L (98-107) Carbon Dioxide Level 23 mmol/L (21-32) Anion Gap 10 (6-14) Blood Urea Nitrogen 47 mg/dL (7-20) Creatinine 1.7 mg/dL (0.6-1.0) Estimated GFR (Cockcroft-Gault) 29.1 Glucose Level 119 mg/dL (70-99) Calcium Level 7.7 mg/dL (8.5-10.1) Total Bilirubin 1.6 mg/dL (0.2-1.0) Direct Bilirubin 0.8 mg/dL (0.0-0.2) Aspartate Amino Transf (AST/SGOT) 107 U/L (15-37) Alanine Aminotransferase (ALT/SGPT) 58 U/L (14-59) Alkaline Phosphatase 72 U/L (46-116) Total Protein 5.7 g/dL (6.4-8.2) Albumin 2.0 g/dL (3.4-5.0) Micro Micro Microbiology 06/02/20 Urine Culture - Final, Complete 06/02/20 Antimicrobic Susceptibility - Final, Complete 06/02/20 Blood Culture - Preliminary, Resulted NO GROWTH AFTER 3 DAYS Review of Systems Constitutional: yes: weakness, alert Ears/Nose/Throat: Yes: no symptom reported Eyes: Yes: no symptom reported Pulmonary: Yes no symptom reported Cardiovascular: Yes no symptom reported Gastrointestional: Yes: no symptom reported Genitourinary: Yes: no symptom reported Musculoskeletal: Yes: no symptom reported Skin: Yes no symptom reported Psychiatric/Neurological: Yes: no symptom reported Endocrine: Yes: no symptom reported Physical Exam General Appearance: no apparent distress Skin: warm Respiratory: decreased breath sounds Heart: S1S2 Abdomen: soft, bowel sounds present Genitourinary: bladder flat Extremities: pulses present Neurology: alert, oriented, follow commands, confused Assessment Assessment IMP HYPERNATREMIA ACE-CR OF 2.3 ON ADMIT - NOW 1.7 CKD STAGE 3 WITH CR OF 1.5 DEHYDRATION HYPOTENSION-RESOLVED MET ENCEPHALOPATHY JAUNDICE AND INCREASED LFT'S MALNUTRITION URINARY TRACT INFECTION PLAN ANTIBIOTICS HYDRATION-CHANGE TO HYPOTONIC SALINE STOPPED LISINOPRIL GI EVALUATION WILL FOLLOW JN PINK MD Jun 05, 2020 17:58
[2020-06-05] MEDS: IV 1/2 NORMAL SALINE 1,000 ML IV SCH (18:31)
[2020-06-05 19:00] VITALS: BP 124/42
[2020-06-05] MEDS: ATORVASTATIN CALCIUM 40 MG TABLET. PO SCH (21:09)
[2020-06-05 23:00] VITALS: BP 99/33
[2020-06-06 03:00] VITALS: BP 108/52
[2020-06-06 07:00] VITALS: BP_SYST 113; BP_SYST 148; BP_DIAS 39; BP_DIAS 48
[2020-06-06] MEDS: CLOPIDOGREL BISULFATE 75 MG TABLET PO SCH (07:18)
[2020-06-06] MEDS: IV 1/2 NORMAL SALINE 1,000 ML IV SCH ×2 (07:35→20:55)
--- NOTE | 2020-06-06 08:12 | CARD ---
MR#: [id number] Date of Study: 06/05/2020 Ordering Physician: KATIE WALKER, Referring Physician: KATIE WALKER, Tech: Awa Cooper APPROVED REPORT EXAM: Two-dimensional and M-mode echocardiogram with Doppler and color Doppler. Other Information Quality : FairHR: 71bpm Technically limited study due to body habitus. INDICATION COPD Congestive Heart Failure elevated Troponin RISK FACTORS Hypertension Hyperlipidemia Smoking 2D DIMENSIONS Left Atrium(2D)3.4 (1.6-4.0cm)IVSd1.1 (0.7-1.1cm) Aortic Root(2D)2.6 (2.0-3.7cm)LVDd4.6 (3.9-5.9cm) LVOT Diameter1.9 (1.8-2.4cm)PWd1.3 (0.7-1.1cm) LVDs2.5 (2.5-4.0cm)FS (%) 45.9 % SV76.0 mlLVEF(%)77.3 (>50%) Aortic Valve AoV Peak Basilio.207.2cm/sAoV VTI56.0cm AO Peak GR.17.2mmHgLVOT VTI 31.23cm AO Mean GR.13mmHg Mitral Valve MV E Lhszssmi937.2cm/sMV E Peak Gr.5mmHg MV DECEL [id number] A Uwrwyela490.1cm/s MV E Mean Gr.3mmHgE/A Ratio1.0 TDI Lateral E' P. V6.92cm/sMedial E' P. V5.80cm/s E/Lateral E'14.8E/Medial E'17.6 Tricuspid Valve TR P. [id number]/sRAP [id number] TR Peak Gr.[id number] LEFT VENTRICLE The left ventricle is normal size. There is mild concentric left ventricular hypertrophy. The left ve ntricular systolic function is low normal at 50%. Wall motion consistent with conduction abnormality. Otherwise, grossly normal wall motion. Tissue Doppler imaging reveals moderate left ventricular moncao tolic dysfunction. RIGHT VENTRICLE The right ventricle is normal size. There is normal right ventricular wall thickness. The right ventr icular systolic function is normal. ATRIA The left atrium size is normal. The right atrium size is normal. The interatrial septum is intact wit h no evidence for an atrial septal defect or patent foramen ovale as noted on 2-D or Doppler imaging. AORTIC VALVE The aortic valve is not well visualized. Doppler and Color Flow revealed no significant aortic regurg itation. Calculated aortic valve area is 1.54 cm2 with maximum pressure gradient of 25 mmHg and mean pressure gradient of 13 mmHg. MITRAL VALVE The mitral valve is mildly thickened. There is no evidence of mitral valve prolapse. There is no mitr al valve stenosis mean gradient measuring 3.29 mmHg. TRICUSPID VALVE The tricuspid valve is normal in structure and function. Doppler and Color Flow revealed trace tricus pid regurgitation with an estimated PAP of 38 mmHg. There is no tricuspid valve stenosis. PULMONIC VALVE The pulmonic valve is not well visualized. Doppler and Color Flow revealed no pulmonic valvular regur gitation. There is no pulmonic valvular stenosis. GREAT VESSELS The aortic root is normal in size. The IVC is dilated and collapses <50% with inspiration. PERICARDIAL EFFUSION There is no evidence of significant pericardial effusion. Critical Notification Critical Value: No <Conclusion> The left ventricular systolic function is low normal at 50%. Wall motion consistent with conduction abnormality. Otherwise, grossly normal wall motion. Technically difficult study Signed by : Kelby Bunch, Electronically Approved : 06/06/2020 08:12:19
[2020-06-06] MEDS: LACTOBACILLUS RHAMNOSUS GG 1 CAPSULE. PO SCH ×2 (08:30→22:19)
[2020-06-06] MEDS: ASPIRIN ENTERIC COATED 81 MG TABLET.DR. PO SCH (08:30)
[2020-06-06] MEDS: POTASSIUM CHLORIDE 20 MEQ TABLET.ER. PO SCH ×2 (08:30→17:37)
[2020-06-06] MEDS: THIAMINE 100 MG TABLET. PO SCH (08:30)
[2020-06-06] MEDS: AMOXICILLIN/K CLAV 500/125MG TABLET. PO SCH ×2 (08:30→22:20)
[2020-06-06] MEDS: ASCORBIC ACID 500 MG TABLET PO SCH ×2 (08:30→22:19)
[2020-06-06] MEDS: CARVEDILOL 3.125 MG TABLET. PO SCH ×2 (08:31→17:37)
[2020-06-06] MEDS: MULTIVITAMIN with MINERAL TABLET. PO SCH (08:31)
[2020-06-06] MEDS: HEPARIN for SUB-Q USE 5,000 UNIT/ML VIAL. SQ SCH ×2 (08:40→22:25)
--- NOTE | 2020-06-06 08:42 | PDOC ---
PROGRESS NOTES Date of Service: DATE: 06/06/20 TIME: 08:41 Chief Complaint Chief Complaint VTE Prophylaxis Ordered VTE Prophylaxis Devices: No VTE Pharmacological Prophylaxi: Yes Assessment/Plan Assessment/Plan Hypotension Metabolic encephalopathy, slow to improve Dehydration ACE Vasomotor nephropathy UTI, PROTEUS Jaundice Elevated bilirubin Chronic sacral ulcer Severe malnutrition Plan: D/C LISINOPRIL Will admit patient and and provide IV fluids. Rocephin 1 g daily x3 for UTI THEN PO AUGMENTIN Continue to trend troponins, likely elevated in setting of CKD. If troponins to not remain stable, will consult cardiology for further work-up Patient would not process //order wound care to continue treatment of sacral ulcer Resume home medications consult GI for recommendations on evaluation of jaundice and elevated bilirubin Will obtain right upper quadrant ultrasound Patient's current mental status could be due secondary to progressive dementia; had discussion with patient's daughters that there is a chance this may not improve with medical treatment, and they conveyed understanding. FEN - Cardiac diet PPX - Heparin DNR Dispo - inpatient for above nephrology consult Macrocytic anemia (normal B12), ACE/CKD, elevated bili and AST Hepatic steatosis, no GB visualized on US - family says no h/o cholecystectomy CAD, cardiomyopathy, ECHO 06/05 reviewed 28 min pt exam, chart review, > 50% of time spent with exam, chart review, pt care coordination Justifications for Admission Justifications for Admission Other Justification History of Present Illness History of Present Illness Identification/Chief Complaint Chief Complaint Hypotension, lethargy Source Source: Chart review, Patient History of Present Illness History of Present Illness Patient 75-year-old female past medical history of CHF, CAD, presents from skilled nursing for evaluation of hypotension and lethargy that started ON DAY OF ADMIT Patient was recently admitted to our service on 05/02/20 for acute metabolic encephalopathy. Creatinine at the time was 1.2. Today creatinine 2.3. She currently has no complaints. Troponin was elevated at 0.163, but she denies chest pain, nausea, or shortness of breath. I discussion with both patient's daughters her joint DPOA. They note progressively worsening dementia over the past months. They also note worsening yellowing of her skin over the past weeks. State that they would like patient's CODE STATUS changed to DNR. We will get patient for further medical management. Past Medical History Cardiovascular: CAD, HTN, Hyperlipidemia, Other Pulmonary: COPD, Pneumonia CENTRAL NERVOUS SYSTEM: Other GI: No pertinent hx Heme/Onc: No pertinent hx Hepatobiliary: No pertinent hx Psych: No pertinent hx Musculoskeletal: low back pain, Osteoarthritis Infectious disease: No pertinent hx Renal/: No pertinent hx Endocrine: No pertinent hx Past Surgical History Past Surgical History: Cataract Removal Family History Family History: High Cholestrol, Hypertension Social History ALCOHOL: none Drugs: None Current Problem List Problem List Problems Medical Problems: (1) Hypotension Status: Acute Vitals Vitals Vital Signs Date Time Temp Pulse Resp B/P (MAP) Pulse Ox O2 Delivery O2 Flow Rate FiO2 06/06/20 08:31 74 108/52 06/06/20 03:00 18 95 Room Air 06/05/20 23:00 99.2 99.2 Physical Exam Physical Exam General: Alert, oriented x2 (person and president), uncooperative, mild distress HEENT: PERRLA, EOMI Lungs: Clear to auscultation, Normal air movement Heart: RRR, no murmurs Cardiovascular: S1, S2 Abdomen: Normal bowel sounds, Soft, No tenderness Extremities: No clubbing, No cyanosis Skin: Skin appears yellow. Sacral bandage clean, dry, and intact Neuro: Normal speech, Normal tone, Sensation intact Psych/Mental Status: Confused, agitated General: Alert, Cooperative, No acute distress, Other (NOT VERY COOPERATIVE) Heart: Regular rate, Normal S1 Lungs: Clear, Other Abdomen: Normal bowel sounds, Soft Extremities: No cyanosis Labs LABS RIGHT VENTRICLE The right ventricle is normal size. There is normal right ventricular wall thickness. The right ventricular systolic function is normal. ATRIA The left atrium size is normal. The right atrium size is normal. The interatrial septum is intact with no evidence for an atrial septal defect or patent foramen ovale as noted on 2-D or Doppler imaging. AORTIC VALVE The aortic valve is not well visualized. Doppler and Color Flow revealed no significant aortic regurgitation. Calculated aortic valve area is 1.54 cm2 with maximum pressure gradient of 25 mmHg and mean pressure gradient of 13 mmHg. MITRAL VALVE The mitral valve is mildly thickened. There is no evidence of mitral valve prolapse. There is no mitral valve stenosis mean gradient measuring 3.29 mmHg. TRICUSPID VALVE The tricuspid valve is normal in structure and function. Doppler and Color Flow revealed trace tricuspid regurgitation with an estimated PAP of 38 mmHg. There is no tricuspid valve stenosis. PULMONIC VALVE The pulmonic valve is not well visualized. Doppler and Color Flow revealed no pulmonic valvular regurgitation. There is no pulmonic valvular stenosis. GREAT VESSELS The aortic root is normal in size. The IVC is dilated and collapses <50% with inspiration. PERICARDIAL EFFUSION There is no evidence of significant pericardial effusion. Critical Notificationoal 1 - Bed Mobility Assistance Required * Independent Goal 1 Assessment * Goal Met Goal 2 - Transfers Assistance Required * Independent Goal 2 - Transfer Type * Sit to Stand Goal 3 - Ambulation Assistance Required * Independent Goal 3 - Ambulation Distance * 100' Goal 3 - Ambulation Device * Roller Walker Treatment Plan * Therapeutic Exercise * Bed Mobility Training * Transfer training * Gait Training * Dynamic Balance Training Frequency of Treatment Expected * 6 visits/week Duration of Treatment Expected * 2 weeks Discharge Recommendations * [facility] Discharge Recommendation - DME * Rolling Walker needed * in order to complete ADLs * and ambulation safely Assessment and Plan Assessmemt and Plan Problems Medical Problems: (1) Acute on chronic kidney failure Status: Acute (2) Confused Status: Acute (3) Elevated troponin Status: Acute (4) Hypotension Status: Acute (5) Urinary tract infection Status: Acute Comment Review of Relevant I have reviewed the following items yuliana (where applicable) has been applied. Labs Laboratory Tests Test 06/04/20 10:20 06/05/20 08:30 White Blood Count 5.9 x10^3/uL (4.0-11.0) 6.8 x10^3/uL (4.0-11.0) Red Blood Count 2.89 x10^6/uL (3.50-5.40) 2.94 x10^6/uL (3.50-5.40) Hemoglobin 9.8 g/dL (12.0-15.5) 9.9 g/dL (12.0-15.5) Hematocrit 29.2 % (36.0-47.0) 29.7 % (36.0-47.0) Mean Corpuscular Volume 101 fL (79-100) 101 fL (79-100) Mean Corpuscular Hemoglobin 34 pg (25-35) 34 pg (25-35) Mean Corpuscular Hemoglobin Concent 34 g/dL (31-37) 34 g/dL (31-37) Red Cell Distribution Width 16.7 % (11.5-14.5) 16.6 % (11.5-14.5) Platelet Count 103 x10^3/uL (140-400) 109 x10^3/uL (140-400) Neutrophils (%) (Auto) 36 % (31-73) Lymphocytes (%) (Auto) 33 % (24-48) Monocytes (%) (Auto) 12 % (0-9) Eosinophils (%) (Auto) 19 % (0-3) Basophils (%) (Auto) 1 % (0-3) Neutrophils # (Auto) 2.1 x10^3/uL (1.8-7.7) Lymphocytes # (Auto) 1.9 x10^3/uL (1.0-4.8) Monocytes # (Auto) 0.7 x10^3/uL (0.0-1.1) Eosinophils # (Auto) 1.1 x10^3/uL (0.0-0.7) Basophils # (Auto) 0.0 x10^3/uL (0.0-0.2) Segmented Neutrophils % 39 % (35-66) Lymphocytes % 35 % (24-48) Monocytes % 9 % (0-10) Eosinophils % 17 % (0-5) Platelet Estimate Decreased (ADEQUATE) Anisocytosis Slight Ovalocytes Occ Sodium Level 145 mmol/L (136-145) 146 mmol/L (136-145) Potassium Level 4.5 mmol/L (3.5-5.1) 4.4 mmol/L (3.5-5.1) Chloride Level 112 mmol/L (98-107) 113 mmol/L (98-107) Carbon Dioxide Level 25 mmol/L (21-32) 23 mmol/L (21-32) Anion Gap 8 (6-14) 10 (6-14) Blood Urea Nitrogen 56 mg/dL (7-20) 47 mg/dL (7-20) Creatinine 1.9 mg/dL (0.6-1.0) 1.7 mg/dL (0.6-1.0) Estimated GFR (Cockcroft-Gault) 25.6 29.1 BUN/Creatinine Ratio 29 (6-20) Glucose Level 87 mg/dL (70-99) 119 mg/dL (70-99) Calcium Level 7.7 mg/dL (8.5-10.1) 7.7 mg/dL (8.5-10.1) Total Bilirubin 1.5 mg/dL (0.2-1.0) 1.6 mg/dL (0.2-1.0) Direct Bilirubin 0.8 mg/dL (0.0-0.2) 0.8 mg/dL (0.0-0.2) Aspartate Amino Transf (AST/SGOT) 83 U/L (15-37) 107 U/L (15-37) Alanine Aminotransferase (ALT/SGPT) 48 U/L (14-59) 58 U/L (14-59) Alkaline Phosphatase 68 U/L (46-116) 72 U/L (46-116) Total Protein 5.6 g/dL (6.4-8.2) 5.7 g/dL (6.4-8.2) Albumin 1.9 g/dL (3.4-5.0) 2.0 g/dL (3.4-5.0) Albumin/Globulin Ratio 0.5 (1.0-1.7) Microbiology 06/02/20 Urine Culture - Final, Complete 06/02/20 Antimicrobic Susceptibility - Final, Complete 06/02/20 Blood Culture - Preliminary, Resulted NO GROWTH AFTER 3 DAYS Medications Current Medications Sodium Chloride 1,000 ml @ 1,000 mls/hr 1X ONCE IV Last administered on 06/02/20at 12:19; Start 06/02/20 at 12:00; Stop 06/02/20 at 12:59; Status DC Ceftriaxone Sodium (Rocephin) 1 gm 1X ONCE IVP Last administered on 06/02/20at 13:57; Start 06/02/20 at 13:45; Stop 06/02/20 at 13:46; Status DC Ondansetron HCl (Zofran) 4 mg PRN Q6HRS PRN IVP NAUSEA/VOMITING; Start 06/02/20 at 14:00 Al Hydroxide/Mg Hydroxide (Mylanta Plus Xs) 30 ml PRN Q3HRS PRN PO HEARTBURN / GAS; Start 06/02/20 at 14:00 Calcium Carbonate/ Glycine (Tums) 500 mg PRN Q3HRS PRN PO UPSET STOMACH; Start 06/02/20 at 14:00 Zolpidem Tartrate (Ambien) 5 mg PRN QHS PRN PO INSOMNIA, MAY REPEAT IN 1HR Last administered on 06/03/20at 20:16; Start 06/02/20 at 14:00 Acetaminophen (Tylenol) 650 mg PRN Q6HRS PRN PO Headaches, Temp > 101.5F; Start 06/02/20 at 14:00 Magnesium Hydroxide (Milk Of Magnesia) 2,400 mg PRN Q12HR PRN PO CONSTIPATION; Start 06/02/20 at 14:00 Bisacodyl (Dulcolax Supp) 10 mg PRN DAILY PRN OR CONSTIPATION; Start 06/02/20 at 14:00 Heparin Sodium (Porcine) (Heparin Sodium) 5,000 unit Q12HR SQ Last administered on 06/06/20at 08:40; Start 06/02/20 at 21:00 Ceftriaxone Sodium (Rocephin) 1 gm Q24H IVP Last administered on 06/05/20at 13:16; Start 06/03/20 at 14:00; Stop 06/05/20 at 14:01; Status DC Nicotine (Nicoderm Cq 21mg) 1 patch PRN DAILY PRN TD SMOKING CESSATION; Start 06/02/20 at 14:00 Nicotine (Nicoderm Cq 14mg) 1 patch PRN DAILY PRN TD SMOKING CESSATION; Start 06/02/20 at 14:00; Stop 06/03/20 at 11:25; Status DC Ondansetron HCl (Zofran) 4 mg PRN Q8HRS PRN IV NAUSEA/VOMITING; Start 06/02/20 at 14:30; Stop 06/03/20 at 11:26; Status DC Ascorbic Acid (Vitamin C) 500 mg BID PO Last administered on 06/06/20at 08:30; Start 06/02/20 at 21:00 Aspirin (Ecotrin) 81 mg DAILYWBKFT PO Last administered on 06/06/20at 08:30; Start 06/03/20 at 08:00 Atorvastatin Calcium (Lipitor) 40 mg QHS PO Last administered on 06/05/20at 21:09; Start 06/02/20 at 21:00 Carvedilol (Coreg) 3.125 mg BIDWMEALS PO Last administered on 06/06/20at 08:31; Start 06/02/20 at 17:00 Clopidogrel Bisulfate (Plavix) 75 mg DAILY07 PO Last administered on 06/06/20 07:18; Start 06/03/20 at 07:00 Furosemide (Lasix) 40 mg DAILY PO Last administered on 06/03/20at 08:37; Start 06/03/20 at 09:00; Stop 06/03/20 at 12:34; Status DC Lactobacillus Rhamnosus (Culturelle) 1 cap BID PO Last administered on 06/06/20 08:30; Start 06/02/20 at 21:00 Lisinopril (Prinivil) 20 mg DAILY PO Last administered on 06/03/20at 08:37; Start 06/03/20 at 09:00; Stop 06/03/20 at 12:06; Status DC Multivitamins (Thera M Plus) 1 tab DAILY PO Last administered on 06/06/20 08:31; Start 06/03/20 at 09:00 Potassium Chloride (Klor-Con) 20 meq BIDWMEALS PO Last administered on 06/06/20 08:30; Start 06/02/20 at 17:00 Thiamine Mononitrate (Vitamin B-1) 100 mg DAILY PO Last administered on 06/06/20at 08:30; Start 06/03/20 at 09:00 Sodium Chloride 1,000 ml @ 75 mls/hr [id number] IV Last administered on 06/05/20at 16:38; Start 06/03/20 at 12:15; Stop 06/05/20 at 18:03; Status DC Lorazepam (Ativan Inj) 0.5 mg PRN Q8HRS PRN IVP ANXIETY / AGITATION Last administered on 06/03/20at 22:28; Start 06/03/20 at 13:15 Amoxicillin/ Clavulanate Potassium (Augmentin 500/ 125mg) 0.5 tab BID PO Last administered on 06/06/20 08:30; Start 06/05/20 at 15:00 Sodium Chloride 1,000 ml @ 75 mls/hr [id number] IV Last administered on 06/05/20at 18:31; Start 06/05/20 at 18:15 Active Scripts Active Thera-M Tablet (Multivits,Ca,Minerals/Iron/Fa) 1 Each Tablet 1 Tab PO DAILY 30 Days Vitamin C (Ascorbic Acid) 500 Mg Tablet 500 Mg PO BID 30 Days Vitamin B-1 (Thiamine Mononitrate) 100 Mg Tablet 100 Mg PO DAILY 30 Days Folbic Tablet (Cyanocobalamin/Fa/Pyridoxine) 1 Each Tablet 1 Tab PO DAILY 30 Days Culturelle (Lactobacillus Rhamnosus Gg) 1 Each Cap.sprink 1 Cap PO BID 30 Days Amox Tr-K Clv 500-125 Mg Tab (Amoxicillin/Potassium Clav) 1 Each Tablet 1 Tab PO BID 7 Days Furosemide 40 Mg Tablet 40 Mg PO DAILY 30 Days Aspirin Ec (Aspirin) 81 Mg Tablet.dr 81 Mg PO DAILYWBKFT 30 Days Proair Hfa Inhaler (Albuterol Sulfate) 8.5 Gm Hfa.aer.ad 1 Puff INH PRN Q6HRS PRN Reported Lisinopril 20 Mg Tablet 1 Tab PO DAILY Lipitor (Atorvastatin Calcium) 40 Mg Tablet 1 Tab PO QHS Clopidogrel (Clopidogrel Bisulfate) 75 Mg Tablet 75 Mg PO DAILY Carvedilol (Carvedilol) 3.125 Mg Tablet 3.125 Mg PO BIDWMEALS Klor-Con M20 (Potassium Chloride) 20 Meq Tab.er.prt 20 Meq PO BID Vitals/I & O Vital Sign - Last 24 Hours 06/05/20 06/05/20 06/05/20 06/05/20 11:00 15:00 19:00 20:26 Temp 98.5 98.1 98.8 98.5 98.1 98.8 Pulse 73 76 73 Resp 16 18 20 B/P (MAP) 124/50 (74) 122/55 (77) 124/42 (69) Pulse Ox 95 100 96 O2 Delivery Room Air Room Air Room Air Room Air 06/05/20 06/06/20 06/06/20 23:00 03:00 08:31 Temp 99.2 99.2 Pulse 72 74 74 Resp 20 18 B/P (MAP) 99/33 (55) 108/52 (70) 108/52 Pulse Ox 95 95 O2 Delivery Room Air Room Air Intake and Output 06/05/20 06/05/20 06/06/20 15:00 23:00 07:00 Intake Total 560 ml 120 ml Balance 560 ml 120 ml Nutrition Consultation Dietary Evaluation: Recommendations by RD: Dietary education by RD, Increase Calorie Intake, Protein supplementation Comments: REC continue Cardiac diet will send ensure pudding and enlive with lunch and dinners mvi and vit c are in place per wound protocal Expected Outcomes/Goals: to meet >75% est nutr needs Interpretation of weight loss: >5% in 1 month Malnutrition Findings: Food and Nutrition Intake (Sev: <50% est energy req 5days Body Fat Depletion (Non Severe: Mild Depletion Justicifation of Admission Dx: Justifications for Admission: Justification of Admission Dx: Yes SANJANA JAIMES MD Jun 06, 2020 08:42
[2020-06-06 11:00] VITALS: BP 113/39
--- NOTE | 2020-06-06 11:48 | PDOC ---
Renal-Progress Notes Subjective Notes Notes CONFUSED History of Present Illness Hx of present illness NO ACUTE CHANGES Vitals Vitals Vital Signs Date Time Temp Pulse Resp B/P (MAP) Pulse Ox O2 Delivery O2 Flow Rate FiO2 06/06/20 08:31 74 108/52 06/06/20 08:30 Room Air 06/06/20 03:00 18 95 06/05/20 23:00 99.2 99.2 Weight Weight [ ] I.O. Intake and Output Intake and Output 06/06/20 07:00 Intake Total 680 ml Balance 680 ml Intake Oral 680 ml # Voids 3 Micro Micro Microbiology 06/02/20 Urine Culture - Final, Complete 06/02/20 Antimicrobic Susceptibility - Final, Complete 06/02/20 Blood Culture - Preliminary, Resulted NO GROWTH AFTER 3 DAYS Review of Systems Constitutional: yes: weakness, alert Ears/Nose/Throat: Yes: no symptom reported Eyes: Yes: no symptom reported Pulmonary: Yes no symptom reported Cardiovascular: Yes no symptom reported Gastrointestional: Yes: no symptom reported Genitourinary: Yes: no symptom reported Musculoskeletal: Yes: no symptom reported Skin: Yes no symptom reported Psychiatric/Neurological: Yes: no symptom reported Endocrine: Yes: no symptom reported Physical Exam General Appearance: no apparent distress Skin: warm Respiratory: decreased breath sounds Heart: S1S2 Abdomen: soft, bowel sounds present Genitourinary: bladder flat Extremities: pulses present Neurology: alert, oriented, follow commands, confused Assessment Assessment IMP HYPERNATREMIA ACE-CR OF 2.3 ON ADMIT - NOW 1.7 CKD STAGE 3 WITH CR OF 1.5 DEHYDRATION HYPOTENSION-RESOLVED MET ENCEPHALOPATHY JAUNDICE AND INCREASED LFT'S MALNUTRITION URINARY TRACT INFECTION PLAN ANTIBIOTICS HYDRATION-CHANGED TO HYPOTONIC SALINE STOPPED LISINOPRIL GI EVALUATION WILL FOLLOW JN PINK MD Jun 06, 2020 11:48
--- NOTE | 2020-06-06 11:48 | PDOC ---
Date of Service: DATE: 06/06/20 TIME: 11:46 Subjective: Subjective: Says she wants a cigarette. I asked if she ate breakfast - "I don't know, screw it!" Objective: Objective: No GI concerns per nurse - ate half of breakfast. Vital Signs: Vital Signs Date Time Temp Pulse Resp B/P (MAP) Pulse Ox O2 Delivery O2 Flow Rate FiO2 06/06/20 08:31 74 108/52 06/06/20 08:30 Room Air 06/06/20 03:00 18 95 06/05/20 23:00 99.2 99.2 Imaging: Echo 06/05 <Conclusion> The left ventricular systolic function is low normal at 50%. Wall motion consistent with conduction abnormality. Otherwise, grossly normal wall motion. Technically difficult study PE: GEN: NAD - sleeping in chair, covered w/ blanket LUNGS: clear, room air HEART: RRR ABD: non-distended, soft - shoved my hand away NEURO/PSYCH: grouchy, probably confused A/P: UTI Macrocytic anemia, ACE/CKD, elevated bili and AST (improved - checked 06/04) Hepatic steatosis, no GB visualized on US - family says no h/o cholecystectomy CAD, cardiomyopathy, dementia COVID negative 06/03 -- CBC and renal panel ordered, can recheck LFTs too. Justicifation of Admission Dx: Justifications for Admission: Justification of Admission Dx: Yes HUNTER WEBER Jun 06, 2020 11:48
--- NOTE | 2020-06-06 11:55 | PDOC ---
KATIE WALKER SUPERVISOR [employer]ING 06/06/20 1155: CARDIO Progress Notes Date and Time Date of Service 06/06/20 Time of Evaluation 1145 Subjective Subjective: No Chest Pain, No shortness of breath, No Palpitations Vitals Vitals Vital Signs Date Time Temp Pulse Resp B/P (MAP) Pulse Ox O2 Delivery O2 Flow Rate FiO2 06/06/20 08:31 74 108/52 06/06/20 08:30 Room Air 06/06/20 03:00 18 95 06/05/20 23:00 99.2 99.2 Weight Weight [ ] Input and Output Intake and Output Intake and Output 06/06/20 07:00 Intake Total 680 ml Balance 680 ml Intake Oral 680 ml # Voids 3 Microbiology Micro Microbiology 06/02/20 Urine Culture - Final, Complete 06/02/20 Antimicrobic Susceptibility - Final, Complete 06/02/20 Blood Culture - Preliminary, Resulted NO GROWTH AFTER 3 DAYS Review of Systems Constitutional: yes: weakness, alert Ears/Nose/Throat: Yes: no symptom reported Eyes: Yes: no symptom reported Pulmonary: Yes no symptom reported Cardiovascular: Yes no symptom reported Gastrointestional: Yes: no symptom reported Genitourinary: Yes: no symptom reported Musculoskeletal: Yes: no symptom reported Skin: Yes no symptom reported Psychiatric/Neurological: Yes: no symptom reported Endocrine: Yes: no symptom reported Physical Exam HEENT: Neck Supple W Full Motion Chest: Symmetric LUNGS: Other (diminished ) Heart: RRR Abdomen: Soft N/T Extremities: No Edema Neurology: alert, follow commands, confused Assessment Assessment 1. Metabolic encephalopathy 2. UTI 3. ACE on CKD 4. Mild troponin elevation; highest 0.19. Most probably type II, demand ischemia in setting of above. No reports of CP. Echo with LVEF 50% 5. Mixed ischemic, non-ischemic CMP; Echo 11/09 with LVEF 40-45% 6. CAD; s/p PCI/LAUREN to LCx . 7. Hypertension with present hypotension 8. Hyperlipidemia; statin Recommendations Secondary prevention measures including DAPT with ASA/Plavix, statin therapy Continue BB Resume ACEi upon discharge Ongoing treatment of UTI as per IM Consider outpatient ischemic evaluation Follow in our office in 2 months. Contact information provided Supportive care Justicifation of Admission Dx: Justifications for Admission: Justification of Admission Dx: Yes MARJORIE PETERSON MD 06/06/20 1722: CARDIO Progress Notes Assessment Assessment Patient seen and examined. Agree with ALPINE GUIDE's assessment and plan. Slight troponin elevation probably demand ischemia. Chronic systolic heart failure clinically well compensated. CAD status clinically stable. Plan outpatient ischemic evaluation. Continue management of metabolic encephalopathy and UTI per primary team KATIE WALKER APRN Jun 06, 2020 11:55 MARJORIE PETERSON MD Jun 06, 2020 17:22
[2020-06-06 12:20] LABS: BASO % 1 % (0-3); EOS # 1.1 x10^3/uL (0.0-0.7); EOS % 19 % (0-3); HEMATOCRIT 28.9 % (36.0-47.0); HEMOGLOBIN 9.7 g/dL (12.0-15.5); LYMPH # 1.9 x10^3/uL (1.0-4.8); LYMPH % 31 % (24-48); MEAN CORPUSCULAR HEMOGLOBIN 34 pg (25-35); MEAN CORPUSCULAR HGB CONC 34 g/dL (31-37); MEAN CORPUSCULAR VOLUME 101 fL (79-100); MONO # 0.6 x10^3/uL (0.0-1.1); MONO % 10 % (0-9); NEUT # 2.4 x10^3/uL (1.8-7.7); NEUT % 40 % (31-73); PLATELET COUNT 96 x10^3/uL (140-400); RED BLOOD COUNT 2.86 x10^6/uL (3.50-5.40); RED CELL DISTRIBUTION WIDTH 16.7 % (11.5-14.5)
[2020-06-06 12:40] LABS: CALCIUM 8.1 mg/dL (8.5-10.1); CREATININE 1.5 mg/dL (0.6-1.0); GFR 33.7; POTASSIUM 4.9 mmol/L (3.5-5.1)
[2020-06-06 12:53] LABS: DIRECT BILIRUBIN 0.8 mg/dL (0.0-0.2); TOTAL BILIRUBIN 1.6 mg/dL (0.2-1.0); TOTAL PROTEIN 5.5 g/dL (6.4-8.2)
[2020-06-06 15:00] VITALS: BP 132/45
[2020-06-06 19:00] VITALS: BP 125/44
[2020-06-06] MEDS: ATORVASTATIN CALCIUM 40 MG TABLET. PO SCH (22:19)
[2020-06-06 23:00] VITALS: BP 112/40
[2020-06-07 03:25] VITALS: BP 123/42
[2020-06-07 07:00] VITALS: BP 148/51
[2020-06-07] MEDS: POTASSIUM CHLORIDE 20 MEQ TABLET.ER. PO SCH ×2 (08:00→16:38)
--- NOTE | 2020-06-07 08:49 | PDOC ---
PROGRESS NOTES Date of Service: DATE: 06/07/20 TIME: 08:48 Chief Complaint Chief Complaint VTE Prophylaxis Ordered VTE Prophylaxis Devices: No VTE Pharmacological Prophylaxi: Yes Assessment/Plan Assessment/Plan Hypotension Metabolic encephalopathy, slow to improve Dehydration ACE Vasomotor nephropathy CR 1.5 UTI, PROTEUS Jaundice Elevated bilirubin Chronic sacral ulcer Severe malnutrition Plan: D/C LISINOPRIL Will admit patient and and provide IV fluids. Rocephin 1 g daily x3 for UTI THEN PO AUGMENTIN Continue to trend troponins, likely elevated in setting of CKD. If troponins to not remain stable, will consult cardiology for further work-up Patient would not process //order wound care to continue treatment of sacral ulcer Resume home medications consult GI for recommendations on evaluation of jaundice and elevated bilirubin Will obtain right upper quadrant ultrasound Patient's current mental status could be due secondary to progressive dementia; had discussion with patient's daughters that there is a chance this may not improve with medical treatment, and they conveyed understanding. FEN - Cardiac diet PPX - Heparin DNR Dispo - inpatient for above nephrology FOLLOWING Macrocytic anemia (normal B12), ACE/CKD, elevated bili and AST Hepatic steatosis, no GB visualized on US - family says no h/o cholecystectomy CAD, cardiomyopathy, ECHO 06/05 reviewed 28 min pt exam, chart review, > 50% of time spent with exam, chart review, pt care coordination Justifications for Admission Justifications for Admission Other Justification History of Present Illness History of Present Illness Identification/Chief Complaint Chief Complaint Hypotension, lethargy Source Source: Chart review, Patient History of Present Illness History of Present Illness Patient 75-year-old female past medical history of CHF, CAD, presents from long term for evaluation of hypotension and lethargy that started ON DAY OF ADMIT Patient was recently admitted to our service on 05/02/20 for acute metabolic encephalopathy. Creatinine at the time was 1.2. Today creatinine 2.3. She currently has no complaints. Troponin was elevated at 0.163, but she denies chest pain, nausea, or shortness of breath. I discussion with both patient's daughters her joint DPOA. They note progressively worsening dementia over the past months. They also note worsening yellowing of her skin over the past weeks. State that they would like patient's CODE STATUS changed to DNR. We will get patient for further medical management. Past Medical History Cardiovascular: CAD, HTN, Hyperlipidemia, Other Pulmonary: COPD, Pneumonia CENTRAL NERVOUS SYSTEM: Other GI: No pertinent hx Heme/Onc: No pertinent hx Hepatobiliary: No pertinent hx Psych: No pertinent hx Musculoskeletal: low back pain, Osteoarthritis Infectious disease: No pertinent hx Renal/: No pertinent hx Endocrine: No pertinent hx Past Surgical History Past Surgical History: Cataract Removal Family History Family History: High Cholestrol, Hypertension Social History ALCOHOL: none Drugs: None Current Problem List Problem List Problems Medical Problems: (1) Hypotension Status: Acute Vitals Vitals Vital Signs Date Time Temp Pulse Resp B/P (MAP) Pulse Ox O2 Delivery O2 Flow Rate FiO2 06/07/20 03:25 98.4 74 18 123/42 (69) 98 Room Air 98.4 Physical Exam Physical Exam General: Alert, oriented x2 (person and president), uncooperative, mild distress HEENT: PERRLA, EOMI Lungs: Clear to auscultation, Normal air movement Heart: RRR, no murmurs Cardiovascular: S1, S2 Abdomen: Normal bowel sounds, Soft, No tenderness Extremities: No clubbing, No cyanosis Skin: Skin appears yellow. Sacral bandage clean, dry, and intact Neuro: Normal speech, Normal tone, Sensation intact Psych/Mental Status: Confused, agitated General: Alert, Cooperative, No acute distress, Other (NOT VERY COOPERATIVE) Heart: Regular rate, Normal S1 Lungs: Clear, Other Abdomen: Normal bowel sounds, Soft Extremities: No cyanosis Labs LABS Laboratory Tests Test 06/06/20 11:20 White Blood Count 6.0 x10^3/uL (4.0-11.0) Red Blood Count 2.86 x10^6/uL (3.50-5.40) Hemoglobin 9.7 g/dL (12.0-15.5) Hematocrit 28.9 % (36.0-47.0) Mean Corpuscular Volume 101 fL (79-100) Mean Corpuscular Hemoglobin 34 pg (25-35) Mean Corpuscular Hemoglobin Concent 34 g/dL (31-37) Red Cell Distribution Width 16.7 % (11.5-14.5) Platelet Count 96 x10^3/uL (140-400) Neutrophils (%) (Auto) 40 % (31-73) Lymphocytes (%) (Auto) 31 % (24-48) Monocytes (%) (Auto) 10 % (0-9) Eosinophils (%) (Auto) 19 % (0-3) Basophils (%) (Auto) 1 % (0-3) Neutrophils # (Auto) 2.4 x10^3/uL (1.8-7.7) Lymphocytes # (Auto) 1.9 x10^3/uL (1.0-4.8) Monocytes # (Auto) 0.6 x10^3/uL (0.0-1.1) Eosinophils # (Auto) 1.1 x10^3/uL (0.0-0.7) Basophils # (Auto) 0.0 x10^3/uL (0.0-0.2) Sodium Level 140 mmol/L (136-145) Potassium Level 4.9 mmol/L (3.5-5.1) Chloride Level 111 mmol/L (98-107) Carbon Dioxide Level 23 mmol/L (21-32) Anion Gap 6 (6-14) Blood Urea Nitrogen 33 mg/dL (7-20) Creatinine 1.5 mg/dL (0.6-1.0) Estimated GFR (Cockcroft-Gault) 33.7 Glucose Level 95 mg/dL (70-99) Calcium Level 8.1 mg/dL (8.5-10.1) Total Bilirubin 1.6 mg/dL (0.2-1.0) Direct Bilirubin 0.8 mg/dL (0.0-0.2) Aspartate Amino Transf (AST/SGOT) 130 U/L (15-37) Alanine Aminotransferase (ALT/SGPT) 67 U/L (14-59) Alkaline Phosphatase 69 U/L (46-116) Total Protein 5.5 g/dL (6.4-8.2) Albumin 2.0 g/dL (3.4-5.0) Assessment and Plan Assessmemt and Plan Problems Medical Problems: (1) Acute on chronic kidney failure Status: Acute (2) Confused Status: Acute (3) Elevated troponin Status: Acute (4) Hypotension Status: Acute (5) Urinary tract infection Status: Acute Comment Review of Relevant I have reviewed the following items yuliana (where applicable) has been applied. Labs Laboratory Tests Test 06/06/20 11:20 White Blood Count 6.0 x10^3/uL (4.0-11.0) Red Blood Count 2.86 x10^6/uL (3.50-5.40) Hemoglobin 9.7 g/dL (12.0-15.5) Hematocrit 28.9 % (36.0-47.0) Mean Corpuscular Volume 101 fL (79-100) Mean Corpuscular Hemoglobin 34 pg (25-35) Mean Corpuscular Hemoglobin Concent 34 g/dL (31-37) Red Cell Distribution Width 16.7 % (11.5-14.5) Platelet Count 96 x10^3/uL (140-400) Neutrophils (%) (Auto) 40 % (31-73) Lymphocytes (%) (Auto) 31 % (24-48) Monocytes (%) (Auto) 10 % (0-9) Eosinophils (%) (Auto) 19 % (0-3) Basophils (%) (Auto) 1 % (0-3) Neutrophils # (Auto) 2.4 x10^3/uL (1.8-7.7) Lymphocytes # (Auto) 1.9 x10^3/uL (1.0-4.8) Monocytes # (Auto) 0.6 x10^3/uL (0.0-1.1) Eosinophils # (Auto) 1.1 x10^3/uL (0.0-0.7) Basophils # (Auto) 0.0 x10^3/uL (0.0-0.2) Sodium Level 140 mmol/L (136-145) Potassium Level 4.9 mmol/L (3.5-5.1) Chloride Level 111 mmol/L (98-107) Carbon Dioxide Level 23 mmol/L (21-32) Anion Gap 6 (6-14) Blood Urea Nitrogen 33 mg/dL (7-20) Creatinine 1.5 mg/dL (0.6-1.0) Estimated GFR (Cockcroft-Gault) 33.7 Glucose Level 95 mg/dL (70-99) Calcium Level 8.1 mg/dL (8.5-10.1) Total Bilirubin 1.6 mg/dL (0.2-1.0) Direct Bilirubin 0.8 mg/dL (0.0-0.2) Aspartate Amino Transf (AST/SGOT) 130 U/L (15-37) Alanine Aminotransferase (ALT/SGPT) 67 U/L (14-59) Alkaline Phosphatase 69 U/L (46-116) Total Protein 5.5 g/dL (6.4-8.2) Albumin 2.0 g/dL (3.4-5.0) Laboratory Tests Test 06/06/20 11:20 White Blood Count 6.0 x10^3/uL (4.0-11.0) Red Blood Count 2.86 x10^6/uL (3.50-5.40) Hemoglobin 9.7 g/dL (12.0-15.5) Hematocrit 28.9 % (36.0-47.0) Mean Corpuscular Volume 101 fL (79-100) Mean Corpuscular Hemoglobin 34 pg (25-35) Mean Corpuscular Hemoglobin Concent 34 g/dL (31-37) Red Cell Distribution Width 16.7 % (11.5-14.5) Platelet Count 96 x10^3/uL (140-400) Neutrophils (%) (Auto) 40 % (31-73) Lymphocytes (%) (Auto) 31 % (24-48) Monocytes (%) (Auto) 10 % (0-9) Eosinophils (%) (Auto) 19 % (0-3) Basophils (%) (Auto) 1 % (0-3) Neutrophils # (Auto) 2.4 x10^3/uL (1.8-7.7) Lymphocytes # (Auto) 1.9 x10^3/uL (1.0-4.8) Monocytes # (Auto) 0.6 x10^3/uL (0.0-1.1) Eosinophils # (Auto) 1.1 x10^3/uL (0.0-0.7) Basophils # (Auto) 0.0 x10^3/uL (0.0-0.2) Sodium Level 140 mmol/L (136-145) Potassium Level 4.9 mmol/L (3.5-5.1) Chloride Level 111 mmol/L (98-107) Carbon Dioxide Level 23 mmol/L (21-32) Anion Gap 6 (6-14) Blood Urea Nitrogen 33 mg/dL (7-20) Creatinine 1.5 mg/dL (0.6-1.0) Estimated GFR (Cockcroft-Gault) 33.7 Glucose Level 95 mg/dL (70-99) Calcium Level 8.1 mg/dL (8.5-10.1) Total Bilirubin 1.6 mg/dL (0.2-1.0) Direct Bilirubin 0.8 mg/dL (0.0-0.2) Aspartate Amino Transf (AST/SGOT) 130 U/L (15-37) Alanine Aminotransferase (ALT/SGPT) 67 U/L (14-59) Alkaline Phosphatase 69 U/L (46-116) Total Protein 5.5 g/dL (6.4-8.2) Albumin 2.0 g/dL (3.4-5.0) Microbiology 06/02/20 Urine Culture - Final, Complete 06/02/20 Antimicrobic Susceptibility - Final, Complete 06/02/20 Blood Culture - Preliminary, Resulted NO GROWTH AFTER 4 DAYS Medications Current Medications Sodium Chloride 1,000 ml @ 1,000 mls/hr 1X ONCE IV Last administered on 06/02/20at 12:19; Start 06/02/20 at 12:00; Stop 06/02/20 at 12:59; Status DC Ceftriaxone Sodium (Rocephin) 1 gm 1X ONCE IVP Last administered on 06/02/20at 13:57; Start 06/02/20 at 13:45; Stop 06/02/20 at 13:46; Status DC Ondansetron HCl (Zofran) 4 mg PRN Q6HRS PRN IVP NAUSEA/VOMITING; Start 06/02/20 at 14:00 Al Hydroxide/Mg Hydroxide (Mylanta Plus Xs) 30 ml PRN Q3HRS PRN PO HEARTBURN / GAS; Start 06/02/20 at 14:00 Calcium Carbonate/ Glycine (Tums) 500 mg PRN Q3HRS PRN PO UPSET STOMACH; Start 06/02/20 at 14:00 Zolpidem Tartrate (Ambien) 5 mg PRN QHS PRN PO INSOMNIA, MAY REPEAT IN 1HR Last administered on 06/03/20at 20:16; Start 06/02/20 at 14:00 Acetaminophen (Tylenol) 650 mg PRN Q6HRS PRN PO Headaches, Temp > 101.5F; Start 06/02/20 at 14:00 Magnesium Hydroxide (Milk Of Magnesia) 2,400 mg PRN Q12HR PRN PO CONSTIPATION; Start 06/02/20 at 14:00 Bisacodyl (Dulcolax Supp) 10 mg PRN DAILY PRN NE CONSTIPATION; Start 06/02/20 at 14:00 Heparin Sodium (Porcine) (Heparin Sodium) 5,000 unit Q12HR SQ Last administered on 06/06/20at 22:25; Start 06/02/20 at 21:00 Ceftriaxone Sodium (Rocephin) 1 gm Q24H IVP Last administered on 06/05/20at 13:16; Start 06/03/20 at 14:00; Stop 06/05/20 at 14:01; Status DC Nicotine (Nicoderm Cq 21mg) 1 patch PRN DAILY PRN TD SMOKING CESSATION; Start 06/02/20 at 14:00 Nicotine (Nicoderm Cq 14mg) 1 patch PRN DAILY PRN TD SMOKING CESSATION; Start 06/02/20 at 14:00; Stop 06/03/20 at 11:25; Status DC Ondansetron HCl (Zofran) 4 mg PRN Q8HRS PRN IV NAUSEA/VOMITING; Start 06/02/20 at 14:30; Stop 06/03/20 at 11:26; Status DC Ascorbic Acid (Vitamin C) 500 mg BID PO Last administered on 06/06/20at 22:19; Start 06/02/20 at 21:00 Aspirin (Ecotrin) 81 mg DAILYWBKFT PO Last administered on 06/06/20at 08:30; Start 06/03/20 at 08:00 Atorvastatin Calcium (Lipitor) 40 mg QHS PO Last administered on 06/06/20at 22:19; Start 06/02/20 at 21:00 Carvedilol (Coreg) 3.125 mg BIDWMEALS PO Last administered on 06/06/20at 17:37; Start 06/02/20 at 17:00 Clopidogrel Bisulfate (Plavix) 75 mg DAILY07 PO Last administered on 06/06/20at 07:18; Start 06/03/20 at 07:00 Furosemide (Lasix) 40 mg DAILY PO Last administered on 06/03/20at 08:37; Start 06/03/20 at 09:00; Stop 06/03/20 at 12:34; Status DC Lactobacillus Rhamnosus (Culturelle) 1 cap BID PO Last administered on 06/06/20at 22:19; Start 06/02/20 at 21:00 Lisinopril (Prinivil) 20 mg DAILY PO Last administered on 06/03/20at 08:37; Start 06/03/20 at 09:00; Stop 06/03/20 at 12:06; Status DC Multivitamins (Thera M Plus) 1 tab DAILY PO Last administered on 06/06/20at 08:31; Start 06/03/20 at 09:00 Potassium Chloride (Klor-Con) 20 meq BIDWMEALS PO Last administered on 06/06/20at 17:37; Start 06/02/20 at 17:00 Thiamine Mononitrate (Vitamin B-1) 100 mg DAILY PO Last administered on 06/06/20at 08:30; Start 06/03/20 at 09:00 Sodium Chloride 1,000 ml @ 75 mls/hr [id number] IV Last administered on 06/05/20at 16:38; Start 06/03/20 at 12:15; Stop 06/05/20 at 18:03; Status DC Lorazepam (Ativan Inj) 0.5 mg PRN Q8HRS PRN IVP ANXIETY / AGITATION Last administered on 06/03/20at 22:28; Start 06/03/20 at 13:15 Amoxicillin/ Clavulanate Potassium (Augmentin 500/ 125mg) 0.5 tab BID PO Last administered on 06/06/20at 22:20; Start 06/05/20 at 15:00 Sodium Chloride 1,000 ml @ 75 mls/hr [id number] IV Last administered on 06/05/20at 18:31; Start 06/05/20 at 18:15 Active Scripts Active Thera-M Tablet (Multivits,Ca,Minerals/Iron/Fa) 1 Each Tablet 1 Tab PO DAILY 30 Days Vitamin C (Ascorbic Acid) 500 Mg Tablet 500 Mg PO BID 30 Days Vitamin B-1 (Thiamine Mononitrate) 100 Mg Tablet 100 Mg PO DAILY 30 Days Folbic Tablet (Cyanocobalamin/Fa/Pyridoxine) 1 Each Tablet 1 Tab PO DAILY 30 Days Culturelle (Lactobacillus Rhamnosus Gg) 1 Each Cap.sprink 1 Cap PO BID 30 Days Amox Tr-K Clv 500-125 Mg Tab (Amoxicillin/Potassium Clav) 1 Each Tablet 1 Tab PO BID 7 Days Furosemide 40 Mg Tablet 40 Mg PO DAILY 30 Days Aspirin Ec (Aspirin) 81 Mg Tablet. 81 Mg PO DAILYWBKFT 30 Days Proair Hfa Inhaler (Albuterol Sulfate) 8.5 Gm Hfa.aer.ad 1 Puff INH PRN Q6HRS PRN Reported Lisinopril 20 Mg Tablet 1 Tab PO DAILY Lipitor (Atorvastatin Calcium) 40 Mg Tablet 1 Tab PO QHS Clopidogrel (Clopidogrel Bisulfate) 75 Mg Tablet 75 Mg PO DAILY Carvedilol (Carvedilol) 3.125 Mg Tablet 3.125 Mg PO BIDWMEALS Klor-Con M20 (Potassium Chloride) 20 Meq Tab.er.prt 20 Meq PO BID Vitals/I & O Vital Sign - Last 24 Hours 06/06/20 06/06/20 06/06/20 06/06/20 11:00 15:00 17:37 19:00 Temp 98.1 98.5 98.4 98.1 98.5 98.4 Pulse 67 70 70 74 Resp 16 16 20 B/P (MAP) 113/39 (63) 132/45 (74) 132/45 125/44 (71) Pulse Ox 96 98 100 O2 Delivery Room Air Room Air Room Air 06/06/20 06/06/20 06/07/20 19:23 23:00 03:25 Temp 99.0 98.4 99.0 98.4 Pulse 75 74 Resp 20 18 B/P (MAP) 112/40 (64) 123/42 (69) Pulse Ox 98 98 O2 Delivery Room Air Room Air Room Air Intake and Output 06/06/20 06/06/20 06/07/20 15:00 23:00 07:00 Intake Total 150 ml Balance 150 ml Nutrition Consultation Dietary Evaluation: Recommendations by RD: Dietary education by RD, Increase Calorie Intake, Protein supplementation Comments: REC continue Cardiac diet and ensure pudding and enlive with lunch and dinners mvi and vit c are in place per wound protocal Expected Outcomes/Goals: to meet >75% est nutr needs- ongoing improved wound status Interpretation of weight loss: >5% in 1 month Malnutrition Findings: Food and Nutrition Intake (Sev: <50% est energy req 5days Body Fat Depletion (Non Severe: Mild Depletion Justicifation of Admission Dx: Justifications for Admission: Justification of Admission Dx: Yes SANJANA JAIMES MD Jun 07, 2020 08:49
[2020-06-07 09:07] LABS: ALBUMIN 1.7 g/dL (3.4-5.0); CALCIUM 7.7 mg/dL (8.5-10.1); CREATININE 1.5 mg/dL (0.6-1.0); GFR 33.7; PHOSPHORUS 2.2 mg/dL (2.6-4.7)
[2020-06-07] MEDS: THIAMINE 100 MG TABLET. PO SCH (09:22)
[2020-06-07] MEDS: ASCORBIC ACID 500 MG TABLET PO SCH ×2 (09:22→19:47)
[2020-06-07] MEDS: LACTOBACILLUS RHAMNOSUS GG 1 CAPSULE. PO SCH ×2 (09:22→19:47)
[2020-06-07] MEDS: MULTIVITAMIN with MINERAL TABLET. PO SCH (09:22)
[2020-06-07] MEDS: ASPIRIN ENTERIC COATED 81 MG TABLET.DR. PO SCH (09:22)
[2020-06-07] MEDS: AMOXICILLIN/K CLAV 500/125MG TABLET. PO SCH ×2 (09:22→19:48)
[2020-06-07] MEDS: CLOPIDOGREL BISULFATE 75 MG TABLET PO SCH (09:23)
[2020-06-07] MEDS: CARVEDILOL 3.125 MG TABLET. PO SCH ×2 (09:23→16:39)
[2020-06-07] MEDS: HEPARIN for SUB-Q USE 5,000 UNIT/ML VIAL. SQ SCH ×2 (09:25→19:53)
--- NOTE | 2020-06-07 09:28 | PDOC ---
Date of Service: DATE: 06/07/20 TIME: 09:26 Subjective: Subjective: Still sleeping when I visited her - denied pain, said she'll eat breakfast later, wanted to be left alone. Objective: Vital Signs: Vital Signs Date Time Temp Pulse Resp B/P (MAP) Pulse Ox O2 Delivery O2 Flow Rate FiO2 06/07/20 09:23 75 148/51 06/07/20 08:00 Room Air 06/07/20 07:00 99.0 16 98 99.0 Labs: Laboratory Tests Test 06/06/20 11:20 06/07/20 08:33 White Blood Count 6.0 x10^3/uL Red Blood Count 2.86 x10^6/uL Hemoglobin 9.7 g/dL Hematocrit 28.9 % Mean Corpuscular Volume 101 fL Mean Corpuscular Hemoglobin 34 pg Mean Corpuscular Hemoglobin Concent 34 g/dL Red Cell Distribution Width 16.7 % Platelet Count 96 x10^3/uL Neutrophils (%) (Auto) 40 % Lymphocytes (%) (Auto) 31 % Monocytes (%) (Auto) 10 % Eosinophils (%) (Auto) 19 % Basophils (%) (Auto) 1 % Neutrophils # (Auto) 2.4 x10^3/uL Lymphocytes # (Auto) 1.9 x10^3/uL Monocytes # (Auto) 0.6 x10^3/uL Eosinophils # (Auto) 1.1 x10^3/uL Basophils # (Auto) 0.0 x10^3/uL Sodium Level 140 mmol/L 142 mmol/L Potassium Level 4.9 mmol/L 5.0 mmol/L Chloride Level 111 mmol/L 112 mmol/L Carbon Dioxide Level 23 mmol/L 24 mmol/L Anion Gap 6 6 Blood Urea Nitrogen 33 mg/dL 29 mg/dL Creatinine 1.5 mg/dL 1.5 mg/dL Estimated GFR (Cockcroft-Gault) 33.7 33.7 Glucose Level 95 mg/dL 100 mg/dL Calcium Level 8.1 mg/dL 7.7 mg/dL Total Bilirubin 1.6 mg/dL Direct Bilirubin 0.8 mg/dL Aspartate Amino Transf (AST/SGOT) 130 U/L Alanine Aminotransferase (ALT/SGPT) 67 U/L Alkaline Phosphatase 69 U/L Total Protein 5.5 g/dL Albumin 2.0 g/dL 1.7 g/dL Phosphorus Level 2.2 mg/dL PE: GEN: NAD LUNGS: CTAB HEART: RRR ABD: soft, non-tender NEURO/PSYCH: drowsy - didn't communicate much A/P: UTI, dementia Macrocytic anemia, ACE/CKD, elevated bili and AST - stable Hepatic steatosis, no GB visualized on US - family says no h/o cholecystectomy COVID negative 06/03 -- Encouraged PO. Justicifation of Admission Dx: Justifications for Admission: Justification of Admission Dx: Yes HUNTER WEBER Jun 07, 2020 09:28 JONATHAN COELHO MD Jun 07, 2020 09:49
[2020-06-07] MEDS: IV 1/2 NORMAL SALINE 1,000 ML IV SCH ×2 (10:15→23:35)
[2020-06-07 11:00] VITALS: BP 110/44
--- NOTE | 2020-06-07 13:20 | PDOC ---
Renal-Progress Notes Subjective Notes Notes NO NEW COMPLAINTS History of Present Illness Hx of present illness STABLE Vitals Vitals Vital Signs Date Time Temp Pulse Resp B/P (MAP) Pulse Ox O2 Delivery O2 Flow Rate FiO2 06/07/20 11:00 98.9 69 17 110/44 (66) 92 Room Air 98.9 Weight Weight [ ] I.O. Intake and Output Intake and Output 06/07/20 07:00 Intake Total 150 ml Balance 150 ml Intake Oral 150 ml # Voids 1 Labs Labs Laboratory Tests Test 06/07/20 08:33 Sodium Level 142 mmol/L (136-145) Potassium Level 5.0 mmol/L (3.5-5.1) Chloride Level 112 mmol/L (98-107) Carbon Dioxide Level 24 mmol/L (21-32) Anion Gap 6 (6-14) Blood Urea Nitrogen 29 mg/dL (7-20) Creatinine 1.5 mg/dL (0.6-1.0) Estimated GFR (Cockcroft-Gault) 33.7 Glucose Level 100 mg/dL (70-99) Calcium Level 7.7 mg/dL (8.5-10.1) Phosphorus Level 2.2 mg/dL (2.6-4.7) Albumin 1.7 g/dL (3.4-5.0) Micro Micro Microbiology 06/02/20 Urine Culture - Final, Complete 06/02/20 Antimicrobic Susceptibility - Final, Complete 06/02/20 Blood Culture - Final, Complete NO GROWTH AFTER 5 DAYS Review of Systems Constitutional: yes: weakness, alert Ears/Nose/Throat: Yes: no symptom reported Eyes: Yes: no symptom reported Pulmonary: Yes no symptom reported Cardiovascular: Yes no symptom reported Gastrointestional: Yes: no symptom reported Genitourinary: Yes: no symptom reported Musculoskeletal: Yes: no symptom reported Skin: Yes no symptom reported Psychiatric/Neurological: Yes: no symptom reported Endocrine: Yes: no symptom reported Physical Exam General Appearance: no apparent distress Skin: warm Respiratory: decreased breath sounds Heart: S1S2 Abdomen: soft, bowel sounds present Genitourinary: bladder flat Extremities: pulses present Neurology: alert, follow commands, confused Assessment Assessment IMP HYPERNATREMIA-RESOLVED MILD HYPOPHOSPHATEMIA-SHOULD RESOLVE ON ITS OWN ACE-RESOLVED WITH CR AT BASELINE NOW CKD STAGE 3 WITH CR OF 1.5 DEHYDRATION HYPOTENSION-RESOLVED MET ENCEPHALOPATHY JAUNDICE AND INCREASED LFT'S MALNUTRITION URINARY TRACT INFECTION PLAN ANTIBIOTICS HYDRATION-CHANGED TO HYPOTONIC SALINE STOPPED LISINOPRIL GI EVALUATION WILL FOLLOW JN PINK MD Jun 07, 2020 13:20
[2020-06-07 15:00] VITALS: BP 141/54
[2020-06-07] MEDS ORDERED: SODIUM PHOSPHATE 15 MMOL in IV NS 100 ML IV ONE (17:00)
[2020-06-07 19:30] VITALS: BP 137/68
[2020-06-07] MEDS: ATORVASTATIN CALCIUM 40 MG TABLET. PO SCH (19:47)
[2020-06-07 22:44] VITALS: BP 126/50
[2020-06-08 03:30] VITALS: BP 133/48
[2020-06-08 07:52] VITALS: BP 134/43
[2020-06-08] MEDS: POTASSIUM CHLORIDE 20 MEQ TABLET.ER. PO SCH ×2 (08:00→16:15)
[2020-06-08 08:09] LABS: ALBUMIN 1.8 g/dL (3.4-5.0); CREATININE 1.4 mg/dL (0.6-1.0); GFR 36.5; PHOSPHORUS 2.7 mg/dL (2.6-4.7); POTASSIUM 4.5 mmol/L (3.5-5.1)
[2020-06-08 08:35] LABS: BASO % 1 % (0-3); EOS % 16 % (0-3); HEMATOCRIT 28.2 % (36.0-47.0); HEMOGLOBIN 9.6 g/dL (12.0-15.5); LYMPH # 2.2 x10^3/uL (1.0-4.8); LYMPH % 37 % (24-48); MEAN CORPUSCULAR HEMOGLOBIN 34 pg (25-35); MEAN CORPUSCULAR HGB CONC 34 g/dL (31-37); MEAN CORPUSCULAR VOLUME 100 fL (79-100); MONO # 0.5 x10^3/uL (0.0-1.1); MONO % 9 % (0-9); NEUT # 2.3 x10^3/uL (1.8-7.7); NEUT % 38 % (31-73); PLATELET COUNT 104 x10^3/uL (140-400); RED BLOOD COUNT 2.82 x10^6/uL (3.50-5.40); WHITE BLOOD COUNT 6.1 x10^3/uL (4.0-11.0)
[2020-06-08] MEDS: MULTIVITAMIN with MINERAL TABLET. PO SCH (08:36)
[2020-06-08] MEDS: THIAMINE 100 MG TABLET. PO SCH (08:36)
[2020-06-08] MEDS: CLOPIDOGREL BISULFATE 75 MG TABLET PO SCH (08:36)
[2020-06-08] MEDS: CARVEDILOL 3.125 MG TABLET. PO SCH ×2 (08:36→16:15)
[2020-06-08] MEDS: LACTOBACILLUS RHAMNOSUS GG 1 CAPSULE. PO SCH (08:36)
[2020-06-08] MEDS: ASPIRIN ENTERIC COATED 81 MG TABLET.DR. PO SCH (08:36)
[2020-06-08] MEDS: AMOXICILLIN/K CLAV 500/125MG TABLET. PO SCH (08:36)
[2020-06-08] MEDS: ASCORBIC ACID 500 MG TABLET PO SCH (08:36)
[2020-06-08] MEDS: HEPARIN for SUB-Q USE 5,000 UNIT/ML VIAL. SQ SCH (08:37)
[2020-06-08 09:50] LABS: ALT (SGPT) 78 U/L (14-59); AST (SGOT) 176 U/L (15-37)
--- NOTE | 2020-06-08 10:05 | PDOC ---
PROGRESS NOTES Date of Service: DATE: 06/08/20 TIME: 10:04 Chief Complaint Chief Complaint VTE Prophylaxis Ordered VTE Prophylaxis Devices: No VTE Pharmacological Prophylaxi: Yes discharge dx =- Assessment/Plan Hypotension Metabolic encephalopathy, slow to improve Dehydration ACE Vasomotor nephropathy CR 1.4 , acute UTI, PROTEUS Jaundice Elevated bilirubin Chronic sacral ulcer Severe malnutrition Plan: D/C LISINOPRIL Will admit patient and and provide IV fluids. Rocephin 1 g daily x3 for UTI THEN PO AUGMENTIN Continue to trend troponins, likely elevated in setting of CKD. If troponins to not remain stable, will consult cardiology for further work-up Patient would not process //order wound care to continue treatment of sacral ulcer Resume home medications consult GI for recommendations on evaluation of jaundice and elevated bilirubin Will obtain right upper quadrant ultrasound Patient's current mental status could be due secondary to progressive dementia; had discussion with patient's daughters that there is a chance this may not improve with medical treatment, and they conveyed understanding. FEN - Cardiac diet PPX - Heparin DNR Dispo - inpatient for above nephrology FOLLOWING Macrocytic anemia (normal B12), ACE/CKD, elevated bili and AST Hepatic steatosis, no GB visualized on US - family says no h/o cholecystectomy CAD, cardiomyopathy, ECHO 06/05 reviewed 34 min pt exam, chart review d/c planning , > 50% of time spent with exam, chart review, pt care coordination Justifications for Admission Justifications for Admission Other Justification History of Present Illness History of Present Illness Identification/Chief Complaint Chief Complaint Hypotension, lethargy Source Source: Chart review, Patient History of Present Illness History of Present Illness Patient 75-year-old female past medical history of CHF, CAD, [facility] evaluation of hypotension and lethargy that started ON DAY OF ADMIT Patient was recently admitted to our service on 05/02/20 for acute metabolic encephalopathy. Creatinine at the time was 1.2. Today creatinine 2.3. She currently has no complaints. Troponin was elevated at 0.163, but she denies chest pain, nausea, or shortness of breath. I discussion with both patient's daughters her joint DPOA. They note progressively worsening dementia over the past months. They also note worsening yellowing of her skin over the past weeks. State that they would like patient's CODE STATUS changed to DNR. We will get patient for further medical management. Past Medical History Cardiovascular: CAD, HTN, Hyperlipidemia, Other Pulmonary: COPD, Pneumonia CENTRAL NERVOUS SYSTEM: Other GI: No pertinent hx Heme/Onc: No pertinent hx Hepatobiliary: No pertinent hx Psych: No pertinent hx Musculoskeletal: low back pain, Osteoarthritis Infectious disease: No pertinent hx Renal/: No pertinent hx Endocrine: No pertinent hx Past Surgical History Past Surgical History: Cataract Removal Family History Family History: High Cholestrol, Hypertension Social History ALCOHOL: none Drugs: None Current Problem List Problem List Problems Medical Problems: (1) Hypotension Status: Acute Vitals Vitals Vital Signs Date Time Temp Pulse Resp B/P (MAP) Pulse Ox O2 Delivery O2 Flow Rate FiO2 06/08/20 08:36 71 134/43 06/08/20 07:52 98.6 20 97 Room Air 98.6 Physical Exam Physical Exam General: Alert, oriented x2 (person and president), uncooperative, mild distress HEENT: PERRLA, EOMI Lungs: Clear to auscultation, Normal air movement Heart: RRR, no murmurs Cardiovascular: S1, S2 Abdomen: Normal bowel sounds, Soft, No tenderness Extremities: No clubbing, No cyanosis Skin: Skin appears yellow. Sacral bandage clean, dry, and intact Neuro: Normal speech, Normal tone, Sensation intact Psych/Mental Status: Confused, agitated General: Alert, Cooperative, No acute distress, Other (NOT VERY COOPERATIVE) Heart: Regular rate, Normal S1 Lungs: Clear, Other Abdomen: Normal bowel sounds, Soft Extremities: No clubbing, No cyanosis Labs LABS Laboratory Tests Test 06/08/20 07:40 White Blood Count 6.1 x10^3/uL (4.0-11.0) Red Blood Count 2.82 x10^6/uL (3.50-5.40) Hemoglobin 9.6 g/dL (12.0-15.5) Hematocrit 28.2 % (36.0-47.0) Mean Corpuscular Volume 100 fL (79-100) Mean Corpuscular Hemoglobin 34 pg (25-35) Mean Corpuscular Hemoglobin Concent 34 g/dL (31-37) Red Cell Distribution Width 16.0 % (11.5-14.5) Platelet Count 104 x10^3/uL (140-400) Neutrophils (%) (Auto) 38 % (31-73) Lymphocytes (%) (Auto) 37 % (24-48) Monocytes (%) (Auto) 9 % (0-9) Eosinophils (%) (Auto) 16 % (0-3) Basophils (%) (Auto) 1 % (0-3) Neutrophils # (Auto) 2.3 x10^3/uL (1.8-7.7) Lymphocytes # (Auto) 2.2 x10^3/uL (1.0-4.8) Monocytes # (Auto) 0.5 x10^3/uL (0.0-1.1) Eosinophils # (Auto) 1.0 x10^3/uL (0.0-0.7) Basophils # (Auto) 0.0 x10^3/uL (0.0-0.2) Sodium Level 138 mmol/L (136-145) Potassium Level 4.5 mmol/L (3.5-5.1) Chloride Level 108 mmol/L (98-107) Carbon Dioxide Level 25 mmol/L (21-32) Anion Gap 5 (6-14) Blood Urea Nitrogen 24 mg/dL (7-20) Creatinine 1.4 mg/dL (0.6-1.0) Estimated GFR (Cockcroft-Gault) 36.5 Glucose Level 85 mg/dL (70-99) Calcium Level 8.0 mg/dL (8.5-10.1) Phosphorus Level 2.7 mg/dL (2.6-4.7) Aspartate Amino Transf (AST/SGOT) 176 U/L (15-37) Alanine Aminotransferase (ALT/SGPT) 78 U/L (14-59) Albumin 1.8 g/dL (3.4-5.0) Assessment and Plan Assessmemt and Plan Problems Medical Problems: (1) Acute on chronic kidney failure Status: Acute (2) Confused Status: Acute (3) Elevated troponin Status: Acute (4) Hypotension Status: Acute (5) Urinary tract infection Status: Acute Comment Review of Relevant I have reviewed the following items yuliana (where applicable) has been applied. Labs Laboratory Tests Test 06/06/20 11:20 06/07/20 08:33 06/08/20 07:40 White Blood Count 6.0 x10^3/uL (4.0-11.0) 6.1 x10^3/uL (4.0-11.0) Red Blood Count 2.86 x10^6/uL (3.50-5.40) 2.82 x10^6/uL (3.50-5.40) Hemoglobin 9.7 g/dL (12.0-15.5) 9.6 g/dL (12.0-15.5) Hematocrit 28.9 % (36.0-47.0) 28.2 % (36.0-47.0) Mean Corpuscular Volume 101 fL (79-100) 100 fL (79-100) Mean Corpuscular Hemoglobin 34 pg (25-35) 34 pg (25-35) Mean Corpuscular Hemoglobin Concent 34 g/dL (31-37) 34 g/dL (31-37) Red Cell Distribution Width 16.7 % (11.5-14.5) 16.0 % (11.5-14.5) Platelet Count 96 x10^3/uL (140-400) 104 x10^3/uL (140-400) Neutrophils (%) (Auto) 40 % (31-73) 38 % (31-73) Lymphocytes (%) (Auto) 31 % (24-48) 37 % (24-48) Monocytes (%) (Auto) 10 % (0-9) 9 % (0-9) Eosinophils (%) (Auto) 19 % (0-3) 16 % (0-3) Basophils (%) (Auto) 1 % (0-3) 1 % (0-3) Neutrophils # (Auto) 2.4 x10^3/uL (1.8-7.7) 2.3 x10^3/uL (1.8-7.7) Lymphocytes # (Auto) 1.9 x10^3/uL (1.0-4.8) 2.2 x10^3/uL (1.0-4.8) Monocytes # (Auto) 0.6 x10^3/uL (0.0-1.1) 0.5 x10^3/uL (0.0-1.1) Eosinophils # (Auto) 1.1 x10^3/uL (0.0-0.7) 1.0 x10^3/uL (0.0-0.7) Basophils # (Auto) 0.0 x10^3/uL (0.0-0.2) 0.0 x10^3/uL (0.0-0.2) Sodium Level 140 mmol/L (136-145) 142 mmol/L (136-145) 138 mmol/L (136-145) Potassium Level 4.9 mmol/L (3.5-5.1) 5.0 mmol/L (3.5-5.1) 4.5 mmol/L (3.5-5.1) Chloride Level 111 mmol/L (98-107) 112 mmol/L (98-107) 108 mmol/L (98-107) Carbon Dioxide Level 23 mmol/L (21-32) 24 mmol/L (21-32) 25 mmol/L (21-32) Anion Gap 6 (6-14) 6 (6-14) 5 (6-14) Blood Urea Nitrogen 33 mg/dL (7-20) 29 mg/dL (7-20) 24 mg/dL (7-20) Creatinine 1.5 mg/dL (0.6-1.0) 1.5 mg/dL (0.6-1.0) 1.4 mg/dL (0.6-1.0) Estimated GFR (Cockcroft-Gault) 33.7 33.7 36.5 Glucose Level 95 mg/dL (70-99) 100 mg/dL (70-99) 85 mg/dL (70-99) Calcium Level 8.1 mg/dL (8.5-10.1) 7.7 mg/dL (8.5-10.1) 8.0 mg/dL (8.5-10.1) Total Bilirubin 1.6 mg/dL (0.2-1.0) Direct Bilirubin 0.8 mg/dL (0.0-0.2) Aspartate Amino Transf (AST/SGOT) 130 U/L (15-37) 176 U/L (15-37) Alanine Aminotransferase (ALT/SGPT) 67 U/L (14-59) 78 U/L (14-59) Alkaline Phosphatase 69 U/L (46-116) Total Protein 5.5 g/dL (6.4-8.2) Albumin 2.0 g/dL (3.4-5.0) 1.7 g/dL (3.4-5.0) 1.8 g/dL (3.4-5.0) Phosphorus Level 2.2 mg/dL (2.6-4.7) 2.7 mg/dL (2.6-4.7) Laboratory Tests Test 06/08/20 07:40 White Blood Count 6.1 x10^3/uL (4.0-11.0) Red Blood Count 2.82 x10^6/uL (3.50-5.40) Hemoglobin 9.6 g/dL (12.0-15.5) Hematocrit 28.2 % (36.0-47.0) Mean Corpuscular Volume 100 fL (79-100) Mean Corpuscular Hemoglobin 34 pg (25-35) Mean Corpuscular Hemoglobin Concent 34 g/dL (31-37) Red Cell Distribution Width 16.0 % (11.5-14.5) Platelet Count 104 x10^3/uL (140-400) Neutrophils (%) (Auto) 38 % (31-73) Lymphocytes (%) (Auto) 37 % (24-48) Monocytes (%) (Auto) 9 % (0-9) Eosinophils (%) (Auto) 16 % (0-3) Basophils (%) (Auto) 1 % (0-3) Neutrophils # (Auto) 2.3 x10^3/uL (1.8-7.7) Lymphocytes # (Auto) 2.2 x10^3/uL (1.0-4.8) Monocytes # (Auto) 0.5 x10^3/uL (0.0-1.1) Eosinophils # (Auto) 1.0 x10^3/uL (0.0-0.7) Basophils # (Auto) 0.0 x10^3/uL (0.0-0.2) Sodium Level 138 mmol/L (136-145) Potassium Level 4.5 mmol/L (3.5-5.1) Chloride Level 108 mmol/L (98-107) Carbon Dioxide Level 25 mmol/L (21-32) Anion Gap 5 (6-14) Blood Urea Nitrogen 24 mg/dL (7-20) Creatinine 1.4 mg/dL (0.6-1.0) Estimated GFR (Cockcroft-Gault) 36.5 Glucose Level 85 mg/dL (70-99) Calcium Level 8.0 mg/dL (8.5-10.1) Phosphorus Level 2.7 mg/dL (2.6-4.7) Aspartate Amino Transf (AST/SGOT) 176 U/L (15-37) Alanine Aminotransferase (ALT/SGPT) 78 U/L (14-59) Albumin 1.8 g/dL (3.4-5.0) Microbiology 06/02/20 Urine Culture - Final, Complete 06/02/20 Antimicrobic Susceptibility - Final, Complete 06/02/20 Blood Culture - Final, Complete NO GROWTH AFTER 5 DAYS Medications Current Medications Sodium Chloride 1,000 ml @ 1,000 mls/hr 1X ONCE IV Last administered on 06/02/20at 12:19; Start 06/02/20 at 12:00; Stop 06/02/20 at 12:59; Status DC Ceftriaxone Sodium (Rocephin) 1 gm 1X ONCE IVP Last administered on 06/02/20at 13:57; Start 06/02/20 at 13:45; Stop 06/02/20 at 13:46; Status DC Ondansetron HCl (Zofran) 4 mg PRN Q6HRS PRN IVP NAUSEA/VOMITING; Start 06/02/20 at 14:00 Al Hydroxide/Mg Hydroxide (Mylanta Plus Xs) 30 ml PRN Q3HRS PRN PO HEARTBURN / GAS; Start 06/02/20 at 14:00 Calcium Carbonate/ Glycine (Tums) 500 mg PRN Q3HRS PRN PO UPSET STOMACH; Start 06/02/20 at 14:00 Zolpidem Tartrate (Ambien) 5 mg PRN QHS PRN PO INSOMNIA, MAY REPEAT IN 1HR Last administered on 06/03/20at 20:16; Start 06/02/20 at 14:00 Acetaminophen (Tylenol) 650 mg PRN Q6HRS PRN PO Headaches, Temp > 101.5F; Start 06/02/20 at 14:00 Magnesium Hydroxide (Milk Of Magnesia) 2,400 mg PRN Q12HR PRN PO CONSTIPATION; Start 06/02/20 at 14:00 Bisacodyl (Dulcolax Supp) 10 mg PRN DAILY PRN ID CONSTIPATION; Start 06/02/20 at 14:00 Heparin Sodium (Porcine) (Heparin Sodium) 5,000 unit Q12HR SQ Last administered on 06/08/20at 08:37; Start 06/02/20 at 21:00 Ceftriaxone Sodium (Rocephin) 1 gm Q24H IVP Last administered on 06/05/20at 13:16; Start 06/03/20 at 14:00; Stop 06/05/20 at 14:01; Status DC Nicotine (Nicoderm Cq 21mg) 1 patch PRN DAILY PRN TD SMOKING CESSATION; Start 06/02/20 at 14:00 Nicotine (Nicoderm Cq 14mg) 1 patch PRN DAILY PRN TD SMOKING CESSATION; Start 06/02/20 at 14:00; Stop 06/03/20 at 11:25; Status DC Ondansetron HCl (Zofran) 4 mg PRN Q8HRS PRN IV NAUSEA/VOMITING; Start 06/02/20 at 14:30; Stop 06/03/20 at 11:26; Status DC Ascorbic Acid (Vitamin C) 500 mg BID PO Last administered on 06/08/20at 08:36; Start 06/02/20 at 21:00 Aspirin (Ecotrin) 81 mg DAILYWBKFT PO Last administered on 06/08/20at 08:36; Start 06/03/20 at 08:00 Atorvastatin Calcium (Lipitor) 40 mg QHS PO Last administered on 06/07/20at 19:47; Start 06/02/20 at 21:00 Carvedilol (Coreg) 3.125 mg BIDWMEALS PO Last administered on 06/08/20at 08:36; Start 06/02/20 at 17:00 Clopidogrel Bisulfate (Plavix) 75 mg DAILY07 PO Last administered on 06/08/20at 08:36; Start 06/03/20 at 07:00 Furosemide (Lasix) 40 mg DAILY PO Last administered on 06/03/20at 08:37; Start 06/03/20 at 09:00; Stop 06/03/20 at 12:34; Status DC Lactobacillus Rhamnosus (Culturelle) 1 cap BID PO Last administered on 06/08/20at 08:36; Start 06/02/20 at 21:00 Lisinopril (Prinivil) 20 mg DAILY PO Last administered on 06/03/20at 08:37; Start 06/03/20 at 09:00; Stop 06/03/20 at 12:06; Status DC Multivitamins (Thera M Plus) 1 tab DAILY PO Last administered on 06/08/20at 08:36; Start 06/03/20 at 09:00 Potassium Chloride (Klor-Con) 20 meq BIDWMEALS PO Last administered on 06/06/20at 17:37; Start 06/02/20 at 17:00 Thiamine Mononitrate (Vitamin B-1) 100 mg DAILY PO Last administered on 06/08/20at 08:36; Start 06/03/20 at 09:00 Sodium Chloride 1,000 ml @ 75 mls/hr [id number] IV Last administered on 06/05/20at 16:38; Start 06/03/20 at 12:15; Stop 06/05/20 at 18:03; Status DC Lorazepam (Ativan Inj) 0.5 mg PRN Q8HRS PRN IVP ANXIETY / AGITATION Last administered on 06/03/20at 22:28; Start 06/03/20 at 13:15 Amoxicillin/ Clavulanate Potassium (Augmentin 500/ 125mg) 0.5 tab BID PO Last administered on 06/08/20at 08:36; Start 06/05/20 at 15:00 Sodium Chloride 1,000 ml @ 75 mls/hr [id number] IV Last administered on 06/05/20at 18:31; Start 06/05/20 at 18:15 Sodium Phosphate 15 mmol/Sodium Chloride 105 ml @ 105 mls/hr 1X ONCE IV ; Start 06/07/20 at 17:00; Stop 06/07/20 at 17:59; Status DC Active Scripts Active Thera-M Tablet (Multivits,Ca,Minerals/Iron/Fa) 1 Each Tablet 1 Tab PO DAILY 30 Days Vitamin C (Ascorbic Acid) 500 Mg Tablet 500 Mg PO BID 30 Days Vitamin B-1 (Thiamine Mononitrate) 100 Mg Tablet 100 Mg PO DAILY 30 Days Folbic Tablet (Cyanocobalamin/Fa/Pyridoxine) 1 Each Tablet 1 Tab PO DAILY 30 Days Culturelle (Lactobacillus Rhamnosus Gg) 1 Each Cap.sprink 1 Cap PO BID 30 Days Amox Tr-K Clv 500-125 Mg Tab (Amoxicillin/Potassium Clav) 1 Each Tablet 1 Tab PO BID 7 Days Furosemide 40 Mg Tablet 40 Mg PO DAILY 30 Days Aspirin Ec (Aspirin) 81 Mg Tablet.dr 81 Mg PO DAILYWBKFT 30 Days Proair Hfa Inhaler (Albuterol Sulfate) 8.5 Gm Hfa.aer.ad 1 Puff INH PRN Q6HRS PRN Reported Lisinopril 20 Mg Tablet 1 Tab PO DAILY Lipitor (Atorvastatin Calcium) 40 Mg Tablet 1 Tab PO QHS Clopidogrel (Clopidogrel Bisulfate) 75 Mg Tablet 75 Mg PO DAILY Carvedilol (Carvedilol) 3.125 Mg Tablet 3.125 Mg PO BIDWMEALS Klor-Con M20 (Potassium Chloride) 20 Meq Tab.er.prt 20 Meq PO BID Vitals/I & O Vital Sign - Last 24 Hours 06/07/20 06/07/20 06/07/20 06/07/20 11:00 15:00 16:39 19:30 Temp 98.9 98.7 98.1 98.9 98.7 98.1 Pulse 69 68 68 67 Resp 17 18 18 B/P (MAP) 110/44 (66) 141/54 (83) 141/54 137/68 (91) Pulse Ox 92 93 100 O2 Delivery Room Air Room Air Room Air 06/07/20 06/07/20 06/08/20 06/08/20 20:15 22:44 03:30 07:52 Temp 98.2 98.5 98.6 98.2 98.5 98.6 Pulse 71 75 71 Resp 20 18 20 B/P (MAP) 126/50 (75) 133/48 (76) 134/43 (73) Pulse Ox 100 98 97 O2 Delivery Room Air Room Air Room Air 06/08/20 08:36 Pulse 71 B/P (MAP) 134/43 Intake and Output 06/07/20 06/07/20 06/08/20 15:00 23:00 07:00 Intake Total 380 ml 200 ml 100 ml Balance 380 ml 200 ml 100 ml Nutrition Consultation Dietary Evaluation: Recommendations by RD: Dietary education by RD, Increase Calorie Intake, Pro tein supplementation Comments: REC continue Cardiac diet and ensure pudding and enlive with lunch and dinners mvi and vit c are in place per wound protocal Expected Outcomes/Goals: to meet >75% est nutr needs- ongoing improved wound status Interpretation of weight loss: >5% in 1 month Malnutrition Findings: Food and Nutrition Intake (Sev: <50% est energy req 5days Body Fat Depletion (Non Severe: Mild Depletion Justicifation of Admission Dx: Justifications for Admission: Justification of Admission Dx: Yes SANJANA JAIMES MD Jun 08, 2020 10:04
[2020-06-08] MEDS ORDERED: ACET325T9 PO (11:27)
[2020-06-08] MEDS ORDERED: BISA10SU4 PR (11:27)
[2020-06-08] MEDS ORDERED: MAGN400O7 PO (11:27)
[2020-06-08] MEDS ORDERED: MAG30ORA2 PO (11:27)
[2020-06-08] MEDS ORDERED: Nicotine 21MG TD (11:27)
[2020-06-08] MEDS ORDERED: AMOX1TAB10 PO (11:27)
--- NOTE | 2020-06-08 11:28 | SNU/HH DC ---
DISCHARGE ORDERS DISCHARGE INFORMATION: FINAL DIAGNOSIS Problems Medical Problems: (1) Acute on chronic kidney failure Status: Acute (2) Confused Status: Acute (3) Elevated troponin Status: Acute (4) Hypotension Status: Acute (5) Urinary tract infection Status: Acute CONDITION ON DISCHARGE: Stable CODE STATUS: Code Status: Full INTERMEDIATE: SNF STAY <30 DAYS: Yes HOSPICE: HOSPICE: No HOSPICE EVAL & TREAT: No LTAC: ADMIT TO LTAC: No POST DISCHARGE ORDERS: ACTIVITY ORDERS: Activity as tolerated WEIGHT BEARING STATUS: As tolerated DIET AFTER DISCHARGE: Cardiac CHECKS AFTER DISCHARGE: CHECKS AFTER DISCHARGE: Check blood press - daily, Check your Temp as needed, Weigh Yourself Daily FOLLOW-UP: PHYSICIAN FOLLOW-UP: pcp at [facility] 2 days LAB ORDERS FOR FOLLOW-UP: cbc, bmp in 2 days TREATMENT/EQUIPMENT ORDERS: ADAPTIVE EQUIPMENT NEEDED: None Physical Therapy For: Evalulation/Treatment Occupational Therapy For: Evaluation/Treatment Speech Language Pathology For: Evaluation/Treatment DISCHARGE MEDICATIONS: Home Meds Active Scripts Magnesium Hydroxide (MILK OF MAGNESIA) 400 Mg/5 Ml Oral.susp, 2400 MG PO PRN Q12HR PRN for CONSTIPATION for 10 Days, #120 MISC Prov:SANJANA JAIMES MD 06/08/20 Bisacodyl (BISACODYL) 10 Mg Supp.rect, 10 MG UT PRN DAILY PRN for CONSTIPATION for 10 Days, #20 SUPP.RECT Prov:SANJANA JAIMES MD 06/08/20 Mag Hydrox/Al Hydrox/Simeth (MAG-AL PLUS XS SUSPENSION) 30 Ml Oral.susp, 30 ML PO PRN Q3HRS PRN for HEARTBURN / GAS for 10 Days, #120 MISC Prov:SANJANA JAIMES MD 06/08/20 Acetaminophen (TYLENOL) 325 Mg Tablet, 650 MG PO PRN Q6HRS PRN for Headaches, Temp > 101.5F for 30 Days, #60 TAB Prov:SANJANA JAIMES MD 06/08/20 [Nicotine 21MG] 1 PATCH PATCH No Conflict Check, 1 PATCH TD PRN DAILY PRN for SMOKING CESSATION for 30 Days, #30 Prov:SANJANA JAIMES MD 06/08/20 Amoxicillin/Potassium Clav (AMOX TR-K CLV 500-125 MG TAB) 1 Each Tablet, 0.5 TAB PO BID for infection for 7 Days, #7 TAB Prov:SANJANA JAIMES MD 06/08/20 Multivits,Ca,Minerals/Iron/Fa (THERA-M TABLET) 1 Each Tablet, 1 TAB PO DAILY for supplement for 30 Days, #30 TAB Prov:SANJANA JAIMES MD 05/06/20 Ascorbic Acid (VITAMIN C) 500 Mg Tablet, 500 MG PO BID for supplement for 30 Days, #60 TAB Prov:SANJANA JAIMES MD 05/06/20 Thiamine Mononitrate (VITAMIN B-1) 100 Mg Tablet, 100 MG PO DAILY for supplement for 30 Days, #30 TAB Prov:SANJANA JAIMES MD 05/06/20 Cyanocobalamin/Fa/Pyridoxine (FOLBIC TABLET) 1 Each Tablet, 1 TAB PO DAILY for supplement for 30 Days, #30 TAB Prov:SANJANA JAIMES MD 05/06/20 Lactobacillus Rhamnosus Gg (CULTURELLE) 1 Each Cap.sprink, 1 CAP PO BID for supplement for 30 Days, #60 CAP Prov:SANJANA JAIMES MD 05/06/20 Aspirin (ASPIRIN EC) 81 Mg Tablet.dr, 81 MG PO DAILYWBKFT for coronary artery disease for 30 Days, #30 TAB.SR 2 Refills Prov:KATIE WALKER [employer] 11/03/18 Albuterol Sulfate (PROAIR HFA INHALER) 8.5 Gm Hfa.aer.ad, 1 PUFF INH PRN Q6HRS PRN for SHORTNESS OF BREATH, #1 INHALER 0 Refills Prov:JONATHAN HOLGUIN DO 06/22/16 Reported Medications Atorvastatin Calcium (LIPITOR) 40 Mg Tablet, 1 TAB PO QHS for , #90 TAB 1 Refill 11/01/18 Clopidogrel Bisulfate (CLOPIDOGREL) 75 Mg Tablet, 75 MG PO DAILY for TO PREVENT BLOOD CLOTS, #30 TAB 0 Refills 11/01/18 Carvedilol (CARVEDILOL ) 3.125 Mg Tablet, 3.125 MG PO BIDWMEALS for CARDIAC, TAB 11/01/18 Potassium Chloride (KLOR-CON M20) 20 Meq Tab.er.prt, 20 MEQ PO BID for , TAB.SR 11/01/18 Discontinued Reported Medications Lisinopril (LISINOPRIL) 20 Mg Tablet, 1 TAB PO DAILY for blood pressure, #30 TAB 5 Refills 03/31/19 Discontinued Scripts Amoxicillin/Potassium Clav (AMOX TR-K CLV 500-125 MG TAB) 1 Each Tablet, 1 TAB PO BID for infection for 7 Days, #14 TAB Prov:SANJANA JAIMES MD 05/06/20 Furosemide (FUROSEMIDE) 40 Mg Tablet, 40 MG PO DAILY for heart failure for 30 Days, #30 TAB 2 Refills Prov:KATIE WALKER APRN 11/03/18 SANJANA JAIMES MD Jun 08, 2020 11:28
[2020-06-08 11:59] VITALS: BP 150/56
[2020-06-08] MEDS: IV 1/2 NORMAL SALINE 1,000 ML IV SCH (12:55)
[2020-06-08 15:59] VITALS: BP 130/42
--- NOTE | 2020-06-20 22:18 | PDOC3 ---
Discharge Summary Date of Admission: Jun 02, 2020 Date of Discharge: Jun 08, 2020 Follow-Up: 1-2 days, 3-5 days Admitting Diagnosis comment: discharge dx =- DATE OF ADMIT 06-02-20 DATE OF DISCHARGE 06-08-20 D/C TO SNF COMPLICATIONS NONE CONSULTATIONS, PULMONARY, NEPHROLOGY, GI D/C MEDS SEE MAR FOLLOW UP SNF PCP TODAY,NEPHROLOGY 3 WEEKS, GI [address] HEAD, TELE D/C PROGNOSIS FAIR Assessment/Plan Hypotension Metabolic encephalopathy, slow to improve Dehydration ACE Vasomotor nephropathy CR 1.4 , acute UTI, PROTEUS Jaundice Elevated bilirubin Chronic sacral ulcer Severe malnutrition Plan: D/C LISINOPRIL Will admit patient and and provide IV fluids. Rocephin 1 g daily x3 for UTI THEN PO AUGMENTIN Continue to trend troponins, likely elevated in setting of CKD. If troponins to not remain stable, will consult cardiology for further work-up Patient would not process //order wound care to continue treatment of sacral ulcer Resume home medications consult GI for recommendations on evaluation of jaundice and elevated bilirubin Will obtain right upper quadrant ultrasound Patient's current mental status could be due secondary to progressive dementia; had discussion with patient's daughters that there is a chance this may not improve with medical treatment, and they conveyed understanding. FEN - Cardiac diet PPX - Heparin DNR Dispo - inpatient for above nephrology FOLLOWING Macrocytic anemia (normal B12), ACE/CKD, elevated bili and AST Hepatic steatosis, no GB visualized on US - family says no h/o cholecystectomy CAD, cardiomyopathy, ECHO 06/05 reviewed 34 min pt exam, chart review d/c planning , > 50% of time spent with exam, chart review, pt care coordination Justifications for Admission Justifications for Admission Other Justification History of Present Illness History of Present Illness Identification/Chief Complaint Chief Complaint Hypotension, lethargy Source Source: Chart review, Patient History of Present Illness History of Present Illness Patient 75-year-old female past medical history of CHF, CAD, [facility] for evaluation of hypotension and lethargy that started ON DAY OF ADMIT Patient was recently admitted to our service on 05/02/20 for acute metabolic encephalopathy. Creatinine at the time was 1.2. Today creatinine 2.3. She currently has no complaints. Troponin was elevated at 0.163, but she denies chest pain, nausea, or shortness of breath. I discussion with both patient's daughters her joint DPOA. They note progressively worsening dementia over the past months. They also note worsening yellowing of her skin over the past weeks. State that they would like patient's CODE STATUS changed to DNR. We will get patient for further medical management. Past Medical History Cardiovascular: CAD, HTN, Hyperlipidemia, Other Pulmonary: COPD, Pneumonia CENTRAL NERVOUS SYSTEM: Other GI: No pertinent hx Heme/Onc: No pertinent hx Hepatobiliary: No pertinent hx Psych: No pertinent hx Musculoskeletal: low back pain, Osteoarthritis Infectious disease: No pertinent hx Renal/: No pertinent hx Endocrine: No pertinent hx Past Surgical History Past Surgical History: Cataract Removal Family History Family History: High Cholestrol, Hypertension Social History ALCOHOL: none Drugs: None Current Problem List Problem List Problems Medical Problems: (1) Hypotension Status: Acute Vitals Vitals Vital Signs Date Time Temp Pulse Resp B/P (MAP) Pulse Ox O2 Delivery O2 Flow Rate FiO2 06/08/20 08:36 71 134/43 06/08/20 07:52 98.6 20 97 Room Air 98.6 Physical Exam Physical Exam General: Alert, oriented x2 (person and president), uncooperative, mild distress HEENT: PERRLA, EOMI Lungs: Clear to auscultation, Normal air movement Heart: RRR, no murmurs Cardiovascular: S1, S2 Abdomen: Normal bowel sounds, Soft, No tenderness Extremities: No clubbing, No cyanosis Skin: Skin appears yellow. Sacral bandage clean, dry, and intact Neuro: Normal speech, Normal tone, Sensation intact Psych/Mental Status: Confused, agitated General: Alert, Cooperative, No acute distress, Other (NOT VERY COOPERATIVE) Heart: Regular rate, Normal S1 Lungs: Clear, Other Abdomen: Normal bowel sounds, Soft Extremities: No clubbing, No cyanosis FINAL DIAGNOSIS Problems Medical Problems: (1) Acute on chronic kidney failure Status: Acute (2) Confused Status: Acute (3) Elevated troponin Status: Acute (4) Hypotension Status: Acute (5) Urinary tract infection Status: Acute Brief Hospital Course Ms. Florian is a 75 old [sex] who presented with [ ] CONDITION AT DISCHARGE: Improved Discharge Medications Current Medications Sodium Chloride 1,000 ml @ 1,000 mls/hr 1X ONCE IV Last administered on 06/02/20at 12:19; Start 06/02/20 at 12:00; Stop 06/02/20 at 12:59; Status DC Ceftriaxone Sodium (Rocephin) 1 gm 1X ONCE IVP Last administered on 06/02/20at 13:57; Start 06/02/20 at 13:45; Stop 06/02/20 at 13:46; Status DC Ondansetron HCl (Zofran) 4 mg PRN Q6HRS PRN IVP NAUSEA/VOMITING; Start 06/02/20 at 14:00; Stop 06/08/20 at 20:07; Status DC Al Hydroxide/Mg Hydroxide (Mylanta Plus Xs) 30 ml PRN Q3HRS PRN PO HEARTBURN / GAS; Start 06/02/20 at 14:00; Stop 06/08/20 at 20:07; Status DC Calcium Carbonate/ Glycine (Tums) 500 mg PRN Q3HRS PRN PO UPSET STOMACH; Start 06/02/20 at 14:00; Stop 06/08/20 at 20:07; Status DC Zolpidem Tartrate (Ambien) 5 mg PRN QHS PRN PO INSOMNIA, MAY REPEAT IN 1HR Last administered on 06/03/20at 20:16; Start 06/02/20 at 14:00; Stop 06/08/20 at 20:07; Status DC Acetaminophen (Tylenol) 650 mg PRN Q6HRS PRN PO Headaches, Temp > 101.5F; Start 06/02/20 at 14:00; Stop 06/08/20 at 20:07; Status DC Magnesium Hydroxide (Milk Of Magnesia) 2,400 mg PRN Q12HR PRN PO CONSTIPATION; Start 06/02/20 at 14:00; Stop 06/08/20 at 20:07; Status DC Bisacodyl (Dulcolax Supp) 10 mg PRN DAILY PRN [place] CONSTIPATION; Start 06/02/20 at 14:00; Stop 06/08/20 at 20:07; Status DC Heparin Sodium (Porcine) (Heparin Sodium) 5,000 unit Q12HR SQ Last administered on 06/08/20at 08:37; Start 06/02/20 at 21:00; Stop 06/08/20 at 20:07; Status DC Ceftriaxone Sodium (Rocephin) 1 gm Q24H IVP Last administered on 06/05/20at 13:16; Start 06/03/20 at 14:00; Stop 06/05/20 at 14:01; Status DC Nicotine (Nicoderm Cq 21mg) 1 patch PRN DAILY PRN TD SMOKING CESSATION; Start 06/02/20 at 14:00; Stop 06/08/20 at 20:07; Status DC Nicotine (Nicoderm Cq 14mg) 1 patch PRN DAILY PRN TD SMOKING CESSATION; Start 06/02/20 at 14:00; Stop 06/03/20 at 11:25; Status DC Ondansetron HCl (Zofran) 4 mg PRN Q8HRS PRN IV NAUSEA/VOMITING; Start 06/02/20 at 14:30; Stop 06/03/20 at 11:26; Status DC Ascorbic Acid (Vitamin C) 500 mg BID PO Last administered on 06/08/20at 08:36; Start 06/02/20 at 21:00; Stop 06/08/20 at 20:07; Status DC Aspirin (Ecotrin) 81 mg DAILYWBKFT PO Last administered on 06/08/20at 08:36; Start 06/03/20 at 08:00; Stop 06/08/20 at 20:07; Status DC Atorvastatin Calcium (Lipitor) 40 mg QHS PO Last administered on 06/07/20at 19:47; Start 06/02/20 at 21:00; Stop 06/08/20 at 20:07; Status DC Carvedilol (Coreg) 3.125 mg BIDWMEALS PO Last administered on 06/08/20at 08:36; Start 06/02/20 at 17:00; Stop 06/08/20 at 20:07; Status DC Clopidogrel Bisulfate (Plavix) 75 mg DAILY07 PO Last administered on 06/08/20at 08:36; Start 06/03/20 at 07:00; Stop 06/08/20 at 20:07; Status DC Furosemide (Lasix) 40 mg DAILY PO Last administered on 06/03/20at 08:37; Start 06/03/20 at 09:00; Stop 06/03/20 at 12:34; Status DC Lactobacillus Rhamnosus (Culturelle) 1 cap BID PO Last administered on 06/08/20at 08:36; Start 06/02/20 at 21:00; Stop 06/08/20 at 20:07; Status DC Lisinopril (Prinivil) 20 mg DAILY PO Last administered on 06/03/20at 08:37; Start 06/03/20 at 09:00; Stop 06/03/20 at 12:06; Status DC Multivitamins (Thera M Plus) 1 tab DAILY PO Last administered on 06/08/20at 08:36; Start 06/03/20 at 09:00; Stop 06/08/20 at 20:07; Status DC Potassium Chloride (Klor-Con) 20 meq BIDWMEALS PO Last administered on 06/06/20at 17:37; Start 06/02/20 at 17:00; Stop 06/08/20 at 20:07; Status DC Thiamine Mononitrate (Vitamin B-1) 100 mg DAILY PO Last administered on 06/08/20at 08:36; Start 06/03/20 at 09:00; Stop 06/08/20 at 20:07; Status DC Sodium Chloride 1,000 ml @ 75 mls/hr [id number] IV Last administered on 06/05/20at 16:38; Start 06/03/20 at 12:15; Stop 06/05/20 at 18:03; Status DC Lorazepam (Ativan Inj) 0.5 mg PRN Q8HRS PRN IVP ANXIETY / AGITATION Last administered on 06/03/20at 22:28; Start 06/03/20 at 13:15; Stop 06/08/20 at 20:07; Status DC Amoxicillin/ Clavulanate Potassium (Augmentin 500/ 125mg) 0.5 tab BID PO Last administered on 06/08/20at 08:36; Start 06/05/20 at 15:00; Stop 06/08/20 at 20:07; Status DC Sodium Chloride 1,000 ml @ 75 mls/hr [id number] IV Last administered on 06/05/20at 18:31; Start 06/05/20 at 18:15; Stop 06/08/20 at 20:07; Status DC Sodium Phosphate 15 mmol/Sodium Chloride 105 ml @ 105 mls/hr 1X ONCE IV ; Start 06/07/20 at 17:00; Stop 06/07/20 at 17:59; Status DC Active Scripts Active Milk Of Magnesia (Magnesium Hydroxide) 400 Mg/5 Ml Oral.susp 2,400 Mg PO PRN Q12HR PRN 10 Days Bisacodyl 10 Mg Supp.rect 10 Mg WA PRN DAILY PRN 10 Days Mag-Al Plus Xs Suspension (Mag Hydrox/Al Hydrox/Simeth) 30 Ml Oral.susp 30 Ml PO PRN Q3HRS PRN 10 Days Tylenol (Acetaminophen) 325 Mg Tablet 650 Mg PO PRN Q6HRS PRN 30 Days [Nicotine 21MG] 1 PATCH Patch 1 Patch TD PRN DAILY PRN 30 Days Amox Tr-K Clv 500-125 Mg Tab (Amoxicillin/Potassium Clav) 1 Each Tablet 0.5 Tab PO BID 7 Days Thera-M Tablet (Multivits,Ca,Minerals/Iron/Fa) 1 Each Tablet 1 Tab PO DAILY 30 Days Vitamin C (Ascorbic Acid) 500 Mg Tablet 500 Mg PO BID 30 Days Vitamin B-1 (Thiamine Mononitrate) 100 Mg Tablet 100 Mg PO DAILY 30 Days Folbic Tablet (Cyanocobalamin/Fa/Pyridoxine) 1 Each Tablet 1 Tab PO DAILY 30 Days Culturelle (Lactobacillus Rhamnosus Gg) 1 Each Cap.sprink 1 Cap PO BID 30 Days Aspirin Ec (Aspirin) 81 Mg Tablet.dr 81 Mg PO DAILYWBKFT 30 Days Proair Hfa Inhaler (Albuterol Sulfate) 8.5 Gm Hfa.aer.ad 1 Puff INH PRN Q6HRS PRN Reported Lipitor (Atorvastatin Calcium) 40 Mg Tablet 1 Tab PO QHS Clopidogrel (Clopidogrel Bisulfate) 75 Mg Tablet 75 Mg PO DAILY Carvedilol (Carvedilol) 3.125 Mg Tablet 3.125 Mg PO BIDWMEALS Klor-Con M20 (Potassium Chloride) 20 Meq Tab.er.prt 20 Meq PO BID Allergies Allergies Coded Allergies Type Severity Reaction Last Updated Verified No Known Drug Allergies 04/18/15 No Justicifation of Admission Dx: Justifications for Admission: Justification of Admission Dx: Yes SANJANA JAIMES MD Jun 20, 2020 22:18
[2020-10-15] MEDS ORDERED: AMLO-187 PO (12:00)
[2020-10-15] MEDS ORDERED: METO25TA4 PO (12:00)
[2020-10-15] MEDS ORDERED: LIDO700A21 TD (12:00)
[2020-10-23] MEDS ORDERED: OLAN2.5T3 PO/SL (01:18)
[2020-10-28] MEDS ORDERED: HYDR-2765 PO (14:38)
== END 2020-06-08 19:30 | DRG 871 ==
LOC: ER 11:46 → 5 NORTH 13:50
PROVIDERS: ADMIT Family Medicine; ATTEND Family Medicine
DX: A41.9 Sepsis, unspecified organism (principal); G93.41 Metabolic encephalopathy; N17.0 Acute kidney failure with tubular necrosis; E43 Unspecified severe protein-calorie malnutrition; K83.1 Obstruction of bile duct; N39.0 Urinary tract infection, site not specified; I13.0 Hypertensive heart and chronic kidney disease with heart failure and stage 1 through stage 4 chronic kidney disease, or unspecified chronic kidney disease; I24.8 Other forms of acute ischemic heart disease; I42.8 Other cardiomyopathies; E87.0 Hyperosmolality and hypernatremia; I50.22 Chronic systolic (congestive) heart failure; J44.0 Chronic obstructive pulmonary disease with (acute) lower respiratory infection; I95.9 Hypotension, unspecified; E86.0 Dehydration; L98.429 Non-pressure chronic ulcer of back with unspecified severity; B96.4 Proteus (mirabilis) (morganii) as the cause of diseases classified elsewhere; D53.9 Nutritional anemia, unspecified; E78.00 Pure hypercholesterolemia, unspecified; E78.5 Hyperlipidemia, unspecified; E83.39 Other disorders of phosphorus metabolism; F03.90 Unspecified dementia, unspecified severity, without behavioral disturbance, psychotic disturbance, mood disturbance, and anxiety; F41.9 Anxiety disorder, unspecified; G93.89 Other specified disorders of brain; I25.10 Atherosclerotic heart disease of native coronary artery without angina pectoris; K76.0 Fatty (change of) liver, not elsewhere classified; N18.30 Chronic kidney disease, stage 3 unspecified; Z20.822 Contact with and (suspected) exposure to COVID-19; Z66 Do not resuscitate; Z82.49 Family history of ischemic heart disease and other diseases of the circulatory system; Z87.891 Personal history of nicotine dependence; Z98.61 Coronary angioplasty status; M19.90 Unspecified osteoarthritis, unspecified site; Z90.49 Acquired absence of other specified parts of digestive tract; Z68.24 Body mass index [BMI] 24.0-24.9, adult
CPT/HCPCS: 36415; 70450; 71045; 76705; 80048; 80053; 80069; 80076; 81001; 82140; 82248; 82553; 83605; 83735; 84450; 84460; 84484; 85007; 85025; 85027; 85610; 85730; 87040; 87077; 87086; 87186; 93005; 93306; 96361; 96374; J0696; J1644; J2060; J3490; J7030; P9612; U0003; 97110-GP; 97116-GP; 97530-GO; 97530-GP; 97535-GO; 99285-25; G0378

== ENCOUNTER 2020-10-30 20:00 | Inpatient (IN) | payer OTHER ==
[~2020-10-30] VITALS: Ht 162.6 cm; Wt 63.0 kg
[2020-10-30 19:00] VITALS: BP 130/65
[~2020-10-30 20:00] MED LIST changes: +ACET325T9 PO; +AMLO-187 PO; +BISA10SU4 PR; +HYDR-2765 PO; +LIDO700A21 TD; +MAG30ORA2 PO; +MAGN400O7 PO; +METO25TA4 PO; +Nicotine 21MG TD; +OLAN2.5T3 PO/SL
--- NOTE | 2020-10-30 20:00 | NUR ---
Patient converted to inpatient hospice. Daughter at bedside
[2020-10-31] MEDS ORDERED: GLYCOPYRROLATE 1 MG/5 ML VIAL. IV PRN (00:30)
[2020-10-31] MEDS ORDERED: HALOPERIDOL LACTATE 5 MG/ML VIAL. IVP PRN ×2 (00:30)
[2020-10-31] MEDS ORDERED: SCOPOLAMINE 1.5MG PATCH. TD PRN (00:30)
[2020-10-31] MEDS ORDERED: ONDANSETRON PF 4 MG/2 ML VIAL. IVP PRN (00:30)
[2020-10-31] MEDS ORDERED: ACETAMINOPHEN 650 MG SUPP.RECT. PR PRN (00:30)
[2020-10-31] MEDS ORDERED: ATROPINE 1% OPHTH SOLUTION 5ML BOTTLE. SL PRN (00:30)
[2020-10-31] MEDS ORDERED: IV NORMAL SALINE 1000ML BAG 1,000 ML IV SCH ×2 (00:30→00:45)
[2020-10-31] MEDS ORDERED: 0.9 % SODIUM CHLORIDE 10 ML DISP.SYRIN. IV PRN (00:30)
[2020-10-31] MEDS: IV NORMAL SALINE 1000ML BAG 1,000 ML IV SCH ×2 (00:30→23:57)
[2020-10-31] MEDS ORDERED: MORPHINE SULFATE 30 ML IV PRN (00:45)
--- NOTE | 2020-10-31 06:53 | PDOC1 ---
History and Physical Date of Admission Date of Admission DATE: 10/31/20 TIME: 06:47 Identification/Chief Complaint Chief Complaint Hypoxic respiratory failure, dysphagia Source Source: Caregiver, Chart review History of Present Illness History of Present Illness Ms Florian is a 75-year-old female w/ PMHx newly diagnosed dementia, CAD; s/p PCI/LAUREN to LCx , Hypertension, Hyperlipidemia, Chronic LBBB, CHF with EF of 50% admitted from [facility] care facility due to hip and back pain, found with right hip fracture. She was at [facility], but was in her wheelchair and they were trying to [place] her something then she reached out and fell onto the floor. She was eventually transferred to [place] and then went to [facility] where it was clear she was not previously wheelchair bound and was unable to stand without severe right hip and back pain. Initially admitted with orthopedic surgery consulted. Had ORIF right hip on 10/25/2020, no perioperative complications. Continued to have hypoxia, refusing therapies post-operatively, required transfusion for anemia, continued to have worsening hypoxia and dysphagia, started on IV nutrition, transfused, however due to the patient's dementia and motivation for rehab, she likely will have a poor prognosis. Family offered to be in the room 14/12 to assist in encouraging patient to comply with care but had already had a previously planned meeting with hospice on 10/30/2020 and moved forward with this Despite patient with good surgical outcome they have requested due to her comorbidities including her advancing dementia they would like to pursue hospice care. Given she is confused and having dysphagia and has signs of pneumonia and hypoxia unable to get nutrition she was admitted to inpatient hospice. 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 More comfortable. Tachycardic. Afebrile. D/w daughter bedside Past Medical History Cardiovascular: Other Pulmonary: COPD, Pneumonia CENTRAL NERVOUS SYSTEM: Dementia, Other GI: No pertinent hx Heme/Onc: No pertinent hx Hepatobiliary: No pertinent hx Psych: No pertinent hx Infectious disease: No pertinent hx Renal/: Chronic renal insuff Endocrine: No pertinent hx Past Surgical History Past Surgical History: Cataract Removal Family History Family History: Other Social History ALCOHOL: none Drugs: None Current Medications Current Medications Current Medications Atropine Sulfate (Isopto Atropine) 1 drop PRN Q2HR PRN SL SECRETIONS; Start 10/31/20 at 00:30 Sodium Chloride 1,000 ml @ 30 mls/hr Q24H IV ; Start 10/31/20 at 00:30 Lorazepam (Ativan Inj) 2 mg PRN Q4HRS PRN IVP ANXIETY / AGITATION; Start 10/31/20 at 00:30 Haloperidol Lactate (Haldol Inj) 1 mg PRN Q2HRS PRN IVP AGITATION, SEVERE DELIRIUM; Start 10/31/20 at 00:30 Scopolamine (Transderm-Scop) 1 patch PRN Q72HRS PRN TD SECRETIONS; Start 10/31/20 at 00:30 Glycopyrrolate (Robinul) 0.2 mg PRN Q4HRS PRN IV SECRETIONS; Start 10/31/20 at 00:30 Haloperidol Lactate (Haldol Inj) 1 mg PRN Q2HRS PRN IVP SEVERE DELIRIUM; Start 10/31/20 at 00:30; Stop 10/31/20 at 00:30; Status DC Ondansetron HCl (Zofran) 4 mg PRN Q6HRS PRN IVP NAUSEA/VOMITING, 1st CHOICE; Start 10/31/20 at 00:30 Acetaminophen (Tylenol Supp) 650 mg PRN Q6HRS PRN [place] MILD PAIN/TEMP >100.4; Start 10/31/20 at 00:30 Sodium Chloride (Normal Saline Flush) 10 ml QSHIFT PRN IV AFTER MEDS AND BLOOD DRAWS; Start 10/31/20 at 00:30 Sodium Chloride 1,000 ml @ 25 mls/hr Q24H IV ; Start 10/31/20 at 00:30; Stop 10/31/20 at 00:43; Status DC Sodium Chloride 1,000 ml @ 25 mls/hr Q24H IV ; Start 10/31/20 at 00:45 Morphine Sulfate 30 ml @ 0 mls/hr CONT PRN PRN IV PER PROTOCOL; Start 10/31/20 at 00:45 Active Scripts Active Lidocaine PATCH (Lidocaine) 1 Each Adh..patch 1 Patch TD DAILY 30 Days Amlodipine Besylate 10 Mg Tablet 10 Mg PO DAILY 30 Days Metoprolol Tartrate 25 Mg Tablet 37.5 Mg PO BID 30 Days Milk Of Magnesia (Magnesium Hydroxide) 400 Mg/5 Ml Oral.susp 2,400 Mg PO PRN Q12HR PRN 10 Days Tylenol (Acetaminophen) 325 Mg Tablet 650 Mg PO PRN Q6HRS PRN 30 Days Aspirin Ec (Aspirin) 81 Mg Tablet.dr 81 Mg PO DAILYWBKFT 30 Days Proair Hfa Inhaler (Albuterol Sulfate) 8.5 Gm Hfa.aer.ad 1 Puff INH PRN Q6HRS PRN Reported Zyprexa (Olanzapine) 2.5 Mg Tablet 2.5 Mg PO/SL DAILY Lipitor (Atorvastatin Calcium) 40 Mg Tablet 1 Tab PO QHS Clopidogrel (Clopidogrel Bisulfate) 75 Mg Tablet 75 Mg PO DAILY Allergies Allergies: Coded Allergies: No Known Drug Allergies (Unverified , 04/18/15) ROS Review of System Unable to obtain, not verbally responding Physical Exam General: Cooperative, mild distress HEENT: Atraumatic, PERRLA, EOMI, Mucous membr. moist/pink Lungs: Other (Bilateral crackles) Heart: S1S2, no thrills, no rubs Abdomen: Normal bowel sounds, Soft, No tenderness, No hepatosplenomegaly, No masses Rectal Exam: not examined Extremities: No clubbing, No cyanosis, No edema, Normal pulses, No tenderness/ swelling Skin: No rashes, No breakdown, No significant lesion Neuro: Normal tone, Sensation intact, Cranial nerves 3-12 NL, Reflexes 2+ Psych/Mental Status: Other (Obtunded) Vitals Vitals Vital Signs Date Time Temp Pulse Resp B/P (MAP) Pulse Ox O2 Delivery O2 Flow Rate FiO2 10/30/20 20:05 Nasal Cannula 9.0 10/30/20 19:00 138 18 130/65 (86) 97 VTE Prophylaxis Ordered VTE Prophylaxis Devices: No VTE Pharmacological Prophylaxi: No Assessment/Plan Assessment/Plan A/P: Acute hypoxic respiratory failure - diastolic CHF and pneumonia. Now on palliative O2, off CHF medications and off antibiotics for hospice care ACE due to vasomotor nephropathy Hx of CKD Ascites Dementia Severe protein malnutrition CAD; s/p PCI/LAUREN to LCx . Hypertension Hyperlipidemia; statin Chronic LBBB CHF with EF of 50% on May 2020 Nonacute impaction fracture at the right femoral neck with impaction up to 12 mm status post ORIF 10/25/2020 Osteopenia. Mild right hip arthrosis. Fall FEN - comfort feeds PPX - q2hr turns CODE - DNR/DNI Dispo - inpatient hospice care indicated, unable to swallow. Justifications for Admission Other Justification Metabolic encephalopathy, ACE, Dehydration, UTI ELIZABETH CURRAN MD Oct 31, 2020 06:53
[2020-10-31 07:00] VITALS: BP 148/48
[2020-10-31 19:20] VITALS: BP 154/40
--- NOTE | 2020-11-01 06:43 | PDOC3 ---
Discharge Summary Visit Information Date of Admission: Oct 30, 2020 Date of Discharge: Nov 01, 2020 Admitting Diagnosis: Acute hypoxic respiratory failure, dementia Final Diagnosis Acute hypoxic respiratory failure, dementia Brief Hospital Course Allergies Allergies Coded Allergies Type Severity Reaction Last Updated Verified No Known Drug Allergies 04/18/15 No Vital Signs Vital Signs Date Time Temp Pulse Resp B/P (MAP) Pulse Ox O2 Delivery O2 Flow Rate FiO2 10/31/20 21:50 18 99 Nasal Cannula 8.0 10/31/20 19:20 97.7 139 154/40 (78) 97.7 Brief Hospital Course Ms Florian is a 75-year-old female w/ PMHx newly diagnosed dementia, CAD; s/p PCI/LAUREN to LCx , Hypertension, Hyperlipidemia, Chronic LBBB, CHF with EF of 50% admitted from [facility] facility due to hip and back pain, found with right hip fracture. She was at [facility], but was in her wheelchair and they were trying to hand her something then she reached out and fell onto the floor. She was eventually transferred to [place] and then went to [facility] where it was clear she was not previously wheelchair bound and was unable to stand without severe right hip and back pain. Initially admitted with orthopedic surgery consulted. Had ORIF right hip on 10/25/2020, no perioperative complications. Continued to have hypoxia, refusing therapies post-operatively, required transfusion for anemia, continued to have worsening hypoxia and dysphagia, started on IV nutrition, transfused, however due to the patient's dementia and motivation for rehab, she likely will have a poor prognosis. Family offered to be in the room 14/12 to assist in encouraging patient to comply with care but had already had a previously planned meeting with hospice on 10/30/2020 and moved f orward with this Despite patient with good surgical outcome they have requested due to her comorbidities including her advancing dementia they would like to pursue hospice care. Given she is confused and having dysphagia and has signs of pneumonia and hypoxia unable to get nutrition she was admitted to inpatient hospice. 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 More comfortable. Tachycardic. Afebrile. D/w daughter bedside She was found pulseless with no spontaneous respiratory activity at 0530 on 11/01/2020 for time of . Problem list: Acute hypoxic respiratory failure - diastolic CHF and pneumonia. Now on pall iative O2, off CHF medications and off antibiotics for hospice care ACE due to vasomotor nephropathy Hx of CKD Ascites Dementia Severe protein malnutrition CAD; s/p PCI/LAUREN to LCx . Hypertension Hyperlipidemia; statin Chronic LBBB CHF with EF of 50% on May 2020 Nonacute impaction fracture at the right femoral neck with impaction up to 12 mm status post ORIF 10/25/2020 Osteopenia. Mild right hip arthrosis. Fall Less than 30 minutes spent on day of patient expiration Discharge Information Condition at Discharge: / Disposition/Orders: Scheduled Amlodipine Besylate (Amlodipine Besylate) 10 Mg Tablet, 10 MG PO DAILY for BLOOD PRESSURE for 30 Days, #30 Prescribed by: SANJANA JAIMES MD on 10/15/20 1200 Aspirin (Aspirin Ec) 81 Mg Tablet.dr, 81 MG PO DAILYWBKFT for coronary artery disease for 30 Days, #30 Ref 2 Prescribed by: KATIE WALKER APRN on 11/03/18 1508 Atorvastatin Calcium (Lipitor) 40 Mg Tablet, 1 TAB PO QHS for , #90 Ref 1 (Reported) Entered as Reported by: NATALEE HOLT RN on 11/01/18 1321 Clopidogrel Bisulfate (Clopidogrel) 75 Mg Tablet, 75 MG PO DAILY for TO PREVENT BLOOD CLOTS, #30 Ref 0 (Reported) Entered as Reported by: NATALEE HOLT RN on 11/01/18 1321 Lidocaine (Lidocaine PATCH ) 1 Each Adh..patch, 1 PATCH TD DAILY for PAIN for 30 Days, #30 Prescribed by: SANJAAN JAIMES MD on 10/15/20 1200 Metoprolol Tartrate (Metoprolol Tartrate) 25 Mg Tablet, 37.5 MG PO BID for BLOOD PRESSURE for 30 Days, #90 Prescribed by: SANJANA JAIMES MD on 10/15/20 1200 Olanzapine (Zyprexa) 2.5 Mg Tablet, 2.5 MG PO/SL DAILY for agitation, (Reported) Entered as Reported by: ABILIO CUTLER on 10/23/20 0118 Scheduled PRN Acetaminophen (Tylenol) 325 Mg Tablet, 650 MG PO PRN Q6HRS PRN for Headaches, Temp > 101.5F for 30 Days, #60 Prescribed by: SANJANA JAIMES MD on 06/08/20 1127 Albuterol Sulfate (Proair Hfa Inhaler) 8.5 Gm Hfa.aer.ad, 1 PUFF INH PRN Q6HRS PRN for SHORTNESS OF BREATH, #1 Ref 0 Prescribed by: JONATHAN HOLGUIN D.O. on 06/22/16 1754 Magnesium Hydroxide (Milk Of Magnesia) 400 Mg/5 Ml Oral.susp, 2,400 MG PO PRN Q12HR PRN for CONSTIPATION for 10 Days, #120 Prescribed by: SANJANA JAIMES MD on 06/08/20 1127 Justicifation of Admission Dx: Justifications for Admission: Justification of Admission Dx: Yes ELIZABETH CURRAN MD Nov 01, 2020 06:43
[2020-11-01 07:00] VITALS: BP 94/50
--- NOTE | 2020-11-01 10:11 | NUR ---
Patient was tagged, bagged, and taken [facility] around 0800. She was transferred to [facility] around 0810.
== END 2020-11-01 09:29 | DRG 682 ==
LOC: 4 NORTH 20:00
PROVIDERS: ADMIT Internal Medicine; ATTEND Internal Medicine
DX: N17.0 Acute kidney failure with tubular necrosis (principal); J96.01 Acute respiratory failure with hypoxia; J18.9 Pneumonia, unspecified organism; S72.91XA Unspecified fracture of right femur, initial encounter for closed fracture; E43 Unspecified severe protein-calorie malnutrition; I13.0 Hypertensive heart and chronic kidney disease with heart failure and stage 1 through stage 4 chronic kidney disease, or unspecified chronic kidney disease; I50.30 Unspecified diastolic (congestive) heart failure; J44.0 Chronic obstructive pulmonary disease with (acute) lower respiratory infection; R18.8 Other ascites; E78.5 Hyperlipidemia, unspecified; E86.0 Dehydration; F03.90 Unspecified dementia, unspecified severity, without behavioral disturbance, psychotic disturbance, mood disturbance, and anxiety; I25.10 Atherosclerotic heart disease of native coronary artery without angina pectoris; I44.7 Left bundle-branch block, unspecified; M16.11 Unilateral primary osteoarthritis, right hip; N18.9 Chronic kidney disease, unspecified; Z51.5 Encounter for palliative care; Z66 Do not resuscitate; Z79.02 Long term (current) use of antithrombotics/antiplatelets; Z79.899 Other long term (current) drug therapy; Z98.61 Coronary angioplasty status; M85.80 Other specified disorders of bone density and structure, unspecified site; Z99.3 Dependence on wheelchair; X58.XXXA Exposure to other specified factors, initial encounter; Y93.89 Activity, other specified; Y92.89 Other specified places as the place of occurrence of the external cause; Y99.8 Other external cause status
CPT/HCPCS: J2270; J3490; J7030; G0378